=== PATIENT | female | born 1945 | race Caucasian/White ===

== ENCOUNTER 2018-12-23 01:50 | Emergency (ER) | payer OTHER ==
[2018-12-23] MEDS ORDERED: NA CHLORIDE 0.9% 500 ML ONE (02:12)
[2018-12-23] MEDS ORDERED: dilTIAZem HCl 25 MG/5 ML VIAL IV ONE (02:13)
[2018-12-23 02:20] LABS: Absolute Lymphocytes (CBC) 1.6 K/uL (0.7-4.9); Basophils % 0.8 % (0-1.3); Hematocrit 41.5 % (36.0-45.0); Lymphocytes % 33.3 % (15.3-44.8); RBC Red Blood Cell Count 4.46 M/uL (3.86-4.86)
[2018-12-23 02:21] LABS: Protime INR 2.2
[2018-12-23 02:45] LABS: BUN Blood Urea Nitrogen 20 mg/dL (7-18); Bicarbonate 32 mmol/L (21-32); Glucose Level 98 mg/dL (74-106); Magnesium 2.1 mg/dL (1.8-2.4); NT PRO-BNP 216 pg/mL (<125); Potassium 3.7 mmol/L (3.5-5.1); Sodium Level 141 mmol/L (136-145); Troponin (Emerg Dept Use Only) < 0.02 ng/mL (0.0-0.045)
--- NOTE | 2018-12-23 04:35 | EDPHYS ---
Physician Documentation [facility] Name: Jaki Andres Age: 73 yrs Sex: Female : 1945 Arrival Date: 12/23/2018 Time: 01:51 Bed 4 Private MD: ED Physician Alexandru Tucker HPI: 12/23 02:09 This 73 yrs old Female presents to ER via Unassigned with complaints of Chest rn Pressure, palpitations. 02:09 The patient or guardian reports chest pain that is located primarily in the substernal rn area. Onset: just prior to arrival. The pain radiates to Associated signs and symptoms: Pertinent positives: palpitations, Pertinent negatives: abdominal pain, cough, diaphoresis, shortness of breath, syncope, vomiting. The chest pain is described as a heaviness. Duration: The patient or guardian reports a single episode, that is still ongoing. Modifying factors: The symptoms are alleviated by nothing. the symptoms are aggravated by nothing. Severity of pain: At its worst the pain was moderate in the emergency department the pain has improved. The patient has experienced similar episodes in the past. Reports has known hx of atrial fibrillation, is visiting family because renovating house, playing cards, when felt chest tightness and palpitations, no fever, took a flecainide at home, given cardizem by EMS, feels better, no current chest pain. Takes xarelto and plavix. . 02:09 Reports just taken off of metoprolol by her engraver signature for bradycardic episodes. . rn Historical: - Allergies: 02:17 No Known Allergies; fc - Home Meds: 02:17 Plavix 75 mg Oral tab 1 tab once daily [Active]; lisinopril 5 mg Oral tab 1 tab once fc daily [Active]; pantoprazole 40 mg oral TbEC 1 tab once daily [Active]; ropinirole 0.5 mg oral tab 1 tab bid prn [Active]; tramadol 50 mg Oral tab 1 tab as needed [Active]; Xarelto 20 mg oral tab 1 tab once daily [Active]; temazepam 15 mg Oral cap 1 cap nightly [Active]; atorvastatin 10 mg oral tab 1 tab once daily [Active]; Iron CR Oral daily [Active]; Vitamin D Oral 2000 unit daily [Active]; Vitamin B-12 1,000 mcg Oral tab daily [Active]; multivitamin oral tab daily [Active]; - PMHx: 02:17 Atrial Fib; Myocardial infarction; CPR on Jan 24, 2018; Hypertension; restless leg fc syndrome; Factor V; Irritable bowel syndrome; Blood Clots; Sarcoidosis; High Cholesterol; - PSHx: 02:17 Heart stents; Cholecystectomy; Breast Reduction; Hysterectomy; feet surg; fc - Immunization history:: Last tetanus immunization: up to date Flu vaccine is up to date. - Social history:: Smoking status: Patient/guardian denies using tobacco, Patient/guardian denies using alcohol, street drugs. - Ebola Screening: : Patient negative for fever greater than or equal to 101.5 degrees Fahrenheit, and additional compatible Ebola Virus Disease symptoms Patient denies exposure to infectious person Patient denies travel to an Ebola-affected area in the 21 days before illness onset. - Family history:: not pertinent. - Hospitalizations: : No recent hospitalization is reported. ROS: 02:09 Constitutional: Negative for fever, chills, and weight loss, Eyes: Negative for injury, rn pain, redness, and discharge, Neck: Negative for injury, pain, and swelling, Cardiovascular: Negative for edema Respiratory: Negative for shortness of breath, cough, wheezing, and pleuritic chest pain, Abdomen/GI: Negative for abdominal pain, nausea, vomiting, diarrhea, and constipation, MS/Extremity: Negative for injury and deformity, Skin: Negative for injury, rash, and discoloration, Neuro: Negative for headache, weakness, numbness, tingling, and seizure. Exam: 02:08 ECG was reviewed by the Attending Physician. rn 02:09 Constitutional: This is a well developed, well nourished patient who is awake, alert, rn and in no acute distress. Head/Face: Normocephalic, atraumatic. ENT: MMM Cardiovascular: Tachycardic, regular Respiratory: Lungs have equal breath sounds bilaterally, clear to auscultation. No increased work of breathing, no retractions or nasal flaring. Abdomen/GI: soft, non-tender MS/ Extremity: Pulses equal, no cyanosis. Neurovascular intact. Full, normal range of motion. Equal circumference. Neuro: Awake and alert, GCS 15, oriented to person, place, time, and situation. Cranial nerves II-XII grossly intact. Motor strength 5/5 in all extremities. Sensory grossly intact. Cerebellar exam normal. Vital Signs: 01:50 BP 148 / 87; Pulse 126; Resp 20; Temp 97.2(O); Pulse Ox 99% on R/A; Weight 74.39 kg fc (R); Height 5 ft. 6 in. (167.64 cm) (R); Pain 1/10; 02:48 BP 117 / 73; Pulse 53; Resp 16; Pulse Ox 100% on R/A; Pain 0/10; ao 03:30 BP 108 / 72; Pulse 57; Resp 16; Pulse Ox 100% on R/A; Pain 0/10; lp1 04:00 BP 119 / 68; Pulse 60; Resp 14; Pulse Ox 100% on R/A; lp1 04:30 BP 101 / 50; Pulse 56; Resp 15; Pulse Ox 100% on R/A; lp1 05:28 BP 107 / 63; Pulse 55; Resp 14; Pulse Ox 98% on R/A; lp1 01:50 Body Mass Index 26.47 (74.39 kg, 167.64 cm) fc MDM: 01:55 Patient medically screened. rn 02:34 ED course: Pt asymptomatic, feels much better, HR now around 100, irregular, with some rn sinus beats. . 03:23 ED course: Pt asymptomatic, converted back to sinus, neg trop, repeat ECG in 50s, and rn rate related changes infero-lateral have resolved. Patient requests to go back home, convinced her to stay for repeat trop and ecg, and if normal can go home. Is going home tomorrow and urged her to talk to her engraver signature regarding metoprolol. . 03:25 Differential diagnosis: coronary artery disease pericarditis, pleurisy, atrial rn fibrillation/flutter. The patient was not given aspirin in the Emergency Department. Data reviewed: vital signs, nurses notes, lab test result(s), EKG, radiologic studies, plain films. Test interpretation: by ED physician or midlevel provider: ECG, plain radiologic studies, CXR neg for acute infiltrate or pneumothorax. Counseling: I had a detailed discussion with the patient and/or guardian regarding: the historical points, exam findings, and any diagnostic results supporting the discharge/admit diagnosis, lab results, radiology results. Response to treatment: the patient's condition has returned to base line, the patient is now symptom free. 12/23 02:04 Order name: Basic Metabolic Panel; Complete Time: 02:48 rn 12/23 02:04 Order name: CBC with Diff; Complete Time: 02:48 rn 12/23 02:04 Order name: Magnesium; Complete Time: 02:48 rn 12/23 02:04 Order name: NT PRO-BNP; Complete Time: 02:48 rn 12/23 02:04 Order name: PT-INR; Complete Time: 02:48 rn 12/23 02:04 Order name: Troponin (emerg Dept Use Only); Complete Time: 02:48 rn 12/23 02:04 Order name: XRAY Chest (1 view) rn 12/23 02:04 Order name: EKG; Complete Time: 02:04 rn 12/23 02:04 Order name: Cardiac monitoring; Complete Time: 02:04 rn 12/23 02:04 Order name: EKG - Nurse/Tech; Complete Time: 02:04 rn 12/23 03:24 Order name: Troponin (emerg Dept Use Only): draw at 0430; Complete Time: 05:20 rn 12/23 03:25 Order name: EK; Complete Time: 03:26 rn 12/23 02:04 Order name: IV Saline Lock; Complete Time: 02:04 rn 12/23 02:04 Order name: Labs collected and sent; Complete Time: 02:04 rn 12/23 02:04 Order name: O2 Per Protocol; Complete Time: 02:04 rn 12/23 02:04 Order name: O2 Sat Monitoring; Complete Time: 02:04 rn 12/23 03:25 Order name: EKG - Nurse/Tech: 0430; Complete Time: 04:44 rn EC:08 Rate is 128 beats/min. Rhythm is regular. QRS [place] is Normal. ME interval is shortened. rn QT interval is normal. No Q waves. ST Segment is depressed in leads II, III, aVF, V4, V5, V6. Clinical impression: Atrial Flutter. Interpreted by me. Reviewed by me. Administered Medications: 02:21 Drug: Cardizem 20 mg Route: IVP; Site: right antecubital; ao 03:28 Follow up: Response: No adverse reaction ao 02:21 Drug: NS 0.9% 500 ml Route: IV; Rate: bolus; Site: right antecubital; ao 03:28 Follow up: IV Status: Completed infusion; IV Intake: 500ml ao Disposition: 12/23/18 04:34 Discharged to Home. Impression: Atrial fibrillation and flutter, Chest pain, unspecified. - Condition is Stable. - Discharge Instructions: Atrial Fibrillation, Nonspecific Chest Pain, Atrial Flutter. - Medication Reconciliation Form, Thank You Letter, Antibiotic Education, Prescription Opioid Use form. - Follow up: Private Physician; When: 2 - 3 days; Reason: Recheck today's complaints, Re-evaluation by your physician. - Problem is new. - Symptoms have improved. Signatures: Dispatcher [employer] EDMS Farzana Brady RN RN Alexandru Tukcer MD MD rn Pena, Laura, RN RN lp1 Tobias Rolle RN RN ao Corrections: (The following items were deleted from the chart) 05:29 04:34 12/23/2018 04:34 Discharged to Home. Impression: Atrial fibrillation and flutter; lp1 Chest pain, unspecified. Condition is Stable. Discharge Instructions: Atrial Fibrillation, Nonspecific Chest Pain, Atrial Flutter. Forms are Medication Reconciliation Form, Thank You Letter, Antibiotic Education, Prescription Opioid Use. Follow up: Private Physician; When: 2 - 3 days; Reason: Recheck today's complaints, Re-evaluation by your physician. Problem is new. Symptoms have improved. eric
--- NOTE | 2018-12-23 04:35 | ER ---
Nurse's Notes [facility] Name: Jaki Andres Age: 73 yrs Sex: Female : 1945 Arrival Date: 12/23/2018 Time: 01:51 Bed 4 Private MD: Diagnosis: Atrial fibrillation and flutter;Chest pain, unspecified Presentation: 12/23 01:50 Presenting complaint: Patient states: that she was just finishing playing cards with family members and started to have chest pressure that radiated to her jaw. She then realized she was in Afib. Pt is here from [place]. States that she saw her dr yesterday and he stopped her Metoprolol. Pt did take a Flecainide which she has prn. Transition of care: patient was not received from another setting of care. Onset of symptoms was December 23, 2018. Risk Assessment: Do you want to hurt yourself or someone else? Patient reports no desire to harm self or others. Initial Sepsis Screen: Does the patient meet any 2 criteria? HR > 90 bpm. Yes Does the patient have a suspected source of infection? No. Patient's initial sepsis screen is negative. Care prior to arrival: Medication(s) given: Normal saline infusion, 200 ml Nitroglycerin, 0.4 mg SL x 1, Cardizem 20 mg IVP IV initiated. 20 GA, in the right antecubital area. 01:50 Method Of Arrival: EMS: [facility] 02:04 Acuity: [id number] 3 Historical: - Allergies: 02:17 No Known Allergies; - Home Meds: 02:17 Plavix 75 mg Oral tab 1 tab once daily [Active]; lisinopril 5 mg Oral tab 1 tab once fc daily [Active]; pantoprazole 40 mg oral TbEC 1 tab once daily [Active]; ropinirole 0.5 mg oral tab 1 tab bid prn [Active]; tramadol 50 mg Oral tab 1 tab as needed [Active]; Xarelto 20 mg oral tab 1 tab once daily [Active]; temazepam 15 mg Oral cap 1 cap nightly [Active]; atorvastatin 10 mg oral tab 1 tab once daily [Active]; Iron CR Oral daily [Active]; Vitamin D Oral 2000 unit daily [Active]; Vitamin B-12 1,000 mcg Oral tab daily [Active]; multivitamin oral tab daily [Active]; - PMHx: 02:17 Atrial Fib; Myocardial infarction; CPR on Jan 24, 2018; Hypertension; restless leg fc syndrome; Factor V; Irritable bowel syndrome; Blood Clots; Sarcoidosis; High Cholesterol; - PSHx: 02:17 Heart stents; Cholecystectomy; Breast Reduction; Hysterectomy; feet surg; fc - Immunization history:: Last tetanus immunization: up to date Flu vaccine is up to date. - Social history:: Smoking status: Patient/guardian denies using tobacco, Patient/guardian denies using alcohol, street drugs. - Ebola Screening: : Patient negative for fever greater than or equal to 101.5 degrees Fahrenheit, and additional compatible Ebola Virus Disease symptoms Patient denies exposure to infectious person Patient denies travel to an Ebola-affected area in the 21 days before illness onset. - Family history:: not pertinent. - Hospitalizations: : No recent hospitalization is reported. Screenin:50 Abuse screen: Denies threats or abuse. Nutritional screening: No deficits noted. fc Tuberculosis screening: No symptoms or risk factors identified. Fall Risk None identified. Assessment: 02:10 General: Appears in no apparent distress. comfortable, well groomed, well developed, ao well nourished, Behavior is calm, cooperative, appropriate for age. Pain: Denies pain. Pain does not radiate. Pain began 2 hours ago. Neuro: Level of Consciousness is awake, alert, obeys commands, Oriented to person, place, time, situation, Appropriate for age Moves all extremities. Full function Speech is normal, Facial symmetry appears normal. Cardiovascular: Heart tones S1 S2 Capillary refill < 3 seconds Patient's skin is warm and dry. Cardiovascular: Reports since Chest pressure and palpitations. Respiratory: Airway is patent Respiratory effort is even, unlabored, Respiratory pattern is regular, symmetrical, Breath sounds are clear bilaterally. GI: Abdomen is non-distended. : No signs and/or symptoms were reported regarding the genitourinary system. EENT: No signs and/or symptoms were reported regarding the EENT system. Derm: Skin is intact, Skin is pink, warm \T\ dry. normal, Skin temperature is warm. 02:30 Reassessment: Patient converted to SB after Cardizem given dose and taking to Dr Tucker. ao 02:49 Reassessment: Patient appears in no apparent distress at this time. Patient and/or ao family updated on plan of care and expected duration. Pain level reassessed. Patient is alert, oriented x 3, equal unlabored respirations, skin warm/dry/pink. Patient in no distress at this time. 03:30 Reassessment: Patient appears in no apparent distress at this time. Patient and/or lp1 family updated on plan of care and expected duration. Pain level reassessed. Patient is alert, oriented x 3, equal unlabored respirations, skin warm/dry/pink. Patient denies pain at this time. Patient states feeling better. 04:30 Reassessment: Dr. Tucker at bedside to discuss results and plan of care with patient and lp1 family at bedside; Patient aware of pending discharge when troponin results. Vital Signs: 01:50 BP 148 / 87; Pulse 126; Resp 20; Temp 97.2(O); Pulse Ox 99% on R/A; Weight 74.39 kg fc (R); Height 5 ft. 6 in. (167.64 cm) (R); Pain 1/10; 02:48 BP 117 / 73; Pulse 53; Resp 16; Pulse Ox 100% on R/A; Pain 0/10; ao 03:30 BP 108 / 72; Pulse 57; Resp 16; Pulse Ox 100% on R/A; Pain 0/10; lp1 04:00 BP 119 / 68; Pulse 60; Resp 14; Pulse Ox 100% on R/A; lp1 04:30 BP 101 / 50; Pulse 56; Resp 15; Pulse Ox 100% on R/A; lp1 05:28 BP 107 / 63; Pulse 55; Resp 14; Pulse Ox 98% on R/A; lp1 01:50 Body Mass Index 26.47 (74.39 kg, 167.64 cm) ED Course: 01:50 Arm band placed on Patient placed in an exam room, on a stretcher. 01:50 Patient has correct armband on for positive identification. hospital monitor on. Pulse fc ox on. NIBP on. 01:50 Maintain EMS IV. Dressing intact. Good blood return noted. Site clean \T\ dry. Gauge \T\ fc site: 20 gauge to right a/c. 01:51 Patient arrived in ED. ds1 01:55 Alexandru Tucker MD is Attending Physician. rn 02:04 Tobias Rolle, RN is Primary Nurse. ao 02:10 Triage completed. fc 02:23 Patient maintains SpO2 saturation greater than 95% on room air. ao 02:47 XRAY Chest (1 view) In Process Unspecified. EDMS 03:31 Report given to ABE Capone. ao 04:35 Lab(s) recollected, by me, sent to lab. lp1 04:35 No provider procedures requiring assistance completed. lp1 04:40 Estelita Chaves RN is Primary Nurse. lp1 05:29 IV discontinued, No redness/swelling at site. Pressure dressing applied. lp1 Administered Medications: 02:21 Drug: Cardizem 20 mg Route: IVP; Site: right antecubital; ao 03:28 Follow up: Response: No adverse reaction ao 02:21 Drug: NS 0.9% 500 ml Route: IV; Rate: bolus; Site: right antecubital; ao 03:28 Follow up: IV Status: Completed infusion; IV Intake: 500ml ao Intake: 03:28 IV: 500ml; Total: 500ml. ao Outcome: 04:34 Discharge ordered by . rn 05:29 Discharged to home ambulatory, with family. lp1 05:29 Condition: good 05:29 Discharge instructions given to patient, Instructed on discharge instructions, follow up and referral plans. Demonstrated understanding of instructions, follow-up care. 05:29 Patient left the ED. lp1 Signatures: Dispatcher [employer] EDTX Farzana Brady RN RN [facility] Alexandru Tucker MD MD rn Pena, Laura, RN RN lp1 Tobias Rolle RN RN ao Corrections: (The following items were deleted from the chart) 02:53 02:30 Reassessment: Patient converted to SB after cardian given dose and taking to Dr paige Tucker. ao
[2018-12-23 05:34] VITALS: TEMP 97.2
[2018-12-23 05:40] VITALS: BP 107/63; O2SAT 98
--- NOTE | 2018-12-23 08:31 | RAD REPORT ---
EXAM DESCRIPTION: Trudi Single View12/23/2018 2:47 am CLINICAL HISTORY: Chest pain COMPARISON: 2013 FINDINGS: The lungs appear clear of acute infiltrate. The heart is normal size IMPRESSION: No acute abnormalities displayed
--- NOTE | 2018-12-23 09:33 | EKG ---
Test Date: 2018-12-23 Test Time: 04:31:54 Die Try Out Worker: WES MEASUREMENT RESULTS: Intervals: Rate: 56 ND: 124 QRSD: 100 QT: 458 QTc: 441 [place]: P: 65 ND: 124 QRS: -6 T: 30 INTERPRETIVE STATEMENTS: Sinus bradycardia Incomplete right bundle branch block Borderline ECG Compared to ECG 12/23/2018 02:39:16 Myocardial infarct finding no longer present Electronically Signed On 12-23-18 09:32:47 CDT by Huey Valente
--- NOTE | 2018-12-23 09:34 | EKG ---
Test Date: 2018-12-23 Test Time: 02:00:45 Personnel Research Scientist: WES MEASUREMENT RESULTS: Intervals: Rate: 128 IA: QRSD: 92 QT: 352 QTc: 513 [place]: P: 264 IA: QRS: 8 T: -78 INTERPRETIVE STATEMENTS: Atrial flutter with 2:1 AV conduction Incomplete right bundle branch block Marked ST abnormality, possible inferolateral subendocardial injury Abnormal ECG Compared to ECG 05/07/1999 12:10:00 Incomplete right bundle-branch block now present ST (T wave) deviation now present Sinus rhythm no longer present T-wave abnormality no longer present Electronically Signed On 12-23-18 09:33:01 CDT by Huey Valente
--- NOTE | 2018-12-23 09:34 | EKG ---
Test Date: 2018-12-23 Test Time: 02:39:16 Meter Reading Clerk: WES MEASUREMENT RESULTS: Intervals: Rate: 49 OH: 144 QRSD: 96 QT: 462 QTc: 417 [place]: P: 51 OH: 144 QRS: -1 T: 17 INTERPRETIVE STATEMENTS: Sinus bradycardia Incomplete right bundle branch block Cannot rule out Anterior infarct, age undetermined Abnormal ECG Compared to ECG 12/23/2018 02:00:45 Myocardial infarct finding now present Atrial flutter no longer present ST (T wave) deviation no longer present Electronically Signed On 12-23-18 09:32:58 CDT by Huey Valente
== END 2018-12-23 05:29 | disposition home or self-care (01) ==
LOC: ER 01:50
DX: R07.9 Chest pain, unspecified (principal); I48.91 Unspecified atrial fibrillation; I48.92 Unspecified atrial flutter; I10 Essential (primary) hypertension; I25.2 Old myocardial infarction
CPT/HCPCS: 96361; 93005 ×3; 85025; 80048; 36415; 83735; 85610; 84484 ×2; 83880; 71045; 96374; 99285; J7040

== ENCOUNTER 2020-03-04 13:01 | Emergency (ER) | payer SELFPAY ==
--- OUTSIDE RECORDS SUMMARY | 2020-03-04 13:04 | XMS REPORT | Continuity of Care Document ---
:1945 Author Organization [employer] Care Team Providers Name Role Phone [employer] Unavailable Un available Problems Problem Status Onset Classification Date Comments Sourc e Date Reported Allergic Active Problem 10/01/2019 Ashesh rhinitis, Martins unspecified seasonality, unspecified trigger Chronic Active Problem 10/01/2019 Ashesh obstructive Martins pulmonary disease, unspecified COPD type Medications No Data Provided for This Section Allergies, Adverse Reactions, Alerts No Known Medication Allergies Immunizations No Data Provided for This Section Results No Data Provided for This Section Pathology Reports No Data Provided for This Section Diagnostic Reports No Data Provided for This Section Consultation Notes No Data Provided for This Section Discharge Summaries No Data Provided for This Section History and Physicals No Data Provided for This Section Vital Signs No Data Provided for This Section Encounters No Data Provided for This Section Procedures No Data Provided for This Section Assessment and Plan No Data Provided for This Section Plan of Care No Data Provided for This Section Social History No Data Provided for This Section Family History No Data Provided for This Section Advance Directives No Data Provided for This Section Functional Status No Data Provided for This Section
--- OUTSIDE RECORDS SUMMARY | 2020-03-04 13:04 | XMS REPORT | Continuity of Care Document ---
:1945 Author Organization [facility] t Address [address] [place] [address] Care Team Providers Name Role Phone Gamaliel Alvarez MD Primary Care Physician Pau MANZANO RDanielle Attending Clinician Payers Payer Name Policy Type Policy Effective Date Expiration Date Sour ce Number MEDICAREMEDICARE PART [id number] 2012 Valdemar kal A AND 00:00:00 Baptism [id number] 2012[place] [id number] 2000 [place] HMO,POS,EPO, 00:00:00 Baptism MC/[id number]/03/29 00-PresentHMO Problems Condition Condition Condition Status Onset Resolution Last Treating Co mments Source Name Details Category Date Date Treatment Clinician Date Atrial Atrial Disease Active 2019-03 [place] fibrillati fibrillati 2- Ga eseodi on on 00:00: st 00 Stented Stented Disease Active 2019-03 [place] coronary coronary 2 Method i artery artery 00:00: st 00 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 disease disease 00:00: st involving involving 00 [place] coronary coronary artery of artery of [place] heart heart without without angina angina pectoris pectoris Allergic Problem Active 2019-10-01 Mem oria rhinitis, 02:45:07 l unspecifie Allergic He agusto d rhinitis, seasonalit unspecifie y, d unspecifie seasonalit d trigger y, unspecifie d trigger Active Problem 10/01/2019 Ashesh Martins Chronic Problem Active 2019-10-01 Gonzalo patrice obstructiv 02:45:07 l e Chronic [place] pulmonary obstructiv disease, e unspecifie pulmonary d COPD disease, type unspecifie d COPD type Active Problem 10/01/2019 Ashesh Martins Allergies, Adverse Reactions, Alerts Allergy Allergy Status Severity Reaction(s) Onset Inactive Treating Comm ents Source Name Type Date Date Clinician No Known DA Active U 2011-03 [facility] 008 [facility] Social History Social Habit Start Date Stop Date Quantity Comments Source History [facility] Meth odist Alcohol Std Drinks History [facility] Meth odist Alcohol Binge Sex Assigned At [place] M ethodist Alcohol intake 2020-02-08 2020-02-08 Lifetime [place] Me thodist 00:00:00 00:00:00 non-drinker (finding) History SDOH 2020-02-08 2020-02-08 1 [place] Meth odist Alcohol Frequency 00:00:00 00:00:00 Smoking Status Start Date Stop Date Source Never smoker [place] Methodis t Medications Ordered Filled Start Stop Current Ordering Indication Dosage Frequency Signature Comments Components Source Medication Medication Date Date Medication? Clinician (SIG) Name Name multivitami 2019-03 Yes Take by Alexia wang 04-10 mouth. Methodi (THERAGRAN) 14:58: st tablet 27 cholecalcif 2019-03 Yes Take by Alexia callahan gudelia, 04-10 mouth. [facility] vitamin D3, 14:58: st 50 mcg 27 (2,000 unit) capsule capsule rivaroxaban 2019-03 Yes 20mg Take 20 mg Lai (Xarelto) 04-10 by mouth. Metho di 20 mg 14:58: st tablet 27 rivaroxaban 2019-03 2020- 20mg Take 20 mg Lai (XARELTO) 04-10 by mouth. Meth christian 10 mg 14:58: 00:00 st tablet 27 :00 traZODone 2019-03 Yes 50mg QD Take 50 mg Valdemar bowden (DESYREL) 0 by mouth Method i 50 MG 00:00: nightly. st tablet 00 lisinopriL 2019-03 Yes 5mg QD Take 5 mg [place] (PRINIVIL) 0-02 by mouth Metho di 5 mg tablet 00:00: daily. st 00 atorvastati Yes TAKE 1 [place] (LIPITOR) 9-02 TABLET BY Met hodi 80 MG 00:00: MOUTH st tablet 00 EVERY DAY aspirin Yes 81mg Take 81 mg [place] (ECOTRIN) 2-10 by mouth. Metho di 81 MG 00:00: st enteric 00 coated tablet pantoprazol 2018-03 Yes 40mg Take 40 mg Hoyt e 0-14 by mouth. Methodi (PROTONIX) 00:00: st 40 MG EC 00 tablet Vital Signs Vital Name Observation Time Observation Value Comments Source Systolic blood 2020-02-08 14:57:00 120 mm[Hg] Uzairto n Baptism pressure Diastolic blood 2020-02-08 14:57:00 63 mm[Hg] Uzairt on Baptism pressure Heart rate 2020-02-08 14:57:00 71 /min Lai Norton Body height 2020-02-08 14:57:00 165.1 cm Lai Norton Body weight 2020-02-08 14:57:00 74.844 kg Lai Norton BMI 2020-02-08 14:57:00 27.46 kg/m2 Lai Norton Procedures Procedure Date / Time Performed Performing Clinician Sourc e ECG 12-LEAD 2020-02-08 16:00:13 Salo Mai odrosa Plan of Care Planned Activity Planned Date Details Comments Source Future Scheduled 2019-10-09 INFLUENZA VACCINE Uzairto n [facility] Test 00:00:00 [code = INFLUENZA VACCINE] Future Scheduled 1997-09-11 BREAST CANCER [facility] thodist Test 00:00:00 SCREENING [code = BREAST CANCER SCREENING] Future Scheduled 1997-09-11 COLONOSCOPY SCREENING felisa Baptism Test 00:00:00 [code = COLONOSCOPY SCREENING] Future Scheduled 1997-09-11 SHINGLES VACCINES [place] [facility] Test 00:00:00 (#1) [code = SHINGLES VACCINES (#1)] Future Scheduled 1963 COVID-19 VACCINE (#1) [place] Baptism Test 00:00:00 [code = COVID-19 VACCINE (#1)] Encounters Start End Encounter Admission Attending Care Care Encounter Source Date/Time Date/Time Type Type Clinicians Facility Department ID 2020-02-08 2020-02-08 Outpatient [facility] [id number] [place] 00:00:00 00:00:00 SALO [address] 2019-09-30 2019-09-30 Outpatient Pulmonary Pulmonary 202 226 [facility]inic 11:09:00 11:09:00 Critical Critical alWo rks Care and Care and Sleep Sleep Results Test Description Test Time Test Comments Results Result Comments Source ECG 12 lead 2020-02-09 08:09:24 Test Item Value Reference Range Interpretation Comme nts Ventricular rate (test code = 253) 68 Atrial rate (test code = 255) 68 ME interval (test code = 266) 146 QRSD interval (test code = 260) 86 QT interval (test code = 264) 416 QTC interval (test code = 265) 442 P axis 1 (test code = 267) 72 QRS axis 1 (test code = 268) 20 T wave axis (test code = 270) 33 EKG impression (test code = 273) Normal sinus rhythm-Nonspecific ST abnormality-Abnormal ECG-No previous ECGs available- Lai Norton
--- OUTSIDE RECORDS SUMMARY | 2020-03-04 13:04 | XMS REPORT | Clinical Summary ---
:1945 Author Organization [facility] Address [address] [place] [address] Care Team Providers Name Role Phone Saji Alvarez MD Primary Care Provider Allergies Not on File Medications Medication Sig Dispensed Refills Start Date End Date Status multivitamin Take by 0 Active (THERAGRAN) tablet mouth. aspirin (ECOTRIN) Take 81 mg 0 04/19/2019 Active 81 MG enteric by mouth. coated tablet atorvastatin TAKE 1 0 11/10/2019 Active (LIPITOR) 80 MG TABLET BY tablet MOUTH EVERY DAY cholecalciferol, Take by 0 Act vika vitamin D3, 50 mcg mouth. (2,000 unit) capsule capsule lisinopriL Take 5 mg by 0 12/10/2019 Activ e (PRINIVIL) 5 mg mouth daily. tablet traZODone Take 50 mg 0 01/04/2020 Active (DESYREL) 50 MG by mouth tablet nightly. pantoprazole Take 40 mg 0 12/21/2018 Activ e (PROTONIX) 40 MG by mouth. EC tablet rivaroxaban Take 20 mg 0 Active (Xarelto) 20 mg by mouth. tablet rivaroxaban Take 20 mg 0 Discont inued (XARELTO) 10 mg by mouth. 0 (For mulary tablet change) Active Problems Problem Noted Date Atrial fibrillation 02/08/2020 Stented coronary artery 02/08/2020 Coronary artery disease involving [place] coronary mandeep ry of [place] heart 02/08/2020 without angina pectoris Encounters Date Type Specialty Care Team Description 02/08/2020 Office Visit Cardiology Hugh Mai MD Coronary artery disease involving [place] coronary artery of [place] heart without angina pectoris (Primary Dx); Atrial fibrilla tion, unspecified type (HCC); Stented coronar y artery 01/19/2020 Travel 12/02/2019 Travel after 03/04/2019 Medical History Medical History Date Comments Hyperlipidemia Coronary artery disease Factor V Leiden (HCC) Abnormal blood cardiolipin ratio Heart attack (HCC) Atrial fibrillation (HCC) Social History Tobacco Use Types Packs/Day Years Used Date Never Smoker Alcohol Use Drinks/Week oz/Week Comments Never Alcohol Habits Answer Date Recorded How often do you have a drink containing alcohol? Never 02/08/2020 How many drinks containing alcohol do you have on a typical Not asked day when you are drinking? How often do you have six or more drinks on one occasion? 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 Pulse 71 02/08/2020 2:57 PM DATA CENTER ENGINEER Temperature - - Respiratory Rate - - Oxygen Saturation - - Inhaled Oxygen Concentration - - Weight 74.8 kg (165 lb) 02/08/2020 2:57 PM DATA CENTER ENGINEER Height 165.1 cm (5' 5") 02/08/2020 2:57 PM DATA CENTER ENGINEER Body Mass Index 27.46 02/08/2020 2:57 PM DATA CENTER ENGINEER Plan of Treatment Date Type Specialty Care Team Description 02/06/2021 Office Visit Cardiology Hugh Mai MD [address] [facility] [address] [place] [address] 7703 0 [phone] Health Maintenance Due Date Last Done Comments COVID-19 VACCINE (#1) 1961 BREAST CANCER SCREENING 09/11/1997 COLONOSCOPY SCREENING 09/11/1997 SHINGLES VACCINES (#1) 09/11/1997 INFLUENZA VACCINE 10/09/2019 12/17/2016, 12/16/2016 65+ PNEUMOCOCCAL VACCINE Completed 10/26/2018, 05/03/2016 Procedures Procedure Name Priority Date/Time Associated Diagnosis Comme nts ECG 12-LEAD Routine 02/08/2020 4:00 PM Atrial fibrillation, Results for this DATA CENTER ENGINEER unspecified type (HCC) proce dure are in the results section. after 03/04/2019 Results ECG 12 lead (02/08/2020 4:00 PM DATA CENTER ENGINEER) Pathologist Sig nature Ventricular rate 68 [facility] Atrial rate 68 [facility] TX interval 146 [facility] QRSD interval 86 [facility] QT interval 416 [facility] QTC interval 442 [facility] P axis 1 72 [facility] QRS axis 1 20 [facility] T wave axis 33 [facility] EKG impression Normal sinus [facility] rhythm-Nonspecific ST abnormality-Abnormal ECG-No previous ECGs available-Electronicall y Signed By Demetri Summers MD ([id number]) on 02/09/2020 8:09:18 AM Specimen Narrative Performed At This result has an attachment that is no t available. 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
--- NOTE | 2020-03-04 15:34 | ER ---
Nurse's Notes [facility] Name: Jaki Andres Age: 74 yrs Sex: Female : 1945 Arrival Date: 03/04/2020 Time: 13:04 Bed Waiting Private MD: Saji Alvarez B Diagnosis: Presentation: 03/04 13:23 Chief complaint: Patient states: "Dr. Alvarez has been monitoring my symtpoms for the aa5 past 2 days, I am short of breath, chest pressure, and my oxygen level has been 90% and Dr. Alvarez told me to come if it was below 93%". Pt also reports cough, nausea, fever at home, headache, and back pain. Pt reports she is taking Augmentin for a possible sinus infection. Pt also reports pending COVID-19 results. Coronavirus screen: cough unrelated to allergies, headache. Ebola Screen: Patient negative for fever greater than or equal to 101.5 degrees Fahrenheit, and additional compatible Ebola Virus Disease symptoms. Initial Sepsis Screen: Does the patient meet any 2 criteria? No. Patient's initial sepsis screen is negative. Does the patient have a suspected source of infection? No. Patient's initial sepsis screen is negative. Risk Assessment: Do you want to hurt yourself or someone else? Patient reports no desire to harm self or others. Onset of symptoms was February 2020. 13:23 Acuity: SEGUNDO 3 aa5 13:23 Method Of Arrival: Ambulatory aa5 Historical: - Allergies: 13:30 No Known Allergies; aa5 - Home Meds: 13:30 Xarelto 20 mg Oral tab 1 tab once daily [Active]; lisinopril 5 mg Oral tab 1 tab once aa5 daily [Active]; trazodone 50 mg Oral tab daily [Active]; atorvastatin 10 mg Oral tab 1 tab once daily [Active]; aspirin 81 mg Oral chew 1 tab once daily [Active]; pantoprazole 40 mg Oral TbEC 1 tab once daily [Active]; temazepam 15 mg Oral cap 1 cap nightly [Active]; Vitamin D Oral 2000 unit daily [Active]; Methyl B-12 [Active]; AREDS [Active]; Vitamin C Oral [Active]; multivitamin oral oral [Active]; methyl folate [Active]; - PMHx: 13:30 Atrial Fib; blood clots; CPR on Jan 24, 2018; FACTOR V; High Cholesterol; Hypertension; aa5 Irritable bowel syndrome; Myocardial infarction; restless leg syndrome; sarcoidosis; - PSHx: 13:30 Heart stents; Cholecystectomy; Breast Reduction; Hysterectomy; feet surg; aa5 Vital Signs: 13:23 BP 152 / 77; Pulse 71; Resp 20 S; Temp 99.4(TE); Pulse Ox 98% on R/A; aa5 ED Course: 13:04 Patient arrived in ED. as 13:05 Saji Alvarez MD is Private Physician. as 13:22 Arm band placed on. aa5 13:26 Triage completed. aa5 13:30 EKG completed in triage. Results shown to MD. aa5 15:28 Philip Cabrera PA is PHCP. hugo 15:28 Choco Carbajal MD is Attending Physician. hugo Administered Medications: No medications were administered Outcome: 15:33 Patient left the ED. aa5 Signatures: Philip Cabrera PA PA jmm Martinez, Amelia as Calderon, Audri, RN RN aa5
[2020-03-04 15:38] VITALS: BP 152/77; TEMP 99.4; O2SAT 98
== END 2020-03-04 15:33 | disposition left against medical advice (07) ==
LOC: ER 13:01
DX: R06.02 Shortness of breath (principal); Z53.21 Procedure and treatment not carried out due to patient leaving prior to being seen by health care provider
CPT/HCPCS: 93005; 99281

== ENCOUNTER 2020-03-21 12:14 | Observation (INO) | payer OTHER ==
--- OUTSIDE RECORDS SUMMARY | 2020-03-21 12:16 | XMS REPORT | Clinical Summary ---
:1945 Author Organization [facility] Address [address] [place] [address] Care Team Providers Name Role Phone Saji [...] coronary artery 02/08/2020 Coronary artery disease involving [place] coronary mandeep ry of [place] heart 02/08/2020 without angina pectoris Encounters Date Type Specialty Care Team Description 02/08/2020 Office Visit Cardiology Hugh Mai MD Coronary artery disease involving [place] coronary artery of [place] heart without angina pectoris (Primary Dx); Atrial fibrilla tion, unspecified type (HCC); Stented coronar y artery 01/19/2020 Travel 12/02/2019 Travel after 03/21/2019 Medical History Medical History Date Comments Hyperlipidemia [...] Comments Blood Pressure 120/63 02/08/2020 2:57 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 Pulse 71 02/08/2020 2:57 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 Temperature - - Respiratory Rate - - Oxygen Saturation - - Inhaled Oxygen Concentration - - Weight 74.8 kg (165 lb) 02/08/2020 2:57 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 Height 165.1 cm (5' 5") 02/08/2020 2:57 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 Body Mass Index 27.46 02/08/2020 2:57 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 Plan of Treatment Date Type Specialty Care Team Description 02/06/2021 Office Visit Cardiology Hugh Mai MD [address] [facility] [address] [place] [address] 7703 0 [phone] Health Maintenance Due Date Last Done Comments COVID-19 VACCINE (#1) 1961 BREAST CANCER SCREENING 09/11/1997 COLONOSCOPY SCREENING 09/11/1997 SHINGLES VACCINES (#1) 09/11/1997 INFLUENZA VACCINE 10/09/2019 12/17/2016, 12/16/2016 65+ PNEUMOCOCCAL VACCINE Completed 10/26/2018, 05/03/2016 Procedures Procedure Name Priority Date/Time Associated Diagnosis Comme nts ECG 12-LEAD Routine 02/08/2020 4:00 PM Atrial fibrillation, Results for this GIS INSTRUCTOR unspecified type (HCC) proce dure are in the results section. after 03/21/2019 Results ECG 12 lead (02/08/2020 4:00 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) Pathologist Sig nature Ventricular rate 68 [facility] Atrial rate 68 [facility] ND interval 146 [facility] QRSD interval 86 [facility] QT interval 416 [facility] MUSE QTC interval 442 HM MUSE P axis 1 72 [facility] M[facility] QRS axis 1 20 [facility] T wave axis 33 [facility] M[facility] EKG impression Normal sinus [facility] MUSE rhythm-Nonspecific ST abnormality-Abnormal ECG-No previous ECGs available-Electronicall y Signed By Demetri Summers MD ([id number]) on 02/09/2020 8:09:18 AM Specimen Narrative Performed At This result has an attachment that is no t available. Performing Organization Address City/State/ZIP Code Phon e Number 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
--- OUTSIDE RECORDS SUMMARY | 2020-03-21 12:16 | XMS REPORT | Continuity of Care Document ---
:1945 Author Organization [facility] Care Team Providers Name Role Phone [facility] Unavailable Un available Problems Problem Status Onset [...]
--- OUTSIDE RECORDS SUMMARY | 2020-03-21 12:17 | XMS REPORT | Continuity of Care Document ---
:1945 Author Organization [facility] t Address [address] [place] [address] Care Team Providers Name Role Phone Gamaliel Alvarez MD Primary Care Physician Pau MANZANO RDanielle Attending Clinician Payers Payer Name Policy Type Policy Effective Date Expiration Date Sour ce Number MEDICAREMEDICARE PART [id number] 2012 Valdemar kal A AND 00:00:00 [facility] [id number] 2012- [place] [id number] 2000 [place] HMO,POS,EPO, 00:00:00 [facility] [id number]/03/29 [facility] Problems Condition Condition Condition Status Onset Resolution Last Treating Co mments Source Name Details Category Date Date Treatment Clinician Date Atrial Atrial Disease Active 2019-03 [place] fibrillati fibrillati 04-10 De eseodi on on 00:00: st 00 Stented Stented Disease Active 2019-03 [place] coronary coronary 04-10 Method i artery artery 00:00: st 00 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 Method[facility] disease disease 00:00: st involving involving 00 [place] coronary coronary artery of artery of [place] heart heart without without angina angina pectoris pectoris Allergic Problem Active 2019-10-01 Mem oria rhinitis, 02:45:07 l unspecifie Allergic He rmann d rhinitis, seasonalit unspecifie y, d unspecifie seasonalit d trigger y, unspecifie d trigger Active Problem 10/01/2019 Ashesh Martins Chronic Problem Active 2019-10-01 Gonzalo patrice obstructiv 02:45:07 l e Chronic [place] pulmonary obstructiv disease, e unspecifie pulmonary d COPD disease, type unspecifie d COPD type Active Problem 10/01/2019 Ashesh Martins Allergies, Adverse Reactions, Alerts Allergy Allergy Status Severity Reaction(s) Onset Inactive Treating Comm ents Source Name Type Date Date Clinician No Known DA Active U 2011-03 [facility] Allergie 008 [place] s 00:[facility]: [facility] Social History Social Habit Start Date Stop Date Quantity Comments Source History [facility] Meth odist Alcohol Std Drinks History [facility] Meth odist Alcohol Binge Sex Assigned At [place] M ethodist Alcohol intake 2020-02-08 2020-02-08 Lifetime [place] Me thodist 00:00:00 00:00:00 non-drinker (finding) History SDOH 2020-02-08 2020-02-08 1 [place] Meth odist Alcohol Frequency 00:00:00 00:00:00 Smoking Status Start Date Stop Date Source Never smoker [place] Methodis t Medications Ordered Filled Start Stop [...] Yes 50mg QD Take 50 mg Valdemar uston (DESYREL) 0-27 by mouth Method i 50 MG 00:00: nightly. st tablet 00 lisinopriL 2019-03 Yes 5mg QD Take 5 mg Valdemar uston (PRINIVIL) 0-02 by mouth Metho di [...] blood 2020-02-08 14:57:00 120 mm[Hg] Uzairto n [facility] pressure Diastolic blood 2020-02-08 14:57:00 63 mm[Hg] [place] on [facility] pressure Heart rate 2020-02-08 14:57:00 71 /min Lai Norton Body height 2020-02-08 14:57:00 165.1 cm Lai Norton Body weight 2020-02-08 14:57:00 74.844 kg Lai Norton BMI 2020-02-08 14:57:00 27.46 kg/m2 Lai Norton Procedures Procedure Date / Time Performed Performing Clinician Sour e ECG 12-LEAD 2020-02-08 16:00:13 Salo Mai odrosa Plan of Care Planned Activity Planned Date Details Comments Source Future Scheduled 2019-10-09 INFLUENZA VACCINE Uzairto n [facility] Test 00:00:00 [code = INFLUENZA VACCINE] Future Scheduled 1997-09-11 BREAST CANCER [facility] thodist Test 00:00:00 SCREENING [code = BREAST CANCER SCREENING] Future Scheduled 1997-09-11 COLONOSCOPY SCREENING Valdemar bowden [facility] Test 00:00:00 [code = COLONOSCOPY SCREENING] Future Scheduled 1997-09-11 SHINGLES VACCINES Uzairto n [facility] Test 00:00:00 (#1) [code = SHINGLES VACCINES (#1)] Future Scheduled 1963 COVID-19 VACCINE (#1) Valdemar bowden [facility] Test 00:00:00 [code = COVID-19 VACCINE (#1)] Encounters Start End Encounter Admission Attending Care Care Encounter Source Date/Time Date/Time Type Type Clinicians Facility Department ID 2020-02-08 2020-02-08 Outpatient [facility] [id number] 324 [place] 00:00:00 00:00:[address] SALO [address] [...] Atrial rate (test code = 255) 68 [place] interval (test code = 266) 146 QRSD [...]
[2020-03-21] MEDS ORDERED: AZITHROMYCIN 500 MG INJ IVPB ONE (14:02)
[2020-03-21] MEDS ORDERED: ONDANSETRON 4 MG/2 ML VIAL ONE (14:02)
[2020-03-21] MEDS ORDERED: MORPHINE 2 MG/ML SYR ONE ×2 (14:02→14:56)
[2020-03-21] MEDS ORDERED: NA CHLORIDE 0.9% 500 ML ONE (14:02)
[2020-03-21] MEDS ORDERED: CEFTRIAXONE/SWI 1gm 1 GM/10 ML SYR ONE (14:02)
[2020-03-21] MEDS ORDERED: METHYLPREDNISOLONE 125 MG INJ ONE (14:12)
[2020-03-21] MEDS ORDERED: ALBUTEROL INHALER 60 PUFF/8 GM IH ONE (14:13)
[2020-03-21 14:15] LABS: Absolute Lymphocytes (CBC) 0.7 K/uL (0.7-4.9); Basophils % 0.5 % (0-1.3); Hematocrit 40.5 % (36.0-45.0); Lymphocytes % 10.6 % (15.3-44.8); MPV 7.8 fL (7.6-11.3); Protime INR 1.66; RBC Red Blood Cell Count 4.43 M/uL (3.86-4.86)
--- NOTE | 2020-03-21 14:30 | ER ---
Nurse's Notes [facility] Name: Jaki Andres Age: 74 yrs Sex: Female : 1945 Arrival Date: 03/21/2020 Time: 12:16 Bed 23 Private MD: Diagnosis: Dyspnea;Chest pain, unspecified;Fever, unspecified;Malaise and fatigue Presentation: 03/21 12:17 Chief complaint: EMS states: pt from home, call was for difficult breathing and then tw2 chest pain, no st elevation on ekg, showed normal sinus, had some wheezing noted that has resolved, c/o body aches, fever chills, all COVID like symptoms. Coronavirus screen: chills, congestion, cough unrelated to allergies, difficulty breathing, fatigue, fever, shortness of breath, Client presents with at least one sign or symptom that may indicate coronavirus-19. Standard/surgical mask placed on the client. Provider contacted for isolation considerations. Ebola Screen: Patient denies travel to an Ebola-affected area in the 21 days before illness onset. Initial Sepsis Screen: Does the patient meet any 2 criteria? RR > 20 per min. No. Patient's initial sepsis screen is negative. Does the patient have a suspected source of infection? Yes: Productive cough/pneumonia. Risk Assessment: Do you want to hurt yourself or someone else? Patient reports no desire to harm self or others. Onset of symptoms was March 21, 2020. 12:17 Method Of Arrival: EMS: [facility] tw2 12:17 Acuity: SEGUNDO 3 tw2 12:18 Ebola Screen: Patient denies travel to an Ebola-affected area in the 21 days before ll1 illness onset. Triage Assessment: 12:17 General: Appears in no apparent distress. well groomed, Behavior is anxious. Pain: tw2 Denies pain. Historical: - Allergies: 12:19 No Known Allergies; ll1 - PMHx: 12:18 Atrial Fib; blood clots; CPR on Jan 24, 2018; Irritable bowel syndrome; restless leg ll1 syndrome; sarcoidosis; Myocardial infarction; FACTOR V; High Cholesterol; Hypertension; - PSHx: 12:18 Heart stents; Breast Reduction; Cholecystectomy; Hysterectomy; feet surg; ll1 - Immunization history:: Flu vaccine is up to date. - Social history:: Smoking status: Patient denies any tobacco usage or history of. Screenin:17 Abuse screen: Denies threats or abuse. Nutritional screening: No deficits noted. ll1 Tuberculosis screening: No symptoms or risk factors identified. Fall Risk IV access (20 points). Total Chavez Fall Scale indicates No Risk (0-24 pts). Assessment: 12:20 General: Appears ill, Behavior is calm, cooperative, appropriate for age. Pain: ll1 Complains of pain in body Quality of pain is described as aching, Pain began 1 day ago. Neuro: Level of Consciousness is awake, alert, obeys commands, Oriented to person, place, time, situation, Appropriate for age Backer Up are equal bilaterally Moves all extremities. Full function Gait is steady, Speech is normal, Facial symmetry appears normal, Reports headache weakness. Cardiovascular: Reports chest pain, fatigue, shortness of breath, Heart tones S1 S2 Capillary refill < 3 seconds Clubbing of nail beds is absent JVD is absent Patient's skin is warm and dry. Rhythm is regular. Respiratory: Reports shortness of breath Airway is patent Trachea midline Respiratory effort is even, unlabored, Respiratory pattern is regular, symmetrical, Breath sounds are clear bilaterally. Onset: The symptoms/episode began/occurred yesterday, the patient has mild shortness of breath. GI: No deficits noted. Musculoskeletal: Circulation, motion, and sensation intact. Capillary refill < 3 seconds, Range of motion: intact in all extremities, Reports pain in generalized body aches. 13:20 Reassessment: No changes from previously documented assessment. Patient and/or family ll1 updated on plan of care and expected duration. Pain level reassessed. 14:20 Reassessment: No changes from previously documented assessment. Patient and/or family ll1 updated on plan of care and expected duration. Pain level reassessed. 15:20 Reassessment: Patient appears in no apparent distress at this time. No changes from ll1 previously documented assessment. Patient and/or family updated on plan of care and expected duration. Pain level reassessed. 16:20 Reassessment: No changes from previously documented assessment. Patient and/or family ll1 updated on plan of care and expected duration. Pain level reassessed. 17:20 Reassessment: Patient appears in no apparent distress at this time. No changes from ll1 previously documented assessment. Patient and/or family updated on plan of care and expected duration. Pain level reassessed. 03/22 01:40 Reassessment: Patient appears in no apparent distress at this time. Patient is alert, rr5 oriented x 3, equal unlabored respirations, skin warm/dry/pink. breathing treatment given by RT ordered in [facility]. 03:22 Reassessment: Patient appears in no apparent distress at this time. resting eyes closed rr5 breathing spontaneously at room air. Vital Signs: 03/21 12:17 BP 145 / 71; Pulse 80; Resp 22; Pulse Ox 98% on R/A; tw2 03/22 01:30 BP 105 / 65; Pulse 60; Resp 16; Temp 97.8; Pulse Ox 99% on 15% Nebulizer Mask; rr5 ED Course: 03/21 12:16 Patient arrived in ED. tw2 12:16 Mary Gerber, RN is Primary Nurse. ll1 12:16 Arm band placed on Patient placed in an exam room, on a stretcher. ll1 12:19 Triage completed. tw2 12:30 Inserted saline lock: 22 gauge in left antecubital area, using aseptic technique. Blood ll1 collected. 12:35 Choco Carbajal MD is Attending Physician. sheila 12:42 Patient has correct armband on for positive identification. Bed in low position. Call ll1 light in reach. Side rails up X2. cafeteria monitor on. Pulse ox on. NIBP on. 14:07 XRAY Chest (1 view) In Process Unspecified. EDMS 14:27 CT Chest For PE Angio In Process Unspecified. EDMS 14:29 Marilynn Pederson MD is Hospitalizing Provider. [facility] 21:00 Troponin I Sent. 3 21:00 Repeat lab(s) drawn. by ky, sent to lab. jp3 22:14 Primary Nurse role handed off by Mary Gerber, RN sg 22:14 Melquiades Song, ABE is Primary Nurse. sg 22:45 Pt moved to Hospital bed (ER HOLD). 3 03/22 01:30 No provider procedures requiring assistance completed. Patient admitted, IV remains in rr5 place. intact, No redness/swelling at site. Administered Medications: 03/21 14:07 Drug: NS 0.9% 500 ml Route: IV; Rate: bolus; Site: left antecubital; ll1 14:07 Drug: morphine 2 mg Route: IVP; Site: left antecubital; ll1 14:07 Drug: Zofran (Ondansetron) 4 mg Route: IVP; Site: left antecubital; ll1 14:47 Follow up: Response: No adverse reaction; RASS: Alert and Calm (0) ll1 14:08 Drug: SOLU-Medrol 125 mg Route: IVP; Site: left antecubital; ll1 14:46 Follow up: Response: No adverse reaction; RASS: Alert and Calm (0) ll1 14:08 Drug: Albuterol HFA Inhaler 4 puffs Route: Inhalation; ll1 14:46 Follow up: Response: No adverse reaction; RASS: Alert and Calm (0) ll1 14:39 Drug: Rocephin 1 grams Route: IV; Rate: per protocol; Site: left antecubital; ll1 14:46 Follow up: Response: No adverse reaction; RASS: Alert and Calm (0); IV Status: ll1 Completed infusion; IV Intake: 20ml 14:39 Drug: Zithromax 500 mg Route: IVPB; Infused Over: 1 hrs; Site: left antecubital; 1 14:45 Drug: morphine 2 mg Route: IVP; Site: left antecubital; ll1 14:46 Follow up: Response: No adverse reaction; Pain is decreased; RASS: Alert and Calm (0) ll1 Intake: 14:46 IV: 20ml; Total: 20ml. ll1 Outcome: 14:30 Decision to Hospitalize by Provider. [facility] 03/22 01:30 Admitted to ER Hold. Please see [facility] for further documentation. rr5 Condition: stable Instructed on the need for admit. 17:20 Patient left the ED. aa5 Signatures: Dispatcher [employer] EDMS Melquiades Song RN RN sg Anderson, Corey, MD MD cha Calderon, Audri RN RN aa5 Monika Cortes RN RN Adolph Lambert jp3 [place] RN RN rr5 Mary Gerber RN RN ll1 Corrections: (The following items were deleted from the chart) 03/21 21:13 21:12 Troponin I drawn and sent. jp3 jp3
--- NOTE | 2020-03-21 14:30 | EDPHYS ---
Physician Documentation [facility] Name: Jaki Andres Age: 74 yrs Sex: Female : 1945 Arrival Date: 03/21/2020 Time: 12:16 Bed 23 Private MD: ED Physician Choco Carbajal HPI: 03/21 13:40 This 74 yrs old Female presents to ER via EMS with complaints of Breathing sheila Difficulty, Chest Pain > 30 y/o. 13:40 The patient has shortness of breath at rest, with light activity. Onset: The sheila symptoms/episode began/occurred 3 day(s) ago. Duration: The symptoms are continuous, and are steadily getting worse. The patient's shortness of breath has no apparent modifying factors. Historical: - Allergies: 12:19 No Known Allergies; ll1 - PMHx: 12:18 Atrial Fib; blood clots; CPR on Jan 24, 2018; Irritable bowel syndrome; restless leg ll1 syndrome; sarcoidosis; Myocardial infarction; FACTOR V; High Cholesterol; Hypertension; - PSHx: 12:18 Heart stents; Breast Reduction; Cholecystectomy; Hysterectomy; feet surg; ll1 - Immunization history:: Flu vaccine is up to date. - Social history:: Smoking status: Patient denies any tobacco usage or history of. ROS: 13:42 Constitutional: Negative for fever, chills, and weight loss, Eyes: Negative for injury, sheila pain, redness, and discharge, ENT: Negative for injury, pain, and discharge, Neck: Negative for injury, pain, and swelling, Abdomen/GI: Negative for abdominal pain, nausea, vomiting, diarrhea, and constipation, Back: Negative for injury and pain, : Negative for injury, bleeding, discharge, and swelling, MS/Extremity: Negative for injury and deformity, Skin: Negative for injury, rash, and discoloration, Neuro: Negative for headache, weakness, numbness, tingling, and seizure, Psych: Negative for depression, anxiety, suicide ideation, homicidal ideation, and hallucinations, Allergy/Immunology: Negative for hives, rash, and allergies, Endocrine: Negative for neck swelling, polydipsia, polyuria, polyphagia, and marked weight changes, Hematologic/Lymphatic: Negative for swollen nodes, abnormal bleeding, and unusual bruising. 13:42 Cardiovascular: Positive for chest pain, of the chest. 13:42 Respiratory: Positive for cough, shortness of breath, at rest. wheezing, expiratory. 13:42 MS/extremity: Positive for pain, of the right arm, left arm, right leg and left leg. Exam: 13:42 Constitutional: This is a well developed, well nourished patient who is awake, alert, sheila and in no acute distress. Head/Face: Normocephalic, atraumatic. Eyes: Pupils equal round and reactive to light, extra-ocular motions intact. Lids and lashes normal. Conjunctiva and sclera are non-icteric and not injected. Cornea within normal limits. Periorbital areas with no swelling, redness, or edema. ENT: Nares patent. No nasal discharge, no septal abnormalities noted. Tympanic membranes are normal and external auditory canals are clear. Oropharynx with no redness, swelling, or masses, exudates, or evidence of obstruction, uvula midline. Mucous membranes moist. Neck: Trachea midline, no thyromegaly or masses palpated, and no cervical lymphadenopathy. Supple, full range of motion without nuchal rigidity, or vertebral point tenderness. No Meningismus. Chest/axilla: Normal chest wall appearance and motion. Nontender with no deformity. No lesions are appreciated. Cardiovascular: Regular rate and rhythm with a normal S1 and S2. No gallops, murmurs, or rubs. Normal PMI, no JVD. No pulse deficits. Abdomen/GI: Soft, non-tender, with normal bowel sounds. No distension or tympany. No guarding or rebound. No evidence of tenderness throughout. Back: No spinal tenderness. No costovertebral tenderness. Full range of motion. Female : Normal external genitalia. Skin: Warm, dry with normal turgor. Normal color with no rashes, no lesions, and no evidence of cellulitis. MS/ Extremity: Pulses equal, no cyanosis. Neurovascular intact. Full, normal range of motion. Neuro: Awake and alert, GCS 15, oriented to person, place, time, and situation. Cranial nerves II-XII grossly intact. Motor strength 5/5 in all extremities. Sensory grossly intact. Cerebellar exam normal. Normal gait. Psych: Awake, alert, with orientation to person, place and time. Behavior, mood, and affect are within normal limits. 13:42 Respiratory: the patient does not display signs of respiratory distress, Respirations: normal, no acute changes, labored breathing, is not present, asymmetrical chest movement, is not seen, Breath sounds: wheezing: expiratory that is mild, is scattered, Respiratory rate: 22 13:48 ECG was reviewed by the Attending Physician. [facility] Vital Signs: 12:17 BP 145 / 71; Pulse 80; Resp 22; Pulse Ox 98% on R/A; tw2 03/22 01:30 BP 105 / 65; Pulse 60; Resp 16; Temp 97.8; Pulse Ox 99% on 15% Nebulizer Mask; rr5 MDM: 03/21 12:36 Patient medically screened. sheila 13:42 Differential diagnosis: asthma, Bronchitis abnormal EKG, coronary artery disease sheila congestive heart failure bronchitis, pneumonia gastritis, hiatal hernia, peptic ulcer disease, pulmonary embolus, stable angina, unstable angina, Myocardial Infarction pulmonary edema, Pulmonary Embolism reactive airway disease, Unstable Angina. Antibiotic administration: Rocephin and Zithromax given. Differential Diagnosis sepsis, flu. HEART Score: History: Slightly Suspicious (0), ECG: Non specific repolarization disturbance / LBTB / PM (1), Age: > or = 65 years (2), Risk Factors: > or = 3 Risk factors for atherosclerotic disease (2), [Hypercholesterolemia] [Hypertension] [+ Family HX] Troponin: < or = 1 x Normal Limit (0). The patient was not given aspirin in the Emergency Department. Not indicated due to patient's past medical history. The patient's Wells Deep Vein Thrombosis Score was calculated as follows: Total Score: 0. This patient was found to be at low risk for a deep vein thrombosis by using the Well's assessment criteria Total Score: 0-2 Pts- Low Risk. The patient's pulmonary embolism risk score was calculated as follows: Total Score: 0-2 points. This patient was found to be at low risk for a pulmonary embolism by using the Well's assessment criteria Total Score: 0-2 points. This patient was found to be at low risk for a pulmonary embolism by using the Well's assessment criteria. VINAYAK Risk Score: 1 - patient's age is greater or equal to 65 years, 1 - Three or more CAD risk factors, 1- Known CAD, 1 - Recent [<24hrs] Severe Angina, TOTAL SCORE = 4. Immunization status: Pneumococcal vaccine: Influenza vaccine: Data reviewed: vital signs, nurses notes, lab test result(s), EKG, radiologic studies, CT scan, plain films. Data interpreted: monitor technician: rate is 80 beats/min, rhythm is regular, Pulse oximetry: on room air is 98 %. 03/21 13:40 Order name: Basic Metabolic Panel [facility] 03/21 13:40 Order name: CBC with Diff [facility] 03/21 13:40 Order name: LFT's [facility] 03/21 13:40 Order name: Magnesium [facility] 03/21 13:40 Order name: NT PRO-BNP [facility] 03/21 13:40 Order name: PT-INR; Complete Time: 14:59 [facility] 03/21 13:40 Order name: Troponin (emerg Dept Use Only); Complete Time: 14:59 [facility] 03/21 13:40 Order name: Lipase; Complete Time: 14:59 [facility] 03/21 13:40 Order name: Blood Culture Adult (2) [facility] 03/21 13:40 Order name: Lactate; Complete Time: 14:59 [facility] 03/21 13:40 Order name: Urine Culture [facility] 03/21 13:40 Order name: Strep; Complete Time: 14:59 [facility] 03/21 13:40 Order name: Ferritin; Complete Time: 14:59 [facility] 03/21 13:40 Order name: CRP; Complete Time: 14:59 [facility] 03/21 13:41 Order name: Basic Metabolic Panel; Complete Time: 14:59 [facility] 03/21 13:41 Order name: CBC with Automated Diff; Complete Time: 14:59 [facility] 03/21 13:41 Order name: Liver (Hepatic) Function; Complete Time: 14:59 [facility] 03/21 13:41 Order name: Magnesium; Complete Time: 14:59 [facility] 03/21 13:41 Order name: NT PRO-BNP; Complete Time: 14:59 [facility] 03/21 14:34 Order name: Throat Culture [facility] 03/21 15:03 Order name: COVID-19/FLU A+B [facility] 03/21 15:12 Order name: CREATININE WHOLE BLOOD [facility] 03/21 17:27 Order name: Basic Metabolic Panel [facility] 03/21 17:27 Order name: Basic Metabolic Panel [facility] 03/21 17:27 Order name: CBC with Automated Diff [facility] 03/21 17:27 Order name: CBC with Automated Diff [facility] 03/21 17:27 Order name: Lipid Profile [facility] 03/21 17:27 Order name: Lipid Profile [facility] 03/21 13:40 Order name: XRAY Chest (1 view); Complete Time: 14:59 [facility] 03/21 13:40 Order name: EKG; Complete Time: 13:42 [facility] 03/21 13:40 Order name: Cardiac monitoring; Complete Time: 01:06 [facility] 03/21 13:40 Order name: EKG - Nurse/Tech; Complete Time: 13:43 [facility] 03/21 13:40 Order name: IV Saline Lock; Complete Time: 13:43 [facility] 03/21 13:40 Order name: Labs collected and sent; Complete Time: 13:43 [facility] 03/21 13:40 Order name: O2 Per Protocol; Complete Time: 13:43 [facility] 03/21 13:40 Order name: O2 Sat Monitoring; Complete Time: 13:43 [facility] 03/21 13:40 Order name: CT Chest For PE Angio; Complete Time: 14:59 [facility] 03/21 17:27 Order name: CONS Physician Consult [facility] 03/21 17:27 Order name: Heart Healthy [facility] 03/21 17:27 Order name: Troponin I [facility] 03/21 17:27 Order name: Troponin I [facility] 03/22 06:41 Order name: Manual Differential EDMS EC:48 Rate is 80 beats/min. Rhythm is regular. QRS [place] is Normal. MT interval is normal. QRS sheila interval is normal. QT interval is prolonged at 470 msec. No Q waves. T waves are Normal. No ST changes noted. Clinical impression: NSR w/ Non-specific ST/T Changes and No evidence of ischemia. Interpreted by me. Reviewed by me. Administered Medications: 14:07 Drug: NS 0.9% 500 ml Route: IV; Rate: bolus; Site: left antecubital; ll1 14:07 Drug: morphine 2 mg Route: IVP; Site: left antecubital; ll1 14:07 Drug: Zofran (Ondansetron) 4 mg Route: IVP; Site: left antecubital; ll1 14:47 Follow up: Response: No adverse reaction; RASS: Alert and Calm (0) ll1 14:08 Drug: SOLU-Medrol 125 mg Route: IVP; Site: left antecubital; ll1 14:46 Follow up: Response: No adverse reaction; RASS: Alert and Calm (0) ll1 14:08 Drug: Albuterol HFA Inhaler 4 puffs Route: Inhalation; ll1 14:46 Follow up: Response: No adverse reaction; RASS: Alert and Calm (0) ll1 14:39 Drug: Rocephin 1 grams Route: IV; Rate: per protocol; Site: left antecubital; 1 14:46 Follow up: Response: No adverse reaction; RASS: Alert and Calm (0); IV Status: ll1 Completed infusion; IV Intake: 20ml 14:39 Drug: Zithromax 500 mg Route: IVPB; Infused Over: 1 hrs; Site: left antecubital; 1 14:45 Drug: morphine 2 mg Route: IVP; Site: left antecubital; 1 14:46 Follow up: Response: No adverse reaction; Pain is decreased; RASS: Alert and Calm (0) 1 Disposition: 03/21/20 14:30 Hospitalization ordered by Marilynn Pederson for Inpatient Admission. Preliminary diagnosis are Dyspnea, Chest pain, unspecified, Fever, unspecified, Malaise and fatigue. - Bed requested for [facility] ER HOLD. - Status is Inpatient Admission. aa5 - Condition is Fair. - Problem is new. - Symptoms have improved. Signatures: Dispatcher [employer] EDMS Kelly Kuhn Corey, MD MD cha Calderon, Audri, RN RN aa5 Mary Gerber RN RN ll1 Corrections: (The following items were deleted from the chart) 14:17 13:42 CORONAVIRUS+MR.LAB.BRZ ordered. [facility] 14:17 13:42 Influenza Screen (A \T\ B)+BA.LAB.BRZ ordered. [facility] EDIA 14:43 14:30 Hospitalization Ordered by Marilynn Pederson MD for Inpatient Admission. Preliminary bd diagnosis is Dyspnea; Chest pain, unspecified; Fever, unspecified; Malaise and fatigue. Bed requested for Telemetry/MedSurg (Inpatient). Status is Inpatient Admission. Condition is Fair. Problem is new. Symptoms have improved. sheila 03/22 17:20 03/21 14:43 03/21/2020 14:30 Hospitalization Ordered by Marilynn Pederson MD for Inpatient aa5 Admission. Preliminary diagnosis is Dyspnea; Chest pain, unspecified; Fever, unspecified; Malaise and fatigue. Bed requested for [facility] ER HOLD. Status is Inpatient Admission. Condition is Fair. Problem is new. Symptoms have improved. bd
[2020-03-21 14:32] LABS: ALT/SGPT 21 U/L (12-78); AST/SGOT 22 U/L (15-37); Albumin 3.4 g/dL (3.4-5.0); Alkaline Phosphatase 62 U/L (45-117); BUN Blood Urea Nitrogen 17 mg/dL (7-18); Bicarbonate 29 mmol/L (21-32); Bilirubin Direct 0.2 mg/dL (0-0.2); Bilirubin Total 0.8 mg/dL (0.2-1.0); Ferritin 67.3 ng/mL (8-388); Glucose Level 96 mg/dL (74-106); Lipase 83 U/L (73-393); Magnesium 2.1 mg/dL (1.8-2.4); NT PRO-BNP 124 pg/mL (<125); Protein, Total 6.9 g/dL (6.4-8.2); Sodium Level 138 mmol/L (136-145); Troponin (Emerg Dept Use Only) < 0.02 ng/mL (0.0-0.045)
--- NOTE | 2020-03-21 14:51 | RAD REPORT ---
EXAM DESCRIPTION: CT - Chest For Pe Angio - 03/21/2020 2:28 pm CLINICAL HISTORY: Chest pain COMPARISON: None. TECHNIQUE: Dynamically enhanced axial 3 mm thick images of the chest were obtained during administra tion of <100> mL Isovue 370 IV contrast. Coronal and oblique reconstruction images were generated and reviewed. Exam utilizes a protocol for optimal evaluation of pulmonary arterial tree. Maximum intensity projections 3D imaging was utilized All CT scans are performed using dose optimization technique as appropriate and may include automated exposure control or mA/KV adjustment according to patient size. FINDINGS: A pulmonary embolus is not seen. A thoracic aortic aneurysm is not noted. Ascending thoracic aorta has an AP diameter of 3.5 centimete rs A pleural effusion is not seen. A pericardial effusion is not seen. A lung consolidation is not present. IMPRESSION: Negative for a pulmonary embolism.
--- NOTE | 2020-03-21 14:52 | RAD REPORT ---
EXAM DESCRIPTION: Trudi Single View03/21/2020 2:12 pm CLINICAL HISTORY: Chest pain COMPARISON: December 2019 FINDINGS: The lungs appear clear of acute infiltrate. The heart is mildly enlarged IMPRESSION: No acute abnormalities displayed
[2020-03-21 15:02] LABS: SARS-COV-2 RT PCR NEGATIVE (NEGATIVE)
[2020-03-21] MEDS ORDERED: ACETAMINOPHEN 500 MG TAB PO PRN (17:21)
[2020-03-21] MEDS ORDERED: ZOLPIDEM TARTRATE 5 MG TABLET PO PRN (17:21)
[2020-03-21] MEDS ORDERED: MORPHINE 4 MG/ML SYR IV PRN (17:21)
[2020-03-21] MEDS ORDERED: ALPRAZOLAM 0.25 MG TABLET PO PRN (17:21)
[2020-03-21] MEDS: ENOXAPARIN 40 MG/0.4 ML SQ SCH (18:00)
[2020-03-21 19:18] VITALS: BMI 25.7
[2020-03-21] MEDS ORDERED: ENOXAPARIN 40 MG/0.4 ML SQ ONE (20:00)
[2020-03-21] MEDS ORDERED: METOPROLOL TAR 50 MG TAB ONE (20:00)
[2020-03-21] MEDS: ALBUTEROL 2.5 MG/3 ML NEB SOL NEB SCH (20:14)
[2020-03-21] MEDS: IPRATROPIUM BROM 0.5MG/2.5ML NEB SCH (20:14)
[2020-03-21] MEDS ORDERED: ALBUTEROL 2.5 MG/3 ML NEB SOL ONE (20:30)
[2020-03-21] MEDS ORDERED: IPRATROPIUM BROM 0.5MG/2.5ML ONE (20:30)
[2020-03-21] MEDS: METOPROLOL TAR 50 MG TAB PO SCH (21:00)
[2020-03-22] MEDS ORDERED: METHYLPREDNISOLONE 125 MG INJ IV SCH
[2020-03-22] MEDS: ALBUTEROL 2.5 MG/3 ML NEB SOL NEB SCH ×3 (01:35→14:30)
[2020-03-22] MEDS: IPRATROPIUM BROM 0.5MG/2.5ML NEB SCH ×3 (01:35→14:30)
[2020-03-22] MEDS ORDERED: IPRATROPIUM BROM 0.5MG/2.5ML ONE ×3 (01:47→14:42)
[2020-03-22] MEDS ORDERED: ALBUTEROL 2.5 MG/3 ML NEB SOL ONE ×3 (01:47→14:42)
[2020-03-22 04:58] LABS: Absolute Lymphocytes (CBC) 0.3 K/uL (0.7-4.9); Basophils % 0.1 % (0-1.3); Hematocrit 37.5 % (36.0-45.0); Lymphocytes % 5.2 % (15.3-44.8); MPV 7.8 fL (7.6-11.3); RBC Red Blood Cell Count 4.08 M/uL (3.86-4.86)
[2020-03-22 05:19] LABS: Potassium 3.7 mmol/L (3.5-5.1)
[2020-03-22 06:41] LABS: Blood Morphology Comment NOT SEEN (NOT SEEN); Platelet Estimate ADEQ
[2020-03-22] MEDS ORDERED: METHYLPREDNISOLONE 125 MG INJ ONE (07:34)
[2020-03-22] MEDS ORDERED: ACETAMINOPHEN 500 MG TAB ONE (08:27)
--- NOTE | 2020-03-22 08:53 | P.HP ---
Certification for Inpatient Patient admitted to: Observation With expected LOS: <2 Midnights Patient will require the following post-hospital care: None Practitioner: I am a practitioner with admitting privileges, knowledge of patient current condition, hospital course, and medical plan of care. Services: Services provided to patient in accordance with Admission requirements found in Title 42 Section 412.3 of the Code of Federal Regulations Patient History Date of Service: 03/21/20 Reason for admission: Shortness of breath History of Present Illness: Patient is a 74-year-old female came to the hospital with difficulty breathing. She has anaphylactic symptoms and was not able to take a deep breath. She has been following up with Pulmonary and has been put on inhaler therapy along with steroid therapy. She is been told she has elevated he is eosinophil levels. She was also having some chest discomfort so she came into the hospital for furt her evaluation. In the emergency room her CT scan & her chest x-ray was negative. Her troponins have been unremarkable as well. At this time she will be admitted for observation. Allergies No Known Allergies Allergy (Unverified 03/21/20 20:57) Home Medications: Aspirin 81 mg PO DAILY 03/21/20 Atorvastatin Calcium [Lipitor] 80 mg PO DAILY 03/21/20 Lisinopril [Zestril] 5 mg PO DAILY 03/21/20 Multivit with Iron,Minerals [Complete Senior] 1 each PO DAILY 03/21/20 Pantoprazole [Protonix Tab] 40 mg PO DAILY PRN 03/21/20 Rivaroxaban [Xarelto] 20 mg PO DAILY 03/21/20 Tramadol HCl [Ultram] 50 mg PO DAILY PRN 03/21/20 Trazodone [Desyrel] 50 mg PO DAILY 03/21/20 Ubiquinol 100 mg MC DAILY 03/21/20 Vit C/Ascorb Sod/Multivit-Min [Emergen-C 500 mg Chewable Tab] 1,000 mg PO DAILY 03/21/20 Vit D3/Vit K2/Calc Frutoborate [Move Free Awtni-Avjgtf-J0-D3] 1 each PO DAILY 03/21/20 - Past Medical/Surgical History Has patient received pneumonia vaccine in the past: Yes -: Asthma -: Atrial fibrillation -: Sarcoidosis -: Factor V Leiden -: Hypertension -: Dyslipidemia -: Cholecystectomy -: Hysterectomy -: Foot surgery -: Breast reduction - Family History Father Family History: Reviewed- Non-Contributory - Social History Smoking Status: Never smoker Alcohol use: No CD- Drugs: No Caffeine use: No Review of Systems 10-point ROS is otherwise unremarkable Physical Examination - Vital Signs Temperature: 98 F Blood Pressure: 90/47 Pulse: 55 Respirations: 18 Pulse Ox (%): 98 - Physical Exam General: Alert, In no apparent distress, Oriented x3 HEENT: Atraumatic, PERRLA, Mucous membr. moist/pink, EOMI, Sclerae nonicteric Neck: Supple, 2+ carotid pulse no bruit, No LAD, Without JVD or thyroid abnormality Respiratory: Clear to auscultation bilaterally, Normal air movement Cardiovascular: Regular rate/rhythm, Normal S1 S2, No murmurs Gastrointestinal: Normal bowel sounds, Soft and benign, Non-distended, No tenderness Musculoskeletal: No clubbing, No swelling, No tenderness Integumentary: No rashes Neurological: Normal gait, Normal speech, Normal strength at 5/5 x4 extr, Normal tone, Sensation intact, Cranial nerves 3-12 intact, Normal affect Lymphatics: No axilla or inguinal lymphadenopathy - Studies Laboratory Data (last 24 hrs) 03/21/20 14:00: PT 19.4 H, INR 1.66 03/21/20 14:00: WBC 6.2, Hgb 13.7, Hct 40.5, Plt Count 191 03/21/20 14:00: Sodium 138, Potassium 4.0, BUN 17, Creatinine 0.69, Glucose 96, Magnesium 2.1, Total Bilirubin 0.8, AST 22, ALT 21, Alkaline Phosphatase 62, Lipase 83 Microbiology Data (last 24 hrs): 03/21/20 14:00 Throat Group A Streptococcus Rapid Screen - Final Assessment & Plan - Problems (Diagnosis) (1) Asthma with acute exacerbation Current Visit: Yes Status: Acute (2) Hypertension Current Visit: Yes Status: Acute (3) Factor 5 Leiden mutation, heterozygous Current Visit: Yes Status: Acute (4) Sarcoidosis Current Visit: Yes Status: Acute (5) History of atrial fibrillation Current Visit: Yes Status: Acute - Plan Plan: 1. Continue with albuterol and Atrovent nebs 2. Continue with IV steroids 3. IgE levels 4. Serial troponin 5. Room air O2 sats 6. Repeat chest x-ray in the morning 7. Peak flows as needed 8. GI and DVT prophylaxis Discharge Plan: Home Plan to discharge in: 24 Hours - Advance Directives Does patient have a Living Will: No Does patient have a Durable POA for Healthcare: No - Code Status/Comfort Care Code Status Assessed: Yes Code Status: Full Code Critical Care: No Time Spent Managing PTS Care (In Minutes): 40
[2020-03-22 08:58] VITALS: O2SAT 100
[2020-03-22] MEDS: METOPROLOL TAR 50 MG TAB PO SCH (09:00)
[2020-03-22] MEDS ORDERED: RIVAROXABAN 20 MG TABLET PO SCH (09:00)
[2020-03-22] MEDS ORDERED: HOME MED 1 EA UNK (Vit C/Ascorb Sod/Multivit-Min [Emergen-C 500 Mg Chewable Tab] 500 MG Ta PO SCH (09:00)
[2020-03-22] MEDS ORDERED: ASPIRIN 81 MG CHEWABLE TABLET PO SCH (09:00)
[2020-03-22] MEDS ORDERED: HOME MED 1 EA UNK (Vit D3/Vit K2/Calc Frutoborate [Move Free Ultra-Borate-K2-D3] Tablet) PO SCH (09:00)
[2020-03-22] MEDS ORDERED: PANTOPRAZOLE 40MG TABLET PO PRN (09:00)
[2020-03-22] MEDS ORDERED: ASPIRIN EC 81 MG TAB PO SCH (09:00)
[2020-03-22] MEDS ORDERED: ATORVASTATIN 80 MG TAB PO SCH (09:00)
[2020-03-22] MEDS ORDERED: TRAMADOL HCL 50 MG TAB PO PRN (09:00)
[2020-03-22] MEDS ORDERED: UBIQUINOL MC SCH (09:00)
[2020-03-22] MEDS ORDERED: TRAZODONE 50 MG TABLET PO SCH (09:00)
[2020-03-22] MEDS: ENOXAPARIN 40 MG/0.4 ML SQ SCH (09:00)
[2020-03-22] MEDS ORDERED: MULTIVITAMIN TAB PO SCH (09:00)
[2020-03-22] MEDS ORDERED: ASPIRIN 81 MG CHEWABLE TABLET ONE (09:55)
[2020-03-22] MEDS ORDERED: MULTIVITAMIN TAB PO ONE (09:55)
[2020-03-22] MEDS ORDERED: METOPROLOL TAR 50 MG TAB ONE (09:55)
--- NOTE | 2020-03-22 16:11 | EKG ---
Test Date: 2020-03-21 Test Time: 12:20:31 Plumber Pipe Fitting: KELLEY MEASUREMENT RESULTS: Intervals: Rate: 80 IA: 144 QRSD: 90 QT: 408 QTc: 470 [place]: P: 72 IA: 144 QRS: 21 T: -7 INTERPRETIVE STATEMENTS: Normal sinus rhythm Nonspecific ST and T wave abnormality Prolonged QT Abnormal ECG Compared to ECG 03/04/2020 13:36:52 ST (T wave) deviation now present Prolonged QT interval now present Electronically Signed On 03-22-20 16:08:49 PRESSURE CONTROLLER by Miah Mann
[2020-03-22 18:18] VITALS: BP 128/86; TEMP 98.9
--- NOTE | 2020-03-22 20:16 | CON ---
Date of Consultation: 03/22/2020 Reason For Consultation: Chest pain. History Of Present Illness: Ms. Andres is a 74-year-old woman with a history of coronary artery dis ease status post stents in the past. She has a history of irritable bowel syndrome, sarcoidosis, par oxysmal atrial fibrillation, factor 5 deficiency, dyslipidemia, and hypertension. She apparently had a history of cardiac arrest in 2018 in January. She comes in with chest pain. She described as so mething small stuck in her throat. Symptoms have been going on for few hours. No nausea, vomiting, diaphoresis, PND, orthopnea, pedal edema, palpitation, or syncope. So far her workup including EKG, chest x-ray, CT of the chest and laboratory evaluation included troponin and BNP are negative. She i s symptoms free now and would like to go home. Past Medical History: As stated above. Allergies: NONE. Review of Systems: Negative. Social History: Negative. Family History: Noncontributory. Medications: At home include aspirin, Lipitor, lisinopril, and Xarelto. Physical Examination: General: Very pleasant lady. No acute distress. Vital Signs: Stable, afebrile. HEENT: Negative. Neck: Supple with no bruit. Chest: Clear to auscultation and percussion. Cardiac: Exam revealed a regular rhythm and rate. No murmurs, gallops, or rubs. Abdomen: Benign. Extremities: Revealed no clubbing, cyanosis, or edema. Diagnostic Data: As stated above. Impression And Plan: Atypical chest pain, probably gastroesophageal reflux disease-related or irrita ble bowel syndrome related. Her last stress test was about a year ago. She sees Dr. Andrea Alvarez as an outpatient. Her other issues including CAD, status post stent, I believe, are stable. I do no t think we are dealing with any cardiac pain. She should have a stress test however in the near futu re as a precaution. She has a history of atrial fibrillation. She is status post ablation. She joselin es Xarelto for that and she is in normal rhythm now. Her other problems including factor 5 deficienc y, hypertension, dyslipidemia, all of which are stable. She also has a history of sarcoidosis. Case was discussed with Dr. Pederson. She will go home in the near future and follow up with Dr. Alvarez. NB/MODL Voice ID: [id number] Report ID: [id number]
--- NOTE | 2020-03-29 01:55 | P.DS ---
Discharge Date: 03/22/20 Disposition: ROUTINE DISCHARGE Discharge Condition: GOOD Reason for Admission: Shortness of breath - Problems (1) Asthma with acute exacerbation Status: Acute (2) Hypertension Status: Acute (3) Factor 5 Leiden mutation, heterozygous Status: Acute (4) Sarcoidosis Status: Acute (5) History of atrial fibrillation Status: Acute Brief History of Present Illness: Patient is a 74-year-old female came to the hospital with difficulty breathing. She has anaphylactic symptoms and was not able to take a deep breath. She has been following up with Pulmonary and has been put on inhaler therapy along with steroid therapy. She is been told she has elevated he is eosinophil levels. She was also having some chest discomfort so she came into the hospital for further evaluation. In the emergency room her CT scan & her chest x-ray was negative. Her troponins have been unremarkable as well. At this time she will be admitted for observation. Hospital Course: Patient did well during hospital stay. No abnormal rhythms noted on telemetry. Cardiac workup was unremarkable. Patient was seen by cardiology and at this time the plan is for further outpatient follow up. Follow with PCP for further workup as well. Vital Signs/Physical Exam: Temp Pulse Resp BP Pulse Ox 98.9 F 72 16 128/86 97 03/22/20 16:40 03/22/20 16:40 03/22/20 16:40 03/22/20 16:40 03/22/20 16:40 General: Alert, In no apparent distress, Oriented x3 Laboratory Data at Discharge: WBC 6.0 K/uL (4.3-10.9) 03/22/20 04:38 Hgb 12.5 g/dL (12.0-15.0) 03/22/20 04:38 Hct 37.5 % (36.0-45.0) 03/22/20 04:38 Plt Count 176 K/uL (152-406) 03/22/20 04:38 PT 19.4 SECONDS (9.5-12.5) H 03/21/20 14:00 INR 1.66 03/21/20 14:00 Sodium 140 mmol/L (136-145) 03/22/20 04:38 Potassium 3.7 mmol/L (3.5-5.1) 03/22/20 04:38 BUN 21 mg/dL (7-18) H 03/22/20 04:38 Creatinine 0.67 mg/dL (0.55-1.3) 03/22/20 04:38 Glucose 164 mg/dL (74-106) H 03/22/20 04:38 Magnesium 2.1 mg/dL (1.8-2.4) 03/21/20 14:00 Total Bilirubin 0.8 mg/dL (0.2-1.0) 03/21/20 14:00 AST 22 U/L (15-37) 03/21/20 14:00 ALT 21 U/L (12-78) 03/21/20 14:00 Alkaline Phosphatase 62 U/L (45-117) 03/21/20 14:00 Troponin I < 0.02 ng/mL (0.0-0.045) 03/21/20 21:00 Triglycerides 44 mg/dL (<150) 03/21/20 21:00 Cholesterol 143 mg/dL (<200) 03/21/20 21:00 HDL Cholesterol 62 mg/dL (40-60) H 03/21/20 21:00 Cholesterol/HDL Ratio 2.31 03/21/20 21:00 Lipase 83 U/L (73-393) 03/21/20 14:00 Home Medications: Aspirin 81 mg PO DAILY 03/21/20 Atorvastatin Calcium [Lipitor] 80 mg PO DAILY 03/21/20 Lisinopril [Zestril] 5 mg PO DAILY 03/21/20 Multivit with Iron,Minerals [Complete Senior] 1 each PO DAILY 03/21/20 Pantoprazole [Protonix Tab] 40 mg PO DAILY PRN 03/21/20 Rivaroxaban [Xarelto] 20 mg PO DAILY 03/21/20 Tramadol HCl [Ultram] 50 mg PO DAILY PRN 03/21/20 Trazodone [Desyrel] 50 mg PO DAILY 03/21/20 Ubiquinol 100 mg MC DAILY 03/21/20 Vit C/Ascorb Sod/Multivit-Min [Emergen-C 500 mg Chewable Tab] 1,000 mg PO DAILY 03/21/20 Vit D3/Vit K2/Calc Frutoborate [Move Free Zztup-Nearql-N9-D3] 1 each PO DAILY 03/21/20 predniSONE [Deltasone*] 10 mg PO BID #20 tab 03/22/20 New Medications: predniSONE [Deltasone*] 10 mg PO BID #20 tab Patient Discharge Instructions: OK TO DC IV AND DC HOME. FOLLOW-UP WITH PRIMARY CARE PROVIDER IN 1-2 WEEKS. FOLLOW-UP WITH CARDIOLOGY IN 1-2 WEEKS. RETURN TO THE ER IF SYMPTOMS WORSEN. CALL or TEXT DR. TAPIA AT [phone] IF ANY QUESTIONS REGARDING HOSPITAL STAY. PLEASE CALL THE FLOOR AT [phone] IF ANY MEDICATION OR NURSING QUESTIONS. Diet: AHA Activity: Fall precautions Followup: Miah Mann MD [ACTIVE - CAN ADMIT] - Saji Alvarez MD [Primary Care Provider] - Time spent managing pt's care (in minutes): 35
== END 2020-03-22 17:00 | disposition home or self-care (01) ==
LOC: ER 12:14 → ERHOLD 17:21
PROVIDERS: ADMIT Hospitalist; ATTEND Hospitalist
DX: R07.89 Other chest pain (principal); J45.901 Unspecified asthma with (acute) exacerbation; I25.10 Atherosclerotic heart disease of native coronary artery without angina pectoris; Z95.5 Presence of coronary angioplasty implant and graft; K58.9 Irritable bowel syndrome, unspecified; I48.0 Paroxysmal atrial fibrillation; Z20.822 Contact with and (suspected) exposure to COVID-19; D86.9 Sarcoidosis, unspecified; D68.2 Hereditary deficiency of other clotting factors; E78.5 Hyperlipidemia, unspecified; I10 Essential (primary) hypertension; Z86.74 Personal history of sudden cardiac arrest; Z79.01 Long term (current) use of anticoagulants; R94.31 Abnormal electrocardiogram [ECG] [EKG]
CPT/HCPCS: 0240U; 36415; 71045; 71275; 80048; 80061; 80076; 82565; 82728; 82785; 83605; 83690; 83735; 83880; 84484; 85025; 85610; 86140; 87040; 87070; 87081; 93005; 94640; 96374; 96375; 99285; G0378; J0456; J0696; J1650; J2270; J2405; J2930; J7040; Q9967

== ENCOUNTER 2021-07-06 16:40 | Emergency (ER) | payer OTHER ==
--- OUTSIDE RECORDS SUMMARY | 2021-07-06 16:43 | XMS REPORT | Continuity of Care Document ---
:1945 Author Organization [facility] t Address [address] [place] [address] Care Team Providers Name Role Phone BRIDGET Attending Clinician Unavailable MYRIAM Attending Clinician Unavailable Payers Payer Name Policy Type Policy Number Effective Date Expiration Date S ource Problems This patient has no known problems. Allergies, Adverse Reactions, Alerts Allergy Allergy Status Severity Reaction(s) Onset Inactive Treating Comm ents Source Name Type Date Date Clinician No Known DA Active U 2011-03 [facility] All[facility]ie 0-08 [place] [facility] 00:00: [address] Medications This patient has no known medications. Procedures This patient has no known procedures. Encounters Start End Encounter Admission Attending Care Care Encounter Source Date/Time Date/Time Type Type Clinicians Facility Department ID 2021-02-06 2021-02-06 [facility] [id number] [place] 00:00:00 00:00:00 SALO [address] 2020-05-07 2020-05-07 Outpatient MYRIAM [facility] [id number] [address] [place] 00:00:00 00:00:00 MEGHAN [address] 2020-04-16 2020-04-16 Outpatient [facility] [id number] [place] 00:00:00 00:00:[address] 2020-02-08 2020-02-08 [facility] [id number] [place] 00:00:00 00:00:[address] SALO [address] Results This patient has no known results.
[2021-07-06] MEDS ORDERED: METOCLOPRAMIDE 10 MG/2mL INJ ONE (17:32)
[2021-07-06] MEDS ORDERED: NA CHLORIDE 0.9% 250 ML ONE (17:32)
[2021-07-06 17:46] LABS: Absolute Lymphocytes (CBC) 1.4 K/uL (0.7-4.9); Hematocrit 40.5 % (36.0-45.0); Lymphocytes % 24.9 % (15.3-44.8); MPV 7.4 fL (7.6-11.3); RBC Red Blood Cell Count 4.41 M/uL (3.86-4.86)
[2021-07-06 17:47] LABS: Protime INR 1.51
[2021-07-06] MEDS ORDERED: DIPHENHYDRAMINE 50 MG/ML VIAL ONE (17:55)
--- NOTE | 2021-07-06 18:00 | RAD REPORT ---
EXAM DESCRIPTION: CT - Head Brain Wo Cont - 07/06/2021 5:46 pm CLINICAL HISTORY: Headache COMPARISON: None TECHNIQUE: Computed axial tomography of the head was obtained. IV contrast was not requested. All CT scans are performed using dose optimization technique as appropriate and may include automated exposure control or mA/KV adjustment according to patient size. FINDINGS: An intracranial bleed is not seen . The ventricles are normal in caliber. No extra-axial fluid collection is noted. No significant hypodense area is visualized within the brain. Almost complete opacification of the frontal and ethmoid sinuses. Mild mucoperiosteal thickening maxi llary sinus. Mastoids are clear IMPRESSION: No acute intracranial abnormality is seen. If patient's symptoms persist MRI of the bra in would be recommended. Marked frontal and ethmoid sinusitis
[2021-07-06 18:01] LABS: Albumin 3.5 g/dL (3.4-5.0); Bilirubin Direct 0.2 mg/dL (0-0.2); Bilirubin Total 0.7 mg/dL (0.2-1.0); Potassium 3.5 mmol/L (3.5-5.1); Protein, Total 6.9 g/dL (6.4-8.2)
--- NOTE | 2021-07-06 18:27 | RAD REPORT ---
EXAM DESCRIPTION: Trudi Single View07/06/2021 6:03 pm CLINICAL HISTORY: Chest pain COMPARISON: 2020 FINDINGS: The lungs appear clear of acute infiltrate. The heart is normal size IMPRESSION: No acute abnormalities displayed
[2021-07-06] MEDS ORDERED: MORPHINE 2 MG/ML SYR ONE (18:42)
[2021-07-06] MEDS ORDERED: FENTANYL CITR 100 MCG/2 ML ONE (19:27)
--- NOTE | 2021-07-06 19:36 | ER ---
Nurse's Notes [facility] Name: Jaki Andres Age: 75 yrs Sex: Female : 1945 Arrival Date: 07/06/2021 Time: 16:41 Bed 4 Private MD: Diagnosis: Bacterial Infection of the Frontal Sinus;Vomiting Presentation: 07/06 16:52 Chief complaint: Patient states: "I have been having n/v for 2 days, unable to keep ab2 anything down and my allergic asthma is flaring up and I am having a chest pressure.". Coronavirus screen: Vaccine status: Patient reports receiving the 2nd dose of the covid vaccine. Client denies travel out of the [place] in the last 14 days. At this time, the client does not indicate any symptoms associated with coronavirus-19. Ebola Screen: Patient negative for fever greater than or equal to 101.5 degrees Fahrenheit, and additional compatible Ebola Virus Disease symptoms Patient denies exposure to infectious person. Patient denies travel to an Ebola-affected area in the 21 days before illness onset. No symptoms or risks identified at this time. Initial Sepsis Screen: Does the patient meet any 2 criteria? No. Patient's initial sepsis screen is negative. Does the patient have a suspected source of infection? No. Patient's initial sepsis screen is negative. Risk Assessment: Do you want to hurt yourself or someone else? Patient reports no desire to harm self or others. Onset of symptoms is unknown. 16:52 Method Of Arrival: Ambulatory ab2 16:52 Acuity: SEGUNDO 3 ab2 Triage Assessment: 16:56 General: Appears in no apparent distress. uncomfortable, Behavior is calm, cooperative, ab2 appropriate for age. Pain:. Neuro: Level of Consciousness is awake, alert, obeys commands, Oriented to person, place, time, situation, Appropriate for age. Cardiovascular:. Respiratory: Airway is patent Respiratory effort is even, unlabored, Respiratory pattern is regular, symmetrical. GI: Abdomen is round non-distended, Reports intolerance of fluids, intolerance of food, nausea, vomiting. : No deficits noted. No signs and/or symptoms were reported regarding the genitourinary system. Derm: Skin is intact, is healthy with good turgor, Skin is pink, warm \\T\\ dry. Historical: - Allergies: 16:55 No Known Allergies; ab2 - PMHx: 16:55 Atrial Fib; Hypertension; Myocardial infarction; blood clots; CPR on Jan 24, 2018; ab2 FACTOR V; High Cholesterol; Irritable bowel syndrome; restless leg syndrome; sarcoidosis; - Immunization history:: Adult Immunizations up to date. - Social history:: Smoking status: Patient denies any tobacco usage or history of. Screenin:09 Abuse screen: Denies threats or abuse. Nutritional screening: No deficits noted. jh6 Tuberculosis screening: No symptoms or risk factors identified. Fall Risk IV access (20 points). Assessment: 17:07 General: Appears in no apparent distress. comfortable, well groomed, well nourished, 6 Behavior is calm, cooperative, appropriate for age. Pain: Complains of pain in forehead Pain does not radiate. Pain currently is 8 out of 10 on a pain scale. Quality of pain is described as aching, pressure, Pain began 2-3 days ago. Is continuous, Alleviated by rest, Aggravated by increased activity, Noted to be quiet/stoic. Neuro: No deficits noted. Level of Consciousness is awake, alert, obeys commands, Oriented to person, place, time, situation, Field Collector are equal bilaterally Moves all extremities. Reports headache frontal area, since 2 days prior. Cardiovascular: No deficits noted. Reports Denies diaphoresis, fatigue, lightheadedness, palpitations, shortness of breath, syncope, vomiting. Respiratory: No deficits noted. Airway is patent Respiratory effort is even, unlabored. GI: Abdomen is flat, non-distended, Bowel sounds present X 4 quads. Abd is soft and non tender. 17:56 Reassessment: No changes from previously documented assessment. Patient and/or family jh6 updated on plan of care and expected duration. Pain level reassessed. pt has had no episodes of vomiting and appears restful. spouse is at bedside and call light in reach. 18:47 Reassessment: Patient appears in no apparent distress at this time. No changes from jd3 previously documented assessment. Patient and/or family updated on plan of care and expected duration. Pain level reassessed. Patient is alert, oriented x 3, equal unlabored respirations, skin warm/dry/pink. 19:45 Reassessment: Patient and/or family updated on plan of care and expected duration. Pain vc1 level reassessed. Patient is alert, oriented x 3, equal unlabored respirations, skin warm/dry/pink. Patient denies pain at this time. Patient states feeling better. Patient states symptoms have improved. Vital Signs: 16:52 BP 163 / 79; Pulse 60; Resp 17; Temp 97.9; Pulse Ox 99% on R/A; Weight 77.11 kg; Height ab2 5 ft. 6 in. (167.64 cm); Pain 0/10; 17:09 BP 142 / 69; Pulse 62; Resp 17; Pulse Ox 96% on R/A; Pain 8/10; jh6 17:57 BP 144 / 70; Pulse 57; Resp 17; Pulse Ox 97% ; jh6 18:47 BP 130 / 65; Pulse 56; Resp 18 S; Pulse Ox 98% on R/A; jd3 19:27 BP 106 / 49; Pulse 52; Resp 15; Pulse Ox 95% ; vc1 19:46 BP 105 / 50; Pulse 54; Resp 19; Pulse Ox 98% ; vc1 16:52 Body Mass Index 27.44 (77.11 kg, 167.64 cm) ab2 ED Course: 16:41 Patient arrived in ED. as 16:55 Triage completed. ab2 16:57 Arm band placed on right wrist. ab2 17:06 Davina Russell, RN is Primary Nurse. jh6 17:09 Inserted saline lock: 22 gauge in left antecubital area, using aseptic technique. Blood jh6 collected. 17:10 Patient has correct armband on for positive identification. Placed in gown. Bed in low jh6 position. Call light in reach. Side rails up X 1. Adult w/ patient. cardiac monitor technician on. Pulse ox on. NIBP on. 17:10 Patient maintains SpO2 saturation greater than 95% on room air. jh6 17:17 Philip Cabrera PA is PHCP. [facility] 17:17 Duane Jensen MD is Attending Physician. jmm 17:[address] jh6 17:47 Head Brain Wo Cont In Process Unspecified. EDMS 18:05 XRAY Chest (1 view) In Process Unspecified. EDMS 19:34 Noemy Aleman MD is Referral Physician. [facility] 20:17 No provider procedures requiring assistance completed. IV discontinued, intact, vc1 bleeding controlled, No redness/swelling at site. Pressure dressing applied. Administered Medications: 17:34 Drug: Reglan (metoCLOPramide) 20 mg Route: IVP; Site: left antecubital; 6 18:30 Follow up: Response: No adverse reaction jd3 17:35 Drug: NS 0.9% 250 ml Route: IV; Rate: bolus; Site: left antecubital; 6 18:30 Follow up: Response: No adverse reaction; IV Status: Completed infusion jd3 17:54 Drug: diphenhydrAMINE 12.5 mg Route: IVP; Site: left antecubital; jh6 18:46 Follow up: Response: No adverse reaction jd3 18:42 Drug: morphine 2 mg Route: IVP; Site: left antecubital; 6 19:04 Follow up: Response: No adverse reaction; RASS: Alert and Calm (0) jd3 19:28 Drug: fentaNYL (PF) 50 mcg Route: IVP; Site: left antecubital; 3 19:46 Follow up: BP 105 / 50; Pulse 54 bpm; Resp 19 bpm; Pulse Ox 98% ; Response: No adverse vc1 reaction; Pain is decreased; RASS: Alert and Calm (0) Outcome: 19:35 Discharge ordered by MD. hugo 20:17 Discharged to home via wheelchair, with significant other. vc1 20:17 Condition: good 20:17 Discharge instructions given to patient, Instructed on discharge instructions, follow up and referral plans. medication usage, Demonstrated understanding of instructions, follow-up care, medications, Prescriptions given X 1. 20:18 Patient left the ED. vc1 Signatures: Dispatcher [employer] EDMS Philip Cabrera PA PA jmm Martinez, Amelia as Davies, Jonathon RN RN jd3 Roberto Jackson RN RN ll3 Davina Russell RN RN jh6 Álvaro Bhatt Vanessa, RN RN vc1
--- NOTE | 2021-07-06 19:36 | EDPHYS ---
Physician Documentation [facility] Name: Jaki Andres Age: 75 yrs Sex: Female : 1945 Arrival Date: 07/06/2021 Time: 16:41 Bed 4 Private MD: ED Physician Duane Jensen HPI: 07/06 17:22 This 75 yrs old Female presents to ER via Ambulatory with complaints of Chest Pain, jmm Headache, Vomiting. 17:22 The patient complains of pain to the forehead, right hindu, right frontal area, right jmm side of the back of head, right temporal area, right occipital area and right base of the skull. Onset: The symptoms/episode began/occurred gradually, 3 day(s) ago. Associated signs and symptoms: Pertinent positives: vomiting. This is a 75-year-old female with history of atrial fibrillation, hypertension, myocardial infarction, that presents emerged part with complaints of frontal headache radiating to the right side of the back of the head. Patient symptoms began approximately 3 days ago. Patient states having multiple episodes of vomiting. Denies abdominal pain, fever, diarrhea. States having history of migraines but this episode is different in character. Patient also complains intermittent episodes of chest pain. Denies shortness of breath.. Historical: - Allergies: 16:55 No Known Allergies; ab2 - PMHx: 16:55 Atrial Fib; Hypertension; Myocardial infarction; blood clots; CPR on Jan 24, 2018; ab2 FACTOR V; High Cholesterol; Irritable bowel syndrome; restless leg syndrome; sarcoidosis; - Immunization history:: Adult Immunizations up to date. - Social history:: Smoking status: Patient denies any tobacco usage or history of. ROS: 17:22 Constitutional: Negative for fever, chills, and weight loss. jmm 17:22 Cardiovascular: Positive for chest pain. 17:22 Abdomen/GI: Positive for vomiting. 17:22 Neuro: Positive for headache. 17:22 All other systems are negative. Exam: 17:22 Constitutional: This is a well developed, well nourished patient who is awake, alert, jmm and in no acute distress. Head/Face: atraumatic. Eyes: EOMI, no conjunctival erythema appreciated ENT: Moist Mucus Membranes Neck: Trachea midline, Supple Chest/axilla: Normal chest wall appearance and motion. Cardiovascular: Regular rate and rhythm. No edema appreciated Respiratory: Normal respirations, no respiratory distress appreciated Abdomen/GI: Non distended, soft Back: Normal ROM Skin: General appearance color normal MS/ Extremity: Moves all extremities, no obvious deformities appreciated, no edema noted to the lower extremities Neuro: Awake and alert Psych: Behavior is normal, Mood is normal, Patient is cooperative and pleasant Vital Signs: 16:52 BP 163 / 79; Pulse 60; Resp 17; Temp 97.9; Pulse Ox 99% on R/A; Weight 77.11 kg; Height ab2 5 ft. 6 in. (167.64 cm); Pain 0/10; 17:09 BP 142 / 69; Pulse 62; Resp 17; Pulse Ox 96% on R/A; Pain 8/10; jh6 17:57 BP 144 / 70; Pulse 57; Resp 17; Pulse Ox 97% ; jh6 18:47 BP 130 / 65; Pulse 56; Resp 18 S; Pulse Ox 98% on R/A; jd3 19:27 BP 106 / 49; Pulse 52; Resp 15; Pulse Ox 95% ; vc1 19:46 BP 105 / 50; Pulse 54; Resp 19; Pulse Ox 98% ; vc1 16:52 Body Mass Index 27.44 (77.11 kg, 167.64 cm) ab2 MDM: 17:22 Patient medically screened. [facility] 19:34 Data reviewed: vital signs, nurses notes. Counseling: I had a detailed discussion with hugo the patient and/or guardian regarding: the historical points, exam findings, and any diagnostic results supporting the discharge/admit diagnosis, lab results, radiology results, the need for outpatient follow up, to return to the emergency department if symptoms worsen or persist or if there are any questions or concerns that arise at home. Refusal of service: The patient/guardian displays adequate decision making capability and despite a detailed discussion of alternatives, benefits, risks, and consequences refuses: Admission to the hospital for further work-up and treatment. 07/06 17:24 Order name: Basic Metabolic Panel; Complete Time: 18:04 [facility] 07/06 17:24 Order name: CBC with Diff; Complete Time: 17:59 [facility] 07/06 17:24 Order name: LFT's; Complete Time: 18:04 [facility] 07/06 17:24 Order name: Magnesium; Complete Time: 18:04 [facility] 07/06 17:24 Order name: NT PRO-BNP; Complete Time: 18:04 [facility] 07/06 17:24 Order name: PT-INR; Complete Time: 17:48 [facility] 07/06 17:24 Order name: Troponin HS; Complete Time: 18:04 [facility] 07/06 17:24 Order name: XRAY Chest (1 view); Complete Time: 18:34 [facility] 07/06 17:27 Order name: CT Head Brain wo Cont [facility] 07/06 17:30 Order name: COVID-19 SARS RT PCR (Document "Date of Onset" if Symptomatic); Complete jd3 Time: 18:52 07/06 17:31 Order name: Head Brain Wo Cont; Complete Time: 18:04 [facility] 07/06 17:24 Order name: EKG; Complete Time: 17:25 [facility] 07/06 17:24 Order name: Cardiac monitoring; Complete Time: 17:26 [facility] 07/06 17:24 Order name: EKG - Nurse/Tech; Complete Time: 17:34 [facility] 07/06 17:24 Order name: IV Saline Lock; Complete Time: 17:26 [facility] 07/06 17:24 Order name: Labs collected and sent; Complete Time: 17:26 [facility] 07/06 17:24 Order name: O2 Per Protocol; Complete Time: 17:24 [facility] 07/06 17:24 Order name: O2 Sat Monitoring; Complete Time: 17:24 [facility] Administered Medications: 17:34 Drug: Reglan (metoCLOPramide) 20 mg Route: IVP; Site: left antecubital; 6 18:30 Follow up: Response: No adverse reaction jd3 17:35 Drug: NS 0.9% 250 ml Route: IV; Rate: bolus; Site: left antecubital; 6 18:30 Follow up: Response: No adverse reaction; IV Status: Completed infusion jd3 17:54 Drug: diphenhydrAMINE 12.5 mg Route: IVP; Site: left antecubital; 6 18:46 Follow up: Response: No adverse reaction jd3 18:42 Drug: morphine 2 mg Route: IVP; Site: left antecubital; 6 19:04 Follow up: Response: No adverse reaction; RASS: Alert and Calm (0) jd3 19:28 Drug: fentaNYL (PF) 50 mcg Route: IVP; Site: left antecubital; ll3 19:46 Follow up: BP 105 / 50; Pulse 54 bpm; Resp 19 bpm; Pulse Ox 98% ; Response: No adverse vc1 reaction; Pain is decreased; RASS: Alert and Calm (0) Disposition: 07/07 15:43 Co-signature as Attending Physician, Duane Jensen MD I agree with the assessment and kdr plan of care. Disposition Summary: 07/06/21 19:35 Discharge Ordered Location: Home [facility] Condition: Stable [facility] Diagnosis - Bacterial Infection of the Frontal Sinus jm - Vomiting [facility] Followup: [facility] - With: Noemy Aleman MD - When: 2 - 3 days - Reason: Recheck today's complaints, Continuance of care, Re-evaluation by your physician Discharge Instructions: - Discharge Summary Sheet [facility] - Sinusitis, Adult [facility] Forms: - Medication Reconciliation Form [facility] - Thank You Letter [facility] - Antibiotic Education [facility] - Prescription Opioid Use [facility] Prescriptions: - cefdinir 300 mg Oral capsule - take 1 capsule by ORAL route every 12 hours for 10 days; 20 capsule; Refills: [facility] 0, Product Selection Permitted Signatures: Dispatcher [employer] EDMS Duane Jensen MD MD kdr Mickail, Joel, PA PA [facility] Roberto Jackson, RN RN ll3 Davina Russell RN RN jh6 Álvaro Bhatt Jonathon RN jd3 Rere Spence RN vc1
[2021-07-06 21:23] VITALS: TEMP 97.9
[2021-07-06 21:29] VITALS: BP 105/50; O2SAT 98
--- NOTE | 2021-07-07 09:45 | EKG ---
Test Date: 2021-07-06 Test Time: 17:32:04 [employer] Architect: GEM MEASUREMENT RESULTS: Intervals: Rate: 55 NE: 152 QRSD: 92 QT: 442 QTc: 422 Forgan: P: 65 NE: 152 QRS: 4 T: 37 INTERPRETIVE STATEMENTS: Sinus bradycardia Nonspecific ST and T wave abnormality Abnormal ECG Compared to ECG 03/21/2020 12:20:31 Sinus rhythm no longer present Prolonged QT interval no longer present ST (T wave) deviation still present Electronically Signed On 07-07-21 09:43:42 CDT by Miah Mann
== END 2021-07-06 20:18 | disposition home or self-care (01) ==
LOC: ER 16:40
DX: J32.1 Chronic frontal sinusitis (principal); B96.89 Other specified bacterial agents as the cause of diseases classified elsewhere; I10 Essential (primary) hypertension; I48.91 Unspecified atrial fibrillation; I25.2 Old myocardial infarction; E78.00 Pure hypercholesterolemia, unspecified; Z20.822 Contact with and (suspected) exposure to COVID-19
CPT/HCPCS: 96365; 93005; 85025; 80048; 36415; 83735; 85610; 80076; 84484; 83880; 70450; 71045; 96375; 99285; U0003; J2765; J1200; J3010; J2270; J7050

== ENCOUNTER 2021-07-31 10:34 | Emergency (ER) | payer OTHER ==
--- OUTSIDE RECORDS SUMMARY | 2021-07-31 10:36 | XMS REPORT | Continuity of Care Document ---
:1945 Author Organization [facility] t Address [address] [place] [address] Care Team Providers Name Role Phone BRIDGET Attending Clinician Unavailable MYRIAM Attending Clinician Unavailable Payers Payer Name Policy Type Policy Number Effective Date Expiration Date S ource Problems This patient has no known problems. Allergies, Adverse Reactions, Alerts Allergy Allergy Status Severity Reaction(s) Onset Inactive Treating Comm ents Source Name Type Date Date Clinician No Known DA Active U 2011-03 [facility]ie 0-08 [place] 00:00: [address] Medications This patient has no known medications. Procedures This patient has no known procedures. Encounters Start End Encounter Admission Attending Care Care Encounter Source Date/Time Date/Time Type Type Clinicians Facility Department ID 2021-07-30 2021-07-30 [id number] 00:[facility]:00 00:00:00 [facility]O [address] 2021-02-06 2021-02-06 Outpatient BRIDGET [facility] [id number] 00:00:00 00:00:00 [facility] [address] 2020-05-07 2020-05-07 Outpatient MYRIAM [facility] [id number] 00:00:00 00:00:[address] 2020-04-16 2020-04-16 Outpatient [facility] [id number] 00:00:00 00:00:[address] 2020-02-08 2020-02-08 Outpatient BRIDGET [facility] [id number] 00:00:00 00:00:[address] Results This patient has no known results.
[2021-07-31] MEDS ORDERED: METHYLPREDNISOLONE 125 MG INJ ONE (11:40)
[2021-07-31] MEDS ORDERED: LEVALBUTEROL 1.25 MG/3 ML NEB ONE (11:41)
--- NOTE | 2021-07-31 12:11 | RAD REPORT ---
EXAM DESCRIPTION: RAD - Chest Single View - 07/31/2021 12:04 pm CLINICAL HISTORY: DYSPNEA COMPARISON: Chest Single View dated 07/06/2021; Chest Single View dated 03/21/2020; Chest Pa And Lat ( 2 Views) dated 12/29/2019; Chest Single View dated 12/23/2018 FINDINGS: Lines: None. Lungs: No evidence of edema or pneumonia. Small unchanged nodular densities at the right lung apex ar e noted and are chronic. Pleural: No significant pleural effusions or pneumothorax. Cardiac: The heart size is within normal limits. Bones: No acute fractures. Other: IMPRESSION: No acute cardiopulmonary disease.
[2021-07-31 12:14] LABS: Hematocrit 40.6 % (36.0-45.0); Lymphocytes % 19.6 % (15.3-44.8); MPV 7.5 fL (7.6-11.3); RBC Red Blood Cell Count 4.37 M/uL (3.86-4.86)
[2021-07-31 12:21] LABS: Protime INR 2.27
[2021-07-31 12:34] LABS: Albumin 3.2 g/dL (3.4-5.0); Bilirubin Direct 0.2 mg/dL (0-0.2); Bilirubin Total 0.6 mg/dL (0.2-1.0); Potassium 3.6 mmol/L (3.5-5.1); Protein, Total 6.7 g/dL (6.4-8.2)
[2021-07-31] MEDS ORDERED: DIAZEPAM 2 MG TABLET ONE (12:55)
--- NOTE | 2021-07-31 13:28 | RAD REPORT ---
EXAM DESCRIPTION: CT - Chest For Pe Angio - 07/31/2021 1:11 pm CLINICAL HISTORY: Pulmonary embolism (PE) suspected, high prob COMPARISON: Chest For Pe Angio dated 03/21/2020 TECHNIQUE: Dynamically enhanced 3 mm thick images of the chest were obtained during administration o f approximately 150mL Isovue 370 IV contrast. Coronal and oblique MIP reconstruction images were gene rated and reviewed. Exam utilizes a protocol to evaluate the pulmonary arterial tree. All CT scans are performed using dose optimization technique as appropriate and may include automated exposure control or mA/KV adjustment according to patient size. FINDINGS: No pulmonary emboli are identified. The aorta as imaged shows no acute or suspicious finding. No pericardial thickening or effusion. No acute lung parenchymal process. Linear stranding in the left base scarring, atelectasis or a combi nation. No pleural effusion or pleural thickening. No mediastinal or hilar suspicious masses. No chest wall masses or abnormal axillary lymphadenopathy. IMPRESSION: No pulmonary emboli identified. No other significant or suspicious findings.
--- NOTE | 2021-07-31 14:06 | ER ---
Nurse's Notes [facility] Name: Jaki Andres Age: 75 yrs Sex: Female : 1945 Arrival Date: 07/31/2021 Time: 10:39 Bed 6 Private MD: Diagnosis: Dyspnea, unspecified;Unspecified asthma, uncomplicated Presentation: 07/31 10:40 Chief complaint: EMS states: SOB x2 DAYS. Coronavirus screen: At this time, the client bp does not indicate any symptoms associated with coronavirus-19. Ebola Screen: No symptoms or risks identified at this time. Initial Sepsis Screen: Does the patient meet any 2 criteria? No. Patient's initial sepsis screen is negative. Does the patient have a suspected source of infection? No. Patient's initial sepsis screen is negative. Risk Assessment: Do you want to hurt yourself or someone else? Patient reports no desire to harm self or others. Onset of symptoms is unknown. Care prior to arrival: Medication(s) given: Adenosine, x 1, Atrovent Neb x 1, Glucose check: 103. 10:40 Method Of Arrival: [facility] bp 10:40 Acuity: SEGUNDO 3 bp Triage Assessment: 10:41 General: Appears distressed, comfortable, obese, Behavior is cooperative, appropriate bp for age, anxious. Pain: Denies pain. EENT: No deficits noted. Neuro: No deficits noted. Cardiovascular: No deficits noted. Respiratory: Reports shortness of breath Breath sounds with wheezes bilaterally. Onset: The symptoms/episode began/occurred at an unknown time. the patient has mild shortness of breath. GI: No signs and/or symptoms were reported involving the gastrointestinal system. : No signs and/or symptoms were reported regarding the genitourinary system. Derm: No deficits noted. Musculoskeletal: No deficits noted. Historical: - Allergies: 10:41 No Known Allergies; bp - Home Meds: 10:41 aspirin 81 mg Oral chew 1 tab once daily [Active]; Xarelto 20 mg Oral tab 1 tab once bp daily [Active]; multivitamin Oral [Active]; pantoprazole 40 mg Oral chew 1 tab once daily [Active]; lisinopril 5 mg Oral tab 1 tab once daily [Active]; areds [Active]; atorvastatin 10 mg Oral tab 1 tab once daily [Active]; Iron CR Oral daily [Active]; Methyl B-12 [Active]; methyl folate [Active]; multivitamin Oral tab daily [Active]; Plavix 75 mg Oral tab 1 tab once daily [Active]; ropinirole 0.5 mg Oral tab 1 tab BID PRN [Active]; temazepam 15 mg Oral cap 1 cap nightly [Active]; tramadol 50 mg Oral tab 1 tab as needed [Active]; trazodone 50 mg Oral tab daily [Active]; Vitamin B-12 1,000 mcg Oral tab daily [Active]; Vitamin C Oral [Active]; Vitamin D Oral 2000 unit daily [Active]; - PMHx: 10:41 Atrial Fib; sarcoidosis; blood clots; FACTOR V; CPR on Jan 24, 2018; High Cholesterol; bp Hypertension; Irritable bowel syndrome; Myocardial infarction; restless leg syndrome; - Immunization history:: Adult Immunizations up to date. - Social history:: Smoking status: Patient denies any tobacco usage or history of. - Family history:: not pertinent. - Hospitalizations: : No recent hospitalization is reported. Screenin:44 Abuse screen: Denies threats or abuse. Denies injuries from another. Nutritional bp screening: No deficits noted. Tuberculosis screening: No symptoms or risk factors identified. Fall Risk None identified. Assessment: 10:44 General: SEE TRIAGE NOTE. Cardiovascular: Rhythm is regular. Respiratory: Airway is bp patent Respiratory effort is even, labored. 12:18 Reassessment: Patient appears in no apparent distress at this time. Patient and/or jd3 family updated on plan of care and expected duration. Pain level reassessed. Patient is alert, oriented x 3, equal unlabored respirations, skin warm/dry/pink. Patient states feeling better. 13:23 Reassessment: PT RETURNED FROM CT. bp 14:29 Reassessment: PT D/C HOME AMBULATORY WITH FAMILY, DX WITH ASTHMA EXACERBATION. bp Vital Signs: 10:40 BP 130 / 76; Pulse 77; Resp 20; Temp 98; Pulse Ox 98% ; bp 12:19 BP 122 / 51; Pulse 76; Resp 19 S; Pulse Ox 100% on R/A; jd3 13:23 BP 121 / 41; Pulse 79; Resp 16; Pulse Ox 98% ; bp 14:29 BP 127 / 54; Pulse 71; Resp 17; Pulse Ox 99% ; bp ED Course: 10:39 Patient arrived in ED. bp 10:41 Triage completed. bp 10:41 Arm band placed on. bp 10:44 Patient has correct armband on for positive identification. Bed in low position. Call bp light in reach. Side rails up X2. 10:45 Maintain EMS IV. Dressing intact. Good blood return noted. Site clean \T\ dry. Gauge \T\ bp site: 20 G LEFT AC. 10:48 Alexandru Tucker MD is Attending Physician. rn 11:17 Jonel Bonilla, RN is Primary Nurse. bp 12:06 XRAY CXR (1 view) In Process Unspecified. EDMS 13:13 CT Chest For PE Angio In Process Unspecified. EDMS 14:29 No provider procedures requiring assistance completed. IV discontinued, intact, bp bleeding controlled, No redness/swelling at site. Pressure dressing applied. Administered Medications: 11:55 Drug: Xopenex (levalbuterol) (3) 1.25 mg Route: Inhalation; bp 12:00 Drug: SOLU-Medrol (methylPrednisoLONE) 40 mg Route: IVP; Site: left antecubital; bp 14:31 Follow up: Response: No adverse reaction bp 12:56 Drug: Valium (diazepam) 2 mg Route: PO; jd3 13:23 Follow up: Response: No adverse reaction bp Medication: 10:44 VIS not applicable for this client. bp Outcome: 14:06 Discharge ordered by . rn 14:29 Discharged to home ambulatory, with family. bp 14:29 Condition: stable 14:29 Discharge instructions given to patient, Instructed on discharge instructions, follow up and referral plans. medication usage, Demonstrated understanding of instructions, follow-up care, medications, Prescriptions given X 3. 14:31 Patient left the ED. bp Signatures: Dispatcher [employer] EDMS Alexandru Tucker MD MD rn Davies, Jonathon, RN RN jd3 Peltier, Brian, RN RN bp
--- NOTE | 2021-07-31 14:06 | EDPHYS ---
Physician Documentation [facility] Name: Jaki Andres Age: 75 yrs Sex: Female : 1945 Arrival Date: 07/31/2021 Time: 10:39 Bed 6 Private MD: ED Physician Alexandru Tucker HPI: 07/31 12:50 This 75 yrs old Female presents to ER via EMS with complaints of Shortness Of Breath. rn 12:50 The patient has shortness of breath at rest, with light activity. Onset: The rn symptoms/episode began/occurred 2 day(s) ago. Duration: The symptoms are intermittent. The patient's shortness of breath is aggravated by exertion, light activity, talking, walking, is alleviated by inhaler. Associated signs and symptoms: Pertinent positives: This patient does not have any pertinent positive signs or symptoms associated with shortness of breath. Pertinent negatives: chest pain, productive cough, fever, hemoptysis. Severity of symptoms: At their worst the symptoms were moderate in the emergency department the symptoms have improved. The patient has experienced similar episodes in the past. The patient has been recently seen by a physician:. Pt reports weeks to months of difficulty breathing, got worse over the weekend, + recent sinus infection and s/p 2 different abx. Reports sob and wheezing, improves with inhaler but returns. Seen by cardiology recently and told doesn't seem to be cardiac in origin. No fever. NO hemoptysis. Takes xarelto for previous PE.. Historical: - Allergies: 10:41 No Known Allergies; bp - Home Meds: 10:41 aspirin 81 mg Oral chew 1 tab once daily [Active]; Xarelto 20 mg Oral tab 1 tab once bp daily [Active]; multivitamin Oral [Active]; pantoprazole 40 mg Oral chew 1 tab once daily [Active]; lisinopril 5 mg Oral tab 1 tab once daily [Active]; areds [Active]; atorvastatin 10 mg Oral tab 1 tab once daily [Active]; Iron CR Oral daily [Active]; Methyl B-12 [Active]; methyl folate [Active]; multivitamin Oral tab daily [Active]; Plavix 75 mg Oral tab 1 tab once daily [Active]; ropinirole 0.5 mg Oral tab 1 tab BID PRN [Active]; temazepam 15 mg Oral cap 1 cap nightly [Active]; tramadol 50 mg Oral tab 1 tab as needed [Active]; trazodone 50 mg Oral tab daily [Active]; Vitamin B-12 1,000 mcg Oral tab daily [Active]; Vitamin C Oral [Active]; Vitamin D Oral 2000 unit daily [Active]; - PMHx: 10:41 Atrial Fib; sarcoidosis; blood clots; FACTOR V; CPR on Jan 24, 2018; High Cholesterol; bp Hypertension; Irritable bowel syndrome; Myocardial infarction; restless leg syndrome; - Immunization history:: Adult Immunizations up to date. - Social history:: Smoking status: Patient denies any tobacco usage or history of. - Family history:: not pertinent. - Hospitalizations: : No recent hospitalization is reported. ROS: 12:50 Constitutional: Negative for fever, chills, and weight loss, Eyes: Negative for injury, rn pain, redness, and discharge, Neck: Negative for injury, pain, and swelling, Cardiovascular: Negative for chest pain, palpitations, and edema, Respiratory: Negative for pleuritic chest pain, Abdomen/GI: Negative for abdominal pain, nausea, vomiting, diarrhea, and constipation, Back: Negative for injury and pain, MS/Extremity: Negative for injury and deformity, Skin: Negative for injury, rash, and discoloration, Neuro: Negative for headache, weakness, numbness, tingling, and seizure. Exam: 12:50 Constitutional: This is a well developed, well nourished patient who is awake, alert, rn and in no acute distress. Head/Face: Normocephalic, atraumatic. Eyes: Pupils equal round and reactive to light, extra-ocular motions intact. ENT: No stridor Cardiovascular: Regular rate and rhythm. No pulse deficits. Respiratory: No increased work of breathing, no retractions or nasal flaring. Abdomen/GI: Soft, non-tender Skin: Warm, dry MS/ Extremity: Pulses equal, no cyanosis. Neuro: Awake and alert, GCS 15 Vital Signs: 10:40 BP 130 / 76; Pulse 77; Resp 20; Temp 98; Pulse Ox 98% ; bp 12:19 BP 122 / 51; Pulse 76; Resp 19 S; Pulse Ox 100% on R/A; jd3 13:23 BP 121 / 41; Pulse 79; Resp 16; Pulse Ox 98% ; bp 14:29 BP 127 / 54; Pulse 71; Resp 17; Pulse Ox 99% ; bp MDM: 10:48 Patient medically screened. rn 14:03 Differential diagnosis: Anemia Anxiety Reaction asthma, Bronchitis Myocardial rn Infarction. 14:04 Data reviewed: vital signs, nurses notes, lab test result(s), EKG, radiologic studies, rn CT scan, plain films, and as a result, I will discharge patient. Counseling: I had a detailed discussion with the patient and/or guardian regarding: the historical points, exam findings, and any diagnostic results supporting the discharge/admit diagnosis, lab results, radiology results, the need for outpatient follow up, to return to the emergency department if symptoms worsen or persist or if there are any questions or concerns that arise at home. Response to treatment: the patient's symptoms have markedly improved after treatment, and as a result, I will discharge patient. Special discussion: I discussed with the patient/guardian in detail that at this point there is no indication for admission to the hospital. It is understood, however, that if the symptoms persist or worsen the patient needs to return immediately for re-evaluation. ED course: No acute findings on blood/ECG/CXR/CT PE, stable vitals, feels much better now, will dc home with allergy/immunology f/u (has appt tomorrow), and pulmonology f/u. Has already seen cardiology and told was not cardiac etiology. Return precautions given and understood. . 07/31 11:07 Order name: BMP; Complete Time: 12:34 07/31 11:07 Order name: Blood Culture Adult (2) rn 07/31 11:07 Order name: CBC with Diff; Complete Time: 12:34 rn 07/31 11:07 Order name: Hepatic Function; Complete Time: 12:34 rn 07/31 11:07 Order name: NT PRO-BNP; Complete Time: 12:34 07/31 11:07 Order name: PT-INR; Complete Time: 12:34 rn 07/31 11:07 Order name: Ptt, Activated; Complete Time: 12:34 rn 07/31 11:07 Order name: CT Chest For PE Angio; Complete Time: 13:33 rn 07/31 11:07 Order name: XRAY CXR (1 view); Complete Time: 12:34 07/31 11:08 Order name: SARS-COV-2 RT PCR (Document "Date of Onset" if Symptomatic); Complete Time: rn 13:33 07/31 11:08 Order name: Flu; Complete Time: 13:33 rn 07/31 11:07 Order name: EKG; Complete Time: 11:08 rn 07/31 11:07 Order name: Cardiac monitoring; Complete Time: 12:04 rn 07/31 11:07 Order name: EKG - Nurse/Tech; Complete Time: 12:04 rn 07/31 11:07 Order name: IV Saline Lock; Complete Time: 12: rn 07/31 11:07 Order name: Labs collected and sent; Complete Time: 12: rn 07/31 11:07 Order name: O2 Per Protocol; Complete Time: 12: rn 07/31 11:07 Order name: O2 Sat Monitoring; Complete Time: 12:04 rn Administered Medications: 11:55 Drug: Xopenex (levalbuterol) (3) 1.25 mg Route: Inhalation; bp 12:00 Drug: SOLU-Medrol (methylPrednisoLONE) 40 mg Route: IVP; Site: left antecubital; bp 14:31 Follow up: Response: No adverse reaction bp 12:56 Drug: Valium (diazepam) 2 mg Route: PO; jd3 13:23 Follow up: Response: No adverse reaction bp Disposition Summary: 07/31/21 14:06 Discharge Ordered Location: Home rn Problem: an ongoing problem rn Symptoms: have improved rn Condition: Stable rn Diagnosis - Dyspnea, unspecified rn - Unspecified asthma, uncomplicated rn Followup: rn - With: Private Physician - When: As needed - Reason: Recheck today's complaints, Re-evaluation by your physician Discharge Instructions: - Discharge Summary Sheet rn - Asthma, Adult rn - Shortness of Breath, Adult rn Forms: - Medication Reconciliation Form rn - Thank You Letter rn - Antibiotic e learning manager - Prescription Opioid Use rn Prescriptions: - Spiriva Respimat 2.5 mcg/actuation Inhalation mist - inhale 2 puff by INHALATION route once daily; 1 Pump; Refills: 0, Product rn Selection Permitted - Symbicort 80-4.5 mcg/actuation Inhalation HFA aerosol inhaler - inhale 2 puff by INHALATION route 2 times per day; 1 Pump; Refills: 0, Product rn Selection Permitted - Prednisone 20 mg Oral Tablet - take 3 tablets by ORAL route once daily for 5 days; 15 tablet; Refills: 0, rn Product Selection Permitted Signatures: Dispatcher [employer] Aelxandru Sharma MD MD rn Davies, Jonathon, RN RN jJonel Montana RN RN bp
[2021-07-31 14:35] VITALS: TEMP 98
[2021-07-31 14:39] VITALS: BP 127/54; O2SAT 99
--- NOTE | 2021-08-01 12:34 | EKG ---
Test Date: 2021-07-31 Test Time: 11:59:00 Wastewater Analyst Lab Analyst: YOSSI MEASUREMENT RESULTS: Intervals: Rate: 71 WV: 148 QRSD: 88 QT: 462 QTc: 502 Floyd: P: 72 WV: 148 QRS: 26 T: 2 INTERPRETIVE STATEMENTS: Normal sinus rhythm Cannot rule out Anterior infarct, age undetermined Abnormal ECG Compared to ECG 07/06/2021 17:32:04 Myocardial infarct finding now present Sinus bradycardia no longer present ST (T wave) deviation no longer present Electronically Signed On 08-01-21 12:31:47 CDT by Miah Mann
== END 2021-07-31 14:31 | disposition home or self-care (01) ==
LOC: ER 10:34
DX: R06.00 Dyspnea, unspecified (principal); J45.909 Unspecified asthma, uncomplicated; I48.91 Unspecified atrial fibrillation; E78.00 Pure hypercholesterolemia, unspecified; I10 Essential (primary) hypertension; Z79.01 Long term (current) use of anticoagulants; Z79.82 Long term (current) use of aspirin; Z20.822 Contact with and (suspected) exposure to COVID-19
CPT/HCPCS: 93005; 87040 ×2; 85025; 80048; 36415; 85610; 80076; 85730; 83880; 87804 ×2; 71275; 71045; 96374; 99284; U0003; Q9967; J2930

== ENCOUNTER 2021-08-24 20:42 | Emergency (ER) | payer OTHER ==
--- OUTSIDE RECORDS SUMMARY | 2021-08-24 20:44 | XMS REPORT | Continuity of Care Document ---
:1945 Author Organization [facility] t Address [address] [place] [address] Care Team Providers Name Role Phone BRIDGET Attending Clinician Unavailable MYRIAM Attending Clinician Unavailable Payers Payer Name Policy Type Policy Number Effective Date Expiration Date S ource Problems This patient has no known problems. Allergies, Adverse Reactions, Alerts Allergy Allergy Status Severity Reaction(s) Onset Inactive Treating Comm ents Source Name Type Date Date Clinician No Known DA Active U 2011-03 [facility] All[facility]ie 0-08 [place] s 00:00: [address] Medications This patient has no known medications. Procedures This patient has no known procedures. Encounters Start End Encounter Admission Attending Care Care Encounter Source Date/Time Date/Time Type Type Clinicians Facility Department ID 2021-07-30 2021-07-30 [facility] [id number] [address] [place] 00:00:00 00:00:00 [facility] [address] 2021-02-06 2021-02-06 Outpatient BRIDGET [facility] [id number] [address] [place] 00:00:00 00:00:00 [facility] [address] 2020-05-07 2020-05-07 Outpatient MYRIAM [facility] [id number] [place] 00:00:00 00:00:[address] 2020-04-16 2020-04-16 Outpatient [facility] [id number] [place] 00:00:00 00:00:[address] 2020-02-08 2020-02-08 Outpatient BRIDGET [facility] [id number] [place] 00:00:00 00:00:00 [facility] [address] Results This patient has no known results.
[2021-08-24] MEDS ORDERED: ONDANSETRON 4 MG/2 ML VIAL ONE (22:01)
[2021-08-24] MEDS ORDERED: MORPHINE 4 MG/ML SYR ONE (22:01)
[2021-08-24] MEDS ORDERED: NA CHLORIDE 0.9% 1,000 ML ONE (22:01)
[2021-08-24] MEDS ORDERED: METHYLPREDNISOLONE 125 MG INJ ONE (22:01)
[2021-08-24 22:25] LABS: Potassium 4.6 mmol/L (3.5-5.1)
--- NOTE | 2021-08-24 22:51 | RAD REPORT ---
EXAM DESCRIPTION: CT - Head Brain Wo Cont - 08/24/2021 10:40 pm CLINICAL HISTORY: Headache, new or worsening COMPARISON: No comparisonsHead Brain Wo Cont dated 07/06/2021 TECHNIQUE: All CT scans are performed using dose optimization technique as appropriate and may inclu de automated exposure control or mA/KV adjustment according to patient size. FINDINGS: No intracranial hemorrhage, hydrocephalus or extra-axial fluid collection.No areas of brai n edema or evidence of midline shift. Circumferential thickening within both the maxillary sinuses. Multiple opacified ethmoid air cells. A ir-fluid level in the left maxillary sinus. The calvarium is intact. IMPRESSION: No acute intracranial abnormality. Acute on chronic sinusitis suspected.
[2021-08-24] MEDS ORDERED: MEPERIDINE HCL 25 MG/ML SYR ONE (23:01)
[2021-08-24] MEDS ORDERED: CEFTRIAXONE 1000 MG/VIAL ONE (23:41)
[2021-08-25] MEDS ORDERED: PROMETHAZINE INJ 25 MG/ML AMP ONE (00:10)
--- NOTE | 2021-08-25 00:17 | ER ---
Nurse's Notes [facility] Name: Jaki Andres Age: 75 yrs Sex: Female : 1945 Arrival Date: 08/24/2021 Time: 20:44 Bed 11 Private MD: Saji Alvarez B Diagnosis: Acute sinusitis, unspecified;Headache Presentation: 08/24 20:53 Chief complaint: Patient states: "I have a bad sinus infection that is causing my pain tw5 and making me throw up. My doctor ordered me some antibiotics, nausea medication and gabapentin but I just keep throwing everything up. I feels so dehydrated.". Coronavirus screen: Vaccine status: Patient reports receiving the 2nd dose of the covid vaccine. [place]. Ebola Screen: Patient negative for fever greater than or equal to 101.5 degrees Fahrenheit, and additional compatible Ebola Virus Disease symptoms Patient denies exposure to infectious person. Patient denies travel to an Ebola-affected area in the 21 days before illness onset. Initial Sepsis Screen: Does the patient meet any 2 criteria? No. Patient's initial sepsis screen is negative. Does the patient have a suspected source of infection? No. Patient's initial sepsis screen is negative. Risk Assessment: Do you want to hurt yourself or someone else? Patient reports no desire to harm self or others. Onset of symptoms was August 22, 2021. 20:53 Method Of Arrival: Ambulatory tw5 20:53 Acuity: SEGUNDO 3 tw5 Triage Assessment: 20:55 General: Appears uncomfortable, Behavior is calm, cooperative, appropriate for age. tw5 Pain: Complains of pain in forehead Pain currently is 6 out of 10 on a pain scale. GI: Reports nausea, vomiting. Historical: - Allergies: 20:55 No Known Allergies; tw5 - Immunization history:: Flu vaccine is not up to date. - Social history:: Smoking status: Patient denies any tobacco usage or history of. - Family history:: not pertinent. - Hospitalizations: : No recent hospitalization is reported. Screenin/18 00:29 Abuse screen: Denies threats or abuse. Denies injuries from another. Nutritional tw5 screening: No deficits noted. Tuberculosis screening: No symptoms or risk factors identified. Fall Risk None identified. Assessment: 08/24 22:59 General: Reports "My head is still hurting pretty bad. The morphine did not help.". tw5 23:59 Reassessment: Patient appears in no apparent distress at this time. Patient and/or jb4 family updated on plan of care and expected duration. Pain level reassessed. Patient is alert, oriented x 3, equal unlabored respirations, skin warm/dry/pink. Patient states feeling better. 08/25 00:29 GI: Abdomen is non-distended. tw5 Vital Signs: 08/24 20:53 BP 143 / 73; Pulse 69; Resp 18; Temp 98.6; Pulse Ox 97% ; Weight 77.11 kg; Height 5 ft. tw5 6 in. (167.64 cm); Pain 6/10; 22:59 Pulse 87; Pulse Ox 97% on R/A; Pain 8/10; tw5 23:59 BP 145 / 76; Pulse 82; Resp 16; Pulse Ox 95% on R/A; jb4 20:53 Body Mass Index 27.44 (77.11 kg, 167.64 cm) tw5 Zeke Coma Score: 08/25 00:16 Eye Response: spontaneous(4). Verbal Response: oriented(5). Motor Response: obeys rn commands(6). Total: 15. ED Course: 08/24 20:44 Patient arrived in ED. es 20:44 Saji Alvarez MD is Private Physician. es 20:55 Triage completed. tw5 20:55 Arm band placed on left wrist. tw5 20:57 Alexandru Tucker MD is Attending Physician. rn 21:49 Flip Hale, ABE is Primary Nurse. jb4 22:01 Initial lab(s) drawn, by me, sent to lab. Inserted saline lock: 22 gauge in right 5 antecubital area, using aseptic technique. Blood collected. 22:02 Patient has correct armband on for positive identification. Bed in low position. Call 5 light in reach. Side rails up X 1. Adult w/ patient. Warm blanket given. auto service writer on. Pulse ox on. NIBP on. 22:02 BMP Sent. 5 22:41 CT Head Brain wo Cont In Process Unspecified. EDMS 08/25 00:17 Saji Alvarez MD is Referral Physician. rn 00:29 No provider procedures requiring assistance completed. IV discontinued, intact, tw5 bleeding controlled, No redness/swelling at site. Pressure dressing applied. Administered Medications: 08/24 22:13 Drug: NS 0.9% 1000 ml Route: IV; Rate: 1000 ml; Site: right antecubital; jb4 22:13 Drug: Zofran (Ondansetron) 4 mg Route: IVP; Site: right antecubital; jb4 23:47 Follow up: Response: No adverse reaction jb4 22:13 Drug: morphine 4 mg Route: IVP; Infused Over: 4 mins; Site: right antecubital; jb4 22:45 Follow up: Response: No adverse reaction; Marked relief of symptoms; Pain is decreased jb4 22:13 Drug: SOLU-Medrol (methylPrednisoLONE) 125 mg Route: IVP; Site: right antecubital; jb4 23:47 Follow up: Response: No adverse reaction jb4 22:59 Drug: Demerol (meperidine) 25 mg Route: IVP; Site: right antecubital; tw5 23:48 Follow up: Response: No adverse reaction; Marked relief of symptoms; Pain is decreased jb4 23:46 Drug: Rocephin (cefTRIAXone) 1 grams Route: IV; Rate: calculated rate; Site: right jb4 antecubital; 08/25 00:12 Drug: Phenergan (promethazine) 12.5 mg Route: IVP; Site: right antecubital; tw5 Outcome: 00:17 Discharge ordered by . rn 00:30 Discharged to home via wheelchair. tw5 00:30 Condition: good 00:30 Discharge instructions given to patient, Instructed on discharge instructions, follow up and referral plans. Demonstrated understanding of instructions, follow-up care, medications, Prescriptions given X 1. 00:30 Patient left the ED. tw5 Signatures: Dispatcher [employer] Natalya Garibay Roman, MD MD rn Bryson, James, RN RN jb4 Martinez, Maria mh5 Wood, Tiffany tw5
--- NOTE | 2021-08-25 00:18 | EDPHYS ---
Physician Documentation [facility] Name: Jaki Andres Age: 75 yrs Sex: Female : 1945 Arrival Date: 08/24/2021 Time: 20:44 Bed 11 Private MD: Saji Alvarez B ED Physician Alexandru Tucker HPI: 08/24 22:25 This 75 yrs old Female presents to ER via Ambulatory with complaints of Vomiting, rn Headache. 22:27 The patient complains of pain to the forehead. The patient describes the headache as rn aching. Onset: The symptoms/episode began/occurred 2 day(s) ago. Associated signs and symptoms: Pertinent positives: nausea, vomiting, Pertinent negatives: fever, neck stiffness, rash, vision loss. Severity of symptoms: At its worst the pain was moderate, "similar to past headaches", in the emergency department the pain is unchanged. Headache History: The patient has had previous headaches and this one is similar to previous episodes. The symptoms are alleviated by nothing. the symptoms are aggravated by nothing. The patient has experienced a previous episode. The patient has been recently seen by a physician:. Pt reports headache, diagnosed with sinusitis by PCP 2 days ago, abx ordered, states has had sinus infection in past and felt identical to this one, but when pain hits "and sinuses swell" she starts to throw up and can't keep anything down. States when pain gets bad she throws up. No focal neuro complaints. NO vision changes. No fever. Also recently taken off maintenance steroids and thinks this is worsening symptoms. . Historical: - Allergies: 20:55 No Known Allergies; tw5 - Immunization history:: Flu vaccine is not up to date. - Social history:: Smoking status: Patient denies any tobacco usage or history of. - Family history:: not pertinent. - Hospitalizations: : No recent hospitalization is reported. ROS: 22:27 Constitutional: Negative for fever, chills, and weight loss, Eyes: Negative for injury, rn pain, redness, and discharge, Neck: Negative for injury, pain, and swelling, Cardiovascular: Negative for chest pain, palpitations, and edema, Respiratory: Negative for shortness of breath, cough, wheezing, and pleuritic chest pain, Abdomen/GI: Negative for abdominal pain, diarrhea, and constipation, Back: Negative for injury and pain, MS/Extremity: Negative for injury and deformity, Skin: Negative for injury, rash, and discoloration, Neuro: Negative for weakness, numbness, tingling, and seizure. Exam: 22:27 Constitutional: This is a well developed, well nourished patient who is awake, alert, rn and in no acute distress. Head/Face: Normocephalic, atraumatic. Eyes: Pupils equal round and reactive to light, extra-ocular motions intact. Neck: Trachea midline, no thyromegaly or masses palpated, and no cervical lymphadenopathy. Supple, full range of motion without nuchal rigidity, or vertebral point tenderness. No Meningismus. Cardiovascular: Regular rate and rhythm. No pulse deficits. Respiratory: No increased work of breathing, no retractions or nasal flaring. Abdomen/GI: Soft, non-tender Skin: Warm, dry MS/ Extremity: Pulses equal, no cyanosis. Neuro: Awake and alert, GCS 15, oriented to person, place, time, and situation. Cranial nerves II-XII grossly intact. Motor strength 5/5 in all extremities. Sensory grossly intact. Cerebellar exam normal. Vital Signs: 20:53 BP 143 / 73; Pulse 69; Resp 18; Temp 98.6; Pulse Ox 97% ; Weight 77.11 kg; Height 5 ft. tw5 6 in. (167.64 cm); Pain 6/10; 22:59 Pulse 87; Pulse Ox 97% on R/A; Pain 8/10; tw5 23:59 BP 145 / 76; Pulse 82; Resp 16; Pulse Ox 95% on R/A; jb4 20:53 Body Mass Index 27.44 (77.11 kg, 167.64 cm) tw5 Baldwin Coma Score: 08/25 00:16 Eye Response: spontaneous(4). Verbal Response: oriented(5). Motor Response: obeys rn commands(6). Total: 15. MDM: 08/24 20:57 Patient medically screened. rn 08/25 00:16 Differential diagnosis: hypertensive headache, migraine, neoplasm, sinusitis, tension rn headache, trigeminal neuralgia, vasomotor headache. Data reviewed: vital signs, nurses notes, lab test result(s), radiologic studies, CT scan, and as a result, I will discharge patient. Counseling: I had a detailed discussion with the patient and/or guardian regarding: the historical points, exam findings, and any diagnostic results supporting the discharge/admit diagnosis, lab results, radiology results, the need for outpatient follow up, to return to the emergency department if symptoms worsen or persist or if there are any questions or concerns that arise at home. Response to treatment: the patient's symptoms have markedly improved after treatment, and as a result, I will discharge patient. Special discussion: I discussed with the patient/guardian in detail that at this point there is no indication for admission to the hospital. It is understood, however, that if the symptoms persist or worsen the patient needs to return immediately for re-evaluation. 08/24 21:00 Order name: BMP; Complete Time: :35 rn 08/24 21:00 Order name: CT Head Brain wo Cont; Complete Time: :56 rn 08/24 21:00 Order name: IV Start; Complete Time: 22:02 rn Administered Medications: 08/24 22:13 Drug: NS 0.9% 1000 ml Route: IV; Rate: 1000 ml; Site: right antecubital; jb4 22:13 Drug: Zofran (Ondansetron) 4 mg Route: IVP; Site: right antecubital; jb4 23:47 Follow up: Response: No adverse reaction jb4 22:13 Drug: morphine 4 mg Route: IVP; Infused Over: 4 mins; Site: right antecubital; jb4 22:45 Follow up: Response: No adverse reaction; Marked relief of symptoms; Pain is decreased jb4 22:13 Drug: SOLU-Medrol (methylPrednisoLONE) 125 mg Route: IVP; Site: right antecubital; jb4 23:47 Follow up: Response: No adverse reaction jb4 22:59 Drug: Demerol (meperidine) 25 mg Route: IVP; Site: right antecubital; tw5 23:48 Follow up: Response: No adverse reaction; Marked relief of symptoms; Pain is decreased jb4 23:46 Drug: Rocephin (cefTRIAXone) 1 grams Route: IV; Rate: calculated rate; Site: right jb4 antecubital; 08/25 00:12 Drug: Phenergan (promethazine) 12.5 mg Route: IVP; Site: right antecubital; tw5 Disposition Summary: 08/25/21 00:17 Discharge Ordered Location: Home rn Problem: new rn Symptoms: have improved rn Condition: Stable rn Diagnosis - Acute sinusitis, unspecified rn - Headache rn Followup: rn - With: Saji Alvarez MD - When: As needed - Reason: Recheck today's complaints, Re-evaluation by your physician Discharge Instructions: - Discharge Summary Sheet jmm - Sinus Headache rn - Sinusitis, Adult rn Forms: - Medication Reconciliation Form rn - Thank You Letter rn - Antibiotic alternative financing specialist - Prescription Opioid Use rn Prescriptions: - promethazine 25 mg Rectal suppository - insert 1 suppository by RECTAL route every 4-6 hours; 10 suppository; Refills: jmm 0, Product Selection Permitted Signatures: Dispatcher [employer] EDAlexandru Arcos MD MD rn Bryson, James, RN RN 4 Otilia Diaz tw5
[2021-08-25 01:05] VITALS: TEMP 98.6
[2021-08-25 01:08] VITALS: BP 145/76; O2SAT 95
== END 2021-08-25 00:30 | disposition home or self-care (01) ==
LOC: ER 20:42
DX: J01.90 Acute sinusitis, unspecified (principal); R51.9 Headache, unspecified
CPT/HCPCS: 80048; 36415; 70450; 96375; 96374; 99284; J2550; J2175; J7030; J2930; J2405

== ENCOUNTER 2021-12-04 23:50 | Emergency (ER) | payer OTHER ==
--- OUTSIDE RECORDS SUMMARY | 2021-12-04 23:52 | XMS REPORT | Continuity of Care Document ---
:1945 Author Organization [facility] t Address [address] [place] [address] Care Team Providers Name Role Phone Saji Alvarez MD Primary Care Physician Hugh Gill MD Attending Clinician MEGHAN MIGUEL Attending Clinician Unavailable Payers Payer Name Policy Type Policy Number Effective Date Expiration Date S ource Problems Condition Condition Condition Status Onset Resolution Last Treating Co mments Source Name Details Category Date Date Treatment Clinician Date SOB SOB Disease Active [facility] (shortness (shortness 5-28 st of breath) of breath) 00:00: Ho spita 00 l Atrial Atrial Disease Active 2019-03 [facility] fibrillati fibrillati 2-01 st on on 00:00: Hospita 00 l Stented Stented Disease Active 2019-03 [facility] coronary coronary 2-01 st artery artery 00:00: Hospita 00 l 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 2-01 st disease disease 00:00: Hospita involving involving 00 [place] coronary coronary artery of artery of [place] heart heart without without angina angina pectoris pectoris Allergic Allergic Problem Active 2019-10-01 Memoria rhinitis, rhinitis, 02:45:07 l unspecifie unspecifie He rmann d d seasonalit seasonalit y, y, unspecifie unspecifie d trigger d trigger Active Problem 10/01/2019 Ashreji Martins Chronic Chronic Problem Active 2019-10-01 Me moria obstructiv obstructiv 02:45:07 l e e [place] pulmonary pulmonary disease, disease, unspecifie unspecifie d COPD d COPD type type Active Problem 10/01/2019 Mer Martins Allergies, Adverse Reactions, Alerts Allergy Allergy Status Severity Reaction(s) Onset Inactive Treating Comm ents Source Name Type Date Date Clinician Propoxyp Propensi Active Other (See Me thodi hene ty to Comments) 07-30 adverse 00:00: Hospita reaction 00 l s to drug Hydrocod Propensi Active Other (See Me thodi one ty to Comments) 09-13 adverse 00:00: Hospita reaction 00 l s to drug No Known DA Active U 2011-03 [facility] 0 [facility] Social History Social Habit Start Date Stop Date Quantity Comments Source History [facility] Drinks [facility] Alcohol intake 2021-07-30 2021-07-30 Lifetime [facility] 00:00:00 00:00:00 non-drinker Hospital (finding) Tobacco use and 2021-07-30 2021-07-30 Smokeless tobacco Me [facility]odist exposure 00:00:00 00:00:00 non-user Hospital History [facility] 2020-02-08 2020-02-08 1 [facility] Frequency 00:00:00 00:00:00 Hospita l Sex Ass[birth year] At [birth year] [facility] 00:00[facility] 00[facility]00 Hospital Smoking Status Start Date Stop Date Source Never smoked tobacco [facility] Medications Ordered Filled Start Stop Current Ordering Indication Dosage Frequency Signature Comments Components Source Medication Medication Date Date Medication? Clinician (SIG) Name Name predniSONE 5mg QD Take 5 mg M ethodi (DELTASONE) 08-04 05-[address] 10 mg 15:45: 00:00 daily. Hospita tablet 31 :00 l multivitami Yes Take by Met sherin n 07-[address] (THERAGRAN) 14:00: Hospit a tablet 54 l cholecalcif Yes Take by Met sherin gudelia, 07-[address] vitamin D3, 14:00: Hospit a 50 mcg 54 l (2,000 unit) capsule capsule rivaroxaban Yes 20mg Take 20 mg [facility] (XARELTO) 5-[address] 20 mg 14:00: Hospita tablet 54 l cyanocobala Yes 100ug QD Take 100 M ethodi min 100 MCG 5-[address] tablet 14:00: mouth Hospita 54 daily. l lisinopriL Yes 5mg QD 5 mg [facility] (PRINIVIL) 5-[address] 5 mg tablet 00:00: Hospit a 00 l candesartan 2021- No 8mg QD Take 8 mg [facility] (ATACAND) 8 9-20 05-[address] MG tablet 00:00: 00:00 daily. Hospi ta 00 :00 l Symbicort Yes Inhale. Metho di 160-4.5 9-13 st mcg/actuati 00:00: Hospit a on inhaler 00 l tiotropium No Method i bromide 2.5 3-10 05-28 st mcg/actuati 00:00: 00:00 Hospi ta on mist 00 :00 l traZODone 2019-03 Yes 50mg QD Take 50 mg Me thodi (DESYREL) 0-[address] 50 MG 00:00: nightly. Hospita tablet 00 l lisinopriL 2019-03 No 5mg QD Take 5 mg M ethodi (PRINIVIL) 0-02 11-[address] 5 mg tablet 00:00: 00:00 daily. Hos dusty 00 :00 l atorvastati Yes TAKE 1 Meth christian n (LIPITOR) 9-[address] 80 MG 00:00: MOUTH Hospita tablet 00 EVERY DAY l aspirin Yes 81mg Take 81 mg Meth christian (ECOTRIN) 2-[address] 81 MG 00:00: Hospita enteric 00 l coated tablet pantoprazol 2018-03- No 40mg Take 40 mg [facility] e 0-14 11-[address] (PROTONIX) 00:00: 00:00 Hospit a 40 MG EC 00 :00 l tablet Immunizations Ordered Immunization Filled Immunization Date Status Commen ts Source Name Name PFIZER COVID-19 MRNA 2020-05-07 Completed [facility]ist VACCINATION 00:00:00 Hospital PFIZER COVID-19 MRNA 2020-04-16 Completed [facility]ist VACCINATION 00:00:00 Hospital Vital Signs Vital Name Observation Time Observation Value Comments Source Systolic blood 2021-07-30 19:01:00 145 mm[Hg] [facility] Hospital pressure Diastolic blood 2021-07-30 19:01:00 75 mm[Hg] [facility] dist Hospital pressure Heart rate 2021-07-30 19:01:00 73 /min [facility] Body height 2021-07-30 19:01:00 165.1 cm [facility] Body weight 2021-07-30 19:01:00 77.565 kg [facility] BMI 2021-07-30 19:01:00 28.46 kg/m2 [facility] Procedures Procedure Date / Time Performed Performing Clinician Sour e ECG 12-LEAD 2021-07-30 19:05:58 Hugh Gill spital ECG 12-LEAD 2021-02-06 20:55:38 Hugh Gill spital Plan of Care Planned Activity Planned Date Details Comments Source Future Scheduled 2021-11-29 SHINGLES VACCINES (1 Met [facility] Test 16:22:23 of 2) [code = SHINGLES VACCINES (1 of 2)] Future Scheduled 2021-11-29 COVID-19 VACCINE (3 - Me [facility] Test 16:22:23 Booster for Pfizer series) [code = COVID-19 VACCINE (3 - Booster for Pfizer series)] Future Scheduled 2021-11-29 INFLUENZA VACCINE Method [facility] Test 16:22:23 [code = INFLUENZA VACCINE] Future Scheduled 2021-11-29 HEPATITIS B VACCINES Met [facility] Test 16:22:23 (1 of 3 - 3-dose series) [code = HEPATITIS B VACCINES (1 of 3 - 3-dose series)] Future Scheduled 2021-11-29 Hepatitis C screening [facility] Test 16:22:23 (procedure) [code = 076393625] Future Scheduled 2021-11-[address] [facility] Test 16:22:23 SCREENING [code = BREAST CANCER SCREENING] Future Scheduled 2021-11-29 COLONOSCOPY SCREENING [facility] Test 16:22:23 [code = COLONOSCOPY SCREENING] Encounters Start End Encounter Admission Attending Care Care Encounter Source Date/Time Date/Time Type Type Clinicians Facility Department ID 2021-12-04 Outpatient [id number] [facility] 23:52:18 [id number] [place] [id number] 2021-07-30 2021-07-30 Office Gill, 1.2.840.1 [id number] [facility] 14:15:00 15:18:00 Visit Hugh [address]50[address] 3.430.2.7 Hospit a .3.309040 l .8 2021-07-30 2021-07-30 [facility] [id number] [address] [place] [address] 00:00:00 00:00:[address] 2021-07-30 2021-07-30 Travel 1.2.840.1 [id number] [facility] 00:00:00 00:00:[id number] 3.430.2.7 0.2.7.3.698 Ho spita .3.801548 084.8 l .8 2021-02-06 2021-02-06 Office Pau, 1.2.840.1 [id number] [facility] 15:00:00 16:31:49 Visit Hugh Kee [id number] 3.430.2.7 Hospit a .3.189298 l .8 2021-02-06 2021-02-06 [facility] [id number] 00:00:00 00:00:[address] HUGH [address] 2021-02-06 2021-02-06 Travel 1.2.840.1 [id number] [facility] 00:00:00 00:00:[id number] 3.430.2.7 0.2.7.3.698 spita .3.124572 084.8 l .8 2020-05-07 2020-05-07 Outpatient MYRIAM, [facility] [id number] 00:00:00 00:00:00 MEGHAN [address] 2020-04-16 2020-04-16 Outpatient [facility] [id number] 00:00:00 00:00:[address] 2020-02-08 2020-02-08 Outpatient PAU, [facility] [id number] 00:00:00 00:00:00 HUGH [address] 2019-09-30 2019-09-30 Outpatient Pulmonary Pulmonary 202 226 [facility] 11:09:00 11:09:00 Critical Critical alWo rks Care and Care and Sleep Sleep Results Test Description Test Time Test Comments Results Result Comments Source ECG 12 lead 2021-07-30 20:24:46 Test Item Value Reference Range Interpretation Comme nts Ventricular rate (test code = 253) Atrial rate (test code = 255) [place] interval (test code = 266) QRSD interval (test code = 260) QT interval (test code = 264) QTC interval (test code = 265) P axis 1 (test code = 267) QRS axis 1 (test code = 268) T wave axis (test code = 270) EKG impression (test code = 273) Normal sinus rhythm-Nonspecific ST abnormality-Abnormal ECG- [facility]
[2021-12-05 01:41] LABS: Protime INR 2.1
[2021-12-05 01:42] LABS: Absolute Lymphocytes (CBC) 0.7 K/uL (0.7-4.9); Hematocrit 25.5 % (36.0-45.0); Lymphocytes % 13.5 % (15.3-44.8); MPV 6.8 fL (7.6-11.3); RBC Red Blood Cell Count 3.22 M/uL (3.86-4.86)
[2021-12-05 02:12] LABS: Potassium 3.6 mmol/L (3.5-5.1); Troponin High Sensitivity 6.7 pg/mL (<58.9)
[2021-12-05] MEDS ORDERED: NA CHLORIDE 0.9% 250 ML ONE (04:41)
--- NOTE | 2021-12-05 06:27 | ER ---
Nurse's Notes [facility] Name: Jaki Andres Age: 76 yrs Sex: Female : 1945 Arrival Date: 12/04/2021 Time: 23:52 Bed 20 Private MD: Diagnosis: Anemia, unspecified;Iron deficiency anemia secondary to blood loss (chronic) Presentation: 12/05 00:35 Chief complaint: Patient states: she has had her blood count dropping lower and lower bb for a while now she had an EGD and a colonoscopy yesterday and had 2 polyps removed. She is getting weaker and weaker and her heart starts beating faster when she walks and she was told to come to the ED. Coronavirus screen: At this time, the client does not indicate any symptoms associated with coronavirus-19. Ebola Screen: No symptoms or risks identified at this time. Initial Sepsis Screen: Does the patient meet any 2 criteria? No. Patient's initial sepsis screen is negative. Does the patient have a suspected source of infection? No. Patient's initial sepsis screen is negative. Risk Assessment: Do you want to hurt yourself or someone else? Patient reports no desire to harm self or others. Onset of symptoms was December 05, 2021. 00:35 Method Of Arrival: Ambulatory bb 00:35 Acuity: SEGUNDO 3 bb Historical: - Allergies: 00:38 No Known Allergies; bb - Home Meds: 00:38 areds [Active]; aspirin 81 mg Oral chew 1 tab once daily [Active]; atorvastatin 10 mg bb Oral tab 1 tab once daily [Active]; Iron CR Oral daily [Active]; lisinopril 5 mg Oral tab 1 tab once daily [Active]; Methyl B-12 [Active]; methyl folate [Active]; multivitamin Oral tab daily [Active]; multivitamin Oral [Active]; pantoprazole 40 mg Oral chew 1 tab once daily [Active]; Plavix 75 mg Oral tab 1 tab once daily [Active]; ropinirole 0.5 mg Oral tab 1 tab BID PRN [Active]; temazepam 15 mg Oral cap 1 cap nightly [Active]; tramadol 50 mg Oral tab 1 tab as needed [Active]; trazodone 50 mg Oral tab daily [Active]; Vitamin B-12 1,000 mcg Oral tab daily [Active]; Vitamin C Oral [Active]; Vitamin D Oral 2000 unit daily [Active]; Xarelto 20 mg Oral tab 1 tab once daily [Active]; - PMHx: 00:38 Atrial Fib; blood clots; CPR on Jan 24, 2018; FACTOR V; High Cholesterol; Hypertension; bb Irritable bowel syndrome; Myocardial infarction; restless leg syndrome; sarcoidosis; - Immunization history:: Pfizer x 3. - Social history:: Smoking status: Patient denies any tobacco usage or history of. Screenin:27 Abuse screen: Denies threats or abuse. Nutritional screening: No deficits noted. kl Tuberculosis screening: No symptoms or risk factors identified. Fall Risk None identified. Assessment: 01:26 General: Appears in no apparent distress. comfortable, Behavior is calm, cooperative. kl Pain: Denies pain. Neuro: No deficits noted. Cardiovascular: No deficits noted. Cardiovascular: Reports shortness of breath, with activity. Respiratory: No deficits noted. GI: Reports bloody stool, gaseousness. : No deficits noted. No signs and/or symptoms were reported regarding the genitourinary system. EENT: No deficits noted. No signs and/or symptoms were reported regarding the EENT system. 02:30 Reassessment: Patient appears in no apparent distress at this time. Patient and/or kl family updated on plan of care and expected duration. Pain level reassessed. Patient is alert, oriented x 3, equal unlabored respirations, skin warm/dry/pink. 04:00 Reassessment: Patient appears in no apparent distress at this time. Patient and/or kl family updated on plan of care and expected duration. Pain level reassessed. Patient is alert, oriented x 3, equal unlabored respirations, skin warm/dry/pink. awaiting blood products pt updated. 07:00 Reassessment: RECD REPORT FROM LAINEY FISH. 76YO WF P/W NAUSEA AND ANEMIA. 1ST UNIT PRBC kl COMPLETED, DC ON HOLD PENDING 2ND UNIT PRBC. 08:00 Reassessment: 2ND UNIT PRBC INITIATED. 10:02 Reassessment: PRBC COMPLETED WITHOUT INCIDENT. PT DC HOME WITH FAMILY. bp Vital Signs: 00:35 BP 150 / 71; Pulse 76; Resp 16 S; Temp 98.8(O); Pulse Ox 98% on R/A; Weight 78.02 kg bb (R); Height 5 ft. 6 in. (167.64 cm) (R); Pain 0/10; 04:45 BP 129 / 62; Pulse 64; Resp 16; Pulse Ox 99% on R/A; kl 05:28 kl 06:55 BP 122 / 61; Pulse 59; Resp 14; Temp 98.4(O); Pulse Ox 96% ; jb5 08:00 BP 130 / 55; Pulse 66; Resp 17; Temp 97.3; Pulse Ox 98% ; kl 10:02 BP 115 / 61; Pulse 60; Resp 17; Temp 97.4; Pulse Ox 98% ; bp 00:35 Body Mass Index 27.76 (78.02 kg, 167.64 cm) bb 05:28 see blood transfusion sheet ED Course: 12/04 23:52 Patient arrived in ED. bp1 12/05 00:24 Codie Marx MD is Attending Physician. sp3 00:38 Triage completed. bb 00:38 Arm band placed on Patient placed in an exam room, on a stretcher, on pulse oximetry. bb 01:25 PT-INR Sent. kl 01:25 Type And Screen Sent. kl 01:25 Basic Metabolic Panel Sent. kl 01:25 CBC with Diff Sent. kl 01:25 Troponin HS Sent. kl 01:25 No provider procedures requiring assistance completed. Inserted saline lock: 20 gauge kl in left antecubital area, using aseptic technique. 03:30 No apparent distress. Resting quietly. kl 08:08 Patient has correct armband on for positive identification. Placed in gown. Bed in low kl position. Call light in reach. Side rails up X2. 10:02 Jonel Bonilla, ABE is Primary Nurse. bp 10:02 IV discontinued, intact, bleeding controlled, No redness/swelling at site. Pressure bp dressing applied. Administered Medications: No medications were administered Medication: 04:45 VIS not applicable for this client. kl Outcome: 06:26 Discharge ordered by . sp3 10:02 Discharged to home ambulatory, with family. bp 10:02 Condition: stable 10:02 Discharge instructions given to patient, Instructed on discharge instructions, follow up and referral plans. Demonstrated understanding of instructions, follow-up care. 10:03 Patient left the ED. bp Signatures: Joycelyn Gerber RN RN kl Ballard, Brenda, RN RN Davina Hernandez jb5 Jonel Bonilla, RN RN bp Naty May bp1 Codie Marx MD MD sp3
--- NOTE | 2021-12-05 06:27 | EDPHYS ---
Physician Documentation [facility] Name: Jaki Andres Age: 76 yrs Sex: Female : 1945 Arrival Date: 12/04/2021 Time: 23:52 Bed 20 Private MD: BRIANNA Physician Codie Marx HPI: 12/05 01:05 This 76 yrs old Female presents to ER via Ambulatory with complaints of Nausea, Losing sp3 blood. 01:05 76-year-old female with a history of atrial fibrillation, factor V Leiden deficiency on sp3 Xarelto and aspirin now presents to the ER for decreasing hemoglobin over the last 2 weeks. Patient just recently had a colonoscopy and endoscopy yesterday which were normal other than a few polyps and demonstrated no significant source of bleeding. She has a follow-up appointment on December 12 for small bowel camera imaging. 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 There is been no changing of the dosage of any of her medications. There is no other bleeding, melena, bright red blood per rectum or any other known bleeding sites. On ROS she denies headache, neck pain, chest pain, back pain, abdominal pain, vomiting or diarrhea. She has mild nausea and she has dyspnea on exertion due to dropping hemoglobin. At [facility], her hemoglobin this morning was 8.4. Approximately 1 week ago it was 9.0. Her GI physician has sent her here for possible blood transfusion.. Historical: - Allergies: 00:38 No Known Allergies; bb - Home Meds: 00:38 areds [Active]; aspirin 81 mg Oral chew 1 tab once daily [Active]; atorvastatin 10 mg bb Oral tab 1 tab once daily [Active]; Iron CR Oral daily [Active]; lisinopril 5 mg Oral tab 1 tab once daily [Active]; Methyl B-12 [Active]; methyl folate [Active]; multivitamin Oral tab daily [Active]; multivitamin Oral [Active]; pantoprazole 40 mg Oral chew 1 tab once daily [Active]; Plavix 75 mg Oral tab 1 tab once daily [Active]; ropinirole 0.5 mg Oral tab 1 tab BID PRN [Active]; temazepam 15 mg Oral cap 1 cap nightly [Active]; tramadol 50 mg Oral tab 1 tab as needed [Active]; trazodone 50 mg Oral tab daily [Active]; Vitamin B-12 1,000 mcg Oral tab daily [Active]; Vitamin C Oral [Active]; Vitamin D Oral 2000 unit daily [Active]; Xarelto 20 mg Oral tab 1 tab once daily [Active]; - PMHx: 00:38 Atrial Fib; blood clots; CPR on Jan 24, 2018; FACTOR V; High Cholesterol; Hypertension; bb Irritable bowel syndrome; Myocardial infarction; restless leg syndrome; sarcoidosis; - Immunization history:: Pfizer x 3. - Social history:: Smoking status: Patient denies any tobacco usage or history of. ROS: 01:07 Constitutional: Negative for fever, chills, and weight loss, Eyes: Negative for injury, sp3 pain, redness, and discharge, ENT: Negative for injury, pain, and discharge, Neck: Negative for injury, pain, and swelling, Cardiovascular: Negative for chest pain, palpitations, and edema, Back: Negative for injury and pain, MS/Extremity: Negative for injury and deformity, Skin: Negative for injury, rash, and discoloration, Neuro: Negative for headache, weakness, numbness, tingling, and seizure, Psych: Negative for depression, anxiety, suicide ideation, homicidal ideation, and hallucinations, Allergy/Immunology: Negative for hives, rash, and allergies, Endocrine: Negative for neck swelling, polydipsia, polyuria, polyphagia, and marked weight changes. 01:07 All other systems are negative. Exam: 01:07 Constitutional: This is a well developed, well nourished patient who is awake, alert, sp3 and in no acute distress. Head/Face: Normocephalic, atraumatic. Eyes: Pupils equal round and reactive to light, extra-ocular motions intact. Lids and lashes normal. Conjunctiva and sclera are non-icteric and not injected. Cornea within normal limits. Periorbital areas with no swelling, redness, or edema. ENT: Nares patent. No nasal discharge, no septal abnormalities noted. External auditory canals are clear. Oropharynx with no redness, swelling, or masses, exudates, or evidence of obstruction, uvula midline. Mucous membranes moist. Neck: Trachea midline, no thyromegaly or masses palpated, and no cervical lymphadenopathy. Supple, full range of motion without nuchal rigidity, or vertebral point tenderness. No Meningismus. Chest/axilla: Normal chest wall appearance and motion. Nontender with no deformity. No lesions are appreciated. Cardiovascular: Regular rate and rhythm with a normal S1 and S2. No gallops, murmurs, or rubs. Normal PMI, no JVD. No pulse deficits. Respiratory: Lungs have equal breath sounds bilaterally, clear to auscultation and percussion. No rales, rhonchi or wheezes noted. No increased work of breathing, no retractions or nasal flaring. Abdomen/GI: Soft, non-tender, with normal bowel sounds. No distension or tympany. No guarding or rebound. No evidence of tenderness throughout. Skin: Warm, dry with normal turgor. Normal color with no rashes, no lesions, and no evidence of cellulitis. MS/ Extremity: Pulses equal, no cyanosis. Neurovascular intact. Full, normal range of motion. Neuro: Awake and alert, GCS 15, oriented to person, place, time, and situation. Cranial nerves II-XII grossly intact. Motor strength 5/5 in all extremities. Sensory grossly intact. Cerebellar exam normal. Normal gait. Psych: Awake, alert, with orientation to person, place and time. Behavior, mood, and affect are within normal limits. Vital Signs: 00:35 BP 150 / 71; Pulse 76; Resp 16 S; Temp 98.8(O); Pulse Ox 98% on R/A; Weight 78.02 kg bb (R); Height 5 ft. 6 in. (167.64 cm) (R); Pain 0/10; 04:45 BP 129 / 62; Pulse 64; Resp 16; Pulse Ox 99% on R/A; kl 05:28 kl 06:55 BP 122 / 61; Pulse 59; Resp 14; Temp 98.4(O); Pulse Ox 96% ; jb5 08:00 BP 130 / 55; Pulse 66; Resp 17; Temp 97.3; Pulse Ox 98% ; kl 10:02 BP 115 / 61; Pulse 60; Resp 17; Temp 97.4; Pulse Ox 98% ; bp 00:35 Body Mass Index 27.76 (78.02 kg, 167.64 cm) bb 05:28 see blood transfusion sheet kl MDM: 00:49 Patient medically screened. sp3 01:07 Data reviewed: vital signs, nurses notes. ED course: Will obtain repeat blood work and sp3 likely transfuse 2 units of PRBCs. 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 I do not believe this is a bone marrow issue at this time. Patient also does not have a brisk bleed or significant single GI bleed based on her work-up and current clinical status. Likely discharge patient after transfusion depending on patient course and how she feels.. 06:24 ED course: Is currently being transfused without any complications. Patient is resting sp3 comfortably. I have given patient a printout of all of her laboratory values for today that she can take with her to her next hematology appointment. I stressed to her that her dosing and/or medication may need to be changed and that she needs to see hematology for follow-up. Patient will be are for discharge for second unit is completed.. 12/05 00:49 Order name: Basic Metabolic Panel; Complete Time: 02:13 sp3 12/05 00:49 Order name: CBC with Diff; Complete Time: 02:13 sp3 12/05 00:49 Order name: Troponin HS; Complete Time: 02:13 sp3 12/05 00:49 Order name: Type And Screen sp3 12/05 00:49 Order name: PT-INR; Complete Time: 02:13 sp3 12/05 00:49 Order name: EKG; Complete Time: 00:49 sp3 12/05 00:49 Order name: Cardiac monitoring; Complete Time: 01:25 sp3 12/05 00:49 Order name: IV Saline Lock; Complete Time: 07:44 sp3 12/05 00:49 Order name: Labs collected and sent; Complete Time: 01:25 sp3 12/05 02:31 Order name: Packed RBC Leukored EDMS 12/05 03:44 Order name: ABO/RH no charge; Complete Time: 04:25 EDMS Administered Medications: No medications were administered Disposition Summary: 12/05/21 06:26 Discharge Ordered Location: Home sp3 Condition: Stable sp3 Diagnosis - Anemia, unspecified sp3 - Iron deficiency anemia secondary to blood loss (chronic) sp3 Followup: sp3 - With: Private Physician - When: Upon discharge from the Emergency Department - Reason: Continuance of care Discharge Instructions: - Discharge Summary Sheet sp3 - Blood Transfusion, Adult sp3 Forms: - Medication Reconciliation Form sp3 - Thank You Letter sp3 - Antibiotic Education sp3 - Prescription Opioid Use sp3 Signatures: Dispatcher [employer] Shilpa Johnson, ABE RN bb Lacho Conte, MANAGER OF REGULATORY AFFAIRS-C MANAGER OF REGULATORY AFFAIRS-Cla1 Codie Marx MD MD sp3
--- NOTE | 2021-12-05 13:05 | EKG ---
Test Date: 2021-12-05 Test Time: 01:52:04 Small Stock Facer: WES MEASUREMENT RESULTS: Intervals: Rate: 63 OH: 150 QRSD: 90 QT: 430 QTc: 440 [place]: P: 61 OH: 150 QRS: 30 T: 12 INTERPRETIVE STATEMENTS: Normal sinus rhythm Nonspecific ST and T wave abnormality Abnormal ECG Compared to ECG 07/31/2021 11:59:00 ST (T wave) deviation now present Myocardial infarct finding no longer present Electronically Signed On 12-05-21 13:04:11 CDT by Vince Steel
== END 2021-12-05 10:03 | disposition home or self-care (01) ==
LOC: ER 23:50
PROC: 30233N1 Transfusion of Nonautologous Red Blood Cells into Peripheral Vein, Percutaneous Approach (ICD-10-PCS; principal; 2021-12-04)
DX: D50.0 Iron deficiency anemia secondary to blood loss (chronic) (principal); I48.91 Unspecified atrial fibrillation; Z79.01 Long term (current) use of anticoagulants; I10 Essential (primary) hypertension; E78.00 Pure hypercholesterolemia, unspecified; Z79.82 Long term (current) use of aspirin
CPT/HCPCS: 93005; 85025; 80048; 36415; 86900; 86850; 85610; 86901; 84484; 36430; P9016 ×2; J7050

== ENCOUNTER 2022-02-15 07:45 | Emergency (ER) | payer OTHER ==
--- OUTSIDE RECORDS SUMMARY | 2022-02-15 07:48 | XMS REPORT | Continuity of Care Document ---
:1945 Author Organization [facility] t Address 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 2019-10-01 Memoria rhinitis, rhinitis, 02:45:07 l unspecifie unspecifie He rmann d d seasonalit seasonalit y, y, unspecifie unspecifie d trigger d trigger Active Problem 10/01/2019 [facility] Chronic Chronic Problem Active 2019-10-01 Me moricristiane obstructiv obstructiv 02:45:07 l e e [place] pulmonary pulmonary disease, disease, unspecifie unspecifie d COPD d COPD type type Active Problem 10/01/2019 [facility] Allergies, Adverse Reactions, Alerts Allergy Allergy Status [...] DA Active U 2011-03 [facility]8 [place] [facility] Social History Social Habit Start Date Stop Date Quantity Comments Source History [facility] Drinks History [facility] Tobacco use and 2021-07-30 2021-07-30 Smokeless tobacco [facility] exposure 00:00:00 00:00:00 non-user Hospital Alcohol intake 2021-07-30 2021-07-30 Lifetime [facility] 00:00:00 00:00:00 non-drinker Hospital (finding) History [facility] 2020-02-08 2020-02-08 1 [facility] Frequency 00:00:00 00:00:00 Hospita l Sex Assigned At [birth year] [facility] 00:00:[facility] 00[facility]:00 Hospital Smoking Status Start Date Stop Date Source Never smoked tobacco [facility] Medications Ordered Filled Start Stop Current Ordering Indication Dosage Frequency Signature Comments Components Source Medication Medication Date Date Medication? Clinician (SIG) Name Name rivaroxaban 2021-03 No 20mg Take 20 mg [facility] (XARELTO) 0-18 10-[address] 20 mg 10:41: 00:00 Hospita tablet 25 :00 l multivitami 2021-03 Yes Take by Met hodi n 0-[address] (THERAGRAN) 09:57: Hospit a tablet 10 l cholecalcif 2021-03 Yes Take by Met sherin gudelia, 0-[address] vitamin D3, 09:57: Hospit a 50 mcg 10 l (2,000 unit) capsule capsule cyanocobala 2021-03 Yes 100ug QD Take 100 M ethodi min 100 MCG 0-[address] tablet 09:57: mouth Hospita 10 daily. l albuterol 2021-03 Yes 3 ml as Metho di (ACCUNEB) 0-[address] 2.5 mg /3 09:57: Hospita mL (0.083 10 l %) nebulizer solution polysacchar 2021-03 Yes 150mg Q.5D Take 1 Met hodi keshav iron 0-[address] complex 09:57: (150 mg Hospita (NIFEREX) 10 total) by l 150 mg iron mouth 2 capsule (two) times a day. benralizuma 2021-03 Yes Inject Meth christian b (Fasenra 0-[address] Pen) 30 09:57: skin. Hospita mg/mL 10 Every 2 l auto-inject month or Xarelto 10 2021-03 Yes 10mg QD Take 1 Metho di mg tablet 0-04 tablet (10 st 00:00: mg total) Hospita 00 by mouth l daily. predniSONE Yes 5mg QD Take 0.5 Met hodi (DELTASONE) 9-06 tablets (5 st 10 mg 00:00: mg total) Hospita tablet 00 by mouth l daily. predniSONE 2021-0 2021- No 5mg QD Take 5 mg M ethodi (DELTASONE) - 05-[address] 10 mg 15:45: 00:00 daily. Hospita tablet 31 :00 l predniSONE 2021-0 2021- No 5mg QD Take 5 mg M ethodi (DELTASONE) - 05-[address] 10 mg 15:45: 00:00 daily. Hospita tablet 31 :00 l multivitami Yes Take by Met hodi n 5-[address] (THERAGRAN) 14:00: Hospit a tablet 54 l cholecalcif Yes Take by Met hodi gudelia, 5-[address] vitamin D3, 14:00: Hospit a 50 mcg 54 l (2,000 unit) capsule capsule rivaroxaban Yes 20mg Take 20 mg [facility] (XARELTO) 5-[address] 20 mg 14:00: Hospita tablet 54 l cyanocobala 0 Yes 100ug QD Take 100 M ethodi min 100 MCG 5-[address] tablet 14:00: mouth Hospita 54 daily. l lisinopriL 0 Yes 5mg QD 5 mg [facility] (PRINIVIL) 5-[address] 5 mg tablet 00:00: Hospit a 00 l lisinopriL 0 Yes 5mg QD 5 mg [facility] (PRINIVIL) 5-[address] 5 mg tablet 00:00: Hospit a 00 l candesartan 2021- No 8mg QD Take 8 mg [facility] (ATACAND) 8 11-27-[address] MG tablet 00:00: 00:00 daily. Hospi ta 00 :00 l candesartan 2021- No 8mg QD Take 8 mg [facility] (ATACAND) 8 11-27-[address] MG tablet 00:00: 00:00 daily. Hospi ta 00 :00 l Symbicort 0 Yes Inhale. Metho di 160-4.5 9-13 st mcg/actuati 00:00: Hospit a on inhaler 00 l Symbicort 0 Yes Inhale. Metho di 160-4.5 9-13 st mcg/actuati 00:00: Hospit a on inhaler 00 l tiotropium 0 2021- No Method i bromide 2.5 3-10 05-28 st mcg/actuati 00:00: 00:00 Hospi ta on mist 00 :00 l tiotropium 0 2021- No Method i bromide 2.5 3-10 05-28 st mcg/actuati 00:00: 00:00 Hospi ta on mist 00 :00 l traZODone 2019-03 Yes 50mg QD Take 50 mg Me thodi (DESYREL) 0-[address] 50 MG 00:00: nightly. Hospita tablet 00 l traZODone 2019-03 Yes 50mg QD Take 50 mg Me thodi (DESYREL) 0-[address] 50 MG 00:00: nightly. Hospita tablet 00 l lisinopriL 2019-03- No 5mg QD Take 5 mg M ethodi (PRINIVIL) 0-02 11-[address] 5 mg tablet 00:00: 00:00 daily. Hos dusty 00 :00 l atorvastati 2019-0 Yes 40mg 40 mg. Meth christian n (LIPITOR) 11-09 st 80 MG 00:00: Hospita tablet 00 l atorvastati 2019-0 Yes TAKE 1 Meth christian n (LIPITOR) 11-[address] 80 MG 00:00: MOUTH Hospita tablet 00 EVERY DAY l aspirin 2020-0 Yes 81mg Take 81 mg Meth christian (ECOTRIN) 2-[address] 81 MG 00:00: Hospita enteric 00 l coated tablet aspirin 2019-0 Yes 81mg Take 81 mg Meth christian [...] MRNA 2020-05-07 Completed Meth odist VACCINATION 00:00:00 [facility] PFIZER COVID-19 MRNA 2020-05-07 Completed Meth odist VACCINATION 00:00:00 [facility] PFIZER COVID-19 MRNA 2020-04-16 Completed Meth odist VACCINATION 00:00:00 [facility] PFIZER COVID-19 MRNA 2020-04-16 Completed Meth odist VACCINATION 00:00:00 Hospital Vital Signs Vital Name Observation Time Observation Value Comments Source Systolic blood 2021-12-25 14:58:00 141 mm[Hg] Method ist Hospital pressure Diastolic blood 2021-12-25 14:58:00 67 mm[Hg] [facility] dist Hospital pressure Heart rate 2021-12-25 14:58:00 68 /min [facility] Body height 2021-12-25 14:58:00 165.1 cm [facility] Body weight 2021-12-25 14:58:00 79.379 kg [facility] BMI 2021-12-25 14:58:00 29.12 kg/m2 [facility] BMI 2021-07-30 19:01:00 28.46 kg/m2 [facility] Systolic blood 2021-07-30 19:01:00 145 mm[Hg] Method ist Hospital pressure Diastolic blood 2021-07-30 19:01:00 75 mm[Hg] [facility] Hospital pressure Heart rate 2021-07-30 19:01:00 73 /min [facility] Body height 2021-07-30 19:01:00 165.1 cm [facility] Body weight 2021-07-30 19:01:00 77.565 kg [facility] Procedures Procedure Date / Time Performed Performing Clinician Sour e ECG 12-LEAD 2021-07-30 19:05:58 Salo Mai spital ECG 12-LEAD 2021-02-06 20:55:38 Salo Mai spisirisha Plan of Care Planned Activity Planned Date Details Comments Source Future Scheduled 2022-01-14 HEPATITIS B VACCINES Met [facility] Test 05:44:08 (1 of 3 - 3-dose series) [code = HEPATITIS B VACCINES (1 of 3 - 3-dose series)] Future Scheduled 2022-01-14 Hepatitis C screening [facility] Test 05:44:08 (procedure) [code = 486107097] Future Scheduled 2022-01-14 BREAST CANCER [facility] Test 05:44:08 SCREENING [code = BREAST CANCER SCREENING] Future Scheduled 2022-01-14 COLONOSCOPY SCREENING [facility] Test 05:44:08 [code = COLONOSCOPY SCREENING] Future Scheduled 2022-01-14 SHINGLES VACCINES (1 Met [facility] Test 05:44:08 of 2) [code = SHINGLES VACCINES (1 of 2)] Future Scheduled 2022-01-14 COVID-19 VACCINE (3 - Me [facility] Test 05:44:08 Booster for Pfizer series) [code = COVID-19 VACCINE (3 - Booster for Pfizer series)] Future Scheduled 2022-01-14 INFLUENZA VACCINE Method [facility] Test 05:44:08 [code = INFLUENZA VACCINE] Future Scheduled 2021-11-29 HEPATITIS B VACCINES Met [facility] Test 16:22:23 (1 of 3 - 3-dose series) [code = HEPATITIS B VACCINES (1 of 3 - 3-dose series)] Future Scheduled 2021-11-29 Hepatitis C screening [facility] Test 16:22:23 (procedure) [code = [id number]] Future Scheduled 2021-11-29 BREAST CANCER [facility] Test 16:22:23 SCREENING [code = BREAST CANCER SCREENING] Future Scheduled 2021-11-29 COLONOSCOPY SCREENING [facility] Test 16:22:23 [code = COLONOSCOPY SCREENING] Future Scheduled 2021-11-29 SHINGLES VACCINES (1 Met [facility] Test 16:22:23 of 2) [code = SHINGLES VACCINES (1 of 2)] Future Scheduled 2021-11-29 COVID-19 VACCINE (3 - [facility] Test 16:22:23 Booster for Pfizer series) [code = COVID-19 VACCINE (3 - Booster for Pfizer series)] Future Scheduled 2021-11-29 INFLUENZA VACCINE Method [facility] Test 16:22:23 [code = INFLUENZA VACCINE] Encounters Start End Encounter Admission Attending Care Care Encounter Source Date/Time Date/Time Type Type Clinicians Facility Department ID 2022-02-15 Outpatient [id number] [facility] 07:47:49 [id number] [address] [id number] 2021-12-25 Outpatient [id number] Memoria 10:53:01 [id number] [address] [id number] 2021-12-04 Outpatient [id number] Memoria 23:52:18 [id number] [address] [id number] 2021-12-25 2021-12-25 Office [facility], 1.2.840.1 [id number] [facility] 09:50:00 10:00:00 Visit Salo Kee [address]79.1.[address] 3.430.2.7 Hospit a .3.531770 l .8 2021-12-25 2021-12-25 Travel 1.2.840.1 1.2.922.849 [id number] [facility] 00:00:00 00:00:[address] 3.430.2.7 0.2.7.3.698 Ho spita .3.719931 084.8 l .8 2021-12-25 2021-12-25 Outpatient BRIDGET, [facility] [id number] 00:00:00 00:00:[address] SALO [address] 2021-12-10 2021-12-10 Travel 1.2.840.1 [id number] [id number] [facility] 00:00:00 00:00:[address] 3.430.2.7 0.2.7.3.698 Ho spita .3.641781 084.8 l .8 2021-07-30 2021-07-30 Office Bridget, 1.2.840.1 [id number] Method[facility] 14:15:00 15:18:00 Visit Salo Kee 88854.1.[address] 3.430.2.7 Hospit a .3.178531 l .8 2021-07-30 2021-07-30 Office Bridget, 1.2.840.1 [id number] [facility] 14:15:00 15:18:00 Visit Salo Kee [address]902.1.[address] 3.430.2.7 Hospit a .3.368264 l .8 2021-07-30 2021-07-30 Travel 1.2.840.1 1.2.813.771 [id number] Methodi 00:00:00 00:00:[address] 3.430.2.7 0.2.7.3.698 Ho spita .3.159221 084.8 l .8 2021-07-30 2021-07-30 Travel 1.2.840.1 1.2.217.392 [id number] Methodi 00:00:00 00:00:[address] 3.430.2.7 0.2.7.3.698 Ho spita .3.786894 084.8 l .8 2021-02-06 2021-02-06 Office Bridget, 1.2.840.1 [id number] Method[facility] 15:00:00 16:31:49 Visit Salo Kee 55473.1.[address] 3.430.2.7 Hospit a .3.867160 l .8 2021-02-06 2021-02-06 Travel 1.2.840.1 1.2.548.562 [id number] [facility] 00:00:00 00:00:[address] 3.430.2.7 0.2.7.3.698 Ho spita .3.264917 084.8 l .8 2020-05-07 2020-05-07 Outpatient MYRIAM [facility] [id number] 00:00:00 00:00:00 MEGHAN [address] 2020-04-16 2020-04-16 Outpatient [facility] [id number] 00:00:00 00:00:[address] 2020-02-08 2020-02-08 Outpatient [facility] [id number] 00:00:00 00:00:00 SALO [address] 2019-09-30 2019-09-30 Outpatient Pulmonary Pulmonary 202 226 eClinic 11:09:00 11:09:00 Critical Critical alWo rks Care and Care and Sleep Sleep Results Test Description Test Time Test Comments Results Result Comments Source ECG 12 lead 2021-07-30 20:24:46 Test Item Value Reference Range Interpretation Comme nts Ventricular rate (test code = 253) Atrial rate (test code = 255) DE interval (test code = 266) QRSD interval (test code = 260) QT interval (test code = 264) QTC interval (test code = 265) P axis 1 (test code = 267) QRS axis 1 (test code = 268) T wave axis (test code = 270) EKG impression (test code = 273) Normal sinus rhythm-Nonspecific ST abnormality-Abnormal ECG- [facility] 12 [id number] 20:24:46 Test Item Value Reference Range Interpretation Comments Ventricular rate (test code = 253) Atrial rate (test code = 255) DE interval (test code = 266) QRSD interval (test code = 260) QT interval (test code = 264) QTC interval (test code = 265) P axis 1 (test code = 267) QRS axis 1 (test code = 268) T wave axis (test code = 270) EKG impression (test Normal sinus code = 273) rhythm-Nonspecific ST abnormality-Abnormal ECG- [facility]
--- NOTE | 2022-02-15 09:36 | RAD REPORT ---
EXAM DESCRIPTION: RAD - Chest Pa And Lat (2 Views) - 02/15/2022 8:16 am CLINICAL HISTORY: COUGH Chest pain. COMPARISON: Chest Pa And Lat (2 Views) dated 11/27/2021; Chest Single View dated 07/31/2021; Chest Sin gle View dated 07/06/2021; Chest Single View dated 03/21/2020 FINDINGS: COPD is present. Increased opacification of the right apex is present, suspicious for deve loping pneumonia. The heart is normal in size. No displaced fractures. IMPRESSION: Increased opacification of the right apex likely represents developing pneumonia.
[2022-02-15 10:05] LABS: Absolute Lymphocytes (CBC) 1.1 K/uL (0.7-4.9); Hematocrit 43.1 % (36.0-45.0); Lymphocytes % 16.7 % (15.3-44.8); MCV 85.7 fL (80-100); MPV 7.2 fL (7.6-11.3); RBC Red Blood Cell Count 5.03 M/uL (3.86-4.86)
[2022-02-15 10:25] LABS: Albumin 3.7 g/dL (3.4-5.0); Bilirubin Total 0.7 mg/dL (0.2-1.0); Protein, Total 7.2 g/dL (6.4-8.2)
[2022-02-15] MEDS ORDERED: ONDANSETRON 4 MG/2 ML VIAL ONE (10:25)
[2022-02-15] MEDS ORDERED: NA CHLORIDE 0.9% 1,000 ML ONE (10:25)
--- NOTE | 2022-02-15 10:27 | EDPHYS ---
Physician Documentation [facility] Name: Jaki Andres Age: 76 yrs Sex: Female : 1945 Arrival Date: 02/15/2022 Time: 07:46 Bed 25 Private MD: Saji Alvraez B ED Physician Jesus Lemons HPI: 02/15 08:02 This 76 yrs old Female presents to ER via Unassigned with complaints of Asthma snw Exacerbation, Chest Pain. 08:02 The patient presents to the emergency department with wheezing, the patient was snw reported to have audible wheezing, chest congestion, chest tightness, productive cough, trouble breathing. Onset: The symptoms/episode began/occurred 1 week(s) ago, and became persistent. Associated signs and symptoms: Pertinent positives: headache, nausea, vomiting. Severity of symptoms: At their worst the symptoms were moderate. The patient has experienced a previous episode, last month. The patient has not recently seen a physician, the patient's primary care provider is Dr. Dr. Alvarez. Historical: - Allergies: 08:33 No Known Allergies; ss - Home Meds: 08:03 Xarelto 10 mg oral tab [Active]; ferrous sulfate 325 mg (65 mg iron) Oral cpER snw [Active]; amoxicillin 875 mg Oral tab [Active]; prednisone 10 mg Oral tab once daily [Active]; Symbicort 80-4.5 mcg/actuation inhalation HFAA [Active]; albuterol sulfate 90 mcg/actuation Inhl HFAA 2 puffs BID [Active]; - Immunization history:: Adult Immunizations up to date. - Social history:: Smoking status: Patient denies any tobacco usage or history of. ROS: 08:36 Eyes: Negative for injury, pain, redness, and discharge, ENT: Negative for injury, snw pain, and discharge, Neck: Negative for injury, pain, and swelling, Cardiovascular: Negative for chest pain, palpitations, and edema. 08:36 Back: Negative for injury and pain, : Negative for injury, bleeding, discharge, and swelling, MS/Extremity: Negative for injury and deformity, Skin: Negative for injury, rash, and discoloration, Neuro: Negative for headache, weakness, numbness, tingling, and seizure. 08:36 Constitutional: Positive for body aches, malaise, poor PO intake. 08:36 Respiratory: Positive for cough, shortness of breath. 08:36 Abdomen/GI: Positive for nausea, vomiting. Exam: 08:11 Constitutional: This is a well developed, well nourished patient who is awake, alert, snw and in no acute distress. Head/Face: Normocephalic, atraumatic. Eyes: Pupils equal round and reactive to light, extra-ocular motions intact. Lids and lashes normal. Conjunctiva and sclera are non-icteric and not injected. Cornea within normal limits. Periorbital areas with no swelling, redness, or edema. 08:11 Neck: Trachea midline, no thyromegaly or masses palpated, and no cervical lymphadenopathy. Supple, full range of motion without nuchal rigidity, or vertebral point tenderness. No Meningismus. Chest/axilla: Normal chest wall appearance and motion. Nontender with no deformity. No lesions are appreciated. Cardiovascular: Regular rate and rhythm with a normal S1 and S2. No gallops, murmurs, or rubs. Normal PMI, no JVD. No pulse deficits. 08:11 Abdomen/GI: Soft, non-tender, with normal bowel sounds. No distension or tympany. No guarding or rebound. No evidence of tenderness throughout. Back: No spinal tenderness. No costovertebral tenderness. Full range of motion. Skin: Warm, dry with normal turgor. Normal color with no rashes, no lesions, and no evidence of cellulitis. MS/ Extremity: Pulses equal, no cyanosis. Neurovascular intact. Full, normal range of motion. Neuro: Awake and alert, GCS 15, oriented to person, place, time, and situation. Cranial nerves II-XII grossly intact. Motor strength 5/5 in all extremities. Sensory grossly intact. Cerebellar exam normal. Normal gait. Psych: Awake, alert, with orientation to person, place and time. Behavior, mood, and affect are within normal limits. 08:11 ENT: Nose: Nasal mucosa: edematous, Voice: is normal. 08:11 Respiratory: the patient does not display signs of respiratory distress, Respirations: shallow respirations, that is moderate, Breath sounds: are clear throughout. Vital Signs: 09:57 BP 137 / 83; Pulse 66; Resp 17; Temp 97.6(TE); Pulse Ox 98% ; Weight 77.11 kg; Height 5 ss ft. 6 in. (167.64 cm); Pain 8/10; 09:57 Body Mass Index 27.44 (77.11 kg, 167.64 cm) ss MDM: 08:21 Patient medically screened. snw 09:46 Data reviewed: vital signs, nurses notes. Data interpreted: Pulse oximetry: on room air snw is 97 %. pt states her home O2 sats have dropped to 90%. Counseling: I had a detailed discussion with the patient and/or guardian regarding: the historical points, exam findings, and any diagnostic results supporting the discharge/admit diagnosis, lab results, radiology results, the need for further work-up and treatment in the hospital. 09:47 Antibiotic administration: pt has been on Amoxil x 2 weeks, using steroid and albuterol snw inhalers, on prednisone x 5mg chronically, has increased them to 10mg daily. 10:26 Physician consultation: Frederick Hernandez MD was contacted at 10:26, regarding admission, to snw the telemetry unit. discussed case with attending, hospitalists. Will admit for further therapy. 11:38 Physician consultation: Tc Maguire MD regarding consult, patient's condition, Dr. magdy Maguire would like pt discharged to home with stronger abx (Augmentin 500mg TID) and increased steroid doseage (prednisone 20mg BID x 5 days)., in the emergency department to see patient at 11:38. 12 08:02 Order name: CBC with Diff; Complete Time: 10:56 snw 02/15 08:02 Order name: CMP; Complete Time: 10:27 snw 02/15 08:02 Order name: Troponin High Sensitivity; Complete Time: 10:27 snw 02/15 08:02 Order name: COVID-19/FLU A+B/RSV; Complete Time: 11:05 snw 02/15 08:02 Order name: Chest Pa And Lat (2 Views) XRAY; Complete Time: 09:38 snw 12 10:11 Order name: CBC Smear Scan; Complete Time: 10:56 EDMS 02/15 08:02 Order name: Oxygen; Complete Time: 10:08 snw 12 10:35 Order name: EKG; Complete Time: 10:36 snw 02/15 10:35 Order name: EKG - Nurse/Tech; Complete Time: 11:14 snw EC:12 Rate is 60 beats/min. Rhythm is regular. QRS Stewart is Normal. T waves are Inverted in snw lead III. Clinical impression: NSR w/ Non-specific ST/T Changes. Administered Medications: 10:23 Drug: NS 0.9% 1000 ml Route: IV; Rate: 1 bolus; Site: right antecubital; 5 10:41 CANCELLED (Duplicate Order): Ondansetron 4 mg PO once jh5 10:42 Drug: Zofran (Ondansetron) 4 mg Route: IVP; Site: right antecubital; 5 10:59 Drug: Rocephin (cefTRIAXone) 1 grams Route: IV; Rate: calculated rate; Site: right 5 antecubital; 11:00 Drug: fentaNYL (PF) 25 mcg Route: IVP; Site: right antecubital; 5 12:02 Drug: SOLU-Medrol (methylPrednisoLONE) 125 mg Route: IVP; Site: right antecubital; 12:02 Drug: Phenergan (promethazine) 12.5 mg Route: IVP; Site: right antecubital; hb Disposition: 19:20 Co-signature as Attending Physician, Jesus Lemons MD I agree with the assessment and rt plan of care. Disposition Summary: 02/15/22 11:39 Discharge Ordered Location: Home(02/15/22 11:39) snw Condition: Stable(02/15/22 11:39) snw Diagnosis - Pneumonia, unspecified organism(02/15/22 11:39) snw Followup: snw - With: Emergency Department - When: As needed - Reason: Worsening of condition Followup: snw - With: Private Physician - When: 2 - 3 days - Reason: Recheck today's complaints, Continuance of care, Re-evaluation by your physician Followup: snw - With: Tc Maguire MD - When: 2 - 3 days - Reason: Recheck today's complaints, Continuance of care, Re-evaluation by your physician Discharge Instructions: - Discharge Summary Sheet snw - Community-Acquired Pneumonia, Adult snw - Cough, Adult snw - Community-Acquired Pneumonia, Adult, [id number] snw Forms: - Medication Reconciliation Form snw - Thank You Letter snw - Antibiotic Education snw - Prescription Opioid Use snw Prescriptions: - Augmentin 500-125 mg Oral Tablet - take 1 tablet by ORAL route every 8 hours for 10 days; 30 tablet; Refills: 0, snw Product Selection Permitted - Delsym 12 hour - take 1 unit by ORAL route 2 times per day; 240 milliliter; Refills: 0, Product snw Selection Permitted - Zyrtec 10 mg Oral Tablet - take 1 tablet by ORAL route once daily As needed; 20 tablet; Refills: 0, snw Product Selection Permitted - Prednisone 20 mg Oral Tablet - take 1 tablet by ORAL route 2 times per day for 5 days; 10 tablet; Refills: 0, snw Product Selection Permitted - Pepcid 20 mg Oral Tablet - take 1 tablet by ORAL route once daily; 20 tablet; Refills: 0, Product snw Selection Permitted Signatures: Dispatcher [employer] EDMS Geeta Patricia FNP-C [employer] BUSINESS OBJECTS DEVELOPER-Kourtney Burgess RN RN Tiffanie Xiong RN RN Emily Davis RN RN [id number] Jesus Lemons MD MD rt Corrections: (The following items were deleted from the chart) 08:07 08:03 PMHx: Atrial Fib; snw snw 08:07 08:03 PMHx: Myocardial infarction; snw snw 08:07 08:03 PMHx: CPR on Jan 24, 2018; snw snw 08:07 08:03 PMHx: Hypertension; snw snw 08:07 08:03 PMHx: restless leg syndrome; snw snw 08:07 08:03 PMHx: FACTOR V; snw snw 08:07 08:03 PMHx: Irritable bowel syndrome; snw snw 08:07 08:03 PMHx: blood clots; snw snw 08:07 08:03 PMHx: sarcoidosis; snw snw 08:07 08:03 PMHx: High Cholesterol; snw snw 08:34 08:33 Social history: Smoking status: Patient denies any tobacco usage or history of. ssss 08:34 08:33 Immunization history: Adult Immunizations up to date, ss ss 10:34 10:26 Pierce Tucker snw snw 10:35 10:26 Physician consultation: Pierce Tucker MD was contacted at 10:26, regarding snw admission, to the telemetry unit. discussed case with attending, hospitalists. Will admit for further therapy, snw 10:41 08:02 Ondansetron 4 mg PO once ordered. snw jh5 10:41 10:24 Ondansetron 4 mg PO once given. jh5 jh5 10:41 10:41 Ondansetron 4 mg PO once ordered. jh5 jh5 11:39 10:26 Inpatient Admission snw snw 11:39 10:26 Telemetry/MedSurg (Inpatient) snw snw 11:39 10:26 Stable snw snw 11:39 10:26 new snw snw 11:39 10:26 have worsened snw snw 11:39 10:26 Standard snw snw 11:39 10:26 snw snw 11:39 10:26 Pneumonia, unspecified organism snw snw 11:39 10:26 Failed outpatient therapy snw snw 11:39 10:34 Frederick Hernandez snw snw 11:42 11:38 Physician consultation: Tc Maguire MD regarding consult, patient's snw condition, Dr. Maguire would like pt discharged to home with stronger abx and increased steroid doseage., in the emergency department to see patient at 11:38, snw
--- NOTE | 2022-02-15 10:27 | ER ---
Nurse's Notes [facility] Name: Jaki Andres Age: 76 yrs Sex: Female : 1945 Arrival Date: 02/15/2022 Time: 07:46 Bed 25 Private MD: Saji Alvarez B Diagnosis: Pneumonia, unspecified organism Presentation: 02/15 09:10 Chief complaint: Patient states: "I'm here about 3 times a year for this. My sinuses ss swell up and then I start vomiting. The pain gets so bad, it's like a vice around my head.". Initial Sepsis Screen: Does the patient meet any 2 criteria? No. Patient's initial sepsis screen is negative. Does the patient have a suspected source of infection? No. Patient's initial sepsis screen is negative. Risk Assessment: Do you want to hurt yourself or someone else? Patient reports no desire to harm self or others. Onset of symptoms was February 05, 2022. 09:10 Acuity: SEGUNDO 3 ss 09:57 Coronavirus screen: Client denies travel out of the [place] in the last 14 days. Ebola ss Screen: Patient denies exposure to infectious person. Patient denies travel to an Ebola-affected area in the 21 days before illness onset. 09:57 Method Of Arrival: Ambulatory ss Historical: - Allergies: 08:33 No Known Allergies; ss - Home Meds: 08:03 Xarelto 10 mg oral tab [Active]; ferrous sulfate 325 mg (65 mg iron) Oral cpER snw [Active]; amoxicillin 875 mg Oral tab [Active]; prednisone 10 mg Oral tab once daily [Active]; Symbicort 80-4.5 mcg/actuation inhalation HFAA [Active]; albuterol sulfate 90 mcg/actuation Inhl HFAA 2 puffs BID [Active]; - Immunization history:: Adult Immunizations up to date. - Social history:: Smoking status: Patient denies any tobacco usage or history of. Vital Signs: 09:57 BP 137 / 83; Pulse 66; Resp 17; Temp 97.6(TE); Pulse Ox 98% ; Weight 77.11 kg; Height 5 ss ft. 6 in. (167.64 cm); Pain 8/10; 09:57 Body Mass Index 27.44 (77.11 kg, 167.64 cm) ED Course: 07:46 Patient arrived in ED. am2 07:47 Saji Alvarez MD is Private Physician. am2 07:52 [facility]C [facility] snw 07:52 Jesus Lemons MD is Attending Physician. snw 08:18 Chest Pa And Lat (2 Views) XRAY In Process Unspecified. EDMS 08:33 Triage completed. ss 08:33 Arm band placed on right wrist. ss 09:59 Initial lab(s) drawn, by me, sent to lab. Inserted saline lock: 22 gauge in right em1 antecubital area, using aseptic technique. Blood collected. 10:15 Emily Davis, ABE is Primary Nurse. jh5 10:25 Pierce Tucker MD is Hospitalizing Provider. snw 10:34 Frederick Hernandez MD is Hospitalizing Provider. snw 11:40 Tc Maguire MD is Referral Physician. snw Administered Medications: 10:23 Drug: NS 0.9% 1000 ml Route: IV; Rate: 1 bolus; Site: right antecubital; jh5 10:41 CANCELLED (Duplicate Order): Ondansetron 4 mg PO once jh5 10:42 Drug: Zofran (Ondansetron) 4 mg Route: IVP; Site: right antecubital; jh5 10:59 Drug: Rocephin (cefTRIAXone) 1 grams Route: IV; Rate: calculated rate; Site: right 5 antecubital; 11:00 Drug: fentaNYL (PF) 25 mcg Route: IVP; Site: right antecubital; jh5 12:02 Drug: SOLU-Medrol (methylPrednisoLONE) 125 mg Route: IVP; Site: right antecubital; hb 12:02 Drug: Phenergan (promethazine) 12.5 mg Route: IVP; Site: right antecubital; hb Outcome: 10:26 Decision to Hospitalize by Provider. snw 11:39 Discharge ordered by . snw 12:29 Discharged to home via wheelchair, with significant other. hb 12:29 Condition: stable 12:29 Discharge instructions given to patient, family, Instructed on discharge instructions, follow up and referral plans. medication usage, Demonstrated understanding of instructions, follow-up care, medications, Prescriptions given X 4. 12:29 Patient left the ED. hb Signatures: Dispatcher [employer] EDMS Geeta Patricia FNP-C INJECTION PRESS OPERATOR-Csnw Kevan Colon em1 Kourtney Darnell RN RN Tiffanie Xiong RN RN Kera Man am2 Emily Davis RN RN jh5 Corrections: (The following items were deleted from the chart) 08:07 08:03 PMHx: Atrial Fib; snw snw 08:07 08:03 PMHx: Myocardial infarction; snw snw 08:07 08:03 PMHx: CPR on Jan 24, 2018; snw snw 08:07 08:03 PMHx: Hypertension; snw snw 08:07 08:03 PMHx: restless leg syndrome; snw snw 08:07 08:03 PMHx: FACTOR V; snw snw 08:07 08:03 PMHx: Irritable bowel syndrome; snw snw 08:07 08:03 PMHx: blood clots; snw snw 08:07 08:03 PMHx: sarcoidosis; snw snw 08:07 08:03 PMHx: High Cholesterol; snw snw 08:34 08:33 Social history: Smoking status: Patient denies any tobacco usage or history of. [facility] :34 08:33 Immunization history: Adult Immunizations up to date, [facility] :34 08:24 Chief complaint: Patient states: Diarrhea that began on 12/14/21. Pt was diagnosed ss with CDIFF 2-3 weeks ago and is currently on Vancomycin. Pt reports that she is here today because she has lost a total of 13 lbs and feels weak. Denies pain/ fever :34 08:24 Coronavirus screen: Client denies travel out of the [place] in the last 14 days. [facility] :34 08:24 Ebola Screen: Patient denies exposure to infectious person. Patient denies travel ss to an Ebola-affected area in the 21 days before illness onset. :34 08:24 Initial Sepsis Screen: Does the patient meet any 2 criteria? No. Patient's ss initial sepsis screen is negative. Does the patient have a suspected source of infection? No. Patient's initial sepsis screen is negative. 08:34 08:24 Risk Assessment: Do you want to hurt yourself or someone else? Patient reports no desire to harm self or others. 08:24 Onset of symptoms was December 14, 2021 [facility] 08:24 Method Of Arrival: Ambulatory [facility] 08:24 BP 127 / 90; Pulse 71bpm; Resp 16bpm; Pulse Ox 98% RA; Temp 98.0F Oral; 57.79 kg Measured; Height 5 ft. 2 in.; BMI: 23.3; Pain 0/10; 08:24 Acuity: SEGUNDO 3 [facility] 10:41 10:24 Ondansetron 4 mg PO jh5 jh5
[2022-02-15] MEDS ORDERED: FENTANYL CITR 100 MCG/2 ML ONE (10:47)
[2022-02-15 10:54] LABS: Anisocytosis 2+; Blood Morphology Comment NOTED (NOT SEEN); Platelet Estimate ADEQ; White Blood Cell Scan OK (OK)
[2022-02-15] MEDS ORDERED: CEFTRIAXONE 1000 MG/VIAL ONE (10:54)
[2022-02-15 11:05] LABS: SARS-COV-2 RT PCR NEGATIVE (NEGATIVE)
--- NOTE | 2022-02-15 12:00 | P.CNS ---
Date of Consult: 02/15/22 Reason for Consult: admission Primary Care Provider: Dr. Andrea Alvarez Chief Complaint: asthma exacerbation, pneumonia History of Present Illness: Ms. 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 She was prescribed amoxicillin and doubled steroid dose by PCP on 02/08 with no improvement of symptoms. She reports congestion, headache, nausea, vomiting, and anorexia. Denies fever. Labs unremarkable. Vital signs stable. Sats 97% on room air. CXR shows increased opacification of the right apex likely represents developing pneumonia. Hospitalist team consulted for admission for asthma exacerbation and pneumonia. Patient is stable, able to talk in complete sentences, no wheezing or cough. Patient's only complaint is headache. Patient's power plant engineer saw patient at bedside and recommended discharge home with Augmentin and quadrupled steroid dose. Patient is due for Fasenra dose on Friday as well. All findings discussed with hospitalist team, ER team, power plant engineer and patient and decision was made to discharge patient home with power plant engineer's recommendations. Allergies No Known Allergies Allergy (Unverified 03/21/20 20:57) Home Medications: Aspirin 81 mg PO DAILY 03/21/20 Atorvastatin Calcium [Lipitor] 80 mg PO DAILY 03/21/20 Lisinopril [Zestril] 5 mg PO DAILY 03/21/20 Multivit with Iron,Minerals [Complete Senior] 1 each PO DAILY 03/21/20 Pantoprazole [Protonix Tab] 40 mg PO DAILY PRN 03/21/20 Rivaroxaban [Xarelto] 20 mg PO DAILY 03/21/20 Tramadol HCl [Ultram] 50 mg PO DAILY PRN 03/21/20 Trazodone [Desyrel] 50 mg PO DAILY 03/21/20 Ubiquinol 100 mg MC DAILY 03/21/20 Vit C/Ascorb Sod/Multivit-Min [Emergen-C 500 mg Chewable Tab] 1,000 mg PO DAILY 03/21/20 Vit D3/Vit K2/Calc Frutoborate [Move Free Oycgt-Nysmon-O8-D3] 1 each PO DAILY 03/21/20 predniSONE [Deltasone*] 10 mg PO BID #20 tab 03/22/20 - Past Medical/Surgical History -: Asthma -: Atrial fibrillation -: Sarcoidosis -: Factor V Leiden -: Hypertension -: Dyslipidemia -: Cholecystectomy -: Hysterectomy -: Foot surgery -: Breast reduction - Social History Alcohol use: No CD- Drugs: No Caffeine use: No Physical Examination Laboratory Data (last 24 hrs) 02/15/22 10:00: Sodium 134 L, Potassium 4.0, BUN 17, Creatinine 0.78, Glucose 93, Total Bilirubin 0.7, AST 25, ALT 29, Alkaline Phosphatase 63 02/15/22 10:00: WBC 6.80, Hgb 14.5, Hct 43.1, Plt Count 221
[2022-02-15] MEDS ORDERED: METHYLPREDNISOLONE 125 MG INJ ONE (12:01)
[2022-02-15] MEDS ORDERED: PROMETHAZINE INJ 25 MG/ML AMP ONE (12:03)
--- NOTE | 2022-02-15 12:04 | P.CNS ---
Date of Consult: 02/15/22 Ms. 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 She was prescribed amoxicillin and doubled steroid dose by PCP on 02/08 with no improvement of symptoms. She reports congestion, headache, nausea, vomiting, and anorexia. Denies fever. Labs unremarkable. Vital signs stable. Sats 97% on room air. CXR shows increased opacification of the right apex likely represents developing pneumonia. Hospitalist team consulted for admission for asthma exacerbation and pneumonia. Patient is stable, able to talk in complete sentences, no wheezing or cough. Patient's only complaint is headache. Patient's corporate associate attorney saw patient at bedside and recommended discharge home with Augmentin and quadrupled steroid dose. Patient is due for Fasenra dose on Friday as well. All findings discussed with hospitalist team, ER team, corporate associate attorney and patient and decision was made to discharge patient home with corporate associate attorney's recommendations. <Clay Keaen - Last Filed: 02/15/22 13:05> She appears comfortable and is maintaining adequate SpO2 readings on room air. She was seen by Dr. Maguire who recommended discharge home with amoxicillinclavulanate. Her CURB65 score is 1 (age > 65), which suggest that she is in a low risk group and would likely do well with outpatient treatment. I have advised her and her that should her symptoms get worse to please return to the emergency department for further evaluation. They are in agreement this plan and would like to be discharged home. <Frederick Hernandez - Last Filed: 02/15/22 19:10>
[2022-02-15 13:34] VITALS: BP 137/83; TEMP 97.6; O2SAT 98
--- NOTE | 2022-02-16 09:24 | P.CNS ---
Date of Consult: 02/15/22 Reason for Consult: Asthma/pneumonia Chief Complaint: Shortness of breath sinus congestion History of Present Illness: age 76 failed outpatient TX with Ab is a history of eosinophilic eosinophilic asthma is treated with Fasenra on a bimonthly basis and very stable. Has been sick for about 2 weeks was treated with amoxicillin by her PCP she continued to get worse and it appeared in the emergency room planing of headache sinus congestion Allergies No Known Allergies Allergy (Unverified 03/21/20 20:57) Home Medications: Aspirin 81 mg PO DAILY 03/21/20 Atorvastatin Calcium [Lipitor] 80 mg PO DAILY 03/21/20 Lisinopril [Zestril] 5 mg PO DAILY 03/21/20 Multivit with Iron,Minerals [Complete Senior] 1 each PO DAILY 03/21/20 Pantoprazole [Protonix Tab] 40 mg PO DAILY PRN 03/21/20 Rivaroxaban [Xarelto] 20 mg PO DAILY 03/21/20 Tramadol HCl [Ultram] 50 mg PO DAILY PRN 03/21/20 Trazodone [Desyrel] 50 mg PO DAILY 03/21/20 Ubiquinol 100 mg MC DAILY 03/21/20 Vit C/Ascorb Sod/Multivit-Min [Emergen-C 500 mg Chewable Tab] 1,000 mg PO DAILY 03/21/20 Vit D3/Vit K2/Calc Frutoborate [Move Free Qstjm-Wyuwnw-M2-D3] 1 each PO DAILY 03/21/20 predniSONE [Deltasone*] 10 mg PO BID #20 tab 03/22/20 - Past Medical/Surgical History -: Asthma -: Atrial fibrillation -: Sarcoidosis -: Factor V Leiden -: Hypertension -: Dyslipidemia -: Cholecystectomy -: Hysterectomy -: Foot surgery -: Breast reduction - Social History Alcohol use: No CD- Drugs: No Caffeine use: No Review of Systems 10-point ROS is otherwise unremarkable General: Weakness Respiratory: Cough, Shortness of Breath Physical Examination Temp Pulse Resp BP Pulse Ox 97.6 F 66 17 137/83 02/15/22 09:57 12 09:57 02/15/22 09:57 02/15/22 09:57 General: Alert, In no apparent distress, Oriented x3 Neck: Supple Respiratory: Clear to auscultation bilaterally Cardiovascular: No edema, Regular rate/rhythm, Normal S1 S2 Gastrointestinal: Normal bowel sounds, Soft and benign, Non-distended Laboratory Data (last 24 hrs) 02/15/22 10:00: Sodium 134 L, Potassium 4.0, BUN 17, Creatinine 0.78, Glucose 93, Total Bilirubin 0.7, AST 25, ALT 29, Alkaline Phosphatase 63 02/15/22 10:00: WBC 6.80, Hgb 14.5, Hct 43.1, Plt Count 221 - Problems (1) Asthma with acute exacerbation Status: Acute Plan: Patient is 76 years of age with a history of asthma is on Fasenra as well as has been stable for quite some time came sick over the past 2 weeks failed outpatient therapy with amoxicillin complaining of sinus congestion worsening shortness of breath flu screen is negative only has some underlying sinusitis recommend discharge on prednisone 20 mg twice a day she does take 5 mg of prednisone a day need a booster dose for 7 days in addition to Augmentin there was a vital signs oxygenation all stable chest x-ray reviewed questionable changes in the right apex also White count is normal patient to follow-up with me scheduled to have another dose of Fasenra Qualifiers: Asthma persistence: persistent
--- NOTE | 2022-02-18 15:07 | EKG ---
Test Date: 2022-02-15 Test Time: 11:08:22 Scientific Technical Writer: THUY MEASUREMENT RESULTS: Intervals: Rate: 60 HI: 160 QRSD: 92 QT: 440 QTc: 440 [place]: P: 63 HI: 160 QRS: 4 T: -19 INTERPRETIVE STATEMENTS: Normal sinus rhythm Nonspecific T wave abnormality Abnormal ECG Compared to ECG 12/05/2021 01:52:04 T-wave abnormality now present ST (T wave) deviation no longer present Electronically Signed On 02-18-22 14:59:02 MANAGEMENT REP by Vince Steel
== END 2022-02-15 12:29 | disposition home or self-care (01) ==
LOC: ER 07:45 → ERHOLD 10:59 → UNDOADMOB 10:59 → ER 12:29
DX: J18.9 Pneumonia, unspecified organism (principal); J82.83 Eosinophilic asthma; I48.91 Unspecified atrial fibrillation; I10 Essential (primary) hypertension; E78.5 Hyperlipidemia, unspecified; Z79.01 Long term (current) use of anticoagulants; Z79.82 Long term (current) use of aspirin; Z20.822 Contact with and (suspected) exposure to COVID-19
CPT/HCPCS: 93005; 85025; 36415; 84484; 80053; 0241U; 71046; 96375; 96374; 99284; J2550; J3010; J7030; J2930; J2405

== ENCOUNTER 2022-04-21 19:30 | Emergency (ER) | payer OTHER ==
--- OUTSIDE RECORDS SUMMARY | 2022-04-21 19:35 | XMS REPORT | Continuity of Care Document ---
:[address] [facility] t Address 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 Chronic Chronic Problem Active 2019-10-01 Me moricristiane obstructiv obstructiv 02:45:07 l e e [place] pulmonary pulmonary disease, disease, unspecifie unspecifie d COPD d COPD type type Active Problem 10/01/2019 [facility] Allergies, Adverse Reactions, Alerts Allergy Allergy Status [...] DA Active U 2011-03 [facility] [place] [facility] Social History Social Habit Start Date Stop Date Quantity Comments Source History [facility] Drinks History [facility] Tobacco use and 2021-07-30 2021-07-30 Smokeless tobacco [facility] exposure 00:00:00 00:00:00 non-user Hospital Alcohol intake 2021-07-30 2021-07-30 Lifetime [facility] 00:00:00 00:00:00 non-drinker Hospital (finding) History [facility] 2020-02-08 2020-02-08 1 [facility] Alcohol Frequency 00:00:00 00:00:00 Hospita l Sex Ass[birth year] At [birth year] [facility] 00:00:[facility] 00:[facility]:00 Hospital Smoking Status Start Date Stop Date Source Never smoked tobacco [facility] Medications Ordered Filled Start Stop Current Ordering Indication Dosage Frequency Signature Comments Components Source Medication Medication Date Date Medication? Clinician (SIG) Name Name rivaroxaban 2021-03 No 20mg Take 20 mg [facility] (XARELTO) 0-18 10-[address] 20 mg 10:41: 00:00 Hospita tablet 25 :00 l rivaroxaban 2021-03- No 20mg Take 20 mg [facility] (XARELTO) 0-18 10-[address] 20 mg 10:41: 00:00 Hospita tablet 25 :00 l multivitami 2021-03 Yes Take by [facility] n 0-[address] (THERAGRAN) 09:57: Hospit a tablet 10 l cholecalcif 2021-03 Yes Take by Met hodi gudelia, 0-[address] vitamin D3, 09:57: [...] 10 Every 2 l auto-inject month or multivitami 2021-03 Yes Take by [facility] n 0-[address] (THERAGRAN) 09:57: Hospit a tablet 10 l cholecalcif 2021-03 Yes Take by Met h[facility] gudelia, 0-[address] vitamin D3, 09:57: [...] total) Hospita 00 by mouth l daily. Xarelto 10 2021-03 Yes 10mg QD Take 1 Metho di mg tablet 0-04 tablet (10 00:00: mg total) Hospita 00 by mouth l daily. predniSONE 0 Yes 5mg QD Take 0.5 Met [facility] (DELTASONE) 9-06 tablets (5 st 10 mg 00:00: mg total) Hospita tablet 00 by mouth l daily. predniSONE 0 Yes 5mg QD Take 0.5 Met h[facility] (DELTASONE) 9-06 tablets (5 st 10 mg 00:00: mg total) Hospita tablet 00 by mouth l daily. predniSONE 2021-0 2021- No 5mg QD Take 5 mg M [facility] (DELTASONE) -04 08- by mouth st 10 mg 15:45: 00:00 daily. Hospita tablet 31 :00 l predniSONE 2021-0 2021- No 5mg QD Take 5 mg M [facility] (DELTASONE) -04 08- by mouth st 10 mg 15:45: 00:00 daily. Hospita tablet 31 :00 l predniSONE 2021-0 2- No 5mg QD Take 5 mg M [facility] (DELTASONE) -04 08- by mouth st 10 mg 15:45: 00:00 daily. Hospita tablet 31 :00 l cholecalcif Yes Take by Met hodi gudelia, 5- mouth. st vitamin D3, 14:00: Hospit a 50 mcg 54 l (2,000 unit) capsule capsule rivaroxaban Yes 20mg Take 20 mg [facility] (XARELTO) 5-[address] 20 mg 14:00: Hospita tablet 54 l cyanocobala 0 Yes 100ug QD Take 100 M [facility] min 100 MCG 5-[address] tablet 14:00: mouth Hospita 54 daily. l multivitami Yes Take by Met [facility] n 5-[address] (THERAGRAN) 14:00: Hospit a tablet 54 l lisinopriL 2021-0 Yes 5mg QD 5 mg [facility] (PRINIVIL) 5-[address] 5 mg tablet 00:00: Hospit a 00 l lisinopriL 2021-0 Yes 5mg QD 5 mg [facility] (PRINIVIL) 5-[address] 5 mg tablet 00:00: Hospit a 00 l lisinopriL 2021-0 Yes 5mg QD 5 mg [facility] (PRINIVIL) 5-[address] 5 mg tablet 00:00: Hospit a 00 l candesartan 2020-0 2022- No 8mg QD Take 8 mg [facility] (ATACAND) 8 9- 05-[address] MG tablet 00:00: 00:00 daily. Hospi ta 00 :00 l candesartan 2020-0 202- No 8mg QD Take 8 mg [facility] (ATACAND) 8 9- 05-[address] MG tablet 00:00: 00:00 daily. Hospi ta 00 :00 l candesartan 2020-0 2022- No 8mg QD Take 8 mg [facility] (ATACAND) 8 9- 05-[address] MG tablet 00:00: 00:00 daily. Hospi ta 00 :00 l Symbicort 1-0 Yes Inhale. Metho di 160-4.5 9-13 st mcg/actuati 00:00: Hospit a on inhaler 00 l Symbicort 1-0 Yes Inhale. Metho di 160-4.5 9-13 st mcg/actuati 00:00: Hospit a on inhaler 00 l Symbicort 2021-0 Yes Inhale. Metho di 160-4.5 9-13 st mcg/actuati 00:00: Hospit a on inhaler 00 l tiotropium 2020-0 2021- No Method i bromide 2.5 3-10 05-28 st mcg/actuati 00:00: 00:00 Hospi ta on mist 00 :00 l tiotropium 2020-0 2021- No Method i bromide 2.5 3-10 05-28 st mcg/actuati 00:00: 00:00 Hospi ta on mist 00 :00 l tiotropium 2020-0 2021- No Method i bromide 2.5 3-10 05-28 st mcg/actuati 00:00: 00:00 Hospi ta on mist 00 : l traZODone 2019-03 Yes 50mg QD Take [...] QD Take 5 mg M [facility] (PRINIVIL) 002 11-[address] 5 mg tablet 00:00: 00:00 daily. Hos dusty 00 : l atorvastati 0 Yes TAKE 1 Meth christian n (LIPITOR) 11-[address] 80 MG 00:00: MOUTH Hospita tablet 00 EVERY DAY l atorvastati 0 Yes 40mg 40 mg. [facility] christian n (LIPITOR) 11-09 st 80 MG 00:00: Hospita tablet 00 l atorvastati 2019-0 Yes 40mg 40 mg. Meth christian n (LIPITOR) 11-09 st 80 MG 00:00: Hospita tablet 00 l aspirin 2020-0 Yes 81mg Take 81 mg [facility] christian (ECOTRIN) 2-[address] 81 MG 00:00: Hospita enteric 00 l coated tablet aspirin 2020-0 Yes 81mg Take 81 mg [facility] (ECOTRIN) 2-[address] 81 MG 00:00: Hospita enteric 00 l coated tablet aspirin 2020-0 Yes 81mg Take 81 mg [facility] christian (ECOTRIN) 2-[address] 81 MG 00:00: Hospita enteric 00 l coated tablet pantoprazol 2018-03- No 40mg Take 40 mg [facility] e 0-14 11-[address] (PROTONIX) 00:00: 00:00 Hospit a 40 MG EC 00 :00 l tablet Immunizations Ordered Immunization Filled Immunization Date Status Commen ts Source Name Name [employer] COVID-19 MRNA 2020-05-07 Completed [facility] VACCINATION 00:00:00 [facility] PFIZER COVID-19 MRNA 2020-05-07 Completed [facility] VACCINATION 00:00:00 [facility] PFIZER COVID-19 MRNA 2020-05-07 Completed [facility] VACCINATION 00:00:00 [facility] PFIZER COVID-19 MRNA 2020-04-16 Completed [facility] VACCINATION 00:00:00 [facility] PFIZER COVID-19 MRNA 2020-04-16 Completed [facility] VACCINATION 00:00:00 [facility] PFIZER COVID-19 MRNA 2020-04-16 Completed [facility] VACCINATION 00:00:00 Hospital Vital Signs Vital Name Observation Time Observation Value Comments Source Systolic blood 2021-12-25 14:58:00 141 mm[Hg] [facility] pressure Diastolic blood 2021-12-25 14:58:00 67 [facility] Heart rate 2021-12-25 14:58:00 68 /min [facility] Body height 2021-12-25 14:58:00 165.1 cm [facility] Body weight 2021-12-25 14:58:00 79.379 kg [facility] BMI 2021-12-25 14:58:00 29.12 kg/m2 [facility] Systolic blood 2021-07-30 19:01:00 145 mm[Hg] [facility] pressure Diastolic blood 2021-07-30 19:01:00 75 mm[Hg] [facility] Heart rate 2021-07-30 19:01:00 73 /min [facility] Body height 2021-07-30 19:01:00 165.1 cm [facility] Body weight 2021-07-30 19:01:00 77.565 kg [facility] BMI 2021-07-30 19:01:00 28.46 kg/m2 [facility] Procedures Procedure Date / Time Performed Performing Clinician Sour e ECG 12-LEAD 2021-07-30 19:05:58 Salo Mai spital ECG 12-LEAD 2021-02-06 20:55:38 Salo Mai spisirisha Plan of Care Planned Activity Planned Date Details Comments Source Future Scheduled 2022-04-18 [facility]atitis C [facility] Test 14:58:37 (procedure) [code = 521706046] Future Scheduled 2022-04-18 BREAST CANCER [facility] Test 14:58:37 SCREENING [code = BREAST CANCER SCREENING] Future Scheduled 2022-04-18 COLONOSCOPY SCREENING [facility] Test 14:58:37 [code = COLONOSCOPY SCREENING] Future Scheduled 2022-04-18 SHINGLES VACCINES (1 Met [facility] Test 14:58:37 of 2) [code = SHINGLES VACCINES (1 of 2)] Future Scheduled 2022-04-18 COVID-19 VACCINE (3 - Me [facility] Test 14:58:37 Booster for Pfizer series) [code = COVID-19 VACCINE (3 - Booster for Pfizer series)] Future Scheduled 2022-04-18 INFLUENZA VACCINE [facility] Test 14:58:37 [code = INFLUENZA VACCINE] Future Scheduled 2022-01-14 Hepatitis C screening [facility] Test 05:44:08 (procedure) [code = [id number]] Future Scheduled 2022-01-14 BREAST CANCER [facility] Test 05:44:08 SCREENING [code = BREAST CANCER SCREENING] Future Scheduled 2022-01-14 COLONOSCOPY SCREENING [facility] Test 05:44:08 [code = COLONOSCOPY SCREENING] Future Scheduled 2022-01-14 SHINGLES VACCINES (1 Met [facility] Test 05:44:08 of 2) [code = SHINGLES VACCINES (1 of 2)] Future Scheduled 2022-01-14 COVID-19 VACCINE (3 - Me [facility] Test 05:44:08 Booster for Pfizer series) [code = COVID-19 VACCINE (3 - Booster for Pfizer series)] Future Scheduled 2022-01-14 INFLUENZA VACCINE [facility] Test 05:44:08 [code = INFLUENZA VACCINE] Future Scheduled 2022-01-14 HEPATITIS B VACCINES Met [facility] Test 05:44:08 (1 of 3 - 3-dose series) [code = HEPATITIS B VACCINES (1 of 3 - 3-dose series)] Future Scheduled 2021-11-29 HEPATITIS B VACCINES Met [facility] Test 16:22:23 (1 of 3 - 3-dose series) [code = HEPATITIS B VACCINES (1 of 3 - 3-dose series)] Future Scheduled 2021-11-29 Hepatitis C screening [facility] Test 16:22:23 (procedure) [code = 610899570] Future Scheduled 2021-11-29 BREAST CANCER [facility] Test 16:22:23 SCREENING [code = BREAST CANCER SCREENING] Future Scheduled 2021-11-29 COLONOSCOPY SCREENING [facility] Test 16:22:23 [code = COLONOSCOPY SCREENING] Future Scheduled 2021-11-29 SHINGLES VACCINES (1 Met [facility] Test 16:22:23 of 2) [code = SHINGLES VACCINES (1 of 2)] Future Scheduled 2021-11-29 COVID-19 VACCINE (3 - [facility] Test 16:22:23 Booster for Pfizer series) [code = COVID-19 VACCINE (3 - Booster for Pfizer series)] Future Scheduled 2021-11-29 INFLUENZA VACCINE [facility] Test 16:22:23 [code = INFLUENZA VACCINE] Encounters Start End Encounter Admission Attending Care Care Encounter Source Date/Time Date/Time Type Type Clinicians Facility Department ID 2022-04-21 Outpatient [id number] [facility] 19:34:13 [id number] [place] [id number] 2022-02-15 Outpatient [id number] [facility] 07:47:49 [id number] [place] [id number] 2021-12-25 Outpatient [id number] [facility] 10:53:01 [id number] [place] [id number] 2021-12-04 Outpatient [id number] [facility] 23:52:18 [id number] [place] [id number] 2022-04-18 2022-04-18 Travel 1.2.840.1 1.2.527.391 [id number] [facility] 00:00:00 00:00:[address] 3.430.2.7 0.2.7.3.698 Ho spita .3.074888 084.8 l .8 2021-12-25 2021-12-25 Office Mai, 1.2.840.1 [id number] [facility] 09:50:00 10:00:00 Visit Salo Kee 41269.1.[address] 3.430.2.7 Hospit a .3.070317 l .8 2021-12-25 2021-12-25 Office Mai, 1.2.840.1 [id number] [facility] 09:50:00 10:00:00 Visit Salo Kee 05180.1.[address] 3.430.2.7 Hospit a .3.631684 l .8 2021-12-25 2021-12-25 Travel 1.2.840.1 1.2.083.930 [id number] [facility] 00:00:00 00:00:[address] 3.430.2.7 0.2.7.3.698 Ho spita .3.552340 084.8 l .8 2021-12-25 2021-12-25 Travel 1.2.840.1 1.2.536.514 [id number] [id number] [facility] 00:00:00 00:00:[address] 3.430.2.7 0.2.7.3.698 Ho spita .3.344811 084.8 l .8 2021-12-10 2021-12-10 Travel 1.2.840.1 1.2.173.868 2715 [id number] [facility] 00:00:00 00:00:[address] 3.430.2.7 0.2.7.3.698 Ho spita .3.962248 084.8 l .8 2021-12-10 2021-12-10 Travel 1.2.840.1 1.2.139.472 8345 [id number] [facility] 00:00:00 00:00:[address] 3.430.2.7 0.2.7.3.698 Ho spita .3.868213 084.8 l .8 2021-07-30 2021-07-30 Office Mai, 1.2.840.1 [id number] [facility] 14:15:00 15:18:00 Visit Salo Kee 66822.1.[address] 3.430.2.7 Hospit a .3.287733 l .8 2021-07-30 2021-07-30 Office Mai, 1.2.840.1 [id number] [facility] 14:15:00 15:18:00 Visit Salo Kee [address]337.1.[address] 3.430.2.7 Hospit a .3.651154 l .8 2021-07-30 2021-07-30 Travel 1.2.840.1 1.2.849.810 6625 [id number] [facility] 00:00:00 00:00:[address] 3.430.2.7 0.2.7.3.698 Ho spita .3.559302 084.8 l .8 2021-07-30 2021-07-30 Travel 1.2.840.1 1.2.280.441 9463 [id number] [facility] 00:00:00 00:00:[address] 3.430.2.7 0.2.7.3.698 Ho spita .3.070525 084.8 l .8 2021-02-06 2021-02-06 Office Bridget, 1.2.840.1 [id number] [facility] 15:00:00 16:31:49 Visit Salo Kee [address]4800.1.[address] 3.430.2.7 Hospit a .3.156312 l .8 2021-02-06 2021-02-06 Travel 1.2.840.1 1.2.342.085 8578 [id number] [facility] 00:00:00 00:00:[address] 3.430.2.7 0.2.7.3.698 Ho spita .3.675715 084.8 l .8 2020-05-07 2020-05-07 Outpatient MYRIAM [facility] [id number] [place] 00:00:00 00:00:00 MEGHAN [address] 2020-04-16 2020-04-16 Outpatient [facility] [id number] [address] [place] 00:00:00 00:00:[address] 2020-02-08 2020-02-08 Outpatient BRIDGET [facility] [id number] [place] 00:00:00 00:00:[address] SALO [address] 2019-09-30 2019-09-30 Outpatient Pulmonary Pulmonary 202 226 [facility] 11:09:00 11:09:00 Critical Critical alWo rks Care and Care and Sleep Sleep Results Test Description Test Time Test Comments Results Result Comments Source ECG 12 lead 2021-07-30 20:24:46 Test Item Value Reference Range Interpretation Comme nts Ventricular rate (test code = 253) 70 Atrial rate (test code = 255) 70 DE interval (test code = 266) 146 QRSD interval (test code = 260) 86 QT interval (test code = 264) 416 QTC interval (test code = 265) 449 P axis 1 (test code = 267) 68 QRS axis 1 (test code = 268) 7 T wave axis (test code = 270) 15 EKG impression (test code = 273) Normal sinus rhythm-Nonspecific ST abnormality-Abnormal ECG- [address]2022-05-23 20:24:46 Test Item Value Reference Range Interpretation [...] code = 273) rhythm-Nonspecific ST abnormality-Abnormal ECG- [address]2022-05-23 20:24:46 Test Item Value Reference Range Interpretation [...] ST abnormality-Abnormal ECG- [facility]
--- NOTE | 2022-04-21 20:15 | RAD REPORT ---
EXAM DESCRIPTION: RAD - Chest Single View - 04/21/2022 8:09 pm CLINICAL HISTORY: Congestion Chest pain. COMPARISON: Chest Pa And Lat (2 Views) dated 02/15/2022; Chest Pa And Lat (2 Views) dated 11/27/2021; Chest Single View dated 07/31/2021; Chest Single View dated 07/06/2021 FINDINGS: Portable technique limits examination quality. The lungs are grossly clear. The heart is normal in size. No displaced fractures. IMPRESSION: No acute intrathoracic process suspected.
[2022-04-21 20:21] LABS: Absolute Lymphocytes (CBC) 0.9 K/uL (0.7-4.9); Hematocrit 40.6 % (36.0-45.0); Lymphocytes % 14.6 % (15.3-44.8); MCV 91.4 fL (80-100); MPV 7.1 fL (7.6-11.3); RBC Red Blood Cell Count 4.45 M/uL (3.86-4.86)
[2022-04-21] MEDS ORDERED: ONDANSETRON 4 MG (ODT) TAB ONE (20:21)
[2022-04-21 20:38] LABS: Albumin 3.5 g/dL (3.4-5.0); Bilirubin Direct 0.2 mg/dL (0-0.2); Bilirubin Total 0.7 mg/dL (0.2-1.0); Potassium 3.7 mmol/L (3.5-5.1); Protein, Total 6.7 g/dL (6.4-8.2); Troponin High Sensitivity 6.2 pg/mL (<58.9)
[2022-04-21 21:18] LABS: SARS-COV-2 RT PCR NEGATIVE (NEGATIVE)
[2022-04-21] MEDS ORDERED: KETOROLAC 30 MG/ML INJ ONE (21:30)
--- NOTE | 2022-04-21 21:45 | ER ---
Nurse's Notes [facility] Name: Jaki Andres Age: 76 yrs Sex: Female : 1945 Arrival Date: 04/21/2022 Time: 19:33 Bed 6 Private MD: Saji Alvarez B Diagnosis: Acute maxillary sinusitis;Muscle weakness (generalized);Other malaise Presentation: 04/21 19:54 Chief complaint: Patient states: C/o N/V, sinus pressure, H/A, SOB, weakness, body ll3 aches, states "I've been in bed for weeks, I feel like I can't breath". Coronavirus screen: Vaccine status: Patient reports receiving the 2nd dose of the covid vaccine. congestion, difficulty breathing, fatigue, headache, nausea, vomiting. Ebola Screen: No symptoms or risks identified at this time. Initial Sepsis Screen: Does the patient meet any 2 criteria? No. Patient's initial sepsis screen is negative. Does the patient have a suspected source of infection? No. Patient's initial sepsis screen is negative. Risk Assessment: Do you want to hurt yourself or someone else? Patient reports no desire to harm self or others. Onset of symptoms is unknown. 19:54 Method Of Arrival: Ambulatory ll3 19:54 Acuity: SEGUNDO 3 ll3 Triage Assessment: 20:00 General: Appears in no apparent distress. uncomfortable, Behavior is appropriate for ke1 age. 20:00 Respiratory: Reports shortness of breath Onset: The symptoms/episode began/occurred ke1 gradually, the patient has mild shortness of breath. Historical: - Allergies: 19:57 No Known Allergies; ll3 - Home Meds: 19:57 Xarelto 10 mg Oral tab [Active]; lisinopril 5 mg Oral tab 1 tab once daily [Active]; ll3 trazodone 50 mg Oral tab 1 tab as needed [Active]; atorvastatin 40 mg oral tab 1 tab once daily [Active]; aspirin 81 mg Oral tab daily [Active]; ferrous sulfate 150 mg oral cpER 150 mg [Active]; Fasenra 30 mg/mL subcutaneous syrg 1 mL every 8 wks [Active]; prednisone 5 mg oral tab [Active]; Symbicort 80-4.5 mcg/actuation inhalation HFAA [Active]; albuterol sulfate 90 mcg/actuation Inhl HFAA 2 puffs BID [Active]; - PMHx: 19:57 Asthma; Hypertensive disorder; Atrial fibrillation; ll3 - PSHx: 19:57 Total abdominal hysterectomy; Cholecystectomy; Appendectomy; ll3 - Immunization history:: Client reports receiving the 2nd dose of the Covid vaccine. - Social history:: Smoking status: Patient denies any tobacco usage or history of. Screenin:36 [facility] ED Fall Risk Assessment (Adult) History of falling in the last 3 months, ke1 including since admission No falls in past 3 months (0 pts) Confusion or Disorientation No (0 pts) Intoxicated or Sedated No (0 pts) Impaired Gait No (0 pts) Mobility Assist Device Used No (0 pt) Altered Elimination No (0 pt) Score/Fall Risk Level 0 - 2 = Low Risk. Abuse screen: Denies threats or abuse. Nutritional screening: No deficits noted. Tuberculosis screening: No symptoms or risk factors identified. Assessment: 09:15 Pain: Complains of pain in headache Pain currently is 6 out of 10 on a pain scale. at ke1 worst was 6 out of 10 on a pain scale. level that patient reports is acceptable is 2 out of 10 on a pain scale. Cardiovascular: Rhythm is sinus rhythm. 20:37 Pain: Denies pain. Respiratory: Airway is patent Respiratory effort is even, unlabored, ke1 Breath sounds are clear bilaterally. 22:29 Reassessment: Pt assisted to Vehicle via wheel chair per request and primary nurse [id number] instruction. Upon arriving to vehicle pt began to vomit, asked pt is she was okay and if she would like to return to the room. Pt states " I told them I still had a head ache and was nauseous. It's fine, I will be fine." and proceeded to get into the car. Asked pt again if she would like to return to the room for her vomiting, pt states " No it's okay, I will be fine." and proceeded to close the door. Vital Signs: 19:54 BP 154 / 94; Pulse 88; Resp 19; Temp 97.9(O); Pulse Ox 95% on R/A; Weight 78.47 kg; ll3 Height 5 ft. 6 in. (167.64 cm); Pain 8/10; 21:34 BP 144 / 69; Pulse 68; Resp 19; Pulse Ox 93% ; ke1 19:54 Body Mass Index 27.92 (78.47 kg, 167.64 cm) ll3 ED Course: 19:33 Patient arrived in ED. mr 19:33 Saji Alvarez MD is Private Physician. mr 19:34 Zackery Knott DO is Attending Physician. ms3 19:57 Triage completed. ll3 19:57 Arm band placed on Patient placed in an exam room, on a stretcher, on pulse oximetry. ll3 20:03 Amauri Coulter, ABE is Primary Nurse. ke1 20:15 Basic Metabolic Panel Sent. ke1 20:16 CBC with Diff Sent. ke1 20:16 LFT's Sent. ke1 20:16 NT PRO-BNP Sent. ke1 20:16 Troponin HS Sent. ke1 20:16 COVID-19/FLU A+B Sent. ke1 20:16 Inserted saline lock: 20 gauge in right antecubital area, using aseptic technique. ke1 20:38 Bed in low position. Call light in reach. ke1 21:44 Saji Alvarez MD is Referral Physician. ms3 22:03 No provider procedures requiring assistance completed. ke1 22:20 IV discontinued. ke1 Administered Medications: 20:20 Drug: Ondansetron 4 mg Route: PO; ke1 21:00 Follow up: Response: Nausea is decreased ke1 21:31 Drug: Ketorolac 10 mg 10 mg Route: IVP; Site: right antecubital; ke1 22:00 Follow up: Response: Pain is unchanged, physician notified ke1 22:03 Drug: Decadron - Dexamethasone 10 mg Route: IVP; Site: right antecubital; ke1 22:19 Follow up: Response: No adverse reaction ke1 22:03 Drug: Augmentin (Amoxicillin-Clavulanate) 875 mg Route: PO; ke1 22:19 Follow up: Response: No adverse reaction ke1 Medication: 22:04 VIS not applicable for this client. ke1 Outcome: 21:45 Discharge ordered by . ms3 22:20 Discharged to home via wheelchair. ke1 22:20 Condition: good 22:20 Discharge instructions given to patient. 22:21 Patient left the ED. ke1 Signatures: Yoly Alcantara James, RN RN [id number] Zackery Knott DO DO ms3 Roberto Jackson, RN RN ll3 Amauri Coulter RN RN ke1 Corrections: (The following items were deleted from the chart) 20:39 20:37 General: Appears ke1 ke1
--- NOTE | 2022-04-21 21:45 | EDPHYS ---
Physician Documentation [facility] Name: Jaki Andres Age: 76 yrs Sex: Female : 1945 Arrival Date: 04/21/2022 Time: 19:33 Bed 6 Private MD: Saji Alvarez B ED Physician Zackery Knott HPI: 04/21 20:19 This 76 yrs old Female presents to ER via Ambulatory with complaints of Shortness Of ms3 Breath, Weakness, Sinus Congestion, Vomiting. 20:19 76-year-old female with past medical history of asthma, hypertension, atrial ms3 fibrillation presents for weakness, shortness of breath that has been ongoing for 4 to 5 weeks. Patient states she was diagnosed with pneumonia in February and has not recovered since that time. Patient states yesterday she developed a sinus infection and when she feels swelling in her sinuses develops nausea with vomiting. Patient denies sick contacts. Patient states her discomfort is an 8/10, and feels "bad".. Historical: - Allergies: 19:57 No Known Allergies; ll3 - Home Meds: 19:57 Xarelto 10 mg Oral tab [Active]; lisinopril 5 mg Oral tab 1 tab once daily [Active]; ll3 trazodone 50 mg Oral tab 1 tab as needed [Active]; atorvastatin 40 mg oral tab 1 tab once daily [Active]; aspirin 81 mg Oral tab daily [Active]; ferrous sulfate 150 mg oral cpER 150 mg [Active]; Fasenra 30 mg/mL subcutaneous syrg 1 mL every 8 wks [Active]; prednisone 5 mg oral tab [Active]; Symbicort 80-4.5 mcg/actuation inhalation HFAA [Active]; albuterol sulfate 90 mcg/actuation Inhl HFAA 2 puffs BID [Active]; - PMHx: 19:57 Asthma; Hypertensive disorder; Atrial fibrillation; ll3 - PSHx: 19:57 Total abdominal hysterectomy; Cholecystectomy; Appendectomy; ll3 - Immunization history:: Client reports receiving the 2nd dose of the Covid vaccine. - Social history:: Smoking status: Patient denies any tobacco usage or history of. ROS: 20:19 Neck: Negative for injury, pain, and swelling. ms3 20:19 Skin: Negative for injury, rash, and discoloration. 20:19 Constitutional: Positive for body aches, malaise. 20:19 Respiratory: Positive for shortness of breath. 20:19 Abdomen/GI: Positive for nausea, vomiting. 20:19 All other systems are negative. Exam: 20:19 Constitutional: This is a well developed, well nourished patient who is awake, alert, ms3 and in no acute distress. Head/Face: Normocephalic, atraumatic. Chest/axilla: Normal chest wall appearance and motion. Nontender with no deformity. Cardiovascular: Regular rate and rhythm with a normal S1 and S2. No gallops, murmurs, or rubs. Normal PMI, no JVD. No pulse deficits. Respiratory: Lungs have equal breath sounds bilaterally, clear to auscultation and percussion. No rales, rhonchi or wheezes noted. No increased work of breathing, no retractions or nasal flaring. Abdomen/GI: Soft, non-tender, with normal bowel sounds. No distension or tympany. No guarding or rebound. No evidence of tenderness throughout. Back: No spinal tenderness. No costovertebral tenderness. Full range of motion. Skin: Warm, dry with normal turgor. Normal color with no rashes, no lesions, and no evidence of cellulitis. MS/ Extremity: Pulses equal, no cyanosis. Neurovascular intact. Full, normal range of motion. 20:19 Head/face: Sinus tenderness, that is moderate, is located over the right maxillary ms3 sinus and left maxillary sinus. 21:25 ECG was reviewed by the Attending Physician. ms3 23:28 ENT: ms3 Vital Signs: 19:54 BP 154 / 94; Pulse 88; Resp 19; Temp 97.9(O); Pulse Ox 95% on R/A; Weight 78.47 kg; ll3 Height 5 ft. 6 in. (167.64 cm); Pain 8/10; 21:34 BP 144 / 69; Pulse 68; Resp 19; Pulse Ox 93% ; ke1 19:54 Body Mass Index 27.92 (78.47 kg, 167.64 cm) ll3 MDM: 19:44 Patient medically screened. ms3 20:19 Differential diagnosis: Anemia CHF exacerbation, Myocardial Infarction pneumonia. ms3 23:28 Data reviewed: vital signs, nurses notes, lab test result(s), EKG, radiologic studies, ms3 and as a result, I will discharge patient. 04/21 19:45 Order name: Basic Metabolic Panel ms3 04/21 19:45 Order name: CBC with Diff ms3 04/21 19:45 Order name: LFT's ms3 04/21 19:45 Order name: NT PRO-BNP ms3 04/21 19:45 Order name: Troponin HS ms3 04/21 19:45 Order name: COVID-19/FLU A+B ms3 04/21 19:45 Order name: XRAY Chest (1 view) ms3 04/21 20:16 Order name: RAD; Complete Time: 20:19 EDMS 04/21 20:26 Order name: CBC with Automated Diff; Complete Time: 21:11 EDMS 04/21 20:39 Order name: Basic Metabolic Panel; Complete Time: 21:11 EDMS 04/21 20:39 Order name: Liver (Hepatic) Function; Complete Time: 21:11 EDMS 04/21 20:39 Order name: Troponin High Sensitivity; Complete Time: 21:11 EDMS 04/21 20:39 Order name: NT PRO-BNP; Complete Time: 21:11 EDMS 04/21 21:19 Order name: COVID-19/FLU A+B; Complete Time: 21:35 EDMS 04/21 19:45 Order name: EKG; Complete Time: 19:45 ms3 04/21 19:45 Order name: Cardiac monitoring; Complete Time: 22:20 ms3 04/21 19:45 Order name: EKG - Nurse/Tech; Complete Time: 21:15 ms3 04/21 19:45 Order name: IV Saline Lock; Complete Time: 20:17 ms3 04/21 19:45 Order name: Labs collected and sent; Complete Time: 20:16 ms3 04/21 19:45 Order name: O2 Per Protocol; Complete Time: 20:16 ms3 04/21 19:45 Order name: O2 Sat Monitoring; Complete Time: 20:16 ms3 EC:25 Rate is 70 beats/min. Rhythm is regular. QRS [place] is Normal. [place] interval is normal. QRS ms3 interval is normal. Clinical impression: NSR w/ Non-specific ST/T Changes. Interpreted by me. Reviewed by me. Administered Medications: 20:20 Drug: Ondansetron 4 mg Route: PO; ke1 21:00 Follow up: Response: Nausea is decreased ke1 21:31 Drug: Ketorolac 10 mg 10 mg Route: IVP; Site: right antecubital; ke1 22:00 Follow up: Response: Pain is unchanged, physician notified ke1 22:03 Drug: Decadron - Dexamethasone 10 mg Route: IVP; Site: right antecubital; ke1 22:19 Follow up: Response: No adverse reaction ke1 22:03 Drug: Augmentin (Amoxicillin-Clavulanate) 875 mg Route: PO; ke1 22:19 Follow up: Response: No adverse reaction ke1 Disposition Summary: 04/21/22 21:45 Discharge Ordered Location: Home ms3 Problem: new ms3 Symptoms: are unchanged ms3 Condition: Stable ms3 Diagnosis - Acute maxillary sinusitis ms3 - Muscle weakness (generalized) ms3 - Other malaise ms3 Followup: ms3 - With: Saji Alvarez MD - When: 2 - 3 days - Reason: Recheck today's complaints Discharge Instructions: - Discharge Summary Sheet ms3 - Weakness ms3 - Sinusitis, Adult, [id number] ms3 Forms: - Medication Reconciliation Form ms3 - Thank You Letter ms3 - Antibiotic Education ms3 - Prescription Opioid Use ms3 Prescriptions: - Augmentin 875-125 mg Oral Tablet - take 1 tablet by ORAL route every 12 hours for 10 days; 20 tablet; Refills: 0, ms3 Product Selection Permitted Signatures: Dispatcher [employer] EDIA Zackery Knott DO DO ms3 Roberto Jackson RN RN 3 Amauri Coulter RN RN ke1 Corrections: (The following items were deleted from the chart) 23:29 20:19 Constitutional: This is a well developed, well nourished patient who is awake, ms3 alert, and in no acute distress. Head/Face: Normocephalic, atraumatic. Chest/axilla: Normal chest wall appearance and motion. Nontender with no deformity. Cardiovascular: Regular rate and rhythm with a normal S1 and S2. No gallops, murmurs, or rubs. Normal PMI, no JVD. No pulse deficits. Respiratory: Lungs have equal breath sounds bilaterally, clear to auscultation and percussion. No rales, rhonchi or wheezes noted. No increased work of breathing, no retractions or nasal flaring. Abdomen/GI: Soft, non-tender, with normal bowel sounds. No distension or tympany. No guarding or rebound. No evidence of tenderness throughout. Back: No spinal tenderness. No costovertebral tenderness. Full range of motion. Skin: Warm, dry with normal turgor. Normal color with no rashes, no lesions, and no evidence of cellulitis. MS/ Extremity: Pulses equal, no cyanosis. Neurovascular intact. Full, normal range of motion. ms3
[2022-04-21] MEDS ORDERED: dexAMETHasone 10 MG/ML VIAL ONE (21:55)
[2022-04-21] MEDS ORDERED: AMOX/K CLAV 875 MG TAB ONE (21:55)
[2022-04-21 22:41] VITALS: TEMP 97.9
[2022-04-21 22:47] VITALS: BP 144/69; O2SAT 93
--- NOTE | 2022-04-23 17:17 | EKG ---
Test Date: 2022-04-21 Test Time: 21:08:57 [employer] Hel[employer]: AMIE MEASUREMENT RESULTS: Intervals: Rate: 70 HI: 154 QRSD: 90 QT: 428 QTc: 462 [place]: P: 63 HI: 154 QRS: 10 T: 31 INTERPRETIVE STATEMENTS: Normal sinus rhythm Nonspecific T wave abnormality Abnormal ECG Compared to ECG 02/15/2022 11:08:22 No significant changes Electronically Signed On 04-23-22 17:11:16 MICROFILM OPERATOR by Vince Steel
== END 2022-04-21 22:21 | disposition home or self-care (01) ==
LOC: ER 19:30
DX: J01.00 Acute maxillary sinusitis, unspecified (principal); M62.81 Muscle weakness (generalized); R53.83 Other fatigue; I10 Essential (primary) hypertension; I48.91 Unspecified atrial fibrillation; Z79.01 Long term (current) use of anticoagulants; Z20.822 Contact with and (suspected) exposure to COVID-19
CPT/HCPCS: 85025; 80048; 36415; 80076; 84484; 83880; 0240U; 71045; 96375; 96374; 99284; Q0162; J1100; 93005

== ENCOUNTER 2022-11-25 23:03 | Observation (INO) | payer OTHER ==
--- OUTSIDE RECORDS SUMMARY | 2022-11-25 23:11 | XMS REPORT | Continuity of Care Document ---
:1945 Author Organization [facility] t Address [address] [facility] [address] [place] [id number] Care Team Providers Name Role Phone Saji Alvarez MD Primary Care Physician Ki Valdez Attending Clinician Unavailable Zeynep MANZANO, Richard Sanchez Attending Clinician Vern Benton Attending Clinician Unavailable Suresh MANZANO, Roberta Diaz Attending Clinician Marixa Marx MD Attending Clinician Eugenia May MD Attending Clinician [phone] Felicity Cordero APRN Attending Clinician [phone] Hugh Mai MD Attending Clinician MEGHAN MIGUEL Attending Clinician Unavailable Ki Valdez Admitting Clinician Unavailable MARIXA MARX Admitting Clinician Unavailable Payers Payer Name Policy Type Policy Number Effective Date Expiration Date S ource Problems Condition Condition Condition Status Onset Resolution Last Treating Co mments Source Name Details Category Date Date Treatment Clinician Date Chronic Chronic Disease Active [facility] maxillary maxillary 3-[address] sinusitis sinusitis 00[facility]00: [facility] 00 l Chronic Chronic Disease Active [facility] frontal frontal 3-[address] [facility] sinusitis sinusitis 00:00: [facility] 00 l Chronic Chronic Disease Active [facility] ethmoidal ethmoidal 3-[address] sinusitis sinusitis 00:00: [facility] 00 l Chronic Chronic Disease Active [facility] sphenoidal sphenoidal 3-[address] sinusitis sinusitis 00:00: [facility] 00 l Deviated Deviated Disease Active [facility] nasal nasal 3-[address] septum septum 00:00: Hospita 00 l Hypertroph Hypertroph Disease Active M ethodi y of nasal y of nasal 3-[address] turbinates turbinates 00:00: [facility]ita 00 l Chest pain Chest pain Disease Active M [facility] 3-20 st 00:00: Hospita 00 l SOB SOB Disease Active [facility] (shortness (shortness 5-28 st of breath) of breath) 00:00: Ho spita 00 l 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 2-01 st disease disease 00:00: Hospita involving involving 00 l [place] coronary coronary artery of artery of [place] heart heart without without angina angina pectoris pectoris Atrial Atrial Disease Active 2019-03 [facility] fibrillati fibrillati 2-01 st on on 00:00: Hospita 00 l Stented Stented Disease Active 2019-03 [facility] coronary coronary 2-01 st artery artery 00:00: Hospita 00 l 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 2-01 st disease disease 00:00: Hospita involving involving 00 l [place] coronary coronary artery of artery of [place] heart heart without without angina angina pectoris pectoris Allergic Allergic Problem Active 2019-10-01 Memoria rhinitis, rhinitis, 02:45:07 l unspecifie unspecifie He rmann d d seasonalit seasonalit y, y, unspecifie unspecifie d trigger d trigger Active Problem 10/01/2019 [facility] Chronic Chronic Problem Active 2019-10-01 Me moria obstructiv obstructiv 02:45:07 l e e [place] pulmonary pulmonary disease, disease, unspecifie unspecifie d COPD d COPD type type Active Problem 10/01/2019 [facility] Allergies, Adverse Reactions, Alerts Allergy Allergy Status Severity Reaction(s) Onset Inactive Treating Comm ents Source Name Type Date Date Clinician levoflox DA Active SV HIVES [facility] acin 07-14 [place] 00:00: [facility] 00 [facility] Propoxyp Propensi Active GI Method i hene ty to Intolerance 07-30 st adverse 00:00: Hospita reaction 00 l s to drug Hydrocod Propensi Active GI Vomiting [facility] one ty to Intolerance 09-13 st adverse 00:00: Hospita reaction 00 l s to drug No Known DA Active U 2011-03 [facility] Allergie 0 [place] [facility] 00:00: [facility] 00 [facility] No Known DA Active U 2011-03 [facility] Allergie 0-08 [place] [facility] 00:00: [facility] Social History Social Habit Start Date Stop Date Quantity Comments Source History SDOH [facility] Hospit al History SDRI [facility] Sexual [facility] Alcohol intake 2022-06-11 2022-06-11 Lifetime [facility] 00:00:00 00:00:00 non-drinker Hospital (finding) History of Social 2022-06-11 2022-06-[address] function 00:00:00 00:00:00 Hospital Tobacco use and 2021-07-30 2021-07-30 Smokeless [facility] exposure 00:00:00 00:00:00 tobacco non-user Hospital History SDOH 2020-02-08 2020-02-08 1 [facility] Frequency 00:00:00 00:00:00 Hospita l Sex Ass[birth year] At [birth year] [facility] 00:[facility]00 [facility] Smoking Status Start Date Stop Date Source Never smoked tobacco [facility] Medications Ordered Filled Start Stop Current Ordering Indication Dosage Frequency Signature Comments Components Source Medication Medication Date Date Medication? Clinician (SIG) Name Name nebivoloL 2022- No 2.5mg QD Take 1 [facility] (BYSTOLIC) 06-[address] 2.5 MG 15:51: 00:00 (2.5 mg Hospita tablet 29 :00 total) by l mouth daily. nebivoloL No 2.5mg QD Take 1 [facility] (BYSTOLIC) 06-20-[address] 2.5 MG 15:51: 00:00 (2.5 mg Hospita tablet 29 :00 total) by l mouth daily. aspirin 2023-0 Yes 81mg QD Take 1 [facility] (ECOTRIN) -13 tablet (81 st 81 MG 13:26: mg total) Hospita enteric 16 by mouth l coated daily. tablet aspirin 2023-0 Yes 81mg QD Take 1 [facility] (ECOTRIN) -13 tablet (81 st 81 MG 13:26: mg total) Hospita enteric 16 by mouth l coated daily. tablet rivaroxaban 2022-0 Yes 10mg QD Take 1 [facility] (XARELTO) 06-20 tablet (10 st 10 mg 13:25: mg total) Hospita tablet 46 by mouth l daily. rivaroxaban 2022-0 Yes 10mg QD Take 1 [facility] (XARELTO) 06-20 tablet (10 st 10 mg 13:25: mg total) Hospita tablet 46 by mouth l daily. multivitami 0 Yes Take by Met hodi n 06-[address] (THERAGRAN) 13:25: Hospit a tablet 08 l cholecalcif 0 Yes Take by Met hodi gudelia, 06-[address] vitamin D3, 13:25: Hospit a 50 mcg 08 l (2,000 unit) capsule capsule cyanocobala 0 Yes 100ug QD Take 1 Met hodi min 100 MCG 06-[address] tablet 13:25: (100 mcg Hospita 08 total) by l mouth daily. albuterol 0 Yes 2.5mg Q.25D Take 3 mL M ethodi (ACCUNEB) 06-20 (2.[address] 2.5 mg /3 13:25: total) by Hos dusty mL (0.083 08 nebulizati l %) on 4 nebulizer (four) solution times a day. polysacchar 2022-0 Yes 150mg QD Take 1 Met hodi keshav iron 06-[address] complex 13:25: (150 mg Hospita (NIFEREX) 08 total) by l 150 mg iron mouth capsule nightly. benralizuma 0 Yes Inject [facility]ian b (Fasenra 06-[address] Pen) 30 13:25: skin. Hospita mg/mL 08 Every 2 l auto-inject month due or next on 1st week in June famotidine 2022-0 Yes 20mg QD Take 1 [facility] di (PEPCID) 20 4-13 tablet (20 st MG tablet 13:25: mg total) Hos dusty 08 by mouth l daily. TRIAMTERENE 2022-0 Yes 37.5mg Q2D Take 37.5 [facility] ORAL 4-[address] 13:25: mouth Hospita 08 every l other day. omeprazole 2022-0 Yes 40mg QD Take 1 [facility] di (PriLOSEC) 4-[address] 40 MG 13:25: (40 mg Hospita capsule 08 total) by l mouth daily. ondansetron 2022-0 Yes 4mg Q8H Take 1 [facility] (ZOFRAN) 4 -13 tablet (4 st MG tablet 13:25: mg total) Hos dusty 08 by mouth l every 8 (eight) hours as needed for nausea or vomiting. ascorbic 2022-0 Yes 250mg QD Take 1 Method i acid, 06-[address] vitamin C, 13:25: (250 mg [facility] (VITAMIN C) 08 total) by l 250 MG mouth tablet daily. vit A/vit 2022-0 Yes Take by Meth[facility] di C/vit -[address] E/zinc/prince 13:25: Hospit a er (ICAPS 08 l AREDS ORAL) CALCIUM 2022-0 Yes Take by [facility] ORAL 4-[address] 13:25: Hospita 08 l multivitami 2022-0 Yes Take by Met sherin n 4-[address] (THERAGRAN) 13:25: Hospit a tablet 08 l cholecalcif 2022-0 Yes Take by Met sherin gudelia, 4-[address] vitamin D3, 13:25: Hospit a 50 mcg 08 l (2,000 unit) capsule capsule cyanocobala 2022-0 Yes 100ug QD Take 1 Met sherin min 100 MCG -[address] tablet 13:25: (100 mcg Hospita 08 total) by l mouth daily. albuterol 3-0 Yes 2.5mg Q.25D Take 3 mL M ethodi (ACCUNEB) 06-20 (2.[address] 2.5 mg /3 13:25: total) by Hos dusty mL (0.083 08 nebulizati l %) on 4 nebulizer (four) solution times a day. polysacchar 202-0 Yes 150mg QD Take 1 Met hodi keshav iron 4-[address] complex 13:25: (150 mg Hospita (NIFEREX) 08 total) by l 150 mg iron mouth capsule nightly. benralizuma 2022-0 Yes Inject [facility] b (Fasenra 4-[address] Pen) 30 13:25: skin. Hospita mg/mL 08 Every 2 l auto-inject month due or next on 1st week in June famotidine 2022-0 Yes 20mg QD Take 1 [facility] di (PEPCID) 20 -13 tablet (20 st MG tablet 13:25: mg total) Hos dusty 08 by mouth l daily. TRIAMTERENE 2022-0 Yes 37.5mg Q2D Take 37.5 [facility] ORAL 4-[address] 13:25: mouth Hospita 08 every l other day. omeprazole 2022-0 Yes 40mg QD Take 1 [facility] di (PriLOSEC) -[address] 40 MG 13:25: (40 mg Hospita capsule 08 total) by l mouth daily. ondansetron 2022-0 Yes 4mg Q8H Take 1 [facility] (ZOFRAN) 4 -13 tablet (4 st MG tablet 13:25: mg total) Hos dusty 08 by mouth l every 8 (eight) hours as needed for nausea or vomiting. ascorbic 2022-0 Yes 250mg QD Take 1 Method i acid, 4-[address] vitamin C, 13:25: (250 mg [facility] (VITAMIN C) 08 total) by l 250 MG mouth tablet daily. vit A/vit 2022-0 Yes Take by [facility] di C/vit 4-[address] E/zinc/prince 13:25: Hospit a er (ICAPS 08 l AREDS ORAL) CALCIUM 2022-0 Yes Take by [facility] ORAL 4-[address] 13:25: Hospita 08 l lisinopriL 2022-0 2024- No 20mg QD Take 1 [facility] (PRINIVIL) 4-03 04-03 tablet (20 st 20 mg 00:00: 04:59 mg total) Hospit a tablet 00 :00 by mouth l daily. lisinopriL 2022-0 2024- No 20mg QD Take 1 [facility] (PRINIVIL) 06-10-03 tablet (20 st 20 mg 00:00: 04:59 mg total) Hospit a tablet 00 :00 by mouth l daily. lisinopriL 2022-0 2024- No 20mg QD Take 1 [facility] (PRINIVIL) 06-10-03 tablet (20 st 20 mg 00:00: 04:59 mg total) Hospit a tablet 00 :00 by mouth l daily. multivitami 2022-0 Yes Take by Met hodi n 3-[address] (THERAGRAN) 14:44: Hospit a tablet 41 l cholecalcif 2022-0 Yes Take by Met hodi gudelia, 3-[address] vitamin D3, 14:44: Hospit a 50 mcg 41 l (2,000 unit) capsule capsule cyanocobala 0 Yes 100ug QD Take 1 Met hodi min 100 MCG 3-[address] tablet 14:44: (100 mcg Hospita 41 total) by l mouth daily. albuterol 0 Yes 2.5mg Q.25D Take 3 mL M ethodi (ACCUNEB) -22 (2.[address] 2.5 mg /3 14:44: total) by Hos dusty mL (0.083 41 nebulizati l %) on 4 nebulizer (four) solution times a day. polysacchar 2022-0 Yes 150mg QD Take 1 Met hodi keshav iron 3-[address] complex 14:44: (150 mg Hospita (NIFEREX) 41 total) by l 150 mg iron mouth capsule nightly. benralizuma 0 Yes Inject [facility]ian b (Fasenra 3-[address] Pen) 30 14:44: skin. Hospita mg/mL 41 Every 2 l auto-inject month due or next on 1st week in June famotidine 2022-0 Yes 20mg QD Take 1 [facility] di (PEPCID) 20 3-22 tablet (20 st MG tablet 14:44: mg total) Hos dusty 41 by mouth l daily. nebivoloL 2022-0 Yes 2.5mg QD Take 1 [facility] di (BYSTOLIC) 3-[address] 2.5 MG 14:44: (2.5 mg Hospita tablet 41 total) by l mouth daily. TRIAMTERENE 2022-0 Yes 37.5mg Q2D Take 37.5 [facility] ORAL 3-[address] 14:44: mouth Hospita 41 every l other day. omeprazole 2022-0 Yes 40mg QD Take 1 [facility] di (PriLOSEC) 3-[address] 40 MG 14:44: (40 mg Hospita capsule 41 total) by l mouth daily. ondansetron 2022-0 Yes 4mg Q8H Take 1 [facility] (ZOFRAN) 4 3-22 tablet (4 st MG tablet 14:44: mg total) Hos dusty 41 by mouth l every 8 (eight) hours as needed for nausea or vomiting. ascorbic 2022-0 Yes 250mg QD Take 1 Method i acid, 3-[address] vitamin C, 14:44: (250 mg [facility] (VITAMIN C) 41 total) by l 250 MG mouth tablet daily. vit A/vit 0 Yes Take by Metho di C/vit 3-[address] E/zinc/prince 14:44: Hospit a er (ICAPS 41 l AREDS ORAL) CALCIUM 0 Yes Take by [facility] ORAL 3-[address] 14:44: Hospita 41 l clindamycin 2022-0 2022- No 300mg [id number] Take 1 [facility] (Cleocin 3-20 - [id number] capsule s t HCL) 300 MG 00:00: 04:59 3D (300 mg Ho spita capsule 00 :00 total) by l mouth 3 (three) times a day for 10 days. clindamycin 3-0 2022- No 300mg [id number] Take 1 [facility] (Cleocin 3-20 - [id number] capsule s t HCL) 300 MG 00:00: 04:59 3D (300 mg Ho spita capsule 00 :00 total) by l mouth 3 (three) times a day for 10 days. clindamycin 2023-0 202- No 300mg Q.[id number] Take 1 [facility] (Cleocin 3-20 -31 [id number] capsule s t HCL) 300 MG 00:00: 04:59 3D (300 mg Ho spita capsule 00 :00 total) by l mouth 3 (three) times a day for 10 days. HYDROcodone 2022- [place] [id number] 1{tbl} Q6H Take 1 [facility] -acetaminop 3-20 -[address] hen ([employer]) 00:00: 04:59 mouth [facility] 5-325 mg 00 :00 every 6 l per tablet (six) hours as needed for moderate pain for up to 7 days .acute pain. Max Daily Amount: 4 tablets HYDROcodone 2022-2022- [place] [id number] 1{tbl} Q6H Take 1 [facility] -acetaminop 3-20 -[address] hen ([employer]) 00:00: 04:59 mouth [facility] 5-325 mg 00 :00 every 6 l per tablet (six) hours as needed for moderate pain for up to 7 days .acute pain. Max Daily Amount: 4 tablets HYDROcodone 2022-2022- [place] [id number] 1{tbl} Q6H Take 1 [facility] -acetaminop 3-20 - tablet by st hen ([employer]) 00:00: 04:59 mouth [facility] 5-325 mg 00 :00 every 6 l per tablet (six) hours as needed for moderate pain for up to 7 days .acute pain. Max Daily Amount: 4 tablets oxymetazoli 2022- No 2{spray Q.5D 2 sprays [facility] ne (Afrin, 05-2724 } into each st oxymetazoli 00:00: 04:59 nostril 2 Hospita ne,) 0.05 % 00 :00 (two) l nasal spray times a day for 3 days. oxymetazoli 2022-2022- No 2{spray Q.5D 2 sprays [facility] ne (Afrin, 05-27-24 } into each st oxymetazoli 00:00: 04:59 nostril 2 Hospita ne,) 0.05 % 00 :00 (two) l nasal spray times a day for 3 days. oxymetazoli 2022-2022- No 2{spray Q.5D 2 sprays [facility] ne (Afrin, 05-2724 } into each st oxymetazoli 00:00: 04:59 nostril 2 Hospita ne,) 0.05 % 00 :00 (two) l nasal spray times a day for 3 days. oxymetazoli 2022-0 3- No 2{spray Q.5D 2 sprays [facility] ne (Afrin, 3-20 -24 } into each st oxymetazoli 00:00: 04:59 nostril 2 Hospita ne,) 0.05 % 00 :00 (two) l nasal spray times a day for 3 days. oxymetazoli 2022-0 2022- No 2{spray Q.5D 2 sprays [facility] ne (Afrin, 320 -24 } into each st oxymetazoli 00:00: 04:59 nostril 2 Hospita ne,) 0.05 % 00 :00 (two) l nasal spray times a day for 3 days. oxymetazoli 2022-0 2022- No 2{spray Q.5D 2 sprays [facility] ne (Afrin, 320 -24 } into each st oxymetazoli 00:00: 04:59 nostril 2 Hospita ne,) 0.05 % 00 :00 (two) l nasal spray times a day for 3 days. oxymetazoli 2022-0 2022- No 2{spray Q.5D 2 sprays [facility] ne (Afrin, 3-20 -20 } into each st oxymetazoli 00:00: 00:00 nostril 2 Hospita ne,) 0.05 % 00 :00 (two) l nasal spray times a day for 3 days. oxymetazoli 2022-0 2022- No 2{spray Q.5D 2 sprays [facility] ne (Afrin, 3-20 03-20 } into each st oxymetazoli 00:00: 00:00 nostril 2 Hospita ne,) 0.05 % 00 :00 (two) l nasal spray times a day for 3 days. oxymetazoli 2022-0 2022- No 2{spray Q.5D 2 sprays [facility] ne (Afrin, 3-20 03-20 } into each st oxymetazoli 00:00: 00:00 nostril 2 Hospita ne,) 0.05 % 00 :00 (two) l nasal spray times a day for 3 days. rivaroxaban 2021-03- No 20mg Take 20 mg [...] l multivitami 2021-03 Yes Take by Met sherin n 0-[address] (THERAGRAN) 09:57: Hospit [...] 1 [facility] di mg tablet 0-04 tablet ( 00:00: mg total) Hospita 00 by mouth l daily. Xarelto 10 2021-03 Yes 10mg QD Take 1 [facility] di mg tablet 0-04 tablet ( 00:00: mg total) Hospita 00 by mouth l daily. Xarelto 10 2021-03- No 10mg QD Take 1 [facility] mg tablet 0-04 03-22 tablet (10 00:00: 00:00 mg total) Hospita 00 :00 by mouth l daily. Xarelto 10 2021-03- No 10mg QD Take 1 [facility] mg tablet 0-04 03-22 tablet (10 00:00: 00:00 mg total) Hospita 00 :00 by mouth l daily. Xarelto 10 2021-03- No 10mg QD Take 1 [facility] mg tablet 0-04 03-22 tablet (10 st 00:00: 00:00 mg total) Hospita 00 :00 by mouth l daily. predniSONE 2022-0 Yes 5mg QD Take 0.5 Met hodi (DELTASONE) 9-06 tablets (5 st 10 mg 00:00: mg total) Hospita tablet 00 by mouth l daily. predniSONE 2022-0 Yes 5mg QD Take 0.5 Met hodi (DELTASONE) 9-06 tablets (5 st 10 mg 00:00: mg total) Hospita tablet 00 by mouth l daily. predniSONE 2022-0 Yes 5mg QD Take 0.5 Met [facility]odi (DELTASONE) 9-06 tablets (5 st 10 mg 00:00: mg total) Hospita tablet 00 by mouth l daily. predniSONE 2022-0 Yes 5mg QD Take 0.5 Met [facility]odi (DELTASONE) 9-06 tablets (5 st 10 mg 00:00: mg total) Hospita tablet 00 by mouth l daily. predniSONE 2022-0 Yes 5mg QD Take 0.5 Met hodi (DELTASONE) 9-06 tablets (5 st 10 mg 00:00: mg total) Hospita tablet 00 by mouth l daily. predniSONE 2022-0 2022- No 5mg QD Take 5 mg M ethodi (DELTASONE) 5-28 05-[address] 10 mg 15:45: 00:00 daily. Hospita tablet 31 :00 l predniSONE 2022-0 2022- No 5mg QD Take 5 mg M ethodi (DELTASONE) 5-28 05-[address] 10 mg 15:45: 00:00 daily. Hospita tablet 31 :00 l predniSONE 2022-0 2022- No 5mg QD Take 5 mg M ethodi (DELTASONE) 5-28 05-[address] 10 mg 15:45: 00:00 daily. Hospita tablet 31 :00 l predniSONE 2022-0 2022- No 5mg QD Take 5 mg M [facility]i (DELTASONE) 5-28 05-[address] 10 mg 15:45: 00:00 daily. Hospita tablet 31 :00 l predniSONE 2022-0 2022- No 5mg QD Take 5 mg M [facility]i (DELTASONE) 5-28 05-[address] 10 mg 15:45: 00:00 daily. Hospita tablet 31 :00 l multivitami 2021-0 Yes Take by Met sherin n - mouth. st (THERAGRAN) 14:00: Hospit a tablet 54 l cholecalcif 2021-0 Yes Take by Met sherin galeas, 07-[address] vitamin D3, 14:00: Hospit a 50 mcg 54 l (2,000 unit) capsule capsule rivaroxaban 2021-0 Yes 20mg Take 20 mg [facility] (XARELTO) 5-[address] 20 mg 14:00: Hospita tablet 54 l cyanocobala 2021-0 Yes 100ug QD Take 100 M ethodi min 100 MCG 5-[address] tablet 14:00: mouth Hospita 54 daily. l lisinopriL 2-0 Yes 5mg QD 5 mg [facility] (PRINIVIL) 5-[address] 5 mg tablet 00:00: Hospit a 00 l lisinopriL 2-0 Yes 5mg QD Take 1 [facility]o di (PRINIVIL) 5-21 tablet (5 st 5 mg tablet 00:00: mg total) H ospita 00 by mouth l daily. lisinopriL 2-0 Yes 5mg QD 5 mg [facility] (PRINIVIL) 5-[address] 5 mg tablet 00:00: Hospit a 00 l lisinopriL 2-0 Yes 5mg QD 5 mg [facility] (PRINIVIL) 5-[address] 5 mg tablet 00:00: Hospit a 00 l lisinopriL 2022-0 2023- No 5mg QD Take 1 [facility] (PRINIVIL) 5-21 04-13 tablet (5 st 5 mg tablet 00:00: 00:00 mg total) Hospita 00 :00 by mouth l daily. lisinopriL 2022-0 2023- No 5mg QD Take 1 [facility] (PRINIVIL) 5-21 04-13 tablet (5 st 5 mg tablet 00:00: 00:00 mg total) Hospita 00 :00 by mouth l daily. candesartan 2021-0 2022- No 8mg QD Take 8 mg [facility] (ATACAND) 8 9-20 05-[address] MG tablet 00:00: 00:00 daily. Hospi ta 00 :00 l candesartan 2021-0 2022- No 8mg QD Take 8 mg [facility] (ATACAND) 8 11-27 05-[address] MG tablet 00:00: 00:00 daily. Hospi ta 00 :00 l candesartan 2021- No 8mg QD Take 8 mg [facility] (ATACAND) 8 11-27 05-[address] MG tablet 00:00: 00:00 daily. Hospi ta 00 :00 l candesartan 2021- No 8mg QD Take 8 mg [facility] (ATACAND) 8 11-27 05-[address] MG tablet 00:00: 00:00 daily. Hospi ta 00 :00 l candesartan 2021- No 8mg QD Take 8 mg [facility] (ATACAND) 8 11-27-[address] MG tablet 00:00: 00:00 daily. Hospi ta 00 :00 l Symbicort 2020-0 Yes Inhale. [facility] di 160-4.5 9-13 st mcg/actuati 00:00: Hospit a on inhaler 00 l Symbicort 2020-0 Yes 2{puff} Q.5D Inhale 2 M ethodi 160-4.5 9-[address] mcg/actuati 00:00: (two) Hospi ta on inhaler 00 times a l day. Symbicort 2020-0 Yes 2{puff} Q.5D Inhale 2 M ethodi 160-4.5 9-[address] mcg/actuati 00:00: (two) Hospi ta on inhaler 00 times a l day. Symbicort 2020-0 Yes Inhale. [facility] di 160-4.5 9-13 st mcg/actuati 00:00: Hospit a on inhaler 00 l Symbicort 2020-0 Yes Inhale. [facility] di 160-4.5 9-13 st mcg/actuati 00:00: Hospit a on inhaler 00 l Symbicort 2020-0 Yes 2{puff} Q.5D Inhale 2 M ethodi 160-4.5 9-[address] mcg/actuati 00:00: (two) Hospi ta on inhaler 00 times a l day. tiotropium 2021- No Method i bromide 2.5 3-10 05-28 st mcg/actuati 00:00: 00:00 Hospi ta on mist 00 :00 l tiotropium 2021- No [facility] i bromide 2.5 3-10 05-28 st mcg/actuati 00:00: 00:00 Hospi ta on mist 00 :00 l tiotropium 2021- No Method i bromide 2.5 3-10 05-28 st mcg/actuati 00:00: 00:00 Hospi ta on mist 00 :00 l tiotropium 2021- No Method i bromide 2.5 3-10 05-28 st mcg/actuati 00:00: 00:00 Hospi ta on mist 00 :00 l tiotropium 2021- No Method i bromide 2.5 3-10 05-28 st mcg/actuati 00:00: 00:00 Hospi ta on mist 00 :00 l traZODone 2019-03 Yes 50mg QD Take 50 mg Me thodi (DESYREL) 0-[address] 50 MG 00:00: nightly. Hospita tablet 00 l traZODone 2019-03 Yes 50mg QD Take 1 Method i (DESYREL) 0-27 tablet (50 st 50 MG 00:00: mg total) Hospita tablet 00 by mouth l nightly. traZODone 2019-03 Yes 50mg QD Take 1 [facility] i (DESYREL) 0-27 tablet (50 st 50 MG 00:00: mg total) Hospita tablet 00 by mouth l nightly. traZODone 2019-03 Yes 50mg QD Take 50 mg Me [facility] (DESYREL) 0-[address] 50 MG 00:00: nightly. Hospita tablet 00 l traZODone 2019-03 Yes 50mg QD Take 50 mg Me [facility] (DESYREL) 0-[address] 50 MG 00:00: nightly. Hospita tablet 00 l traZODone 2019-03 Yes 50mg QD Take 1 [facility] i (DESYREL) 0-27 tablet (50 st 50 MG 00:00: mg total) Hospita tablet 00 by mouth l nightly. lisinopriL 2019-03- No 5mg QD Take 5 mg M ethodi (PRINIVIL) 0-02 11-[address] 5 mg tablet 00:00: 00:00 daily. Hos dusty 00 :00 l atorvastati 2020-0 Yes 40mg 40 mg. [facility] n (LIPITOR) 11-09 st 80 MG 00:00: Hospita tablet 00 l atorvastati 2020-0 Yes 40mg QD Take 1 [facility] n (LIPITOR) 11-09 tablet (40 st 40 mg 00:00: mg total) Hospita tablet 00 by mouth l nightly. atorvastati 2020-0 Yes TAKE 1 [facility] n (LIPITOR) 11-[address] 80 MG 00:00: MOUTH Hospita tablet 00 EVERY DAY l atorvastati 2020-0 Yes 40mg QD Take 1 [facility] n (LIPITOR) 11-09 tablet (40 st 40 mg 00:00: mg total) Hospita tablet 00 by mouth l nightly. atorvastati 2020-0 Yes 40mg 40 mg. [facility] n (LIPITOR) 11-09 st 80 MG 00:00: Hospita tablet 00 l atorvastati 2020-0 Yes 40mg QD Take 1 [facility] n (LIPITOR) 11-09 tablet (40 st 40 mg 00:00: mg total) Hospita tablet 00 by mouth l nightly. aspirin 2020-0 Yes 81mg Take 81 mg [...] enteric 00 l coated tablet aspirin 2020-0 2023- No 81mg QD Take 1 [facility] (ECOTRIN) 2-10 - tablet (81 st 81 MG 00:00: 00:00 mg total) Hospit a enteric 00 :00 by mouth l coated daily. tablet aspirin 2020-0 2023- No 81mg QD Take 1 [facility] (ECOTRIN) 2-10 - tablet (81 st 81 MG 00:00: 00:00 mg total) Hospit a enteric 00 :00 by mouth l coated daily. tablet aspirin 2020-0 2023- No 81mg QD Take 1 [facility] (ECOTRIN) 04-19 tablet (81 st 81 MG 00:00: 00:00 mg total) Hospit a enteric 00 :00 by mouth l coated daily. tablet pantoprazol 2018-03 No 40mg Take 40 mg [facility] e [address] (PROTONIX) 00:00: 00:00 Hospit a 40 MG EC 00 :00 l tablet Immunizations Ordered Immunization Filled Immunization Date Status Commen ts Source Name Name PFIZER COVID-19 MRNA 2020-10-25 Completed [facility]ist VACCINATION 00:00:00 [facility] PFIZER COVID-19 MRNA 2020-10-25 Completed Meth odist VACCINATION 00:00:00 [facility] PFIZER COVID-19 MRNA 2020-10-25 Completed Meth odist VACCINATION 00:00:00 [facility] PFIZER COVID-19 MRNA 2020-05-07 Completed Meth odist VACCINATION 00:00:00 [facility] PFIZER COVID-19 MRNA 2020-05-07 Completed Meth odist VACCINATION 00:00:00 [facility] PFIZER COVID-19 MRNA 2020-05-07 Completed Meth odist VACCINATION 00:00:00 [facility] PFIZER COVID-19 MRNA 2020-05-07 Completed [facility] od[facility] VACCINATION 00:00:00 [facility] PFIZER COVID-19 MRNA 2020-05-07 Completed [facility] VACCINATION 00:00:00 [facility] PFIZER COVID-19 MRNA 2020-05-07 Completed [facility] od[facility] VACCINATION 00:00:00 [facility] PFIZER COVID-19 MRNA 2020-04-16 Completed [facility] od[facility] VACCINATION 00:00:00 [facility] PFIZER COVID-19 MRNA 2020-04-16 Completed [facility] od[facility] VACCINATION 00:00:00 [facility] PFIZER COVID-19 MRNA 2020-04-16 Completed [facility] odist VACCINATION 00:00:00 [facility] PFIZER COVID-19 MRNA 2020-04-16 Completed [facility] odist VACCINATION 00:00:00 [facility] PFIZER COVID-19 MRNA 2020-04-16 Completed [facility]ist VACCINATION 00:00:00 [facility] PFIZER COVID-19 MRNA 2020-04-16 Completed [facility] VACCINATION 00:00:00 Hospital Vital Signs Vital Name Observation Time Observation Value Comments Source Systolic blood 2022-06-20 18:20:00 109 mm[Hg] [facility] pressure Diastolic blood 2022-06-20 18:20:00 71 mm[Hg] [facility] pressure Heart rate 2022-06-20 18:20:00 80 /min [facility] Body height 2022-06-20 18:20:00 167.6 cm [facility] Body weight 2022-06-20 18:20:00 72.394 kg [facility] BMI 2022-06-20 18:20:00 25.76 kg/m2 [facility] Systolic blood 2022-05-29 18:00:00 133 mm[Hg] [facility] pressure Diastolic blood 2022-05-29 18:00:00 63 mm[Hg] [facility] pressure Heart rate 2022-05-29 18:00:00 75 /min [facility] Respiratory rate 2022-05-29 18:00:00 18 /min [facility] Oxygen saturation in 2022-05-29 18:00:00 97 /min [facility] Arterial blood by Pulse oximetry Body temperature 2022-05-29 16:53:30 36.39 Beatriz [facility] Body weight 2022-05-29 09:12:00 77.565 kg [facility] BMI 2022-05-29 09:12:00 27.60 kg/m2 [facility] Body height 2022-05-27 12:49:00 167.6 cm [facility] Systolic blood 2021-12-25 14:58:00 141 mm[Hg] [facility] pressure Diastolic blood 2021-12-25 14:58:00 67 mm[Hg] [facility] pressure Heart rate 2021-12-25 14:58:00 68 /min [facility] Body height 2021-12-25 14:58:00 165.1 cm [facility] Body weight 2021-12-25 14:58:00 79.379 kg [facility] BMI 2021-12-25 14:58:00 29.12 kg/m2 [facility] Systolic blood 2021-07-30 19:01:00 145 mm[Hg] [facility] pressure Diastolic blood 2021-07-30 19:01:00 75 mm[Hg] [facility] pressure Heart rate 2021-07-30 19:01:00 73 /min [facility] Body height 2021-07-30 19:01:00 165.1 cm [facility] Body weight 2021-07-30 19:01:00 77.565 kg [facility] BMI 2021-07-30 19:01:00 28.46 kg/m2 [facility] Procedures Procedure Date / Time Performing Clinician Source Performed [id number] 2022-07-17 00:00:00 [facility] LIPID PANEL 2022-07-03 13:03[facility] 2022-06-20 18:28[facility]ABOLIC [facility] 2022-06-03 [facility]ABLE 2022-05-29 18:30:00 [facility] US DUPLEX VENOUS LOWER 2022-05-29 17:50:00 [facility] EXTREMITY BILATERAL IONIZED CALCIUM 2022-05-29 16:28:00 Luna [facility] ECG 12-LEAD 2022-05-29 14:41:04 [facility] POC GLUCOSE 2022-05-29 12:34:00 Marixa Marx spital CBC WITH PLATELET AND 2022-05-29 09:59:00 [facility] DIFFERENTIAL COMPREHENSIVE METABOLIC 2022-05-29 09:59:00 MarxMarixa lópez [facility] PANEL ESTIMATED GFR 2022-05-29 09:59:00 Marixa Marx Ho spital POC GLUCOSE 2022-05-28 23:05:00 Marixa Marx Ho spital CV SELECTIVE CORONARY 2022-05-28 20:28:36 Francisco J [facility] ANGIOGRAPHY POC GLUCOSE 2022-05-28 17:47:00 Marixa Marx Ho spital POC GLUCOSE 2022-05-28 13:13:00 Marixa Marx Ho spital CBC WITH PLATELET AND 2022-05-28 09:57:00 [facility] DIFFERENTIAL COMPREHENSIVE METABOLIC 2022-05-28 09:57:00 Marixa Marx [facility] PANEL ESTIMATED GFR 2022-05-28 09:57:00 Marixa Marx Ho spital SMEAR REVIEW 2022-05-28 09:57:00 Marixa Marx spital TROPONIN T 2022-05-28 05:56:00 [facility] ECG 12-LEAD 2022-05-28 05:25:45 Isac Spicer [facility] TTE COMPLETE, WO 2022-05-28 04:30:00 Huey Emerson [facility] CONTRAST, W DOPPLER ([id number]) XR CHEST 1 VW PORTABLE 2022-05-28 02:02:31 Claudia Mcqueen [facility] ARTERIAL BLOOD GAS 2022-05-28 01:33:00 [facility] Shobhaale Sanjana TROPONIN T 2022-05-28 01:10:00 Isac Spicer [facility] ECG 12-LEAD 2022-05-28 00:40:50 Dannielle [facility] PARTIAL THROMBOPLASTIN 2022-05-27 23:15:00 [facility] PROT[facility]OM[facility] TIME WITH INR 2022-05-27 23:15:00 [facility] CBC WITH PLATELET AND 2022-05-27 23:05:00 [facility] DIFFERENTIAL COMPREHENSIVE METABOLIC 2022-05-27 23:05:00 Mcqueen, Lucena [facility] PANEL MAGNESIUM LEVEL 2022-05-27 23:05:00 [facility] PHOSPHORUS LEVEL 2022-05-27 23:05:00 [facility] ESTIMATED GFR 2022-05-27 23:05:00 [facility] ECG 12-LEAD 2022-05-27 22:21:18 Eugenia May [facility] Radha ECG 12-LEAD 2022-05-27 22:20:11 [facility] TROPONIN T 2022-05-27 21:50:00 Lalo [facility] ECG 12-LEAD 2022-05-27 21:28:59 Lalo [facility] SURGICAL PATHOLOGY 2022-05-27 21:06:00 [facility] REQUEST ANAEROBIC CULTURE 2022-05-27 17:47:00 [facility] FUNGUS CULTURE 2022-05-27 17:47:00 [facility] AEROBIC CULTURE 2022-05-27 17:47:00 [place] GRAM STAIN 2022-05-27 17:47:00 [facility] ANAEROBIC CULTURE 2022-05-27 14:16:00 [facility] FUNGUS CULTURE 2022-05-27 14:16:00 [facility] AEROBIC CULTURE 2022-05-27 14:16:00 [facility] GRAM STAIN 2022-05-27 14:16:00 [facility] MA AN ELECTIVE 2022-05-27 13:31:00 Mariama Enciso [facility] ENDOTRACHEAL AIRWAY SEPTOPLASTY, NASAL 2022-05-27 13:12:00 [facility] TYPE AND SCREEN 2022-05-20 19:40:00 [facility] HEMOGLOBIN A1C 2022-05-20 19:40:00 [facility] CBC WITH PLATELET AND 2022-05-20 19:40:00 [facility] DIFFERENTIAL COMPREHENSIVE METABOLIC 2022-05-20 19:40:00 [facility] Felicityjohann Oconnor [facility] PANEL PARTIAL THROMBOPLASTIN 2022-05-20 19:40:00 [facility] TIME (PTT) PROTHROMBIN TIME WITH INR 2022-05-20 19:40:00 ijeoma Felicity [facility] ESTIMATED GFR 2022-05-20 19:40:00 [facility] ANTIBODY SCREEN 2022-05-20 19:40:00 [facility] ECG PRE/POST OP 2022-05-20 19:25:36 Felicity Cordero [facility] ECG 12-LEAD 2021-07-30 19:05:58 Hugh Mai [facility] ECG 12-LEAD 2021-02-06 20:55:38 Hugh Mai spital Plan of Care Planned Activity Planned Date Details Comments Source Future Scheduled 2022-11-14 Screening for [facility] Test 00:22:52 malignant neoplasm of colon (procedure) [code = 695384103] Future Scheduled 2022-11-14 Screening for [facility] Test 00:22:52 malignant neoplasm of colon (procedure) [code = 076470996] Future Scheduled 2022-11-14 Screening for [facility] Test 00:22:52 malignant neoplasm of colon (procedure) [code = 737339223] Future Scheduled 2022-11-14 Hepatitis C screening [facility] Test 00:22:52 (procedure) [code = 266846616] Future Scheduled 2022-11-14 BREAST CANCER [facility] Test 00:22:52 SCREENING [code = BREAST CANCER SCREENING] Future Scheduled 2022-11-14 Screening for [facility] Test 00:22:52 malignant neoplasm of colon (procedure) [code = 539084272] Future Scheduled 2022-11-14 Screening for [facility] Test 00:22:52 malignant neoplasm of colon (procedure) [code = 271323552] Future Scheduled 2022-11-14 SHINGLES VACCINES (1 Met [facility] Test 00:22:52 of 2) [code = SHINGLES VACCINES (1 of 2)] Future Scheduled 2022-11-14 COVID-19 VACCINE (4 - [facility] Test 00:22:52 Pfizer series) [code = COVID-19 VACCINE (4 - Pfizer series)] Future Scheduled 2022-11-14 INFLUENZA VACCINE [email or web address] Test 00:22:52 (#1) [code = INFLUENZA VACCINE (#1)] Future Scheduled 2022-07-04 Hepatitis C screening [facility] Test 06:45:28 (procedure) [code = 005575374] Future Scheduled 2022-07-04 BREAST CANCER [facility] Test 06:45:28 SCREENING [code = BREAST CANCER SCREENING] Future Scheduled 2022-07-04 COLONOSCOPY SCREENING Me [facility] Test 06:45:28 [code = COLONOSCOPY SCREENING] Future Scheduled 2022-07-04 SHINGLES VACCINES (1 Met [facility] Test 06:45:28 of 2) [code = SHINGLES VACCINES (1 of 2)] Future Scheduled 2022-07-04 COVID-19 VACCINE (4 - Me [facility] Test 06:45:28 Booster for Pfizer series) [code = COVID-19 VACCINE (4 - Booster for Pfizer series)] Future Scheduled 2022-07-04 INFLUENZA VACCINE Method [facility] Test 06:45:28 [code = INFLUENZA VACCINE] Future Scheduled 2022-06-12 Hepatitis C screening Me [facility] Test 10:32:18 (procedure) [code = 692069517] Future Scheduled 2022-06-12 [facility]18 SCREENING [code = BREAST CANCER SCREENING] Future Scheduled 2022-06-12 COLONOSCOPY SCREENING Me [facility] Test 10:32:18 [code = COLONOSCOPY SCREENING] Future Scheduled 2022-06-12 SHINGLES VACCINES (1 Met [facility] Test 10:32:18 of 2) [code = SHINGLES VACCINES (1 of 2)] Future Scheduled 2022-06-12 COVID-19 VACCINE (4 - Me [facility] Test 10:32:18 Booster for Pfizer series) [code = COVID-19 VACCINE (4 - Booster for Pfizer series)] Future Scheduled 2022-06-12 INFLUENZA VACCINE Method [facility] Test 10:32:18 [code = INFLUENZA VACCINE] Future Scheduled 2022-04-18 Hepatitis C screening Me [facility] Test 14:58:37 (procedure) [code = 560889382] Future Scheduled 2022-04-18 [facility] Test 14:58:37 SCREENING [code = BREAST CANCER SCREENING] Future Scheduled 2022-04-18 COLONOSCOPY SCREENING Me [facility] Test 14:58:37 [code = COLONOSCOPY SCREENING] Future Scheduled 2022-04-18 SHINGLES VACCINES (1 Met [facility] Test 14:58:37 of 2) [code = SHINGLES VACCINES (1 of 2)] Future Scheduled 2022-04-18 COVID-19 VACCINE (3 - Me [facility] Test 14:58:37 Booster for Pfizer series) [code = COVID-19 VACCINE (3 - Booster for Pfizer series)] Future Scheduled 2022-04-18 INFLUENZA VACCINE [email or web address] Test 14:58:37 [code = INFLUENZA VACCINE] Future Scheduled 2022-01-14 Hepatitis C screening [facility] Test 05:44:08 (procedure) [code = 934262193] Future Scheduled 2022-01-14 [facility] Test 05:44:08 SCREENING [code = BREAST CANCER SCREENING] Future Scheduled 2022-01-14 COLONOSCOPY SCREENING [facility] Test 05:44:08 [code = COLONOSCOPY SCREENING] Future Scheduled 2022-01-14 SHINGLES VACCINES (1 Met [facility] Test 05:44:08 of 2) [code = SHINGLES VACCINES (1 of 2)] Future Scheduled 2022-01-14 COVID-19 VACCINE (3 - Me [facility] Test 05:44:08 Booster for Pfizer series) [code = COVID-19 VACCINE (3 - Booster for Pfizer series)] Future Scheduled 2022-01-14 INFLUENZA VACCINE Method [email or web address] Test 05:44:08 [code = INFLUENZA VACCINE] Future Scheduled 2022-01-14 HEPATITIS B VACCINES Met [facility] Test 05:44:08 (1 of 3 - 3-dose series) [code = HEPATITIS B VACCINES (1 of 3 - 3-dose series)] Future Scheduled 2021-11-29 HEPATITIS B VACCINES Met [facility] Test 16:22:23 (1 of 3 - 3-dose series) [code = HEPATITIS B VACCINES (1 of 3 - 3-dose series)] Future Scheduled 2021-11-29 Hepatitis C screening [facility] Test 16:22:23 (procedure) [code = 529889745] Future Scheduled 2021-11-29 BREAST CANCER [facility] Test 16:22:23 SCREENING [code = BREAST CANCER SCREENING] Future Scheduled 2021-11-29 COLONOSCOPY SCREENING [facility] Test 16:22:23 [code = COLONOSCOPY SCREENING] Future Scheduled 2021-11-29 SHINGLES VACCINES (1 Met [facility] Test 16:22:23 of 2) [code = SHINGLES VACCINES (1 of 2)] Future Scheduled 2021-11-29 COVID-19 VACCINE (3 - Me [facility] Test 16:22:23 Booster for Pfizer series) [code = COVID-19 VACCINE (3 - Booster for Pfizer series)] Future Scheduled 2021-11-29 INFLUENZA VACCINE [facility] Test 16:22:23 [code = INFLUENZA VACCINE] Encounters Start End Encounter Admission Attending Care Care Encounter Source Date/Time Date/Time Type Type Clinicians Facility Department ID 2022-11-25 Outpatient [id number] Memoria 23:07:27 [id number]-[id number] 9B-51V7-[id number] 49B-44F0- A l -G2P4-36M [id number] [place] [id number] 6750-05-07 Outpatient [id number]-A Memoria 09:13:13 QK14-8J17 58-0X58-26Y S71-3Q78- 8 l -08B0-US6 [id number] 2C0-IF0A03 [facility] [id number] [id number] 2022-06-16 Outpatient [id number]-GR [id number] 4CCE-C Memoria 12:38:03 ET16-76ZH 02-43EF-B13 N53-47FB- B l -D624-017 [id number] [facility] [id number] 2022-05-29 Outpatient [id number] 54C4-5 Memoria 16:34:10 5158-40FB 58-40FB-8B2 158-40FB- 8 l -3Z13-1P3 5-4A2HE24N8 K68-7H1NH4 [facility] [id number] D51 [id number] 2022-05-27 Outpatient [id number] 2B83 2E40-F Memoria 06:17:46 N7FL-15Q1 AF-54N9-W66 9AF-49C7- A l -A39V-X7J B-Q4QVI2554 19B-C5ACA7 [facility] [id number] 5876-03-13 Outpatient [id number] 18C9-A [facility] 16:45:17 [id number] 39-4026-8F2 339-4026- 8 l -3S5S-413 [id number] [facility] [id number] 0886-02-12 Outpatient [id number] [id number] Memoria 19:34:13 97I2-9J19 D8-2C18-U1G 3N0-5W25- A l -A3JZ-XEP F-FATY2K2F9 8BF-EFFD4E [facility] F5T3S3M51 B34 5B8B34 2022-02-15 Outpatient [id number] [id number] 212D-F [facility] 07:47:49 II6Z-2P97 6D-8D19-K02 R1K-7U78- B l -M336-375 [id number] 411-968F98 uHdson P328QV449 135 3NN781 2021-12-25 Outpatient [id number] 260B-3 Memoria 10:53:01 3904-4CBA 04-4CBA-A5E 904-4CBA- A l -A9H0-WZ5 [id number]-[id number] 3U3-WJ4155 [facility] [id number] C48 3F4C48 2021-12-04 Outpatient [id number] 4C70 CB5D-9 Memoria 23:52:18 998B-4B27 8B-5X45-0YQ 98B-4B27- 9 l -2CG5-204 [id number] [facility] [id number] 4C6 BD94C6 2022-07-15 2022-07-17 Inpatient EM FABRICIO Valdez OBSE [id number] [facility] 16:28:00 19:00:00 Ali [facility] 2022-06-20 2022-06-21 Office Zeynep, 1.2.840.1 [id number] 2099 [id number] Methodi 14:20:00 08:08:46 Visit Richard Sanchez 70892.1.[address] 3.430.2.7 Hospit a .3.706062 l .8 2022-06-20 2022-06-21 Office Nitatessie, 1.2.840.1 [id number] 2099 [id number] Methodi 14:20:00 08:08:46 Visit Richard Sanchez 53490.1.[address] 3.430.2.7 Hospit a .3.166761 l .8 2022-06-20 2022-06-20 Travel 1.2.840.1 1.2.413.718 4245 [id number] Methodi 00:00:00 00:00:[address] 3.430.2.7 0.2.7.3.698 Ho spita .3.246238 084.8 l .8 2022-06-20 2022-06-20 Travel 1.2.840.1 1.2.014.109 1354 [id number] Methodi 00:00:00 00:00:[address] 3.430.2.7 0.2.7.3.698 Ho spita .3.129992 084.8 l .8 2022-06-10 2022-06-10 Refill Short, 1.2.840.1 [id number] 5093 Methodi 00:00:00 00:00:00 [place] [address]81.1.[address] 3.430.2.7 Hospit a .3.720953 l .8 2022-06-10 2022-06-10 Refill Short, 1.2.840.1 [id number] 4430 Methodi 00:00:00 00:00:00 [place] [address].[place].[address] 3.430.2.7 Hospit a .3.131457 l .8 2022-05-30 2022-05-30 Telephone Short, 1.2.840.1 [id number] 2100 [id number] Methodi 00:00:00 00:00:00 [place] [address].[place].[address] 3.430.2.7 Hospit a .3.971905 l .8 2022-05-30 2022-05-30 Orders Short, 1.2.840.1 [id number] 2742 Methodi 00:00:00 00:00:00 [place] [address].1.[address] 3.430.2.7 Hospit a .3.589838 l .8 2022-05-30 2022-05-30 Telephone Short, 1.2.840.1 [id number] 2100 [id number] Methodi 00:00:00 00:00:00 Vern R [address]134.1.[address] 3.430.2.7 Hospit a .3.114723 l .8 2022-05-30 2022-05-30 Orders Short, 1.2.840.1 [id number] 9982 Methodi 00:00:00 00:00:00 Only Vern R [address]33.1.[address] 3.430.2.7 Hospit a .3.620732 l .8 2022-05-27 2022-05-29 [facility] Roberta Prince 1.2.840.1 [id number] 1211 [id number] Methodi 06:17:00 14:42:00 Encounter MarxJulio lópezMarixa 39928.1.[address] 3.430.2.7 Hospit a .3.478159 l .8 2022-05-27 2022-05-29 [facility] Roberta Prince 1.2.840.1 [id number] [id number] Methodi 06:17:00 14:42:00 Encounter Julio Marxchita 35174.1.[address] 3.430.2.7 Hospit a .3.178439 l .8 2022-05-28 2022-05-28 Surgery Zeynep 1.2.840.1 [id number] 2100 [id number] Methodi 15:00:00 16:10:00 Richard Sanchez 92821.1.[address] 3.430.2.7 Hospit a .3.573769 l .8 2022-05-28 2022-05-28 Surgery Buergler, 1.2.840.1 [id number] 2100 [id number] Methodi 15:00:00 16:10:00 Richard Sanchez 15196.1.[address] 3.430.2.7 Hospit a .3.491356 l .8 2022-05-28 2022-05-28 Documentat Prince, 1.2.840.1 [id number] 730 [id number] Methodi 00:00:00 00:00:00 ion Roberta Goldsmith. 15316.1.[address] 3.430.2.7 Hospit a .3.501354 l .8 2022-05-28 2022-05-28 Documentat Prince, 1.2.840.1 [id number] Methodi 00:00:00 00:00:00 ismael Escobara Agus. [address]338.1.[address] 3.430.2.7 Hospit a .3.811027 l .8 2022-05-27 2022-05-27 Anesthesia Eugenia May 1.2.840.1 [id number] Methodi 08:12:00 15:16:00 Event Felicity Corderoissa 99532.1.[address] 3.430.2.7 Hospit a .3.082570 l .8 2022-05-27 2022-05-27 Anesthesia Eugenia May 1.2.840.1 [id number] Methodi 08:12:00 15:16:00 Event Felicity Cordero 51264.1.[address] 3.430.2.7 Hospit a .3.001230 l .8 2022-05-27 2022-05-27 Surgery Prince, 1.2.840.1 [id number] 3496 Methodi 08:30:00 14:00:00 Rober[address] 31583.1.[address] 3.430.2.7 Hospit a .3.428996 l .8 2022-05-27 2022-05-27 Surgery Prince, 1.2.840.1 [id number] [id number] 1251 Methodi 08:30:00 14:00:[address] 3.430.2.7 Hospit a .3.571510 l .8 2022-05-27 2022-05-27 Orders Prince, 1.2.840.1 [id number] 9702 Methodi 00:00:00 00:00:00 Only Roberta P. 38167.1.[address] 3.430.2.7 Hospit a .3.584625 l .8 2022-05-27 2022-05-27 Travel 1.2.840.1 1.2.590.374 4050 [id number] Methodi 00:00:00 00:00:[address] 3.430.2.7 0.2.7.3.698 Ho spita .3.247971 084.8 l .8 2022-05-27 2022-05-27 Orders Prince, 1.2.840.1 [id number] 0142 Methodi 00:00:00 00:00:00 Only Roberta P. 07536.1.[address] 3.430.2.7 Hospit a .3.922493 l .8 2022-05-27 2022-05-27 Travel 1.2.840.1 1.2.987.154 9948 077570 Methodi 00:00:00 00:00:[address] 3.430.2.7 0.2.7.3.698 Ho spita .3.574738 084.8 l .8 2022-05-20 2022-05-26 Pre-Admiss Shawn Princea P. 1.2.840.1 104 [id number] Methodi 13:20:00 00:05:19 Felicity Manuel 53506.1.[address] Testing 3.430.2.7 Hospit a .3.772188 l .8 2022-05-20 2022-05-26 Pre-Admiss Suresh Roberta P. 1.2.840.1 104 [id number] Methodi 13:20:00 00:05:19 Felicity Manuel 21952.1.[address] Testing 3.430.2.7 Hospit a .3.265576 l .8 2022-05-21 2022-05-21 Telephone Mai, 1.2.840.1 [id number] 2099 [id number] Methodi 00:00:00 00:00:00 Hugh R[address] 24865.1.[address] 3.430.2.7 Hospit a .3.578038 l .8 2022-05-21 2022-05-21 Telephone Mai, 1.2.840.1 [id number] 2099 [id number] Methodi 00:00:00 00:00:[address] Hugh R[address]90.1.[address] 3.430.2.7 Hospit a .3.638158 l .8 2022-05-20 2022-05-20 Travel 1.2.840.1 1.2.269.463 3265 [id number] Methodi 00:00:00 00:00:[address] 3.430.2.7 0.2.7.3.698 Ho spita .3.736528 084.8 l .8 2022-05-20 2022-05-20 Travel 1.2.840.1 1.2.558.076 8921 222529 Methodi 00:00:00 00:00:[address] 3.430.2.7 0.2.7.3.698 Ho spita .3.372603 084.8 l .8 2022-05-17 2022-05-17 Telephone Mai, 1.2.840.1 [id number] 2099 [id number] Methodi 00:00:00 00:00:00 Hugh R[address]2231.1.[address] 3.430.2.7 Hospit a .3.434157 l .8 2022-05-17 2022-05-17 Telephone Mai, 1.2.840.1 [id number] 2099 [id number] Methodi 00:00:00 00:00:00 Hugh R[address] 39911.1.[address] 3.430.2.7 Hospit a .3.440004 l .8 2022-04-18 2022-04-18 Travel 1.2.840.1 1.2.019.094 3905 563931 Methodi 00:00:00 00:00:[address] 3.430.2.7 0.2.7.3.698 Ho spita .3.832754 084.8 l .8 2022-04-18 2022-04-18 Travel 1.2.840.1 1.2.580.757 8720 479287 Methodi 00:00:00 00:00:[address] 3.430.2.7 0.2.7.3.698 Ho spita .3.368197 084.8 l .8 2021-12-25 2021-12-25 Office Mai, 1.2.840.1 [id number] 9141 Methodi 09:50:00 10:00:00 Visit Hugh R. 80465.1.[address] 3.430.2.7 Hospit a .3.781280 l .8 2021-12-25 2021-12-25 Office Mai, 1.2.840.1 [id number] Methodi 09:50:00 10:00:00 Visit Hugh R. 42397.1.[address] 3.430.2.7 Hospit a .3.275781 l .8 2021-12-25 2021-12-25 Travel 1.2.840.1 1.2.530.597 4566 789505 Methodi 00:00:00 00:00:[address] 3.430.2.7 0.2.7.3.698 Ho spita .3.931690 084.8 l .8 2021-12-25 2021-12-25 Travel 1.2.840.1 1.2.633.367 6866 365649 Methodi 00:00:00 00:00:[address] 3.430.2.7 0.2.7.3.698 Ho spita .3.102748 084.8 l .8 2021-12-10 2021-12-10 Travel 1.2.840.1 1.2.675.301 5407 485213 Methodi 00:00:00 00:00:[address] 3.430.2.7 0.2.7.3.698 Ho spita .3.872637 084.8 l .8 2021-12-10 2021-12-10 Travel 1.2.840.1 1.2.496.810 5509 543293 Methodi 00:00:00 00:00:[address] 3.430.2.7 0.2.7.3.698 Ho spita .3.383513 084.8 l .8 2021-07-30 2021-07-30 Office Mai, 1.2.840.1 [id number] 6661 Methodi 14:15:00 15:18:00 Visit Hugh Mills50.1.[address] 3.430.2.7 Hospit a .3.434517 l .8 2021-07-30 2021-07-30 Travel 1.2.840.1 1.2.770.410 2602 778340 Methodi 00:00:00 00:00:[address] 3.430.2.7 0.2.7.3.698 Ho spita .3.361307 084.8 l .8 2021-02-06 2021-02-06 Office Mai, 1.2.840.1 [id number] 2933 Methodi 15:00:00 16:31:49 Visit Hugh Kee 99456.1.[address] 3.430.2.7 Hospit a .3.359166 l .8 2021-02-06 2021-02-06 Travel 1.2.840.1 1.2.412.973 8950 624653 Methodi 00:00:00 00:00:00 20547.1.1 350.1.13.43 814 3.430.2.7 0.2.7.3.698 Ho spita .3.976362 084.8 l .8 2020-05-07 2020-05-07 Outpatient MYRIAM, [facility] [id number] Vaughn 00:00:00 00:00:00 MEGHAN 625 Me thodi 2020-04-16 2020-04-16 Outpatient [facility] [id number] Vaughn 00:00:00 00:00:00 970 Method i 2020-02-08 2020-02-08 Outpatient BRIDGET, [facility] [id number] Vaughn 00:00:00 00:00:00 HUGH 684 Method i 2019-09-30 2019-09-30 Outpatient Pulmonary Pulmonary 202 226 [facility]inic 11:09:00 11:09:00 Critical Critical alWo rks Care and Care and Sleep Sleep Results Test Description Test Time Test Comments Results Result [facility] e Comments - MRI C-SPINE W/O 2022-07-17 CONT 15:02:00 [facility] JAKI SANCHEZ : 1945 Sex: F FAX: Ki North MD [phone] [place]: C St: ADM Patient Name: JAKI SANCHEZ Unit No: [id number] EXAMS: CPT CODE: [id number] MRI C-SPINE W/O CONT 60820 CLINICAL INFORMATION: Severe neck pains. Headaches. Recurrent sinusitis. Dictation Location: A 1 COMPARISON: No similar prior Technique: Sagittal and axial scans were done with T1 and T2-weighted sequences. FINDINGS: Cervical lordosis is maintained. The vertebral body heights and bone marrow signal intensities are maintained. No intrinsic abnormality of the spinal cord is identified. Occiput to C2: Prevertebral space and odontoid intact. C2-3: Unremarkable. C3-4: Mild facet arthropathy with spondylotic foraminal encroachment. C4-5: 2 mm broad-based ridging and disc bulge flattens the anterior thecal margin. This combines with uncinate and facet arthropathy producing moderate right and moderately severe left foraminal narrowing. C5-6: 2 mm concentric bulge. Mild spondylotic foraminal encroachment. C6-7: Uncinate arthropathy and disc bulge produce moderate left foraminal narrowing. C7: Unremarkable. IMPRESSION: 1. Cervical lordosis maintained. 2. Multilevel spondylosis with foraminal encroachment and narrowing. at 1502 Reported and signed by: Ja Sylvester MD CC: Ki Valdez MD Dictated Date/Time: 07/17/2022 (1502)Technologist: ODALYS CHOWDHURY Transcribed Date/Time: 07/17/2022 (1502) By: Lindsay Orig Print D/T: S: 07/17/2022 (0268) [facility] [place] NAME: JAKI SANCHEZ [facility] PHYS: Ki Hernandez MD [address] [place] [address] BLVD : 1945 AGE: 76 SEX: F [place], [place] [address] LOC: B.277 1 PHONE #: [phone] EXAM DATE: 07/17/2022 STATUS: ADM IN FAX #: [phone] RAD NO: DC Dt: PAGE 1 Signed Report - NM BONE 3 PHASE 2022-07-17 08:45:00 [facility] JAKI SANCHEZ : 1945 Sex: F -- Patient Name: JAKI SANCHEZ Unit No: [id number] EXAMS: CPT CODE: [id number] NM BONE 3 PHASE 17699 LOCATION: T18 Nuclear medicine 3 phase bone scan INDICATION: Headache. Concern for chronic sinusitis/osteomyelit is The patient was injected with 26.9 mCi technetium 99m MDP. Blood flow, blood pool and delayed images were obtained over the head and neck. Correlation made with CT sinuses 07/14/2022 and MRI brain 07/16/2022. Ultimately normal uptake is observed on all 3 phases. There is no significant abnormal activity to suggest an acute infectious or inflammatory process. No scintigraphic evidence of osteomyelitis. IMPRESSION: No acute findings. at 0845 Reported and signed by: Richard Romero D.O. Nuclear Medicine Cardiology exams performed on dual head cameras with appropriate software for processing and reporting. CC: Ki Valdez MD [facility] NAME: JAKI SANCHEZ [facility] PHYS: Ki Hernandez MD [address] [place] [address] : 1945 AGE: 76 SEX: ROSA MARIA SHARMA [facility] LOC: B.277 1 PHONE #: [phone] EXAM DATE: 07/16/2022 STATUS: ADM IN FAX #: [phone] RAD NO: DC Dt: PAGE 1 Signed Report Patient Name: ZENOBIAPADMAJAKI Unit No: [id number] EXAMS: CPT CODE: [id number] NM BONE 3 PHASE [id number] (Continued) Technologist: IDA Wilkerson Transcribed Date/Time: 07/17/2022 (0845) - t.JOELLE Orig Print D/T: S: 07/17/2022 (0849) [facility] [place] NAME: JAKI SANCHEZ [facility] IMAGING PHYS: Ki Hernandez MD [address] [place] [address] : 1945 AGE: 76 SEX: ROSA MARIA SHARMA [facility] LOC: B.277 1 PHONE #: [phone] EXAM DATE: 07/16/2022 STATUS: ADM IN FAX #: [phone] RAD NO: DC Dt: PAGE 2 Signed Report - MRI BRAIN W WO 2022-07-16 CONT 11:45:00 [facility]: JAKI SANCHEZ : 1945 Sex: F FAX: Ki North MD [phone] [place]: St: ADM Patient Name: JAKI SANCHEZ Unit No: [id number] EXAMS: CPT CODE: [id number] MRI BRAIN W WO CONT 05172 Location: H59 EXAM: - MRI BRAIN W WO CONT INDICATION: headache COMPARISON: CT brain dated 07/14/2022 TECHNIQUE: Multiplanar, multisequence MRI of the brain with and without intravenous contrast. FINDINGS: Diffusion-weighted images fail to demonstrate any recent ischemic change. No MRI evidence of intracranial hemorrhage. There is mild, chronic diffuse parenchymal volume loss, which may be age-appropriate. There are few, minimal, scattered periventricular and deep white matter T2/FLAIR hyperintensities, most conspicuous within the left frontal lobe. Given small size, these may simply represent prominent perivascular spaces. Alternately, they may represent minimal, negligible sequelae of chronic microvascular disease. Within the remainder of the brain, no other abnormal parenchymal signal change, intracranial mass lesion or other acute intracranial abnormality. The large intracranial vessels demonstrate normal flow-voids. On post contrast imaging, no abnormal parenchymal or leptomeningeal enhancement. There is mild mucosal thickening of the ethmoid air cells, maxillary sinuses and left frontal sinus. Mastoid air cells are predominantly clear. IMPRESSION: 1. No acute intracranial abnormality. No evidence of recent ischemic change. 2. No abnormal enhancement. 3. Mild chronic diffuse atrophy, which may be age-appropriate. 4. Subtle chronic white matter T2/FLAIR hyperintensities, as above. 5. Minimal sinonasal disease. [facility] [place] NAME: JAKI SANCHEZ [facility] PHYS: Ki Hernandez MD [address] [place] [address] : 1945 AGE: 76 SEX: F [place], [place] [address] LOC: B.277 1 PHONE #: [phone] EXAM DATE: 07/16/2022 STATUS: ADM IN FAX #: [phone] RAD NO: DC Dt: PAGE 1 Signed Report (CONTINUED) FAX: Ki North MD [phone] [place]: St: ADM Patient Name: JAKI SANCHEZ Unit No: [id number] EXAMS: CPT CODE: [id number] MRI BRAIN W WO CONT 41309 (Continued) at 1145 Reported and signed by: Marky Krause MD CC: Ki Valdez MD Dictated Date/Time: 07/16/2022 (1145)Technologist: ODALYS CHOWDHURY Transcribed Date/Time: 07/16/2022 (1145) By: [email or web address] Orig Print D/T: S: 07/16/2022 (1148) [facility] NAME: ZHAOLIBANJAKI MEDICAL IMAGING PHYS: Ki Hernandez MD [address] [place] [address] BL : 1945 AGE: 76 SEX: J[place] [address] LOC: B.277 1 PHONE #: [phone] EXAM DATE: 07/16/2022 STATUS: ADM IN FAX #: [phone] RAD NO: DC Dt: PAGE 2 Signed Report VANCOMYCIN TROUGH 2022-07-16 09:37:00 Test Item Value Reference Range Interpretation Comme nts VANCOMYCIN 10.1 10-20 N VANCOMYCIN TROUGH mcG/ML TROUGH MONITORI NG GOALS:. Vancomycin trough should be obtained (test code prior to 4th do se with Q 8H and Q 12H intervals.. Vancomycin = VANCT) trough should b e obtained prior to 3rd dose with Q 24H and Q 48H intervals.. Vancomycin peaks are not recommended for routine monitor ing. ------ Indication Trough Goal (mcg/mL)------- Bacteremia, End ocarditis, 15-20 Osteomyelitis, MRSA pneumonia, healthcare acqu ired pneumonia, meningitis, cultures with KAILASH of 2 for Vancomyci n ------ Cellulitis, empirical coverage 12-22 UTI, pediatric patient 12-22 ------ Renal Function Note - Serum creatinine and blood urea nitrogen should be monitored at baseline and every 48H while on Vancomycin. BASIC METABOLIC [id number] 04:36:00 Test Item Value Reference Range Interpretation Comments SODIUM (test code 137.0 mmol/L 133-144 N = NA) POTASSIUM (test 4.2 mmol/L 3.5-5.1 N code = K) CHLORIDE (test 107 mmol/L 95-105 H code = CL) CARBON DIOXIDE 24 mmol/L 21-32 N (test code = CO2) ANION GAP (test 6.0 GAP calc 4.0-15.0 N code = GAP) GLUCOSE (test code 120 MG/DL 70-110 H = GLU) BLOOD UREA 10 MG/DL 7-18 N NITROGEN (test code = BUN) GLOMERULAR 102 estGFR >60 The Glomerular FILTRATION RATE Filtration R ate is a (test code = GFR) calculated parameterbased on serum Creatinin e, patient age and sex. GFR valuesless than 60 mL/min/1.73 squ are meters are lisbeth cative ofChronic Kidne y Disease. Values less than 15 mL/min/1.73squa re meters indicate Kidney failure. The calculation for GFR is based on the CK D-EPI (2020) calculat ion. This formulais race indifferent and is the recommended for michael for GFRby the N ational Kidney Foundati on for Adults.The GFR will not calculate i f the sex is unknown or if thepatient's ag e is <18 years. CREATININE (test 0.43 MG/DL 0.55-1.30 L Results may be code = CREAT) depressed if p atient is takingN-Acetylc ysteine (NAC) and Metam izole (Dipyrone). CALCIUM (test code 7.9 MG/DL 8.5-10.1 L = CA) INDEX HEMOLYSIS 1 NORMAL <10 See_Comment [Automated message] (test code = MG Index/DL The system [employer] HEMINDEX) generated this result transmitted ref erence range: 1 NORMAL . The reference range was not used to int erpret this result as normal/abnormal . INDEX ICTERIC 1 NORMAL <2 MG See_Comment [Automated message] (test code = Index/DL The system [employer] ICTINDEX) generated this result transmitted ref erence range: 1 NORMAL . The reference range was not used to int erpret this result as normal/abnormal . INDEX LIPEMIA 1 NORMAL <50 See_Comment [Automated me ssage] (test code = MG Index/DL The system [employer] LIPINDEX) generated this result transmitted ref erence range: 1 NORMAL . The reference range was not used to int erpret this result as normal/abnormal . - XR C-SPINE 2-3 [id number] 23:20:00 [facility] J[facility]I [facility]ANCHEZ : 1945 Sex: F FAX: Ki North MD [phone] [place]: St: ADM Patient Name: JAKI SANCHEZ Unit No: [id number] EXAMS: CPT CODE: [id number] XR C-SPINE 2-3 VIEWS [id number] Location: [facility] EXAM: - XR C-SPINE 2-3 VIEWS INDICATION: None COMPARISON: None. TECHNIQUE: 2 AP and one lateral view of the cervical spine FINDINGS: This is a limited evaluation given suboptimal positioning and obscuration of the C6 and C7 vertebral bodies on the lateral image secondary to shoulder soft tissues/bone. Given this, no vertebral body height loss is identified. Intervertebral disc spaces are relatively preserved. There is mild multilevel marginal osteophytosis and multilevel bilateral facet arthrosis. No prevertebral or paraspinous soft tissue abnormality isidentified. IMPRESSION: 1. Slightly limited evaluation, as above, which may decrease sensitivity. 2.Given this, no acute bony abnormality is identified. 3. Multilevel cervical spondylosis. at 2320 Reported and signed by: Marky Krause MD CC: Ki Valdez MD Dictated Date/Time: 07/15/2022 (2319)Technologist: nAgy Patel Transcribed Date/Time: 07/15/2022 (2319) By: [email or web address] Orig Print D/T: S: 07/15/2022 (2322) [facility] NAME: JAKI SANCHEZ IMAGING PHYS: Ki Hernandez MD [address] [place] [address] BLVD :1945 AGE: 76 SEX: F [place], [place] [address] LOC: B.277 1 PHONE #: [phone] EXAM DATE: 07/15/2022 STATUS: ADM IN FAX #: [phone] RAD NO: DC Dt: PAGE 1 Signed ReportPROLACTIN 2022-07-15 08:31:00 Test Item Value Reference Range Interpretation Comments PROLACTIN (test code = PROLAC) 19.6 NG/ML 2.8-29.2 N SED [id number] 07:04:00 Test Item Value Reference Range Interpretation Comments SED RATE (test code = SEDW) 9 mm/hr 0-30 N PENDING RECEIPT OF SPECIMEN PER [id number] AT 07/14/222108LIPID PROFILE (CORONARY RISK)2022-07-15 06:49:00 Test Item Value Reference Range Interpretation Comments TRIGLYCERIDES (test 76 MG/DL 0-150 N Results may be code = TRIG) depressed if patient is takingN-Acetylc yste ine (NAC) and Metamizole (Dipyrone). CHOLESTEROL (test 92 MG/DL 133-200 L code = CHOL) CHOLESTEROL/HDL RATIO 2.62 RATIO See_Comment REFER ENCE RANGE: (test code = CHOLHDL) MALE F EMALE 1/2 AVG RISK 3.43 3.27 AVG RISK 4.97 4.44 2X AVG RISK 9.55 7.05 3X AVG RISK 23. 39 11.04 [Automate d message] The sy stem which generated this result transmitted reference range : 0-. The referen ce range was not u sed to interpret th is result as normal/abnormal . HDL CHOLESTEROL (test 35 MG/DL 40-59 L Result s maybe code = HDL) depressed if patient is taki ng Metamizole(Dipy liza ). NON-HDL CHOLESTEROL 57 mg/dL <130 Patients with CHD (test code = NHDL) or CHD ri sk LDL: <70 mg/dL nonHD L: <100 mg/dLPatie nts with 2+ risk factors LDL: <1 30 mg/dL nonHDL: < 160 mg/dLPatients w ith 0-1 risk factor s LDL: <160 mg/dL nonHDL: <190 mg /dL LIPOPROTEIN LDL (test 42 MG/DL 0-129 N code = LDL) LDL/HDL (test code = 1.20 Ratio See_Comment L LDL/HDL RISK LDL/HDL) ASSESSMENT1.47 One-half average3.22 Average5.03 Two times average6. 14 [address] rage [Automated mess age] The system [employer] generated this result transmit patricia reference range : 1.48-3.22 Avg. The reference range was not used to interpret this result as normal/abnormal . INDEX HEMOLYSIS (test 1 NORMAL <10 See_Comment [Auto mated code = HEMINDEX) MG Index/DL message] Th e system which generated this result transmitted reference range : 1 NORMAL. The reference range was not used to interpret this result as normal/abnormal . INDEX ICTERIC (test 1 NORMAL <2 MG See_Comment [Auto mated code = ICTINDEX) Index/DL message] Th e system which generated this result transmitted reference range : 1 NORMAL. The reference range was not used to interpret this result as normal/abnormal . INDEX LIPEMIA (test 1 NORMAL <50 See_Comment [Automa patricia code = LIPINDEX) MG Index/DL message] Th e system which generated this result transmitted reference range : 1 NORMAL. The reference range was not used to interpret this result as normal/abnormal . C REACTIVE [id number] 06:42:00 Test Item Value Reference Range Interpretation Comments C REACTIVE PROTEIN (test code = 0.644 MG/DL 0.000-0.900 N CRP) THYROID STIMULATING [id number] 06:41:00 Test Item Value Reference Range Interpretation Comments THYROID STIMULATING HORMONE 3.250 mc IU/ML 0.340-4.820 N (test code = TSH) BASIC METABOLIC [id number] 06:40:00 Test Item Value Reference Range Interpretation Comments SODIUM (test code 137.0 mmol/L 133-144 N = NA) POTASSIUM (test 3.6 mmol/L 3.5-5.1 N code = K) CHLORIDE (test 105 mmol/L 95-105 N code = CL) CARBON DIOXIDE 25 mmol/L 21-32 N (test code = CO2) ANION GAP (test 7.0 GAP calc 4.0-15.0 N code = GAP) GLUCOSE (test code 73 MG/DL 70-110 N = GLU) BLOOD UREA 12 MG/DL 7-18 N NITROGEN (test code = BUN) GLOMERULAR 101 estGFR >60 The Glomerular FILTRATION RATE Filtration R ate is a (test code = GFR) calculated parameterbased on serum Creatinin e, patient age and sex. GFR valuesless than 60 mL/min/1.73 squ are meters are lisbeth cative ofChronic Kidne y Disease. Values less than 15 mL/min/1.73squa re meters indicate Kidney failure. The calculation for GFR is based on the CK D-EPI (2020) calculat ion. This formulais race indifferent and is the recommended for michael for GFRby the N ational Kidney Foundati on for Adults.The GFR will not calculate i f the sex is unknown or if thepatient's ag e is <18 years. CREATININE (test 0.45 MG/DL 0.55-1.30 L Results may be code = CREAT) depressed if p atient is takingN-Acetylc ysteine (NAC) and Metam izole (Dipyrone). CALCIUM (test code 8.4 MG/DL 8.5-10.1 L = CA) INDEX HEMOLYSIS 1 NORMAL <10 See_Comment [Automated message] (test code = MG Index/DL The system [employer] HEMINDEX) generated this result transmitted ref erence range: 1 NORMAL . The reference range was not used to int erpret this result as normal/abnormal . INDEX ICTERIC 1 NORMAL <2 MG See_Comment [Automated message] (test code = Index/DL The system [employer] ICTINDEX) generated this result transmitted ref erence range: 1 NORMAL . The reference range was not used to int erpret this result as normal/abnormal . INDEX LIPEMIA 1 NORMAL <50 See_Comment [Automated me ssage] (test code = MG Index/DL The system [employer] LIPINDEX) generated this result transmitted ref erence range: 1 NORMAL . The reference range was not used to int erpret this result as normal/abnormal . GLYCOSYLATED HEMOGLOBIN (HA1C)2022-07-15 06:37:00 Test Item Value Reference Range Interpretation Comments GLYCOSYLATED HEMOGLOBIN (HA1C) 5.0 % IS-A1C 4.5-5.6 N (test code = GLYHGB) ESTIMATED AVERAGE [id number] 06:37:00 Test Item Value Reference Range Interpretation Comments ESTIMATED AVERAGE GLUCOSE (test 97 MG/DLest code = EAG) - CT MAXIFAC W/O [id number] 17:29:00 [facility] [place] J[facility]I [facility]ANCHEZ : 1945 Sex: F Patient Name: JAKI SANCHEZ Unit No: [id number] EXAMS: CPT CODE: [id number] CT MAXIFAC W/O CONTRAST 44193YEAO: - CT MAXIFAC W/O CONTRAST CLINICAL HISTORY: eval sinusitis TECHNIQUE: Axial noncontrast CT images through the maxillofacial region were obtained. This examination was performed according to ourdepartmental dose optimization program, which includes automated exposure control, adjustment of themA and/or kV according to patient size, and/or use of iterative reconstruction technique. COMPARISON: None available. LOCATION: H65 FINDINGS: No acute displaced fracture noted throughout the maxillofacial region. The mandible and skull base are intact. The maxillofacial soft tissues are grossly unremarkable. Visualized intracranial contents are grossly unremarkable. The visualized paranasal sinuses and mastoid air cells are well aerated. The globes are intact and symmetric in volume. No pre or postseptal pathology noted. IMPRESSION: No acute findings of the maxillofacial region. at 1724 Reported and signed by: Mikal Allen DO CC: Ki Valdez MD; Taylor Sanchez MD Dictated Date/Time: 07/14/2022 (172) Technologist: ANDREA DRAPER CTDI: DLP: Trnscrpt: 07/14/2022 (172) [email or web address] [facility] NAME: JAKI SANC[facility]Z [facility] PHYS: Taylor Yo MD [address] [place] [address] : 1945 AGE: 76 SEX: ROSA MARIA SHARMA [facility] LOC: B.277 1 PHONE #: [phone] EXAM DATE: 07/14/2022 STATUS: ADM IN FAX #: [phone] RAD #: D/C DT PAGE 1 Signed Report Patient Name: JAKI SANCHEZ Unit No: [id number] EXAMS: CPT CODE: [id number] CT MAXIFAC W/O CONTRAST 79465 (Continued) Orig Print D/T: S: 07/14/2022 (173) [facility] Li[facility] NAME: JAKI SANCHEZ [facility] IM[facility] PHYS: Taylor Yo MD [address] [place] [address] : 1945 AGE: 76 SEX: ROSA MARIA SHARMA [facility] LOC: B.277 1 PHONE #: [phone] EXAM DATE: 07/14/2022 STATUS: ADM IN FAX #: [phone] RAD #: D/C DT PAGE 2 Signed Report- CT ABD PELVIS [id number] 17:27:00 [facility] [place]: JAKI SANCHEZ : 1945 Sex: F Patient Name: JAKI SANCHEZ Unit No: [id number] EXAMS: CPT CODE: [id number] CT ABD PELVIS W/CONT 78529 EXAM: - CT ABD PELVIS W/CONT LOCATION: H47 HISTORY: headaches, sinusitis, abd pain, vomiting COMPARISON: None available at the time of interpretation. TECHNIQUE: Contrast - IV contrast was given. No oral contrast was given Portal venous phase - abdomen and pelvis No delayed phase images were obtained. Reconstructions - coronal and sagittal planes Unless otherwise specified, incidental findings do not require dedicated imaging follow-up. This exam was performed according to our departmental dose-optimization program, which includes automated exposure control, adjustment of the mA and/or kV according topatient size and/or use of iterative reconstruction technique FINDINGS: Statements: None. Thoracic: Included images of the lower chest demonstrate no abnormalities. Hepatobiliary: Subcentimeter cyst like lesion in the right hepatic lobe. Status post cholecystectomy. No biliary dilation. Pancreas: Normal. Spleen: Normal. Adrenals: Normal. Genitourinary: The kidneys are normal. No evidence of hydronephrosis. Evaluation of the bladder is limited, but no obvious bladder abnormality is present. Gastrointestinal: No bowel obstruction or perienteric inflammation. The appendix is not visualized. Small hiatal hernia noted. Colonic diverticulosis without inflammation. Vascular: Atherosclerotic calcifications are seen within the aorta and branch vessels. Lymphatics: No enlarged lymph nodes by CT size criteria. Bones/Soft Tissues: No acute osseous findings. No ventral hernias. Peritoneum/Other: No extraluminal air. No extraluminal fluid. [facility] [place] NAME: JAKI SANCHEZ [address] [place] [address] PHYS: Taylor Yo MD, [place] [address] : 1945 AGE: 76 SEX: F LOC: B.277 1 PHONE #: [phone] EXAM DATE: 07/14/2022 STATUS: ADM IN FAX #: [phone] RAD #: D/C DT PAGE 1 Signed Report (CONTINUED) Patient Name: JAKI SANCHEZ Unit No: [id number] EXAMS: CPT CODE: [id number] CT ABD PELVIS W/CONT 27152 (Continued) IMPRESSION: No acute intra- abdominal findings. at 1727 Reported and signed by: Lenard Patten MD CC: Taylor Sanchez MD Dictated Date/Time: 07/14/2022 (1727) Technologist: ANDREA DRAPER CTDI: DLP: Trnscrpt: 07/14/2022 (1727) [email or web address] [facility] NAME: JAKI SANCHEZ [address] [place] [address] PHYS: Taylor Yo MD [place], [place] [address] : 1945 AGE: 76 SEX: F LOC: B.277 1 PHONE #: [phone] EXAM DATE: 07/14/2022 STATUS: ADM IN FAX #: [phone] RAD #: D/C DT PAGE 2 Signed Report Patient Name: JAKI SANCHEZ Unit No: [id number] EXAMS: CPT CODE: [id number] CT ABD PELVIS W/CONT 18848 (Continued) Orig Print D/T: S: 07/14/2022 (1730) [facility] NAME: JAKI SANCHEZ [address] [place] [address] PHYS: Taylor Yo MD [facility], [place] [address] : 1945 AGE: 76 SEX: F LOC: B.277 1 PHONE #: [phone] EXAM DATE: 07/14/2022 STATUS: ADM IN FAX #: [phone] RAD #: D/C DT PAGE 3 Signed Report- CT HEAD/BRAIN W/O CONT 2022-07-14 17:25:00 [facility] [place]: JAKI SANCHEZ : 1945 Sex: F Patient Name: JAKI SANCHEZ Unit No: [id number] EXAMS: CPT CODE: [id number] CT HEAD/BRAIN W/O CONT 73022 EXAM: - CT HEAD/BRAIN W/O CONT CLINICAL HISTORY: headaches, sinusitis, abd pain, vomiting TECHNIQUE:Axial noncontrast CT images through the head were obtained. This examination was performed accordingto our departmental dose optimization program, which includes automated exposure control, adjustment of the mA and/or kV according to patient size, and/or use of iterative reconstruction technique. COMPARISON: None available. LOCATION: H65 FINDINGS: There is no intracranial hemorrhage or extra-axial fluid collections. No mass or midline shift. No hydrocephalus. The visualized paranasal sinuses and mastoid air cells are well aerated. The globes are intact and symmetric in volume. The skull is intact.IMPRESSION: No acute intracranial process. Electronically Signed by Mikal Allen DO on 3at 172 Reported and signed by: Mikal Allen DO CC: Taylor Sanchez MD Dictated Date/Time: 07/14/2022 (1724) Technologist: ANDREA DRAPER CTDI: DLP: Trnscrpt: 07/14/2022 (1724) [email or web address] G[facility] Liang NAME: JAKI SANCHEZ [address] [place] [address] PHYS: Taylor Yo MD, [id number] : 1945 AGE: 76 SEX: F LOC: B.277 1 PHONE #: [phone] EXAM DATE: 07/14/2022 STATUS: ADM IN FAX #: [phone] RAD #: D/C DT PAGE 1 Signed Report Patient Name: JAKI BATISTA Unit No: [id number] EXAMS: CPT CODE: [id number] CT HEAD/BRAIN W/O CONT 42635 (Continued) Orig Print D/T: S: 07/14/2022 (9857) G[facility] Liang NAME: JAKI SANCHEZ [address] [place] [address] Blvd PHYS: Taylor Yo [place], [place] [address] : 1945 AGE: 76 SEX: F LOC: B.277 1 PHONE #: [phone] EXAM DATE: 07/14/2022 STATUS: ADM IN FAX #: [phone] RAD#: D/C DT PAGE 2 Signed ReportUA RFLX MICR CULT IF INDICATED 2022-07-14 16:45:00 Test Item Value Reference Range Interpretation Comments UA COLOR (test code = YELLOW DESCRIPT YELLOW COLU) UA APPEARANCE (test CLEAR DESCRIPT CLEAR code = APPU) UA GLUCOSE DIPSTICK NORMAL (0) See_Comment [Automa patricia (test code = DGLUU) mg/dL message] The system which generated this result transmit patricia reference range : 0 (NORMAL). The reference range was not used to interpret this result as normal/abnormal . UA BILIRUBIN DIPSTICK NEGATIVE (0.0) See_Comment [Au tomated (test code = BILU) mg/dL message] The system which generated this result transmit patricia reference range : (NEG) 0. The reference range was not used to interpret this result as normal/abnormal . UA KETONE DIPSTICK OVER >150 (4+) See_Comment A [Autom ated (test code = KETU) mg/dL message] The system which generated this result transmit patricia reference range : (NEG) 0. The reference range was not used to interpret this result as normal/abnormal . UA SPECIFIC GRAVITY 1.026 SG 1.001-1.035 (test code = SGU) UA BLOOD DIPSTICK NEGATIVE (0.00) See_Comment [Autom ated (test code = CH[place]) mg/dL message] T he system which generated this result transmit patricia reference range : 0 (NEG). The reference range was not used to interpret this result as normal/abnormal . UA PH DIPSTICK (test 5.0 pH UNITS 4.6-8.0 code = NATE) UA PROTEIN DIPSTICK 20 (TRACE) See_Comment A [Automa patricia (test code = PROU) mg/dL message] The system which generated this result transmit patricia reference range : (NEG) <30. The reference range was not used to interpret this result as normal/abnormal . UA UROBILINIOGEN NORMAL (0) See_Comment [Automated DIPSTICK (test code = mg/Dl messag e] The URO) system which generated this result transmit patricia reference range : (NORM)<2.0. The reference range was not used to interpret this result as normal/abnormal . UA NITRITE DIPSTICK NEGATIVE (0) NEG (test code = ROME) SCREEN UA LEUKOCYTE ESTERASE NEGATIVE (0) See_Comment [Auto mated DIPSTICK (test code = Leuk/mcL messag e] The LEUU) system which generated this result transmit patricia reference range : (NEG) 0. The reference range was not used to interpret this result as normal/abnormal . UA COMMENT (test code SPECIMEN SpecComment = COMU) COMMENT NoteSPEC UA WBC (test code = 3-5 #WBC/HPF 0-3 WBCU) UA RBC (test code = 0-3 #RBC/HPF 0-3 RBCU) UA BACTERIA (test TRACE >0 /HPF NONE-FEW code = BACU) UA SQUAMOUS CELLS RARE >0 /UL NONE-SQepi (test code = SQU) UA MUCUS (test code = RARE /LPF NONE MUCU) UA CULTURE NEEDED? Crit NOTmet Cult byWBC (test code = UACULT) CULT-N/A Criteria PENDING RECEIPT OF SPECIMEN PER G.LAB.PTP AT 07/14/22 1403Comments to Frame Changer: 5Indication for culture: Suprapubic PainUA DESCRIPTION: CLEAN CATCHTROP-I HIGH [id number] 10:01:00 Test Item Value Reference Range Interpretation Comments TROP-I HIGH 9 ng/L 0-45 N SENSITIVITY (test code = TROPIHS) CAUTIO N: Units of the current test me thodology (ng/L) differfr om the prior test methodolog y (ng/mL) by a factor of 1000. 99th Percentile Upper Reference Limit (URL): Females: 54 ng/LMales: 78 n g/L In order to distinguish acute elevations of h igh sensitivitytrop onin from other clinical conditions, the FourthUnive rsal Definition of M yocardial Infarction stre ssesclinical assessment and the demonstration o f a rise and/orfall in s erial troponin result s above the URL. Results fr om different methodologies s hould not be comparedto one another as quantitative re sults and URLs may vary b ymethod. COMPREHENSIVE METABOLIC [id number] 09:52:00 Test Item Value Reference Range Interpretation Comments SODIUM (test code = 138.0 mmol/L 133-144 N NA) POTASSIUM (test 4.3 mmol/L 3.5-5.1 N code = K) CHLORIDE (test code 101 mmol/L 95-105 N = CL) CARBON DIOXIDE 29 mmol/L 21-32 N (test code = CO2) ANION GAP (test 8.0 GAP calc 4.0-15.0 N code = GAP) GLUCOSE (test code 87 MG/DL 70-110 N = GLU) BLOOD UREA NITROGEN 16 MG/DL 7-18 N (test code = BUN) GLOMERULAR 91 estGFR >60 The Glomerular FILTRATION RATE Filtration R ate is a (test code = GFR) calculated parameterbased on serum Creatinin e, patient age and sex. GFR valuesless than 60 mL/min/1.73 square meters are lisbeth cative ofChronic Kidne y Disease. Values less than 15 mL/min/1.73squa re meters indicate Kidney failure. The calculation for GFR is based on the CK D-EPI (2020) calculat ion. This formulais race indifferent and is the recommended formula for GFR by the National Kidney Foundation for Adults.The GFR will not calculate i f the sex is unknown or if thepatient's ag e is <18 years. CREATININE (test 0.70 MG/DL 0.55-1.30 N Results may be code = CREAT) depressed if p atient is takingN-Acetylc ystein e (NAC) and Metamizole (Dipyrone). TOTAL PROTEIN (test 6.4 G/DL 6.4-8.2 N code = PROT) ALBUMIN (test code 3.2 G/DL 3.4-5.0 L = ALB) ALBUMIN/GLOBULIN 1.0 RATIO 1.2-2.2 L RATIO (test code = A/G) CALCIUM (test code 9.0 MG/DL 8.5-10.1 N = CA) BILIRUBIN TOTAL 0.55 MG/DL 0.00-1.00 N (test code = BILT) BILIRUBIN DIRECT 0.17 MG/DL 0.00-0.30 N (test code = BILD) BILIRUBIN INDIRECT 0.38 MG/DL 0.2-1.3 N (test code = BILIND) SGOT/AST (test code 21 Unit/L 15-37 N = AST) SGPT/ALT (test code 20 Unit/L 12-78 N = ALT) ALKALINE 101 Unit/L 45-117 N PHOSPHATASE TOTAL (test code = ALKP) INDEX HEMOLYSIS 1 NORMAL <10 See_Comment [Automated message] (test code = MG Index/DL The system [employer] HEMINDEX) generated this result transmitted ref erence range: 1 NORMAL . The reference range was not used to int erpret this result as normal/abnormal . INDEX ICTERIC (test 1 NORMAL <2 MG See_Comment [Auto mated message] code = ICTINDEX) Index/DL The system which generated this result transmitted ref erence range: 1 NORMAL . The reference range was not used to int erpret this result as normal/abnormal . INDEX LIPEMIA (test 1 NORMAL <50 See_Comment [Automa patricia message] code = LIPINDEX) MG Index/DL The system which generated this result transmitted ref erence range: 1 NORMAL . The reference range was not used to int erpret this result as normal/abnormal . Comments to Frame Changer: [id number] 09:52:00 Test Item Value Reference Range Interpretation Comments LIPASE (test code = LIP) 106 Unit/L 114-286 L Comments to Frame Changer: 5CBC W/AUTO [id number] 09:37:00 Test Item Value Reference Range Interpretation Comments WHITE BLOOD CELL (test code = 4.8 K/mm3 4.1-12.1 N WBC) RED BLOOD CELL (test code = RBC) 4.28 M/mm3 3.8-5.5 N HEMOGLOBIN (test code = HGB) 13.7 G/DL 10.6-15.8 N HEMATOCRIT (test code = HCT) 40.6 % 31.8-47.4 N MEAN CELL VOLUME (test code = 94.9 fL 80.1-101.1 N MCV) MEAN CELL HGB (test code = MCH) 32.0 pg 25.3-35.3 N MEAN CELL HGB CONCETRATION (test 33.7 G/DL 32.7-35.1 N code = MCHC) RED CELL DISTRIBUTION WIDTH 12.4 % 12.2-16.4 N (test code = RDW) RED CELL DISTRIBUTION WIDTH 42.9 fL 36.4-46.3 N (test code = RDW-SD) PLATELET COUNT (test code = PLT) 224 K/mm3 155-337 N MEAN PLATELET VOLUME (test code 9.5 fL 6.8-11.2 N = MPV) GRANULOCYTE % (test code = GR%) 68.2 % 37.8-82.6 N IMMATURE GRANULOCYTE % (test 0.2 % 0.0-2.0 N code = IG%) LYMPHOCYTE % (test code = LY%) 24.8 % 14.1-45.4 N MONOCYTE % (test code = MO%) 6.6 % 2.5-11.7 N EOSINOPHIL % (test code = EO%) 0.0 % 0.0-6.2 N BASOPHIL % (test code = BA%) 0.2 % 0.0-2.1 N NUCLEATED RBC % (test code = 0.0 /100WBC% 0.0-1.0 N NRBC%) GRANULOCYTE # (test code = GR#) 3.29 k/mm3 2.0-13.7 N IMMATURE GRANULOCYTE # (test 0.01 K/mm3 0.00-0.03 N code = IG#) LYMPHOCYTE # (test code = LY#) 1.20 K/mm3 0.6-3.8 N MONOCYTE # (test code = MO#) 0.32 K/mm3 0.11-0.59 N EOSINOPHIL # (test code = EO#) 0.00 K/mm3 0.0-0.4 N BASOPHIL # (test code = BA#) 0.01 K/mm3 0.0-0.1 N NUCLEATED RBC # (test code = 0.00 K/mm3 0.0-0.05 N NRBC#) Comments to Frame Changer: 5Lipid [id number] 03:59:00 Test Item Value Reference Range Interpretation Comments Cholesterol, total 112 mg/dL <=200 (test code = 2093-3) HDL cholesterol 36 mg/dL See_Comment L [Automated (test code = 2084-) message ] The system which generated this result transmitted reference range : > OR = 50. The reference range was not used to interpret this result as normal/abnormal . Triglycerides (test 88 mg/dL <=150 code = 2571-8) LDL cholesterol 59 mg/dL (calc) Reference ra nge: calculated (test <100 Desira ble code = 44293-6) range <100 m g/dL for primary prevention; <70 mg/dL for patients with C HD or diabetic patients with > or = 2 CHD risk factors. LDL-C is now calculated using the Daniel-Anna calculation, which is a validated novel method providin g better accuracy than the Friedewald equation in the estimation of LDL-C. Daniel S S et al. CARLOS. 2013;310(19): 9084-4638 (http://educati on .[employer]Pets .com/faq/YLM986 ) Cholesterol/HDL 3.1 See_Comment [Automated ratio (test code = message] The 9830-1) system which generated this result transmitted reference range : <5.0 (calc). Th e reference range was not used to interpret this result as normal/abnormal . Non-HDL cholesterol 76 See_Comment For jadiel ents with (test code = diabetes plus 1 97910-2) major ASCVD ris k factor, treatin g to a non-HDL-C goal of <100 mg/dL (LDL-C of <70 mg/dL) is considered a therapeutic option. [Automated message] The system which generated this result transmitted reference range : <130 mg/dL (calc). The reference range was not used to interpret this result as normal/abnormal . RAC (test code = Performing RAC) Organization Information: Site ID: RGA Name: [facility] Address: [address] [place] [phone] Director: Frederick Rausch Lab Interpretation Abnormal (test code = 67363-3) [facility] [id number] 03:59:00 Test Item Value Reference Range Interpretation Comments Cholesterol, total 112 mg/dL See_Comment [Automat ed (test code = 2093-3) message ] The system which generated this result transmitted reference range : <=200. The reference range was not used to interpret this result as normal/abnormal . HDL cholesterol 36 mg/dL See_Comment L [Automated (test code = 2085-9) message ] The system which generated this result transmitted reference range : > OR = 50. The reference range was not used to interpret this result as normal/abnormal . Triglycerides (test 88 mg/dL See_Comment [Automa patricia code = 2571-8) message] The system which generated this result transmitted reference range : <=150. The reference range was not used to interpret this result as normal/abnormal . LDL cholesterol 59 mg/dL (calc) Reference ra nge: calculated (test <100 Desira ble code = 64866-8) range <100 m g/dL for primary prevention; <70 mg/dL for patients with C HD or diabetic patients with > or = 2 CHD risk factors. LDL-C is now calculated using the Dnaiel-Anna calculation, which is a validated novel method providin g better accuracy than the Friedewald equation in the estimation of LDL-C. Daniel S S et al. CARLOS. 2013;310(19): 0438-3091 (http://educati on .[employer] .com/faq/TTI879 ) Cholesterol/HDL 3.1 See_Comment [Automated ratio (test code = message] The 9830-1) system which generated this result transmitted reference range : <5.0 (calc). Th e reference range was not used to interpret this result as normal/abnormal . Non-HDL cholesterol 76 See_Comment For jadiel ents with (test code = diabetes plus 1 83451-6) major ASCVD ris k factor, treatin g to a non-HDL-C goal of <100 mg/dL (LDL-C of <70 mg/dL) is considered a therapeutic option. [Automated message] The system which generated this result transmitted reference range : <130 mg/dL (calc). The reference range was not used to interpret this result as normal/abnormal . RAC (test code = Performing RAC) Organization Information: Site ID: RGA Name: [facility] Address: [address] [place] [phone] Director: Frederick Rausch Lab Interpretation Abnormal (test code = 74677-3) [facility]2023-04-18 00:16:00 Test Item Value Reference Range Interpretation Comments Fungus culture No growth Specimen isolate (test after 4 weeks InformationSp ecimen code = 580-1) of Source: SinusS pecimen incubation. Site: Sinus: [facility] [id number] 00:16:00 Test Item Value Reference Range Interpretation Comments Fungus culture No growth Specimen isolate (test after 4 weeks InformationSp ecimen code = 580-1) of Source: SinusS pecimen incubation. Site: [facility]: [facility] 12 [id number] 02:24:40 Test Item Value Reference Range Interpretation Comments Ventricular rate (test 80 code = 253) Atrial rate (test code 80 = 255) MA interval (test code 152 = 266) QRSD interval (test 82 code = 260) QT interval (test code 376 = 264) QTC interval (test code 433 = 265) P axis 1 (test code = 81 267) QRS axis 1 (test code = 4 268) T wave axis (test code 49 = 270) EKG impression (test Normal sinus code = 273) rhythm-Nonspecific ST abnormality-Abnormal ECG-In automated comparison with ECG of 29-MAY-2022 09:41,-Nonspecific T wave abnormality has replaced inverted T waves in Anterior leads- [facility] 12 [id number] 02:24:40 Test Item Value Reference Range Interpretation Comments Ventricular rate (test 80 code = 253) Atrial rate (test code 80 = 255) MA interval (test code 152 = 266) QRSD interval (test 82 code = 260) QT interval (test code 376 = 264) QTC interval (test code 433 = 265) P axis 1 (test code = 81 267) QRS axis 1 (test code = 4 268) T wave axis (test code 49 = 270) EKG impression (test Normal sinus code = 273) rhythm-Nonspecific ST abnormality-Abnormal ECG-In automated comparison with ECG of 29-MAY-2022 09:41,-Nonspecific T wave abnormality has replaced inverted T waves in Anterior leads- [facility] metabolic [id number] 01:22:00 Test Item Value Reference Interpretation Comments Range Glucose (test code 101 mg/dL 65-99 H Fasting reference = 2345-7) interval For so meone without known diabetes, a glu cose valuebetween 10 0 and 125 mg/dL is consistent withprediabetes and should be confi rmed with afollow-up test. BUN (test code = 22 mg/dL 10-01 3094-0) Creatinine (test 0.92 mg/dL 0.60-1.00 code = 2160-0) eGFR (test code = 65 See_Comment [place] [address]-7) the CKD-EPI 202 1 equation. To calculate the n ew eGFR from a pre vious Creatinine or Cystatin Cresul t, go to https://www.[employer] mele.o rg/professional s/kdo qi/gfr%5Fcalcul ator [Automated mess age] The system [employer] generated this result transmit patricia reference range : > OR = 60 mL/min/1.73m2. The reference range was not used to interpret this result as normal/abnormal . BUN/creatinine NOT APPLICABLE See_Comment [Automated message] ratio (test code = The syste m which 3097-3) generated this result transmit patricia reference range : 6 - 22 (calc). The reference range was not used to interpret this result as normal/abnormal . Sodium (test code = 138 mmol/L 253-344 2789-2) Potassium (test 4.4 mmol/L 3.5-5.3 code = 2823-3) Chloride (test code 103 mmol/L 98-110 = 2075-0) CO2 (test code = 30 mmol/L 20-32 2027-11) Calcium (test code 9.7 mg/dL 8.6-10.4 = 08248-9) NINOSKA (test code = FASTING:YES NINOSKA) FASTING: YES RAC (test code = Performing RAC) Organization Information: Site ID: RGA Name: [facility] Address: [address] [place] [phone] Director: Frederick Rausch Lab Interpretation Abnormal (test code = 55367-1) [facility] metabolic [id number] 01:22:00 Test Item Value Reference Interpretation Comments Range Glucose (test code 101 mg/dL 65-99 H Fasting reference = 2345-7) interval For so meone without known diabetes, a glu cose valuebetween 10 0 and 125 mg/dL is consistent withprediabetes and should be confi rmed with afollow-up test. BUN (test code = 22 mg/dL 7- 3094-0) Creatinine (test 0.92 mg/dL 0.60-1.00 code = 2160-0) eGFR (test code = 65 See_Comment [place] [address]-0) the CKD-EPI 202 1 equation. To calculate the n ew eGFR from a pre vious Creatinine or Cystatin Cresul t, go to https://www.[employer] mele.o rg/professional s/kdo qi/gfr%5Fcalcul ator [Automated mess age] The system [employer] generated this result transmit patricia reference range : > OR = 60 mL/min/1.73m2. The reference range was not used to interpret this result as normal/abnormal . BUN/creatinine NOT APPLICABLE See_Comment [Automated message] ratio (test code = The syste m which 3097-3) generated this result transmit patricia reference range : 6 - 22 (calc). The reference range was not used to interpret this result as normal/abnormal . Sodium (test code = 138 mmol/L 413-972 7029-2) Potassium (test 4.4 mmol/L 3.5-5.3 code = 2823-3) Chloride (test code 103 mmol/L 98-110 = 2075-0) CO2 (test code = 30 mmol/L 20-32 2027-9) Calcium (test code 9.7 mg/dL 8.6-10.4 = 73622-5) NINOSKA (test code = FASTING:YES NINOSKA) FASTING: YES RAC (test code = Performing RAC) Organization Information: Site ID: RGA Name: [facility] Address: [address] [place] [phone] Director: Frederick Rausch Lab Interpretation Abnormal (test code = 78880-0) [facility] metabolic [id number] 01:22:00 Test Item Value Reference Interpretation Comments Range Glucose (test code 101 mg/dL 65-99 H Fasting reference = 2345-7) interval For so meirene without known diabetes, a glu cose valuebetween 10 0 and 125 mg/dL is consistent withprediabetes and should be confi rmed with afollow-up test. BUN (test code = 22 mg/dL 10-01 3094-0) Creatinine (test 0.92 mg/dL 0.60-1.00 code = 2160-0) eGFR (test code = 65 See_Comment [place] [address]-2) the CKD-EPI 202 1 equation. To calculate the n ew eGFR from a pre vious Creatinine or Cystatin Cresul t, go to https://www.[employer] mele.o rg/professional s/kdo qi/gfr%5Fcalcul ator [Automated mess age] The system [employer] generated this result transmit patricia reference range : > OR = 60 mL/min/1.73m2. The reference range was not used to interpret this result as normal/abnormal . BUN/creatinine NOT APPLICABLE See_Comment [Automated message] ratio (test code = The syste m which 3097-3) generated this result transmit patricia reference range : 6 - 22 (calc). The reference range was not used to interpret this result as normal/abnormal . Sodium (test code = 138 mmol/L 267-430 4495-2) Potassium (test 4.4 mmol/L 3.5-5.3 code = 2823-3) Chloride (test code 103 mmol/L 98-110 = 2075-0) CO2 (test code = 30 mmol/L 20-32 2027-9) Calcium (test code 9.7 mg/dL 8.6-10.4 = 84282-0) NINOSKA (test code = FASTING:YES NINOSKA) FASTING: YES RAC (test code = Performing RAC) Organization Information: Site ID: RGA [facility]: [facility] Address: [address] [place] [phone] Director: Frederick Rausch Lab Interpretation Abnormal (test code = 23143-5) [facility] [id number] 17:35:00 Test Item Value Reference Range Interpretation Comments Anaerobic No anaerobic Specimen culture isolate organisms InformationS pecimen (test code = isolated. Source: SinusSp ecimen 50645-3) Site: Sinus: Ri ght ethmoid culture [facility] [id number] 17:35:00 Test Item Value Reference Range Interpretation Comments Anaerobic No anaerobic Specimen culture isolate organisms InformationS pecimen (test code = isolated. Source: SinusSp ecimen 80995-6) Site: Sinus: Ri ght ethmoid culture [facility] [id number] 17:35:00 Test Item Value Reference Range Interpretation Comments Anaerobic No anaerobic Specimen culture isolate organisms InformationS pecimen (test code = isolated. Source: SinusSp ecimen 44331-7) Site: Sinus: [facility] [id number] 16:49:54 Test Item Value Reference Range Interpretation Comments Ventricular rate (test 66 code = 253) Atrial rate (test code 66 = 255) MA interval (test code 148 = 266) QRSD interval (test 92 code = 260) QT interval (test code 430 = 264) QTC interval (test code 450 = 265) P axis 1 (test code = 62 267) QRS axis 1 (test code = 10 268) T wave axis (test code 32 = 270) EKG impression (test Normal sinus code = 273) rhythm-Nonspecific T wave abnormality-Abnormal ECG-In automated comparison with ECG of 28-MAY-2022 00:25,-Nonspecific T wave abnormality, improved in Inferior leads-QT has shortened-Electronical ly Signed By Raj MANZANO, [facility] ([id number]) on 05/29/2022 11:49:49 AM [facility] [id number] 12:35:00 Test Item Value Reference Range Interpretation Comments POC glucose (test code 122 mg/dL 65-99 H Opera tor Name: = 23413-1) Isaiah Mccauley ID: [id number] able: [facility] Notified keysmith Interpretation Abnormal (test code = 75955-5) [facility] [id number] 12:35:00 Test Item Value Reference Range Interpretation Comments POC glucose (test code 122 mg/dL 65-99 H Opera tor Name: = 91561-7) Isaiah Castro Parisa ID: [id number] able: [facility] Notified keysmith Interpretation Abnormal (test code = 41862-7) [facility] [id number] 12:35:00 Test Item Value Reference Range Interpretation Comments POC glucose (test code 122 mg/dL 65-99 H Opera tor Name: = 08933-9) Isaiah Castro Parisa ID: [id number] able: [facility] Notified keysmith Interpretation Abnormal (test code = 40516-4) [facility] pathology [id number] 21:40:21 Test Item Value Reference Range Interpretation Comments Case number (test code = [id number]) Surgical pathology See link below for report (test code = PDF Lab Report 2255) Result status (test code This is Final Report = [id number]) [id number] [id number] 21:40:21 Test Item Value Reference Range Interpretation Comments Case number (test code = [id number]) Surgical pathology See link below for report (test code = PDF Lab Report 2255) Result status (test code This is Final Report = [id number]) for [id number] [facility] [id number] 21:40:21 Test Item Value Reference Range Interpretation Comments Case number (test code = [id number]) Surgical pathology See link below for report (test code = PDF Lab Report 2255) Result status (test code This is Final Report = [id number]) for [id number] [facility] [id number] 20:30:00 Test Item Value Reference Range Interpretation Comments Fungus smear No fungi Specimen (test code = observed. InformationSpec imen Source: 9018) SinusSpecimen S ite: Sinus: Right ethmoid c ulture [facility] [id number] 20:30:00 Test Item Value Reference Range Interpretation Comments Fungus smear No fungi Specimen (test code = observed. InformationSpec imen Source: 1442) SinusSpecimen S ite: Sinus: Right ethmoid c ulture [facility] [id number] 20:30:00 Test Item Value Reference Range Interpretation Comments Fungus smear No fungi Specimen (test code = observed. InformationSpec imen Source: 1443) SinusSpecimen S ite: Sinus: Right ethmoid c ulture [facility] [id number] 03:48:00 Test Item Value Reference Range Interpretation Comments Gram stain No WBC's or Specimen isolate (test organisms seen. Information Specimen code = 1469) Source: SinusSp ecimen Site: Sinus: Ri ght [facility]moid culture [facility] [id number] 03:48:00 Test Item Value Reference Range Interpretation Comments Gram stain No WBC's or Specimen isolate (test organisms seen. Information Specimen code = 1469) Source: SinusSp ecimen Site: Sinus: Ri ght [facility]moid culture [facility] [id number] 03:48:00 Test Item Value Reference Range Interpretation Comments Gram stain No WBC's or Specimen isolate (test organisms seen. Information Specimen code = 1469) Source: SinusSp ecimen Site: Sinus: Ri ght [facility] Pre/Post [id number] 14:37:23 Test Item Value Reference Range Interpretation Comments Ventricular rate (test 51 code = 253) Atrial rate (test code 51 = 255) MA interval (test code 150 = 266) QRSD interval (test 90 code = 260) QT interval (test code 474 = 264) QTC interval (test code 436 = 265) P axis 1 (test code = 62 267) QRS axis 1 (test code = 14 268) T wave axis (test code 29 = 270) EKG impression (test Sinus code = 273) bradycardia-Cannot rule out Anterior infarct , age undetermined-Abnormal ECG-In automated comparison with ECG of 30-JUL-2021 14:05,-Nonspecific T wave abnormality now evident in Anterior leads- [facility] Pre/Post [id number] 14:37:23 Test Item Value Reference Range Interpretation Comments Ventricular rate (test 51 code = 253) Atrial rate (test code 51 = 255) MA interval (test code 150 = 266) QRSD interval (test 90 code = 260) QT interval (test code 474 = 264) QTC interval (test code 436 = 265) P axis 1 (test code = 62 267) QRS axis 1 (test code = 14 268) T wave axis (test code 29 = 270) EKG impression (test Sinus code = 273) bradycardia-Cannot rule out Anterior infarct , age undetermined-Abnormal ECG-In automated comparison with ECG of 30-JUL-2021 14:05,-Nonspecific T wave abnormality now evident in [facility]terior leads- [facility]Post [id number] 14:37:23 Test Item Value Reference Range Interpretation Comments Ventricular rate (test 51 code = 253) Atrial rate (test code 51 = 255) MA interval (test code 150 = 266) QRSD interval (test 90 code = 260) QT interval (test code 474 = 264) QTC interval (test code 436 = 265) P axis 1 (test code = 62 267) QRS axis 1 (test code = 14 268) T wave axis (test code 29 = 270) EKG impression (test Sinus code = 273) bradycardia-Cannot rule out Anterior infarct , age undetermined-Abnormal ECG-In automated comparison with ECG of 30-JUL-2021 14:05,-Nonspecific T wave abnormality now evident in Anterior leads[id number]:57[facility]00 Test Item Value Reference Range Interpretation Comments Antibody screen (test NEG PEG code = 890-4) NINOSKA (test code = NINOSKA) LAB: bld ext ok dos 05/27/2022LAB: bld ext ok dos 05/27/2022 [id number] 02:57:00 Test Item Value Reference Range Interpretation Comments Antibody screen (test NEG PEG code = 890-4) NINOSKA (test code = NINOSKA) LAB: bld ext ok dos 05/27/2022LAB: bld ext ok dos 05/27/2022 [facility] [id number] 02:57:00 Test Item Value Reference Range Interpretation Comments Antibody screen (test NEG PEG code = 890-4) NINOSKA (test code = NINOSKA) LAB: bld ext ok dos 05/27/2022LAB: bld ext ok dos 05/27/[address]2022-05-23 20:24:46 Test Item Value Reference Range Interpretation Comments Ventricular rate (test 70 code = 253) Atrial rate (test code = 70 255) MA interval (test code = 146 266) QRSD interval (test code 86 = 260) QT interval (test code = 416 264) QTC interval (test code 449 = 265) P axis 1 (test code = 68 267) QRS axis 1 (test code = 7 268) T wave axis (test code = 15 270) EKG impression (test Normal sinus code = 273) rhythm-Nonspecific ST abnormality-Abnormal ECG- [address]2022-05-23 20:24:46 Test Item Value Reference Range Interpretation Comments Ventricular rate (test code = 253) Atrial rate (test code = 255) MA interval (test code = 266) QRSD interval (test code = 260) QT interval (test code = 264) QTC interval (test code = 265) P axis 1 (test code = 267) QRS axis 1 (test code = 268) T wave axis (test code = 270) EKG impression (test Normal sinus code = 273) rhythm-Nonspecific ST abnormality-Abnormal ECG- [address]2022-05-23 20:24:46 Test Item Value Reference Range Interpretation Comments Ventricular rate (test code = 253) Atrial rate (test code = 255) MA interval (test code = 266) QRSD interval (test code = 260) QT interval (test code = 264) QTC interval (test code = 265) P axis 1 (test code = 267) QRS axis 1 (test code = 268) T wave axis (test code = 270) EKG impression (test Normal sinus code = 273) rhythm-Nonspecific ST abnormality-Abnormal ECG- [facility] Notes Date/Time Note Provider Source 2022-07-17 18:19:00-00:00 [facility] ([facility]) DT PROGRESS NOTE REPORT#:[id number] REPORT STATUS: Signed DATE:07/17/22 TIME: 1818 PATIENT: JAKI SANCHEZ UNIT #: [id number] ROOM/BED: [place] [address] : 47 AGE: 76 SEX: F ATTEND: Mi Valdez MD ADM AUTHOR: Ki Valdez MD * ALL edits or amendments must be made on the bitFlyer/computer document * Progress Note Progress Note [id number] Electronically Signed by Ki Valdez MD on 0 07/17/22 at 1820 RPT #:[id number] END OF REPORT 2022-07-17 18:19:00-00:00 [id number] [place] [address] PATIENT NAME: JAKI SANCHEZ ADMIT DATE: ACCOUNT NO: [id number] ROOM NO: [facility] AGE: 76 REPORT TYPE: DISCHARGE SUMMARY SEX: F ADMITTING PHYSICIAN:Ki Valdez MD ATTENDING PHYSICIAN:Ki Valdez MD ADMISSION DATE: 07/14/2022 16:28:00 DISCHARGE DATE: 07/17/2022 19:00:00 PRIMARY CARE PHYSICIAN: Dr. Ja Rollins in [facility]. HOSPITAL COURSE: This is a v sierra pleasant 76-year-old lady who I have known very well. She has a previous history of having hyper tension, coronary artery disease, AFib, status post ablation. She is on a nticoagulation. She started having some issues with her sinuses and the patient had relocated from [place] to [place]. The patient had sinus surgery done by her ENT physician. 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 The patient came in because she was having repeated episodes of headache and persistent nausea and vomiting. The patient was thoroughly worked up. She was found to have no significant sinus issues at this point of time. Her sinuses were quite pristine. The patient did have significant cervi lacy disk disease and her history was also concerning for the possibility of cervical spondylosis. 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 PT, OT and manager home healthcare will be continued after that. The patient had no evidence of mucormycosis. Attenti on was then paid towards her nausea and vomiting. A GI evaluation was done and an endoscopy was done, which came back fairly unremarkable. There was a concern that we should proceed with getting a gastric emptying s tudy, but since her pain was better controlled, her nausea and vomiting had gone away once her heada ches were under control, suggesting that most likely the cause of her holley sea and vomiting was the persistent headaches. She has got some trigger i njections. She will follow up with her primary care physic tosha, Dr. Ja Rollins in about a week's time. She will also see her ENT physician. Her cultures charles ve came back essentially unremarkable. Dictated By: Ki Valdez MD Date Dictated: 07/17/2022 18:19:51 Date Transcribed: 07/18/2022 04:35:01 /BAKARI Receipt ID: [id number] CC: PATIENT NAME: JAKI SANCHEZ [id number] Ja Rollins Authenticated by Ki Valdez MD On 07/18 05:05:26 PM at 0505 PATIENT NAME: JAKI SANCHEZ [id number] 2022-07-17 07:54:00-00:00 [facility] ([facility] GE Consultation Note REPORT#:[id number] REPORT STATUS: Signed DATE:07/17/22 TIME: 753 PATIENT: JAKI SANCHEZ UNIT #: [id number] ROOM/BED: [place] [address] : 47 AGE: 76 SEX: F ATTEND: Mi Valdez MD ADM AUTHOR: Pietro Camacho MD * ALL edits or amendments must be made on the bitFlyer/computer document * History of Present Illness Requesting clinician: Dr Valdez Reason for consult: N/V HPI: 76 y f with upper abdominal pain, N/V and headaches and hx of sinusitis admitted for evaluation, she reports GERD, reports constipation, melena or hematochezia. Symptoms intractable. History - Adult longitudinal Additional medical history: Hypothyroidism Family history: Reports: Hypertension. Alcohol use: Denies EtOH use Smoking status for patients 13 years old or olde r: Never Smoker Allergies: Coded Allergies: levofloxacin (From [employer]) (Severe, HIVES 09/29) Review of Systems Constitutional: Reports: generalized weakness. Denies: fever. Respiratory: Denies: PATEL (dyspnea on exertion), non productiv e cough. Cardiovascular: Denies: chest pain. GI: Reports: abdominal pain, con stipation, GERD, nausea, vomiting. Denies: diarrhea , dysphagia, hematochezia, melena. Musculoskeletal: Reports: neck pain. Neuro: Reports: headache. All systems rev neg: except as marked Objective Physical Exam VS/I O: Last Documented: Result Date Time Pulse Ox 93 07/17 330 B/P 149/78 07/17 330 B/P Mean 101.5 07/17 330 O2 Delivery Room air 07/17 330 Temp 36.8 07/17 330 Pulse 60 07/17 330 Resp 20 07/17 330 FiO2 21 07/16 1123 PATIENT WEIGHT: Weight (lb): Weight (oz): Weight (kg): 70.455 Laboratory Tests: 07/16 07/16 0855 0336 Chemistry Sodium (133 - 144 mmol/L) 137.0 Potassium (3.5 - 5.1 mmol/L) 4.2 Chloride (95 - 105 mmol/L) 107 H Carbon Dioxide (21 - 32 mmol/L) 24 Anion Gap (4.0 - 15.0 GAP calc) 6.0 BUN (7 - 18 MG/DL) 10 Creatinine (0.55 - 1.30 MG/DL) 0.43 L Glomerular Filtr Rate (>60 estGFR) 102 Glucose (70 - 110 MG/DL) 120 H Calcium (8.5 - 10.1 MG/DL) 7.9 L Specimen Appearance (1 NORMAL Index/DL) 1 PAPA L <2 MG Specimen Hemolysis (1 NORMAL Index/DL) 1 NORMAL <10 MG Toxicology Vancomycin Trough (10 - 20 mcG/ML) 10.1 Recent Impressions: RADIOLOGY - XR C-SPINE 2-3 VIEWS 07/15 1359 Report Impression - Status: SIGNED Entered: 07/15/2022 2323 IMPRESSION: 1. Slightly limited evaluation, as above, which may decrease sensitivity. 2. Given this, no acute bony abnormality is iden tified. 3. Multilevel cervical spondylosis. Impression By: Bro Krause MD [facility] - MRI BRAIN W WO CONT 07/16 1015 Report Impression - Status: SIGNED Entered: 07/16/2022 1148 IMPRESSION: 1. No acute intracranial abnormality. No evidenc e of recent ischemic change. 2. No abnormal enhancement. 3. Mild chronic diffuse atrophy, which may be ag e-appropriate. 4. Subtle chronic white matter T2/FLAIR hyperint ensities, as above. 5. Minimal sinonasal disease. Impression By: Bro Krause MD Medications: Active Meds + DC'd Last 24 Hrs Methylprednisolone (MEDROL) 4 MG C BK PO Methylprednisolone (MEDROL) 4 MG BEDTIME PO Methylprednisolone (MEDROL) 4 MG C BK PO Methylprednisolone (MEDROL) 4 MG BEDTIME PO Methylprednisolone (MEDROL) 4 MG C KARO PO Methylprednisolone (MEDROL) 4 MG C BK PO Methylprednisolone (MEDROL) 4 MG BEDTIME PO Methylprednisolone (MEDROL) 4 MG C DIN PO Metoclopramide HCl (REGLAN) 10 MG Q8HR IV Methylprednisolone (MEDROL) 4 MG C KARO PO Methylprednisolone (MEDROL) 4 MG C BK PO Midazolam HCl (VERSED) 0 .STK-MED ONE .ROUTE (DC ) Propofol (DIPRIVAN) 20 ML .STK-MED ONE IV (DC) Methylprednisolone (MEDROL) 8 MG BEDTIME PO (DC) Methylprednisolone (MEDROL) 4 MG C DIN PO (DC) Lorazepam (ATIVAN) 1 MG ONCALL MRI IV (DC) Methylprednisolone (MEDROL) 4 MG C KARO PO (DC) Gadoterate Meglumine (Dotarem) 14.091 ML ONCE MA N IV (DC) Vancomycin HCl (VANCOMYCIN 1,000) 1,000 MG Q12H IV Sodium Chloride (NORMAL SALINE 250 ML) 250 ML Technetium TC99M Medronate (TC 99M Medronate) 26 .9 mCi .STK-MED ONE IV ( DC) Methylprednisolone (MEDROL) 4 MG C BK PO (DC) Lorazepam (ATIVAN) 1 MG ONCALL MRI IV (DC) Morphine Sulfate (MORPHINE SULFATE) 4 MG Q4H PRN PRN IV Prochlorperazine Edisylate (COMPAZINE) 10 MG Q6H PRN PRN IV Aspirin (ASPIRIN) 81 MG DAILY PO Cyanocobalamin (VITAMIN B-12) 1,000 MCG DAILY PO Ferrous Sulfate (FEOSOL) 325 MG DAILY PO Lisinopril (PRINIVIL) 20 MG DAILY PO Multivitamins (TAB-A-CHOCO) 1 EACH DAILY PO Rivaroxaban (XARELTO) 10 MG DAILY PO Cefepime HCl (Cefepime HCl) 1 GM Q8HR IV Sterile Water (STERILE WATER) 10 ML Atorvastatin Calcium (LIPITOR) 40 MG BEDTIME PO Cholecalciferol (VITAMIN D3) 1,000 IU BEDTIME P O (CKD) Ropinirole HCl (REQUIP) 0.5 MG Q12HR PO Temazepam (RESTORIL) 15 MG BEDTIME PO Trazodone HCl (DESYREL) 50 MG BEDTIME PO Vancomycin HCl (VANCOMYCIN HCL) 750 MG Q12H IV ( DC) Sodium Chloride (NORMAL SALINE 250 ML) 250 ML Sodium Chloride (SODIUM CHLORIDE 0.9% 1000 ML) 1 ,000 ML .X27A31H IV Miscellaneous Information (VANCOMYCIN PHARMACY T O DOSE) 1 EACH ASDIR IV (CKD) Morphine Sulfate (morphine PF SYRINGE) 2 MG Q4H PRN PRN IV Ondansetron HCl (ZOFRAN) 4 MG Q6H PRN PRN IV General appearance: alert, awake, oriented, no a cute distress HEENT: atraumatic, clear cornea, EOMI, moist muc osal membranes, normal nose, normal pharynx, normocephalic, PERRL Neck: non-tender, supple/no meningismus, no JVD Cardiovascular: normal heart sounds, normal S1/S 2, regular rate rhythm Respiratory: clear to auscultation, equal breath sounds, symmetric expansion Abdomen: tenderness, soft, no distention, no gua rding Extremities: no clubbing, no cyanosis, no edema Musculoskeletal: normal inspection Neuro/ART DISPLAY MAKER: alert, oriented X 3, normal speech Diagnosis, Assessment Plan Free Text DxA P Notes Free Text DxA P Notes: Intractable N/V and upper Abdominal pain Hx of GERD Plan PPI, Anti- emetics, EGD today CT A/P and labs reviewed unremarkable Supportive care Electronically Signed by Peitro Camacho MD on 12/30 at 0800 [facility] #:[id number] END OF REPORT 2022-07-17 07:28:00-00:00 [id number] [place] [address] PATIENT NAME: ZENOBIAPADMAJAKI ADMIT DATE: ACCOUNT NO: [id number] ROOM NO: B.277 AGE: 76 REPORT TYPE: ENDOSCOPY REPORT SEX: F ADMITTING PHYSICIAN:Ki Valdez MD ATTENDING PHYSICIAN:Ki Valdez MD Patient Name: Jaki Sanchez Attending MD: Robert Camacho MD Gender: Female Procedure Date No Time: 07/17/2022 Date of : 1945 Instrument Name: [id number] Indications: Epigastric abdominal pain, Nausea w ith vomiting Medicines: Propofol per Anesthesia Procedure: Upper GI endoscopy Complications: No immediate complications. Pre-Sedation Assessment: Pre-Anesthesia Assessment: - ASA Grade Assessment: IV - A patient with sev ere systemic disease that is a constant threat to life. - General anesthesia under the supervision of a n anesthesiologist was determined to be medically necessary for this p rocedure based on review of the patient's medical history, medications, and prior anesthesia history. - H and P completed, I have examined the patien t on this date and have reviewed the medical history, drug history, and previous anesthesia experience. Results of the relevant diagnostic studies have been reviewed. Planned choice of anesthesia risk, co mplications, benefits and alternatives have been discussed. - Airway Examination: normal oropharyngeal airw ay and neck mobility. After obtaining informed consent, the endoscope was passed under direct visualization. Throughout the procedure, the pa tient's blood pressure, EKG, pulse, and oxygen saturations were monitor ed continuously. The Endoscope was introduced through the mouth, and advanced to the second part of duodenum. The upper GI endoscopy was ac complished without difficulty. The patient tolerated the procedure well. Findings: The esophagus was normal. Patchy mild inflammation characterized by conge stion (edema), erosions and erythema was found in the gastric body and in the gastric antrum. The examined duodenum was normal. A small hiatal hernia was present. Bilious fluid was found in the gastric fundus a nd in the gastric body. Estimated Blood Loss: Estimated blood loss was m inimal. PATIENT NAME: JAKI SANCHEZ [id number] Impression: - Normal esophagus. - Erosive gastritis. - Normal examined duodenum. - No specimens collected. Recommendation: - Observe patient's clinical cou rse. - PPI, Anti Emetics, Trial Of Reglan, Consider GE scan Procedure Code(s): --- Professional --- 54123, Esophagogastroduodenoscopy, flexible, transoral; diagnostic, including collection of specimen(s) by brushing or washing, when perfor med (separate procedure) Diagnosis Code(s): --- Professional --- K29.60, Other gastritis without bleeding R10.13, Epigastric pain R11.2, Nausea with vomiting, unspecified CPT copyright 2020 [employer]. All rights reserved. The codes documented in this report are prelimin lew and upon welding specialist review may be revised to meet current compliance requiremen ts. Pietro Camacho MD Pietro Camacho MD 07/17/2022 7:53:56 AM This report has been signed electronically. Provation {[id number]}.pdf ProVation FT PDF Electronically Signed by Pietro Camacho MD on at 0754 PATIENT NAME: JAKI SANCHEZ [id number] 6205-05-08 16:28:00-00:00 [facility] DT PROGRESS NOTE REPORT#:[id number] REPORT STATUS: Signed DATE:07/15/22 TIME: 1627 PATIENT: JAKI SANCHEZ UNIT #: [id number] ROOM/BED: [place] [address] : 47 AGE: 76 SEX: F ATTEND: Mi Valdez MD ADM AUTHOR: Ki Valdez MD * ALL edits or amendments must be made on the bitFlyer/computer document * Progress Note Progress Note [id number] Electronically Signed by Ki Valdez MD on 0 07/15/22 at 1628 RPT #:[id number] END OF REPORT 2022-07-15 16:28:00-00:00 [id number] [place] [address] PATIENT NAME: JAKI SANCHEZ ADMIT DATE: ACCOUNT NO: [id number] ROOM NO: B.277 AGE: 76 REPORT TYPE: PROGRESS NOTE SEX: F ADMITTING PHYSICIAN:Ki Valdez MD ATTENDING PHYSICIAN:Ki Valdez MD DATE: 07/15/2022 SUBJECTIVE: The patient says that she is having a really, really bad headache and she is wanting to know when she will be able to get her MRI. She said she was not able to keep anything down. As a result, she was throwing up and she could not get her MRI yesterday. I have given th e medications orders for premedicating her and hopefu lly we can get the MRI done. I will also improve on her pain medications. Her la b evaluations did not show any evidence of elevated ESR or C-reactive protein. I want to see what th e MRI shows to be able to better assess and guide her further forw alin. She is also having quite a bit of persistent nausea and vomiti ng, so I will go ahead and get GI to evaluate her to see whether there is any GI source of this vomit ing. Dictated By: Ki Valdez MD Date Dictated: 07/15/2022 16:28:25 Date Transcribed: 07/15/2022 16:37:34 /ED Receipt ID: [id number] Authenticated by Ki Valdez MD On 07/18 05:05:25 PM at 0505 PATIENT NAME: JAKI SANCHEZ [id number] 2022-07-14 20:09:00-00:00 [facility]) Pharmacy Prog.Note-Vancomycin REPORT#:[id number] REPORT STATUS: Signed DATE:07/14/22 TIME: 2008 PATIENT: JAKI SANCHEZ UNIT #: [id number] ROOM/BED: 277-1 : 47 AGE: 76 SEX: F ATTEND: Mi Valdez MD ADM AUTHOR: Pamela Garcia [facility] * ALL edits or amendments must be made on the el SEAronic/computer document * Vancomycin Vancomycin Medication Therapy Labs: Laboratory Test : 07/15 919 Chemistry BUN (7 - 18 MG/DL) 16 Creatinine (0.55 - 1.30 MG/DL) 0.70 Hematology WBC (4.1 - 12.1 K/mm3) 4.8 Microbiology: 07/14 1954 NASAL: Nasopharyngeal Culture - ORD 07/14 1949 STOOL: Occult Blood - CAN Cancelled: Cancelled via OE: Physician Decision Treatment plan: initiation of therapy Regimen: Vancomycin 750mg q12h Follow up: Lab: Next trough 07/17 799 Electronically Signed by Pamela Garcia [facility] on at 2009 RPT #:[id number] END OF REPORT 2022-07-14 19:59:00-00:00 [facility] DT PROGRESS NOTE REPORT#:[id number] REPORT STATUS: Signed DATE:07/14/22 TIME: 1958 PATIENT: JAKI SANCHEZ UNIT #: [id number] ROOM/BED: [facility]-1 : 47 AGE: 76 SEX: F ATTEND: Mi Valdez MD ADM AUTHOR: Ki Valdez MD * ALL edits or amendments must be made on the [employer] document * Progress Note Progress Note [id number] Electronically Signed by Ki Valdez MD on 0 07/14/22 at 1999 RPT #:[id number] END OF REPORT 2022-07-14 19:59:00-00:00 [id number] [place] [address] PATIENT NAME: JAKI SANCHEZ ADMIT DATE: ACCOUNT NO: [id number] ROOM NO: [facility] AGE: 76 REPORT TYPE: HISTORY AND PHYSICAL SEX: F ADMITTING PHYSICIAN:Ki Valdez MD ATTENDING PHYSICIAN:Ki Valdez MD ADMISSION DATE: 07/14/2022 09:35:00 PRIMARY CARE PHYSICIAN: Dr. Ja Rollins in [facility]. HISTORY OF PRESENT ILLNESS: This is a very pleasant 76-year-old lady who I have known very well in the past. She has a previous history of hypertension, has coronary artery disease, also has had AFib and h as required ablation about a year ago, started having some issues with allerg ies and was diagnosed with adult-onset asthma. The patient since then has r elocated from [place], [place] to around the [place] in [facility], but she continued to have persistent amount of sinus headaches. As a result, she went to the [facility] where she got to see an ENT who did a complete lavage of her o vert sinuses and noted that there was pseudomonas as wel l as Staphylococcus infection that was growing from her sinuses. She was put on appropriate antibiot ics. It seems like when she was on antibiotics she would get better, but as soon as the antibiotic courses would be over she would start having recurrence of her symptoms. She has been having a persistent headache . She starts having nausea and vomiting and then she starts throwing up and so it has caused her to have significant amount of belly pain. She decided to come to the hospital to get more relief for the same. PAST MEDICAL HISTORY: As I mentioned above. PAST SURGICAL HISTORY: As I mentioned above. SOCIAL HISTORY: She does not smoke or drink or d o any illicit drugs. REVIEW OF SYSTEMS: A 12-point review of systems was done and pertinent positives and negatives are listed in the HPI. ALLERGIES: SHE IS ALLERGIC TO LEVAQUIN. PHYSICAL EXAMINATION: VITAL SIGNS: Currently, vital signs are stable. HEENT: Shows no icterus. No pallor. NECK: There is no JVP. LUNGS: Clear to auscultation. ABDOMEN: Soft. EXTREMITIES: Have no edema. She does have mild s inus tenderness in the left frontal sinus. ASSESSMENT AND PLAN: The patient with recurrent symptoms. I am concerned that she may have a case of chronic sinusitis or poss ibility of osteomyelitis ____ PATIENT NAME: JAKI SANCHEZ [id number] especially with her having pseudomonas and Staph ylococcus maybe she needs a longer course of antibiotics to just eradicate that and other possibility would be if there was a concern ab out mucormycosis as the patient has been on repeated bouts of antibiotics as well as steroids, especially for her asthma, and because of her sinuses, however, michell al lavage did not show any fungal element and the CT of this nasal sinuses includ ing ____ really do not show any bony destruction or growth towards the orbit to suspect of mucormycosis. Other possibility would be if this is a non-sinus relat ed headache, which has just been attributed towards that, in that case a C-spine would be a concern. Intracranial pathology would be concerning, also what if this may have extended to the pituitary fossa and causing her to have some headache related to jere t, although she does not have any visual defects to go along with that. Our pl an would be to get an MRI of the brain with contrast to see whether I can keshav ntify any infection or inflammation, etc. I will get a sed rate , C-reactive protein also. We will get repeat cultures, especially from a nasal lavage. I will get a C-spine x-ray also. I will pacify her stomach with some Prevac id ____ expected may be secondary to that. We will resume her ho me medications and we will see how she does with all of these. Dictated By: Ki Valdez MD Date Dictated: 07/14/2022 19:59:48 Date Transcribed: 07/14/2022 20:51:34 AB/QUS/NINOSKA Receipt ID: [id number] CC: Andrea Rollins Authenticated by Ki Valdez MD On 07/18 05:05:25 PM at 0505 PATIENT NAME: JAKI SANCHEZ [id number] 2022-07-14 09:31:00-00:00 [facility] ([facility]) EMERGENCY PROVIDER REPORT REPORT#:[id number] REPORT STATUS: Signed DATE:07/14/22 TIME: 930 PATIENT: JAKI SANCHEZ UNIT #: [id number] ROOM/BED: [place] [address] AGE: 76 SEX: F PCP PHYS: Ki Valdez MD SERVICE AUTHOR: Taylor Sanchez MD * ALL edits or amendments must be made on the el SE[employer]/computer document * HPI-General Illness Free Text HPI Notes Free Text HPI Notes 76-year-old female presents with chief complaint of headaches, onset in May after she had a procedure for recurrent sinusiti s, sinus irrigation. Patient also reports abdominal pain vomiting no rhinorrhea no sore throat no fevers no chest pain no dyspnea no cou gh. Patient has been on antibiotics for Pseudomonas recurrently. PMH: Asthma CAD PSH PCI stent sinus surgery General Initial Greet Date/Time 07/14/22 0839 Presentation Chief Complaint __ (headache, vomiting) Past Medical History - Adult Stated Complaint ABDOMINAL AKFM-RCDMGOZH-OLSUJKK E Allergies Coded Allergies: levofloxacin (From [employer]) (Severe, HIVES 09/29) Home Medications Reported Medications LISINOPRIL (ZESTRIL) 20 MG PO DAILY ATORVASTATIN (LIPITOR) 40 MG PO BEDTIME RIVAROXABAN (XARELTO) 10 MG PO DAILY traZODone (DESYREL) 50 MG PO BEDTIME ASPIRIN 81 MG PO DAILY IRON POLYSACCHARIDES (FERREX 150) 150 MG PO MARIEL Y OMEPRAZOLE ER (PriLOSEC) 40 MG PO DAILY FAMOTIDINE (PEPCID) 20 MG PO BEDTIME [TRIAMTERENE] TEMAZEPAM (RESTORIL) 15 MG PO BEDTIME CHOLECALCIFEROL (VITAMIN D3) (VITAMIN D3) 1,000 UNITS PO BEDTIME rOPINIRole (REQUIP) 0.5 MG PO Q12HR MULTIVITAMIN (MULTI-DAY VITAMIN) 1 TAB PO DAILY CYANOCOBALAMIN (VITAMIN B-12) 1,000 MCG PO DAILY methylPREDNISolone (MEDROL 4 MG DOSEPAK) 1 EACH PO ASDIR Additional Medical History Hypothyroidism Family History: Reports: Hypertension. Physical Exam Vital Signs Vital Signs First Documented: Result Date Time Pulse Ox 95 07/15 847 B/P 130/84 07/15 847 B/P Mean 99 07/15 847 O2 Delivery Room air 07/15 847 Temp 98.0 07/15 847 Pulse 82 07/15 847 Resp 15 07/15 847 Last Documented: Result Date Time Pulse Ox 97 07/14 929 B/P 150/69 07/14 929 Pulse 72 /929 B/P Mean 99 07/15 847 O2 Delivery Room air 07/15 847 Temp 98.0 07/15 847 Resp 15 07/15 847 Review of Vital Signs Reviewed Free Text PE Notes Free Text PE Notes General/constitutional: Alert, no acute distress Head: Normocephalic, grossly atraumatic Eyes: Normal conjunctiva, no periorbital swellin g or erythema Neck: Supple, no swelling or masses Ears/nose/throat: Moist mucous membranes, no fac ial swelling Respiratory: No respiratory distress, breath sonido nds equal bilaterally, no wheezes, no rales, no rhonchi Cardiovascular: Normal rate, regular rhythm, no murmur Abdomen/GI: Soft, nontender, no guarding Musculoskeletal: No lower extremity edema, no de formity Skin: Warm, dry, no grossly observed rash Neurologic: Appropriately alert and oriented, no motor deficits, no sensory deficits Psychiatric: Normal mood, normal affect, coopera tive Interpretation Diagnostics Lab Results Interpretation Results Laboratory Tests 07/14/22919: [Embedded Image Not Available] Laboratory Tests: 07/14 0920 Chemistry Sodium (133 - 144 mmol/L) 138.0 Potassium (3.5 - 5.1 mmol/L) 4.3 Chloride (95 - 105 mmol/L) 101 Carbon Dioxide (21 - 32 mmol/L) 29 Anion Gap (4.0 - 15.0 GAP calc) 8.0 BUN (7 - 18 MG/DL) 16 Creatinine (0.55 - 1.30 MG/DL) 0.70 Glomerular Filtr Rate (>60 estGFR) 91 Glucose (70 - 110 MG/DL) 87 Calcium (8.5 - 10.1 MG/DL) 9.0 Total Bilirubin (0.00 - 1.00 MG/DL) 0.55 Direct Bilirubin (0.00 - 0.30 MG/DL) 0.17 Indirect Bilirubin (0.2 - 1.3 MG/DL) 0.38 AST (15 - 37 Unit/L) 21 ALT (12 - 78 Unit/L) 20 Total Alk Phosphatase (45 - 117 Unit/L) 101 Troponin I High Sens (0 - 45 ng/L) 9 Total Protein (6.4 - 8.2 G/DL) 6.4 Albumin (3.4 - 5.0 G/DL) 3.2 L Albumin/Globulin Ratio (1.2 - 2.2 RATIO) 1.0 L Lipase (114 - 286 Unit/L) 106 L Specimen Appearance (1 NORMAL Index/DL) 1 PAPA L <2 MG Specimen Hemolysis (1 NORMAL Index/DL) 1 PAPA L <10 MG Hematology WBC (4.1 - 12.1 K/mm3) 4.8 RBC (3.8 - 5.5 M/mm3) 4.28 Hgb (10.6 - 15.8 G/DL) 13.7 Hct (31.8 - 47.4 %) 40.6 MCV (80.1 - 101.1 fL) 94.9 MCH (25.3 - 35.3 pg) 32.0 MCHC (32.7 - 35.1 G/DL) 33.7 RDW (12.2 - 16.4 %) 12.4 Plt Count (155 - 337 K/mm3) 224 MPV (6.8 - 11.2 fL) 9.5 Gran % (37.8 - 82.6 %) 68.2 Lymph % (Auto) (14.1 - 45.4 %) 24.8 [place] % (Auto) (2.5 - 11.7 %) 6.6 Eos % (Auto) (0.0 - 6.2 %) 0.0 Baso % (Auto) (0.0 - 2.1 %) 0.2 Gran # (2.0 - 13.7 k/mm3) 3.29 Lymph # (Auto) (0.6 - 3.8 K/mm3) 1.20 [place] # (Auto) (0.11 - 0.59 K/mm3) 0.32 Eos # (Auto) (0.0 - 0.4 K/mm3) 0.00 Baso # (Auto) (0.0 - 0.1 K/mm3) 0.01 Immature Gran % (0.0 - 2.0 %) 0.2 Nucleated RBC % (0.0 - 1.0 /100WBC%) 0.0 Nucleated RBCs # (0.0 - 0.05 K/mm3) 0.00 Urines Urine Color (YELLOW DESCRIPT) YELLOW Urine Appearance (CLEAR DESCRIPT) CLEAR Urine pH (4.6 - 8.0 pH UNITS) 5.0 Ur Specific Benjamin (1.001 - 1.035 SG) 1.026 Urine Protein ((NEG) <30 mg/dL) 20 (TRACE) H Urine Glucose (UA) (0 (NORMAL) mg/dL) NORMAL ( 0) Urine Ketones ((NEG) 0 mg/dL) OVER >150 (4+) H Urine Blood (0 (NEG) mg/dL) NEGATIVE (0.00) Urine Nitrite (NEG SCREEN) NEGATIVE (0) Urine Bilirubin ((NEG) 0 mg/dL) NEGATIVE (0.0) Urine Urobilinogen ((NORM)<2.0 mg/Dl) NORMAL (0 ) Ur Leukocyte Esterase ((NEG) 0 Leuk/mcL) NEGATI VE (0) Urine RBC (0 - 3 #RBC/HPF) 0-3 Urine WBC (0 - 3 #WBC/HPF) 3-5 Ur Squamous Epith Cells (NONE - SQepi /UL) RARE >0 Urine Bacteria (NONE - FEW /HPF) TRACE >0 Urine Mucus (NONE /LPF) RARE Urine Culture Screen (Cult byWBC Criteria) Crit NOTmet CULT-N/A Urine Comment (SpecComment NoteSPEC) SPECIMEN C OMMENT ECG #1 Interpretation Text/Dict Note Rate 81 regular intervals regular axis sinus rhy thm no significant ST segment elevations or depressions borderline dep ressions noted laterally V4 through V6 no significant ST segment elevations borderline depression 2 and aVF T wave inversion lead III nonspecific ST segment change s, EKG from 859 hours Re-Evaluation MDM Free Text MDM Notes Free Text MDM Notes -Differential diagnosis: [Sinusitis migraines in tracranial mass pancreatitis bowel obstruction gastroenteritis among other pa thologies] -External documents reviewed: [na] -My EKG interpretation: I directly visualized an d interpreted the EKG during medical decision-making My interpretation: [ Rate 81 regular intervals r egular axis sinus rhythm no significant ST segment elevations or depressions borderline depressions noted laterally V4 through V6 no significant ST segmen t elevations borderline depression 2 and aVF T wave inversion le ad III nonspecific ST segment changes, EKG from 859 hours ] -My imaging interpretation: [n/a] -My review of imaging report s: [ CT abdomen pelvis negative CT max face negative CT brain negative ] -Labs reviewed and interpreted by me are signifi cant for: [ BMP LFTs lipase troponin CBC urinalysis unremarkable ] -Decision rules/scores evaluated: [n/a] -Treatment and Prescription drug management: [ T ylenol Compazine ] -ED course: [Admitted for further work-up] -Discussed case/patient with: [ dr valdez, spitalist ] -I considered admission for: [Vomiting headaches ] -Disposition: [Admitted] -Problems and their severity/complexity: [] Headaches abdominal pain vomiting] -Social determinants of health: [n/a] ED Course Medication(s) Ordered Medication(s) Ordered: Central Nervous System Agents Sig/Alberto Start time Last Medication Dose Route Stop Time Status Admin Acetaminophen 1,000 MG X1ED STA 07/15 935 AC PO 07/14 936 Gastrointestinal Drugs Sig/Alberto Start time Last Medication Dose Route Stop Time Status Admin Prochlorperazine 10 MG X1ED STA 07/15 935 AC Edisylate IV 07/14 936 Patient Discharge Departure Vital Signs/Condition Vital Signs First Documented: Result Date Time Pulse Ox 95 07/15 0748 B/P 130/84 /09 1448 B/P Mean 99 07/15 0748 O2 Delivery Room air 07/15 0748 Temp 98.0 07/15 0748 Pulse 82 07/15 0748 Resp 15 07/15 0748 Last Documented: Result Date Time Pulse Ox 97 07/14 0830 B/P 150/69 07/14 929 Pulse 72 07/14 0830 B/P Mean 99 07/15 0748 O2 Delivery Room air 07/15 0748 Temp 98.0 07/15 0748 Resp 15 07/15 0748 All vital signs available at the time of this en try have been reviewed. Condition Stable Clinical Impression Clinical Impression Primary Impression: Frequent headaches Secondary Impressions: Abdominal pain, Vomiting Disposition Decision Admit Admit Physician Name Ki Valdez MD )( Admission Accepts Yes )( Accepted Time 09 )( Accepted Date 07/14/22 Discharge/Care Plan (Auto) Prescriptions Current Visit Scripts CYCLOBENZAPRINE (FLEXERIL) 10 MG PO TID 30 Days #90 TABS Electronically Signed by Taylor Sanchez MD on 0 07/24/22 at 1340 RPT #:[id number] END OF REPORT 2022-07-14 08:55:00-00:00 [facility] ([facility]) EMERGENCY PROVIDER REPORT REPORT#:[id number] REPORT STATUS: Signed DATE:07/14/22 TIME: 0855 PATIENT: JAKI SANCHEZ UNIT #: [id number] ROOM/BED: [place] [id number] AGE: 76 SEX: F PCP PHYS: Ki Valdez MD SERVICE AUTHOR: Nissa Ribeiro APRN [employer] * ALL edits or amendments must be made on the bitFlyer/computer document * Provider in Triage - Adult Provider in Triage Initial Greet Date/Time 07/14/22 0839 Progress 76-year-old female presents ER for complaints of nausea vomiting donal pain x1 week. MSE Not Complete The medical screening exam i s not complete. Further evaluation and/or treatment is required. The patient will be re-directed to the emergency department. PMH-Provider in Triage Stated Complaint ABDOMINAL HZLU-YEPNGHMS-OFHACEO E Allergies Coded Allergies: levofloxacin (From LEVAQUIN) (Severe, HIVES 09/29) Home Medications Reported Medications LISINOPRIL (ZESTRIL) 20 MG PO DAILY ATORVASTATIN (LIPITOR) 40 MG PO BEDTIME RIVAROXABAN (XARELTO) 10 MG PO DAILY traZODone (DESYREL) 50 MG PO BEDTIME ASPIRIN 81 MG PO DAILY IRON POLYSACCHARIDES (FERREX 150) 150 MG PO MARIEL Y TEMAZEPAM (RESTORIL) 15 MG PO BEDTIME CHOLECALCIFEROL (VITAMIN D3) (VITAMIN D3) 1,000 UNITS PO BEDTIME rOPINIRole (REQUIP) 0.5 MG PO Q12HR MULTIVITAMIN (MULTI-DAY VITAMIN) 1 TAB PO DAILY CYANOCOBALAMIN (VITAMIN B-12) 1,000 MCG PO DAILY methylPREDNISolone (MEDROL 4 MG DOSEPAK) 1 EACH PO ASDIR Discontinued Reported Medications RIVAROXABAN (XARELTO) Electronically Signed by Nissa Ribeiro 07/14/22 at 1907 RPT #:[id number] END OF REPORT
[2022-11-26] MEDS ORDERED: METHYLPREDNISOLONE 125 MG INJ ONE (01:03)
[2022-11-26] MEDS ORDERED: CODEINE 30MG/APAP 300MG TAB ONE (01:03)
[2022-11-26] MEDS ORDERED: IPRATROPIUM BROM 0.5MG/2.5ML ONE ×2 (01:04→03:41)
[2022-11-26] MEDS ORDERED: NA CHLORIDE 0.9% 500 ML ONE (01:04)
[2022-11-26] MEDS ORDERED: IBUPROFEN 400 MG TAB ONE (01:04)
[2022-11-26] MEDS ORDERED: AZITHROMYCIN 250 MG TAB PO ONE (02:26)
[2022-11-26 02:27] LABS: Hematocrit 37.7 % (36.0-45.0); Lymphocytes % 21.9 % (15.3-44.8); MCV 92.2 fL (80-100); MPV 8.3 fL (7.6-11.3); Platelets 199 thou/uL (152-406); RBC Red Blood Cell Count 4.09 M/uL (3.86-4.86)
[2022-11-26] MEDS ORDERED: OSELTAMIVIR 75 MG CAP PO ONE ×2 (02:27→02:53)
[2022-11-26 02:29] LABS: Protime INR 1.58
[2022-11-26 02:37] LABS: SARS-CoV-2 Antigen Rapid Res Positive (Negative)
[2022-11-26] MEDS ORDERED: AZITHROMYCIN 250 MG TAB ONE (02:53)
--- NOTE | 2022-11-26 03:31 | EDPHYS ---
Physician Documentation [facility] Name: Jaki Andres Age: 77 yrs Sex: Female : 1945 Arrival Date: 11/25/2022 Time: 23:03 Bed 17 Private MD: ED Physician Isauro Ovalle HPI: 11/25 23:17 This 77 yrs old Female presents to ER via Unassigned with complaints of sp4 Asthma Exacerbation. 23:18 PMH - 12:54No Known Allergies; ph PMHx: Hypertensive disorder; Atrial fibrillation; sp4 Asthma; PSHx: Cholecystectomy; Appendectomy; Total abdominal hysterectomy; heart cath; Nasal SX;. 11/26 03:24 77-year-old female presents with a cute onset of shortness of breath, cough, purulent sp4 rhinitis, starting 1 week ago associated with fever, chills, body aches . Historical: - Allergies: 11/25 23:57 Levofloxacin; me1 - PMHx: 23:57 Asthma; Atrial fibrillation; Hypertensive disorder; Myocardial infarction; me1 - PSHx: 23:57 Appendectomy; Cholecystectomy; heart cath; Nasal sx; Total abdominal hysterectomy; me1 - Immunization history:: Adult Immunizations up to date. - Social history:: Smoking status: Patient denies any tobacco usage or history of. - Family history:: not pertinent. ROS: 11/26 03:24 Constitutional: Negative for weight loss, positive for subjective fever, chills, body sp4 aches, shortness of breath, purulent rhinitis, cough, pleuritic chest pain, wheezing All other systems are negative, Exam: 03:24 Constitutional: This is a well developed, well nourished patient who is awake, alert, sp4 patient is ill-appearing but not in acute distress, nontoxic-appearing Head/Face: Normocephalic, atraumatic. Eyes: Pupils equal round and reactive to light, extra-ocular motions intact. Lids and lashes normal. Conjunctiva and sclera are not injected. Cornea within normal limits. Periorbital areas with no swelling, redness, or edema. ENT: Nares patent. No nasal discharge, no septal abnormalities noted. Tympanic membranes are normal and external auditory canals are clear. Oropharynx with no redness, swelling, or masses, exudates, or evidence of obstruction, uvula midline. Mucous membranes moist. Neck: Trachea midline, no thyromegaly or masses palpated, and no cervical lymphadenopathy. Supple, full range of motion without nuchal rigidity, or vertebral point tenderness. Chest/axilla: Normal chest wall appearance and motion. Nontender with no deformity. No lesions are appreciated. Cardiovascular: Regular rate and rhythm with a normal S1 and S2. No gallops, murmurs, or rubs. Normal PMI, no JVD. No pulse deficits. Respiratory: Lungs have equal breath sounds bilaterally, clear to auscultation and percussion. No rales, rhonchi , mild bilateral expiratory wheezes, increased work of breathing, tachypnea Abdomen/GI: Soft, non-tender, with normal bowel sounds. No distension or tympany. No guarding or rebound. No evidence of tenderness throughout. Back: No spinal tenderness. No costovertebral tenderness. Skin: Warm, dry with normal turgor. Normal color with no rashes, no lesions, and no evidence of cellulitis. MS/ Extremity: Pulses equal, no cyanosis. Neurovascular intact. Full, normal range of motion. Neuro: Awake and alert, GCS 15, oriented to person, place, time, and situation. Cranial nerves II-XII grossly intact. Motor strength 5/5 in all extremities. Sensory grossly intact. Psych: Awake, alert, with orientation to person, place and time. Behavior, mood, and affect are within normal limits 03:24 ECG was reviewed by the Attending Physician. EKG time 0 145, normal sinus rhythm at sp4 rate of 71. Vital Signs: 11/25 23:54 BP 117 / 78; Pulse 87; Resp 21; Temp 98.4(TE); Pulse Ox 94% on R/A; Weight 65.32 kg; me1 Height 5 ft. 6 in. ; Pain 6/10; 11/26 05:51 BP 127 / 57; Pulse 76; Resp 18; Pulse Ox 94% ; bp 11/25 23:54 Body Mass Index 23.24 (65.32 kg, 167.64 cm) me1 11/25 23:54 Pain Scale: [place] [facility] MDM: 11/25 23:25 Patient medically screened. sp4 11/26 03:29 Differential diagnosis: acute asthma, exercise-induced asthma, reactive airway, CHF, sp4 anaphylaxis, URI, foreign body. Antibiotic administration: Zithromax PO . Data reviewed: vital signs, nurses notes, old medical records, lab test result(s), EKG, radiologic studies, plain films. ED course: Chest x ray - TECHNIQUE: Frontal view of the chest. COMPARISON: No relevant prior studies available. FINDINGS: Lungs: Unremarkable. No consolidation. Pleural space: Unremarkable. No pneumothorax. Heart: Unremarkable. Mediastinum: Unremarkable. Bones/joints: Unremarkable. Tubes, lines and devices: Metallic densities overlying the right hemithorax. IMPRESSION: No acute findings in the chest. . 11/25 23:19 Order name: BMP; Complete Time: 08:41 sp4 11/25 23:19 Order name: Blood Culture Adult (2) [facility] 11/25 23:19 Order name: CBC with Diff; Complete Time: 03:19 4 11/25 23:19 Order name: CPK; Complete Time: 08:41 4 11/25 23:19 Order name: Hepatic Function; Complete Time: 08:41 4 11/25 23:19 Order name: Lipase; Complete Time: 08:41 sp4 11/25 23:19 Order name: Magnesium; Complete Time: 08:41 sp4 11/25 23:19 Order name: NT PRO-BNP; Complete Time: 08:41 sp4 11/25 23:19 Order name: PT-INR; Complete Time: 03:19 sp4 11/25 23:19 Order name: Ptt, Activated; Complete Time: 03:19 4 11/25 23:19 Order name: Troponin HS; Complete Time: 08:41 4 11/25 23:25 Order name: SARS RAPID; Complete Time: 03:19 sp4 11/26 03:54 Interpretation: SARS RESULT Positive. cm12 11/25 23:25 Order name: Influenza Screen (a \T\ B); Complete Time: 03:19 4 11/25 23:19 Order name: XRAY CXR (1 view) [facility] 11/25 23:19 Order name: EKG; Complete Time: 23:20 sp4 11/25 23:19 Order name: Cardiac monitoring; Complete Time: 03:23 4 11/25 23:19 Order name: EKG - Nurse/Tech; Complete Time: 03:23 4 11/25 23:19 Order name: IV Saline Lock; Complete Time: 03: sp4 11/25 23:19 Order name: Labs collected and sent; Complete Time: : sp4 11/25 23:19 Order name: O2 Per Protocol; Complete Time: : sp4 11/25 23:19 Order name: O2 Sat Monitoring; Complete Time: : sp4 EC:24 Rate is 71 beats/min. Rhythm is regular, Normal Sinus Rhythm. QRS [place] is Normal. [place] sp4 interval is normal. QRS interval is normal. QT interval is normal. No Q waves. T waves are Flattened in leads V1, V2, V3, V4, V5. No ST changes noted. Clinical impression: No evidence of ischemia. Interpreted by me. Administered Medications: 00:00 Drug: Ipratropium Inhalation Aerosol 0.5 mg Inhalation once; Every 20 min for a total bp of 3 treatments x3 Route: Inhalation; 00:00 Drug: MethylPrednisoLONE IVP 125 mg IVP once Route: IVP; Site: right forearm; bp 00:00 Drug: NS 0.9% IV 500 ml IV at bolus once Route: IV; Rate: bolus; Site: right forearm; bp 00:00 Drug: Ondansetron IVP 4 mg IVP once; over 2 minutes Route: IVP; Site: right forearm; bp 00:00 Drug: Acetaminophen-Codeine PO (300 mg-30 mg) 2 tabs PO once; RASS on ADMIN: Combtv4, bp Very Agttd3, Agttd2, Rstlss1, AlertClm0, Drwsy-1, Lt Sdtn-2, Mod Sdtn-3, Dp Sdtn-4, UnArsble-5 Route: PO; 00:00 Drug: Ibuprofen PO 400 mg PO once Route: PO; bp 00:20 Drug: Ipratropium Inhalation Aerosol 0.5 mg Inhalation once; Every 20 min for a total bp of 3 treatments x3 Route: Inhalation; 00:40 Drug: Ipratropium Inhalation Aerosol 0.5 mg Inhalation once; Every 20 min for a total bp of 3 treatments x3 Route: Inhalation; 03:33 Drug: Albuterol Inhalation 2.5 mg Inhalation once Route: Inhalation; bp 03:33 Drug: Ipratropium Inhalation Aerosol 0.5 mg Inhalation once Route: Inhalation; bp 05:17 Drug: Promethazine IVP 25 mg IVP once Route: IVP; Site: right forearm; bp 05:23 Drug: Ketorolac IVP 15 mg IVP once Route: IVP; Site: right forearm; bp Disposition Summary: 11/26/22 03:30 Hospitalization Ordered Notes: Hospitalization Status: Inpatient Admission sp4 Provider: Marilynn Pederson4 Location: Telemetry/[facility]Sur (Inpatient) sp4 Condition: Serious sp4 Problem: new sp4 Symptoms: have improved sp4 Bed/Room Type: Standard sp4 Room Assignment: 418(11/26/22 04:13) cg Diagnosis - Acute COVID-19, acute influenza B, hypoxemia, asthma exacerbation sp4 Forms: - Medication Reconciliation Form sp4 - SBAR form sp4 - Leadership Thank You Letter sp4 Signatures: Dispatcher [employer] Tracie Whitaker RN RN cg Jonel Bonilla RN RN bp Potepalov, Sergey, MD MD sp4 Sophia Cantor RN RN [facility] Twila Simpson, 911 EMERGENCY SERVICES DISPATCHER 911 EMERGENCY SERVICES DISPATCHER 12 Corrections: (The following items were deleted from the chart) 04:13 03:30 sp4 cg
--- NOTE | 2022-11-26 03:31 | ER ---
Nurse's Notes [facility] Name: Jaki Andres Age: 77 yrs Sex: Female : 1945 Arrival Date: 11/25/2022 Time: 23:03 Bed 17 Private MD: Diagnosis: Acute COVID-19, acute influenza B, hypoxemia, asthma exacerbation Presentation: 11/25 23:54 Chief complaint: Patient states: c/o difficulty breathing, cough with congestion, me1 malaise, body aches that started about 3 days ago. Coronavirus screen: Vaccine status: Patient reports receiving the 2nd dose of the covid vaccine. Ebola Screen: No symptoms or risks identified at this time. Initial Sepsis Screen: Does the patient meet any 2 criteria? No. Patient's initial sepsis screen is negative. Does the patient have a suspected source of infection? No. Patient's initial sepsis screen is negative. Risk Assessment: Do you want to hurt yourself or someone else? Patient reports no desire to harm self or others. Onset of symptoms was November 21, 2022. 23:54 Method Of Arrival: [facility] 23:54 Acuity: SEGUNDO 3 me1 Triage Assessment: 11/26 00:00 General: Appears distressed, Behavior is cooperative, appropriate for age, anxious. bp Pain: Denies pain. EENT: Reports nasal congestion. Neuro: Level of Consciousness is awake, alert, obeys commands, Oriented to Appropriate for age. Respiratory: Breath sounds are coarse bilaterally. Historical: - Allergies: 11/25 23:57 Levofloxacin; me1 - PMHx: 23:57 Asthma; Atrial fibrillation; Hypertensive disorder; Myocardial infarction; me1 - PSHx: 23:57 Appendectomy; Cholecystectomy; heart cath; Nasal sx; Total abdominal hysterectomy; me1 - Immunization history:: Adult Immunizations up to date. - Social history:: Smoking status: Patient denies any tobacco usage or history of. - Family history:: not pertinent. Screenin/19 05:53 [facility] ED Fall Risk Assessment (Adult) History of falling in the last 3 months, bp including since admission No falls in past 3 months (0 pts). Abuse screen: Denies threats or abuse. Denies injuries from another. Nutritional screening: No deficits noted. Tuberculosis screening: No symptoms or risk factors identified. Assessment: 00:00 General: SEE TRIAGE NOTE. bp 02:00 Reassessment: Patient appears in no apparent distress at this time. Patient is alert, bp oriented x 3, equal unlabored respirations, skin warm/dry/pink. 04:00 Reassessment: Patient appears in no apparent distress at this time. Patient is alert, bp oriented x 3, equal unlabored respirations, skin warm/dry/pink. 05:51 Reassessment: ADMIT COMPLETE. bp Vital Signs: 11/25 23:54 BP 117 / 78; Pulse 87; Resp 21; Temp 98.4(TE); Pulse Ox 94% on R/A; Weight 65.32 kg; me1 Height 5 ft. 6 in. ; Pain 08/17; 11/26 05:51 BP 127 / 57; Pulse 76; Resp 18; Pulse Ox 94% ; bp 11/25 23:54 Body Mass Index 23.24 (65.32 kg, 167.64 cm) me1 11/25 23:54 Pain Scale: Adult de1 ED Course: 11/25 23:08 Patient arrived in ED. cc5 23:17 Isauro Ovalle MD is Attending Physician. sp4 23:57 Triage completed. me1 23:57 Arm band placed on Patient placed in waiting room. me1 11/26 00:23 Jonel Bonilla, ABE is Primary Nurse. bp 00:30 Inserted saline lock: 22 gauge in right forearm, using aseptic technique. Blood bp collected. 00:43 XRAY CXR (1 view) In Process Unspecified. EDMS 03:30 Marilynn Pederson MD is Hospitalizing Provider. sp4 05:53 Patient has correct armband on for positive identification. Bed in low position. Call bp light in reach. Side rails up X2. Adult w/ patient. 05:53 No provider procedures requiring assistance completed. Patient admitted, IV remains in bp place. Administered Medications: 00:00 Drug: Ipratropium Inhalation Aerosol 0.5 mg Inhalation once; Every 20 min for a total bp of 3 treatments x3 Route: Inhalation; 00:00 Drug: MethylPrednisoLONE IVP 125 mg IVP once Route: IVP; Site: right forearm; bp 00:00 Drug: NS 0.9% IV 500 ml IV at bolus once Route: IV; Rate: bolus; Site: right forearm; bp 00:00 Drug: Ondansetron IVP 4 mg IVP once; over 2 minutes Route: IVP; Site: right forearm; bp 00:00 Drug: Acetaminophen-Codeine PO (300 mg-30 mg) 2 tabs PO once; RASS on ADMIN: Combtv4, bp Very Agttd3, Agttd2, Rstlss1, AlertClm0, Drwsy-1, Lt Sdtn-2, Mod Sdtn-3, Dp Sdtn-4, UnArsble-5 Route: PO; 00:00 Drug: Ibuprofen PO 400 mg PO once Route: PO; bp 00:20 Drug: Ipratropium Inhalation Aerosol 0.5 mg Inhalation once; Every 20 min for a total bp of 3 treatments x3 Route: Inhalation; 00:40 Drug: Ipratropium Inhalation Aerosol 0.5 mg Inhalation once; Every 20 min for a total bp of 3 treatments x3 Route: Inhalation; 03:33 Drug: Albuterol Inhalation 2.5 mg Inhalation once Route: Inhalation; bp 03:33 Drug: Ipratropium Inhalation Aerosol 0.5 mg Inhalation once Route: Inhalation; bp 05:17 Drug: Promethazine IVP 25 mg IVP once Route: IVP; Site: right forearm; bp 05:23 Drug: Ketorolac IVP 15 mg IVP once Route: IVP; Site: right forearm; bp Medication: 05:51 VIS not applicable for this client. bp Outcome: 03:30 Decision to Hospitalize by Provider. sp4 05:55 Admitted to Med/surg accompanied by tech, family with patient, via stretcher, room 418, bp with chart, Report called to MURIEL FISH 05:55 Condition: stable 05:55 Instructed on the need for admit, 06:25 Patient left the ED. bp Signatures: Dispatcher [employer] Jonel Stark RN RN bp Josee Teran cc5 Isauro Ovalle MD MD sp4 Sophia Cantor RN RN me1
[2022-11-26] MEDS ORDERED: ALBUTEROL 2.5 MG/3 ML NEB SOL ONE (03:40)
--- NOTE | 2022-11-26 04:08 | P.HP ---
Certification for Inpatient Patient admitted to: Inpatient With expected LOS: <2 Midnights Patient will require the following post-hospital care: None Practitioner: I am a practitioner with admitting privileges, knowledge of patient current condition, hospital course, and medical plan of care. Services: Services provided to patient in accordance with Admission requirements found in Title 42 Section 412.3 of the Code of Federal Regulations Patient History Date of Service: 11/26/22 Reason for admission: Shortness of breath History of Present Illness: 77-year-old female with a past medical history of hypertension, atrial fibrillation presents to the emergency room with asthma exacerbation. She reports associated shortness of breath, productive cough, purulent rhinorrhea, fever, chills, body aches x1 week. She denies chest pain, abdominal pain, diarrhea, vomiting, dizziness, edema. Plan to admit for - Acute COVID-19, acute influenza B, hypoxemia, asthma exacerbation ED course. 4 Rate is 71 beats/min. Rhythm is regular, Normal Sinus Rhythm. QRS [place] is Normal. [place] interval is normal. QRS interval is normal. QT interval is normal. No Q waves. T waves are Flattened in leads V1, V2, V3, V4, V5. No ST changes noted. Clinical impression: No evidence of ischemia CBC unremarkable sires positive, chest x-ray no acute findings Allergies No Known Allergies Allergy (Verified 11/26/22 02:49) Home Medications: Aspirin 81 mg PO DAILY 03/21/20 Atorvastatin Calcium [Lipitor] 80 mg PO DAILY 03/21/20 Lisinopril [Zestril] 5 mg PO DAILY 03/21/20 Multivit with Iron,Minerals [Complete Senior] 1 each PO DAILY 03/21/20 Pantoprazole [Protonix Tab] 40 mg PO DAILY PRN 03/21/20 Rivaroxaban [Xarelto] 20 mg PO DAILY 03/21/20 Tramadol HCl [Ultram] 50 mg PO DAILY PRN 03/21/20 Trazodone [Desyrel] 50 mg PO DAILY 03/21/20 Ubiquinol 100 mg MC DAILY 03/21/20 Vit C/Ascorb Sod/Multivit-Min [Emergen-C 500 mg Chewable Tab] 1,000 mg PO DAILY 03/21/20 Vit D3/Vit K2/Calc Frutoborate [Move Free Cboes-[id number]-[id number]] 1 each PO DAILY 03/21/20 predniSONE [Deltasone*] 10 mg PO BID #20 tab 03/22/20 - Past Medical/Surgical History -: Asthma -: Atrial fibrillation -: Sarcoidosis -: Factor V Leiden -: Hypertension -: Dyslipidemia -: Cholecystectomy -: Hysterectomy -: Foot surgery -: Breast reduction - Social History Alcohol use: No CD- Drugs: No Caffeine use: No Review of Systems 10-point ROS is otherwise unremarkable Physical Examination - Physical Exam General: Alert, In no apparent distress, Oriented x3 HEENT: Atraumatic, Normocephalic, PERRLA Neck: Supple, 2+ carotid pulse no bruit Respiratory: Expiratory wheezes, Inspiratory wheezes Cardiovascular: No edema, Normal pulses, Regular rate/rhythm Capillary refill: <2 Seconds Gastrointestinal: Normal bowel sounds, Soft and benign Musculoskeletal: No clubbing, No swelling Integumentary: No rashes, No breakdown Neurological: Normal speech, Normal strength at 5/5 x4 extr - Studies Laboratory Data (last 24 hrs) 11/26/22 11/26/22 02:00 02:00 WBC 4.60 Hgb 12.8 Hct 37.7 Plt Count 199 PT 17.4 H INR 1.58 APTT 35.2 Microbiology Data (last 24 hrs): 11/26/22 01:50 Nasopharnyx Influenza Type A Antigen Screen - Final 11/26/22 01:50 Nasopharnyx Influenza Type B Antigen Screen - Final Assessment and Plan - Plan Assessment plan Acute hypoxic respiratory failure secondary to acute [id number] acute influenza B-acute asthma exacerbation-acute Essential hypertension Factor V mutantation, heterozygous History of atrial fibrillation History of sarcoidosis Assessment plan Acute hypoxic respiratory failure secondary to acute COVID-19 acute influenza B asthma exacerbation Pulmonary consult, infectious disease consult, Nebs, steroids, IV azithromycin, ceftriaxone, Tamiflu Essential hypertension Factor V mutantation, heterozygous History of atrial fibrillation History of sarcoidosis Resume appropriate home meds Diet cardiac Full code DVT Discharge Plan: Home Plan to discharge in: 48 Hours - Advance Directives Does patient have a Living Will: No Does patient have a Durable POA for Healthcare: No - Code Status/Comfort Care Code Status: Full Code Physician Review: Patient Assessed, Agree with Above Assessment and Plan Critical Care: No Time Spent Managing Pts Care (In Minutes): 50
[2022-11-26] MEDS ORDERED: KETOROLAC 30 MG/ML INJ ONE (05:16)
[2022-11-26] MEDS ORDERED: PROMETHAZINE INJ 25 MG/ML AMP ONE (05:21)
[2022-11-26 05:39] LABS: Albumin 2.9 g/dL (3.4-5.0); Bilirubin Direct 0.2 mg/dL (0-0.2); Bilirubin Indirect, Calculated 0.3 mg/dL (0.2-0.8); Bilirubin Total 0.5 mg/dL (0.2-1.0); Magnesium 1.9 mg/dL (1.6-2.4); Potassium 4.1 mEq/L (3.5-5.1); Protein, Total 5.9 g/dL (6.4-8.2); Troponin High Sensitivity 9.1 pg/mL (<58.9)
[2022-11-26] MEDS ORDERED: ONDANSETRON 4 MG/2 ML VIAL IV PRN (05:52)
[2022-11-26] MEDS ORDERED: ALBUTEROL 2.5 MG/3 ML NEB SOL NEB PRN ×2 (05:52→15:00)
[2022-11-26] MEDS ORDERED: ACETAMINOPHEN 500 MG TAB PO PRN (05:52)
[2022-11-26] MEDS ORDERED: METHYLPREDNISOLONE 125 MG INJ IV SCH (06:00)
[2022-11-26 06:56] LABS: Absolute Lymphocytes (CBC) 0.2 K/uL (0.7-4.9); Hematocrit 34.9 % (36.0-45.0); Lymphocytes % 5.6 % (15.3-44.8); MPV 8.1 fL (7.6-11.3); Platelets 168 thou/uL (152-406); RBC Red Blood Cell Count 3.76 M/uL (3.86-4.86)
[2022-11-26 07:04] LABS: Magnesium 1.8 mg/dL (1.6-2.4); Potassium 3.4 mEq/L (3.5-5.1)
[2022-11-26] MEDS: IPRATROPIUM BROM 0.5MG/2.5ML NEB SCH ×2 (07:20→13:09)
[2022-11-26 07:38] VITALS: BMI 23.2
[2022-11-26] MEDS: dexAMETHasone 4 MG TAB PO SCH ×2 (08:30→08:33)
[2022-11-26 08:44] LABS: Blood Morphology Comment NOTED (NOT SEEN); Platelet Estimate ADEQ; White Blood Cell Scan OK (OK)
[2022-11-26 08:45] LABS: Anisocytosis SLIGHT
[2022-11-26 08:56] VITALS: TEMP 97
[2022-11-26] MEDS ORDERED: OSELTAMIVIR 75 MG CAP PO SCH (09:00)
[2022-11-26] MEDS ORDERED: POTASSIUM CL SA 10 MEQ TAB PO ONE (09:00)
[2022-11-26] MEDS ORDERED: CEFTRIAXONE 1,000 MG in NA CHLORIDE 0.9% 50 ML IVPB SCH (09:00)
--- NOTE | 2022-11-26 09:07 | P.CNS ---
Date of Consult: 11/26/22 Reason for Consult: COVID, Influenza Chief Complaint: Shortness of breath History of Present Illness: Patient is a 77-year-old female with a past medical history of atrial fibrillation, hypertension and asthma who presented to the emergency department with complaints of shortness of breath, productive cough, rhinorrhea, fever and body aches for 1 week. Patient tested Positive for COVID-19 and influenza B. Patient admitted for acute hypoxic respiratory failure secondary to COVID-19 and influenza B. Infectious disease and pulmonology consulted. Allergies No Known Allergies Allergy (Verified 11/26/22 02:49) Home medications list reviewed: Yes Home Medications: Aspirin 81 mg PO DAILY 03/21/20 Atorvastatin Calcium [Lipitor] 80 mg PO DAILY 03/21/20 Lisinopril [Zestril] 5 mg PO DAILY 03/21/20 Multivit with Iron,Minerals [Complete Senior] 1 each PO DAILY 03/21/20 Pantoprazole [Protonix Tab] 40 mg PO DAILY PRN 03/21/20 Rivaroxaban [Xarelto] 20 mg PO DAILY 03/21/20 Tramadol HCl [Ultram] 50 mg PO DAILY PRN 03/21/20 Trazodone [Desyrel] 50 mg PO DAILY 03/21/20 Ubiquinol 100 mg MC DAILY 03/21/20 Vit C/Ascorb Sod/Multivit-Min [Emergen-C 500 mg Chewable Tab] 1,000 mg PO DAILY 03/21/20 Vit D3/Vit K2/Calc Frutoborate [Move Free Feypq-[id number]-S7-D3] 1 each PO DAILY 03/21/20 predniSONE [Deltasone*] 10 mg PO BID #20 tab 03/22/20 - Past Medical/Surgical History -: Asthma -: Atrial fibrillation -: Sarcoidosis -: Factor V Leiden -: Hypertension -: Dyslipidemia -: Cholecystectomy -: Hysterectomy -: Foot surgery -: Breast reduction - Social History Alcohol use: No CD- Drugs: No Caffeine use: No Place of Residence: Home Review of Systems 10-point ROS is otherwise unremarkable General: Weakness Respiratory: Shortness of Breath Physical Examination Temp Pulse Resp BP Pulse Ox 97.0 F 72 18 83/46 L 94 11/26/22 08:00 11/26/22 08:00 11/26/22 08:00 11/26/22 08:00 11/26/22 08:00 General: Alert, In no apparent distress HEENT: Atraumatic, Normocephalic Neck: Supple Respiratory: Normal air movement, Diminished Cardiovascular: Normal S1 S2 Gastrointestinal: Normal bowel sounds, Soft and benign Musculoskeletal: No clubbing Integumentary: No rashes Neurological: Normal speech Laboratory Data 11/26/22 11/26/22 02:00 02:00 WBC 4.60 Hgb 12.8 Hct 37.7 Plt Count 199 PT 17.4 H INR 1.58 APTT 35.2 Microbiology Data - Reviewed Imagings Data: -Chest x-ray 11/26: " Lungs unremarkable. No consolidation. Pleural space unremarkable. No pneumothorax. Heart unremarkable. Mediastinum unremarkable. Bones/joints unremarkable." Conclusions/Impression: Problem list Acute hypoxic respiratory failure secondary to acute influenza B and COVID-19 Influenza B COVID-19 Asthma exacerbation Hypertension Atrial fibrillation Sarcoidosis COVID-19 and influenza B - Symptoms ongoing for 1 week - Tested positive for COVID and influenza B on arrival - On Tamiflu started 11/26 - No leukocytosis - Afebrile -Chest x-ray 11/26: " No acute findings in the chest" Blood cultures 11/26: Pending Asthma exacerbation -Pulmonology on case Recommendations Reports improvement since yesterday. - Continue Tamiflu for 5 days (11/26 to 12/01) - Maintain adequate hydration and nutrition - Pulmonology on case. See note for further recommendations. Case discussed with Esteban Harman
[2022-11-26 09:30] VITALS: O2SAT 92
[2022-11-26] MEDS ORDERED: INFLUENZA VACCINE (for 6+ mo) 0.5 ML DOSE IMVAC ONE (10:00)
--- NOTE | 2022-11-26 11:59 | P.CNS ---
Date of Consult: 11/26/22 Reason for Consult: Asthma exacerbation COVID-positive Chief Complaint: Shortness of breath History of Present Illness: Patient is 77 years of age developed shortness of breath for the past 2 days and appeared in the emergency room and was found to be COVID-positive she is feeling much better now denies any fever or chills is sick with flu Allergies No Known Allergies Allergy (Verified 11/26/22 02:49) Home Medications: Aspirin 81 mg PO DAILY 03/21/20 Atorvastatin Calcium [Lipitor] 80 mg PO DAILY 03/21/20 Lisinopril [Zestril] 5 mg PO DAILY 03/21/20 Multivit with Iron,Minerals [Complete Senior] 1 each PO DAILY 03/21/20 Pantoprazole [Protonix Tab] 40 mg PO DAILY PRN 03/21/20 Rivaroxaban [Xarelto] 20 mg PO DAILY 03/21/20 Tramadol HCl [Ultram] 50 mg PO DAILY PRN 03/21/20 Trazodone [Desyrel] 50 mg PO DAILY 03/21/20 Ubiquinol 100 mg MC DAILY 03/21/20 Vit C/Ascorb Sod/Multivit-Min [Emergen-C 500 mg Chewable Tab] 1,000 mg PO DAILY 03/21/20 Vit D3/Vit K2/Calc Frutoborate [Move Free Vgxjh-Qapzrp-E7-D3] 1 each PO DAILY 03/21/20 predniSONE [Deltasone*] 10 mg PO BID #20 tab 03/22/20 - Past Medical/Surgical History -: Asthma -: Atrial fibrillation -: Sarcoidosis -: Factor V Leiden -: Hypertension -: Dyslipidemia -: Cholecystectomy -: Hysterectomy -: Foot surgery -: Breast reduction - Social History Alcohol use: No CD- Drugs: No Caffeine use: No Place of Residence: Home Review of Systems 10-point ROS is otherwise unremarkable General: Weakness Respiratory: Shortness of Breath Physical Examination Temp Pulse Resp BP Pulse Ox 97.0 F 72 18 112/54 L 94 11/26/22 08:00 11/26/22 09:30 11/26/22 08:00 11/26/22 09:30 11/26/22 08:00 General: Alert, In no apparent distress, Oriented x3 Neck: Supple Respiratory: Clear to auscultation bilaterally Cardiovascular: No edema, Regular rate/rhythm, Normal S1 S2 Gastrointestinal: Normal bowel sounds, Soft and benign Musculoskeletal: No clubbing, No swelling Laboratory Data (last 24 hrs) 11/26/22 11/26/22 02:00 02:00 WBC 4.60 Hgb 12.8 Hct 37.7 Plt Count 199 PT 17.4 H INR 1.58 APTT 35.2 - Problems (1) Coronavirus infection Current Visit: Yes Status: Acute Plan: Patient is 77 years of age admitted with a coronavirus infection she has a history of severe asthma getting Fasenra every other month chemistries labs all reviewed she is feeling much better patient can be discharged home on low-dose Decadron 2 mg twice a day for a week in addition to antiviral COVID agent stable for discharge vital signs stable
[2022-11-26 12:05] VITALS: BP 107/51
--- NOTE | 2022-11-26 14:16 | P.DS ---
Admission Date: 11/26/22 Discharge Date: 11/26/22 Disposition: ROUTINE DISCHARGE Discharge Condition: FAIR Reason for Admission: Shortness of breath Consultations: Pulmonary-Dr. Maguire. - Problems (1) Coronavirus infection Current Visit: Yes Status: Acute (2) Asthma with acute exacerbation Current Visit: No Status: Acute Qualifiers: Asthma persistence: persistent (3) History of atrial fibrillation Current Visit: No Status: Acute Brief History of Present Illness: 77-year-old female with a past medical history of hypertension, atrial fibrillation presented to the emergency room with with a complaint of shortness of breath. She reported associated productive cough, purulent rhinorrhea, fever, chills, body aches x1 week. She denied chest pain, abdominal pain, diarrhea, vomiting, dizziness, edema. Patient tested positive for COVID-19 and influenza B in the ED. chest x-ray did not show any acute findings. She was hospitalized for further management. Hospital Course: Patient was hospitalized, started on dexamethasone and Tamiflu. She was also treated with bronchodilator therapy. Patient reported significant improvement in her symptoms. Patient was stable vitals, no hypoxia. She was seen and evaluated by pulmonary Dr. Yee who recommended discharge with [facility]. Vital Signs/Physical Exam: Temp Pulse Resp BP Pulse Ox 97.0 F 66 16 107/51 L 96 11/26/22 12:00 11/26/22 12:00 11/26/22 12:00 11/26/22 12:00 11/26/22 12:00 Laboratory Data at Discharge: WBC 3.40 thou/uL (4.3-10.9) L 11/26/22 06:41 Hgb 12.0 g/dL (12.0-15.0) 11/26/22 06:41 Hct 34.9 % (36.0-45.0) L 11/26/22 06:41 Plt Count 168 thou/uL (152-406) 11/26/22 06:41 PT 17.4 SECONDS (9.5-12.5) H 11/26/22 02:00 INR 1.58 11/26/22 02:00 APTT 35.2 SECONDS (24.3-36.9) 11/26/22 02:00 Sodium 141 mEq/L (136-145) 11/26/22 06:41 Potassium 3.4 mEq/L (3.5-5.1) L D 11/26/22 06:41 BUN 20 mg/dL (7-18) H 11/26/22 06:41 Creatinine 0.75 mg/dL (0.55-1.02) 11/26/22 06:41 Glucose 137 mg/dL (74-106) H 11/26/22 06:41 Magnesium 1.8 mg/dL (1.6-2.4) 11/26/22 06:41 Total Bilirubin 0.5 mg/dL (0.2-1.0) 11/26/22 04:52 AST 29 U/L (15-37) 11/26/22 04:52 ALT 22 U/L (13-56) 11/26/22 04:52 Alkaline Phosphatase 62 U/L (45-117) 11/26/22 04:52 Lipase 180 U/L (13-75) H 11/26/22 04:52 Home Medications: Aspirin 81 mg PO DAILY 03/21/20 Atorvastatin Calcium [Lipitor] 80 mg PO DAILY 03/21/20 Lisinopril [Zestril] 5 mg PO DAILY 03/21/20 Multivit with Iron,Minerals [Complete Senior] 1 each PO DAILY 03/21/20 Pantoprazole [Protonix Tab*] 40 mg PO DAILY PRN 03/21/20 Rivaroxaban [Xarelto] 20 mg PO DAILY 03/21/20 Tramadol HCl [Ultram] 50 mg PO DAILY PRN 03/21/20 Trazodone [Desyrel*] 50 mg PO DAILY 03/21/20 Ubiquinol 100 mg MC DAILY 03/21/20 Vit C/Ascorb Sod/Multivit-Min [Emergen-C 500 mg Chewable Tab] 1,000 mg PO DAILY 03/21/20 Vit D3/Vit K2/Calc Frutoborate [Move Free Phnud-Yhqnmj-F2-D3] 1 each PO DAILY 03/21/20 Molnupiravir [Molnupiravir (Eua)] 800 mg PO BID #40 cap 11/26/22 Oseltamivir [Tamiflu*] 75 mg PO BID #10 cap 11/26/22 dexAMETHasone [Decadron*] 4 mg PO DAILY #5 tab 11/26/22 New Medications: dexAMETHasone [Decadron*] 4 mg PO DAILY #5 tab Molnupiravir [Molnupiravir (Eua)] 800 mg PO BID #40 cap Oseltamivir [Tamiflu*] 75 mg PO BID #10 cap Followup: Saji Alvarez MD [Primary Care Provider] - Time spent managing pt's care (in minutes): 28
--- NOTE | 2022-11-26 14:32 | RAD REPORT ---
EXAM DESCRIPTION: RAD - Chest Single View - 11/26/2022 12:41 am CLINICAL HISTORY: The patient is 77 years old and is Female; CONGESTION TECHNIQUE: Frontal view of the chest. COMPARISON: No relevant prior studies available. FINDINGS: Lungs: Unremarkable. No consolidation. Pleural space: Unremarkable. No pneumothorax. Heart: Unremarkable. Mediastinum: Unremarkable. Bones/joints: Unremarkable. Tubes, lines and devices: Metallic densities overlying the right hemithorax. IMPRESSION: No acute findings in the chest. Electronically signed by: David Fuchs MD 11/26/2022 1:05 AM CDT Due to temporary technical issues with the PACS/Fluency reporting system, reports are being signed by the in house radiologists without review as a courtesy to insure prompt reporting. The interpreting radiologist is fully responsible for the content of the report.
[2022-11-26] MEDS ORDERED: AZITHROMYCIN IV 250 MG in NA CHLORIDE 0.9% 250 ML IVPB SCH (21:00)
--- NOTE | 2022-11-27 14:37 | EKG ---
Test Date: 2022-11-26 Test Time: 01:45:41 [place]: BP MEASUREMENT RESULTS: Intervals: Rate: 71 HI: 148 QRSD: 84 QT: 410 QTc: 445 [place]: P: 95 HI: 148 QRS: 28 T: 56 INTERPRETIVE STATEMENTS: Normal sinus rhythm ST & T wave abnormality, consider inferior ischemia Abnormal ECG Compared to ECG 04/21/2022 21:08:57 ST (T wave) deviation now present Possible ischemia now present T-wave abnormality no longer present Electronically Signed On 11-27-22 14:32:56 CDT by Vince Steel
== END 2022-11-26 15:40 | disposition home or self-care (01) ==
LOC: ER 23:03 → ERHOLD 11-26 04:08 → INTOOBSV 11-26 04:08 → 4TH 11-26 05:47
PROVIDERS: ADMIT Internal Medicine; ATTEND Internal Medicine
DX: U07.1 COVID-19 (principal); J96.01 Acute respiratory failure with hypoxia; J10.1 Influenza due to other identified influenza virus with other respiratory manifestations; J44.1 Chronic obstructive pulmonary disease with (acute) exacerbation; I10 Essential (primary) hypertension; D68.51 Activated protein C resistance; I48.91 Unspecified atrial fibrillation; D86.9 Sarcoidosis, unspecified; I25.2 Old myocardial infarction
CPT/HCPCS: 93005; 87040 ×2; 85025 ×2; 80048 ×2; 36415; 83735 ×2; 82550; 85610; 80076; 85730; 84484; 83690; 83880; 87804 ×2; 71045; 94640; 96375; 96374; 99285; 87811; J2550; J8540; J7613; J7644 ×4; J2930 ×2; J7040; J0696; G0378 ×3